=== PATIENT | female | born 1985 | race African-American/Black ===

== ENCOUNTER 2021-12-10 20:23 | Emergency (ER) | payer MEDICAID, SELFPAY ==
[2021-12-10 20:30] VITALS: BP 176/100; PULSE 96; RESP 18; TEMP 36.6; O2SAT 97; BMI 28.8
[2021-12-10 21:00] VITALS: BP 152/99
--- NOTE | 2021-12-10 21:04 | ED_ITS ---
HPI - Extremity Injury (Lower) General Time Seen by Provider: 21:05 Date Seen: 12/10/21 Chief Complaint: Extremity Pain/Injury, Lower Stated Complaint: Fall, right ankle injury Time Seen by Provider: 12/10/21 21:04 Source: patient, RN notes reviewed and old records reviewed Mode of arrival: ambulatory Limitations: no limitations History of Present Illness HPI Narrative: Patient is a very pleasant 36-year-old female previously healthy who fell downstairs early this morning and has been unable to bear weight or walk on her right ankle since that time. Describes pain in the top of her foot and in the ankle. Her significant other has been caring her around when she has needed to use the restroom. She notes no other injury including head or neck. She is otherwise a healthy person. Movement or attempts at bearing weight greatly increases her discomfort. Related Data Home Medications Medication Instructions Recorded Confirmed amlodipine 5 mg tablet mg 12/10/21 bupropion HCl 150 mg 24 hr tablet, mg PO 12/10/21 extended release fluoxetine 40 mg capsule mg 12/10/21 folic acid 1 mg tablet 12/10/21 hydroxyzine HCl 25 mg tablet mg 12/10/21 ibuprofen 12/10/21 nicotine 14 mg/24 hr daily 12/10/21 transdermal patch thiamine mononitrate (vit B1) 100 mg 12/10/21 mg tablet (Vitamin B-1 (mononitrate)) Allergies Allergy/AdvReac Type Severity Reaction Status Date / Time No Known Drug Allergies Allergy Verified 12/10/21 20:34 Review of Systems Narrative: Denies any recent illnesses. Denies hitting head or any other injury. [facility] Social History Do you use any of these nicotine containing products: E-Cigarettes How often do you have a drink containing alcohol: monthly or less AUDIT-C Alcohol total score: 1 Non-prescribed substance use: marijuana (any form) Exam Narrative: Exam Narrative: Bilateral malleolar edema noted on the right lower ankle with discomfort palpated over the 1st metatarsal 5th metatarsal and lateral malleolus. No pain with palpation over the fibular head or tibia. Const: Vital Signs, click to edit/add: Vital Signs - 24 hr 12/10/21 20:30 12/10/21 21:00 Temperature 97.9 F Pulse Rate [Right Pulse Oximeter] 96 Respiratory Rate 18 Blood Pressure [Le ft Upper Arm] 176/100 H 152/99 H Pulse Oximetry 97 Oxygen Delivery Me thod Room Air Course Course Hospital Course: X-rays of the ankle and foot pending Vital Signs Vital signs: Initial Vital Signs Temperature 97.9 F 12/10/21 20:30 Temperature Source Oral 12/10/21 20:30 Pulse Rate 96 12/10/21 20:30 Respiratory Rate 18 12/10/21 20:30 Blood Pressure 176/100 H 12/10/21 20:30 Blood Pressure Mean 125 12/10/21 20:30 Blood Pressure Position Sitting 12/10/21 20:30 Pulse Oximetry 97 12/10/21 20:30 Oxygen Delivery Method 12/10/21 20:30 Vital Signs Temperature 97.9 F 12/10/21 20:30 Pulse Rate 96 12/10/21 20:30 Respiratory Rate 18 12/10/21 20:30 Blood Pressure 176/100 H 12/10/21 20:30 Pulse Oximetry 97 12/10/21 20:30 Oxygen Delivery Method 12/10/21 20:30 Temperature 97.9 F 12/10/21 20:30 Pulse Rate 96 12/10/21 20:30 Respiratory Rate 18 12/10/21 20:30 Blood Pressure 152/99 H 12/10/21 21:00 Pulse Oximetry 97 12/10/21 20:30 Oxygen Delivery Method 12/10/21 20:30 MDM - Extremity Injury (Lower) MDM Narrative Medical decision making narrative: 1. Right ankle fracture-patient has fibular fracture. Orthopedic PA suggests ca m walker and crutches. Light weight-bearing or toe-touch. Recommend follow-up with orthopedics for further examination and possible stress views. For pain recommend ibuprofen 600 mg every 8 hours. May use Vicodin sparingly 1-2 tablets q.4-6 hours p.r.n.. 20. Via Whi. Did inform patient this can be constipating. Try to elevate as much as possible. May remove leg from boot for icing. 2. Hypertension-blood pressure improved. Patient continues to be in significant discomfort which is likely resulting in elevated blood pressure. 2. Disposition- home in care of fiance. Return as needed. Did give number for Orthopedic and fracture Clinic here in [place] even though have any lives in [place]. States that her step children live here in she is frequently in [place]. Medical Records Attestation: I reviewed the patient's medical records. Medical records narrative: Review of patient's medical records note past history of alcohol misuse. Patient did not reveal this to me. Did explain to her that Denver can be addicting and that she should use this medication sparingly. I do not think ibuprofen will be entirely helpful in managing patient's pain. Imaging Data Right ankle x-ray: Attestation: I have reviewed the pertinent imaging results. My impression: No fracture of the foot Radiologist's impression: No acute fracture of the foot Right foot x-ray: Attestation: I have reviewed the pertinent imaging results. My impression: Obvious fracture through the distal aspect of the fibula Radiologist's impression: ones: There is a nondisplaced oblique fracture through the distal diaphysis of the fibula which appears to extend into the proximal lateral malleolus. Joint spaces: Unremarkable.? Soft tissues: Mild lateral soft tissue swelling. Impression: Nondisplaced oblique fracture through the distal diaphysis of the fibula which appears to extend into the proximal lateral malleolus. Discharge Plan Discharge Clinical Impression: Ankle fracture Patient Disposition: Home, Self-Care Condition: Improved Additional Instructions: Ibuprofen 600 mg every 8 hours as needed for pain. You may add Denver also known as hydrocodone or Vicodin sparingly for pain not relieved by ibuprofen. Denver from our [employer] meds machine. Try to elevate leg as much as possible. Ice to area of concern. Follow-up with orthopedics for additional evaluation and x- rays. Cam walker and crutches at this time. [facility] in [facility] can be reached at [phone] Prescriptions: No Action amlodipine 5 mg tablet bupropion HCl 150 mg tablet extended release 24 hr PO Label Comments: TAKE 1 TABLET BY MOUTH DAILY IN THE MORNING fluoxetine 40 mg capsule Label Comments: TAKE 1 CAPSULE BY MOUTH EVERY DAY IN THE MORNING nicotine 14 mg/24 hr patch 24 hour Label Comments: PLACE 1 PATCH ONTO SKIN DAILY. folic acid 1 mg tablet hydroxyzine HCl 25 mg tablet thiamine mononitrate (vit B1) [Vitamin B-1 (mononitrate)] 100 mg tablet Label Comments: TAKE 1 TABLET BY MOUTH DAILY ibuprofen Stand Alone Forms: [facility] Info Instructions
--- NOTE | 2021-12-10 21:12 | CRLHL7_ITS ---
For Patients: As a result of the Century Cures Act, medical imaging exams and procedure reports are released immediately into your electronic medical record. You may view this report before your referring provider. If you have questions, please contact your health care provider. Indication: Twisting injury after a fall Technique: Three views right foot Comparison: None Findings: Bones: Hallux valgus. Nondisplaced fracture of distal fibula seen on the lateral view. No foot bone fracture Joint spaces: Unremarkable. Soft tissues: Unremarkable. Impression: No foot bone fracture. Nondisplaced fracture of the distal fibula. Hallux valgus. Dictated by Arlette Porras MD @ 12/10/2021 9:49:00 PM (Electronically Signed)
--- NOTE | 2021-12-10 21:12 | CRLHL7_ITS ---
For Patients: As a result of the Century Cures Act, medical imaging exams and procedure reports are released immediately into your electronic medical record. You may view this report before your referring provider. If you have questions, please contact your health care provider. Indication: Twisting injury after fall Technique: Three views right ankle Comparison: None Findings: Bones: There is a nondisplaced oblique fracture through the distal diaphysis of the fibula which appears to extend into the proximal lateral malleolus. Joint spaces: Unremarkable. Soft tissues: Mild lateral soft tissue swelling. Impression: Nondisplaced oblique fracture through the distal diaphysis of the fibula which appears to extend into the proximal lateral malleolus. Dictated by Arlette Porras MD @ 12/10/2021 9:46:46 PM (Electronically Signed)
--- OUTSIDE RECORDS SUMMARY | 2021-12-10 21:19 | XMS_ITS | Encounter Summary ---
:1985 Author Organization [facility] Address [address] [place] [id number] Care Team Providers Name Role Phone Michela Ramírez MD Primary Care Provider Eric Rae Unavailable Unavailable Michela Ramírez MD Unavailable Encounter Details Date Type Department Care Team Description 07/24/2021 Travel Social History Tobacco Use Types Packs/Day Years Used Date Smoking Tobacco: Every Day Cigarettes 0.5 6 L ast attempted to quit: 05/12/2011 Smokeless Tobacco: Never Alcohol Use Standard Drinks/Week Comments Not Currently 2 (1 standard drink = 0.6 oz pure alcoho l) Alcohol Habits Answer Date Recorded How often do you have a drink containing Never 05/22/2021 alcohol? How many drinks containing alcohol do you have Patient does not drink 05/22/2021 on a typical day when you are drinking? How often do you have six or more drinks on one Never 05/22/2021 occasion? Social Isolation Answer Date Recorded In a typical week, how many times do you talk on Three times a week 05/22/2021 the phone with family, friends, or neighbors? How often do you get together with friends or Never 05/22/2021 relatives? How often do you attend tenriism or zoroastrian Never 05/22/2021 services? Do you belong to any clubs or organizations such as No 05/22/2021 tenriism groups, unions, fraternal or athletic groups, or school groups? How often do you attend meetings of the clubs or Not asked organizations you belong to? Are you now , , , , Living wi th partner 05/22/2021 never or living with a partner? Physical Activity Answer Date Recorded On average, how many days per week do you engage in moderate to 0 days 05/22/2021 strenuous exercise (like walking fast, running, jogging, dancing, swimming, biking, or other activities that cause a light or heavy sweat)? On average, how many minutes do you engage in exercise at th is 0 min 05/22/2021 level? Stress Answer Date Recorded Do you feel stress - tense, restless, nervous, or anxious, o r Very much 05/22/2021 unable to sleep at night because your mind is troubled all the time - these days? Financial Resource Strain Answer Date Recorded How hard is it for you to pay for the very basics like food, Hard 05/22/2021 housing, medical care, and heating? Food Insecurity Answer Date Recorded Within the past 12 months, you worried that your food Someti mes true 05/22/2021 would run out before you got money to buy more. Within the past 12 months, the food you bought just Patient refused 05/22/2021 didn't last and you didn't have money to get more. Transportation Needs Answer Date Recorded In the past 12 months, has lack of transportation kept you f rom No 05/22/2021 medical appointments or from getting medications? In the past 12 months, has lack of transportation kept you f rom No 05/22/2021 meetings, work, or getting things needed for daily living? Housing Stability Answer Date Recorded In the last 12 months, was there a time when you were not ab le Yes 05/22/2021 to pay the mortgage or rent on time? In the last 12 months, how many places have you lived? 1 05/22/2021 In the last 12 months, was there a time when you did not hav e a No 05/22/[address] or slept in a longterm (including now)? Sex Assigned at Date Recorded Female 12/08/2020 12:18 PM CDT documented as of this encounter Plan of Treatment Not on filedocumented as of this encounter Visit Diagnoses Not on filedocumented in this encounter Additional Health Concerns Assessment Noted Time PHQ-9 Depression Total Score: 18 07/12/2021 7:04 AM CD T documented as of this encounter Care Teams Electrician Substation Relationship Specialty Start Date End Date Michela Ramírez MD PCP - General Family Medicine 05/22/21 [id number] [place], [place] [id number] Eric Rae Personal Advocate & Liaison 05/22/21 (PAL) Michela Ramírez MD Assigned PCP 05/27/21 [address] [place], [place] [id number] documented as of this encounter
--- OUTSIDE RECORDS SUMMARY | 2021-12-10 21:19 | XMS_ITS | Encounter Summary ---
:1985 Author Organization [facility] Address [address] [place] [id number] Care Team Providers Name Role Phone Reggie Sarabia MD Primary Care Provider [phone] Che Chong APRN AFRICAN STUDIES PROFESSOR Unavailable [phone] Michela Ramírez MD Primary Care Provider Eric Rae Unavailable Unavailable Michela Ramírez MD Unavailable Encounter Details Date Type Department Care Team Description 05/10/2021 Telephone [facility] Generic, Behavior[facility] MD Carl [address] [place] [id number] Social History Tobacco Use Types Packs/Day Years [...] 05/22/2021 relatives? How often do you attend confucianism or sikh Never 05/22/2021 services? Do you belong to any clubs or organizations such as No 05/22/2021 confucianism groups, unions, fraternal or athletic groups, or school groups? How often do you attend meetings of the clubs or Not asked organizations you belong to? Are you now , , , , Living wi partner 05/22/2021 never or living with a partner? Physical Activity Answer Date Recorded On average, how many days per week do you engage in moderate to 0 days 05/22/2021 strenuous exercise (like walking fast, running, jogging, dancing, swimming, biking, or other activities that cause a light or heavy sweat)? On average, how many minutes do you engage in exercise at is 0 min 05/22/2021 level? Stress Answer [...] place to sleep or slept in a senior care (including now)? Sex Assigned at Date Recorded Female 12/08/2020 12:18 PM CDT documented as of this encounter Miscellaneous Notes Telephone Encounter - Chaparro Argueta - 06/01/2021 8:02 AM CDT Tried reaching out to patient to check them in for their virtual MH eval today, 06/01/2021 at 0830. Called, but no answer so a voice message was left for patient to return call to check in. Telephone Encounter - Memo Kern - 05/10/2021 9:53 AM CDT Pt scheduled MH DA via [employer]. Referral created and bens requested. documented in this encounter Plan of Treatment Not on filedocumented as of this encounter Visit Diagnoses Not on filedocumented in this encounter Additional Health Concerns Assessment Noted Time PHQ-9 Depression Total Score: 21 01/11/2021 7:03 AM CS T documented as of this encounter Care Teams Insurance Account Representative Relationship Specialty Start Date End Date Reggie Sarabia, PCP - General Family Practice 07/08/19 Michela Ramírez MD PCP - General Family Medicine 05/22/21 [id number] [place] [address] Che Chong, Assigned PCP 01/14/21 BEAN DUMPER AFRICAN STUDIES PROFESSOR [address] [place] [address] Eric Rae Personal Advocate & 05/22/21 Liaison (PAL) Michela Ramírez MD Assigned PCP 05/27/21 [address] [place] [address] documented as of this encounter
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
--- OUTSIDE RECORDS SUMMARY | 2021-12-10 21:19 | XMS_ITS | Encounter Summary ---
:1985 Author Organization [facility] Address [address] [place] [address] Care Team Providers Name Role Phone Michela Ramírez MD Primary Care Provider Eric Rae Unavailable Unavailable Michela Ramírez MD Unavailable Reason for Visit Reason Comments Medication Refill Encounter Details Date Type Department Care Team Description 09/16/[address] [facility], Medication Refill [place] Jaylin Saenz PA-C [id number] [place] [id number] [place] [phone] [place] [address] (Wo rk) Social History Tobacco Use Types Packs/Day Years [...] 05/22/2021 relatives? How often do you attend synagogue or latter-day Never 05/22/2021 services? Do you belong to any clubs or organizations such as No 05/22/2021 synagogue groups, unions, fraternal or athletic groups, or [...] this encounter Miscellaneous Notes Telephone Encounter - Norma Pena RN - 09/18/2021 3:10 PM CDT Routing refill request to provider for review/approval because: Drug interaction warning Norma Pena R.N. documented in this encounter Plan of Treatment Not on filedocumented as of this encounter Visit Diagnoses Diagnosis Anxiety Anxiety state, unspecified documented in this encounter Additional Health Concerns Assessment Noted Time PHQ-9 Depression Total Score: 18 07/12/2021 7:04 AM CD T documented as of this encounter Care Teams Bilingual Secretary Relationship Specialty Start Date End Date Michela Ramírez MD PCP - General Family Medicine 05/22/21 [address] [place] [address] Eric Rae Personal Advocate & Liaison 05/22/21 (PAL) Michela Ramírez MD Assigned PCP 05/27/21 [address] [place] [address] documented as of this encounter
--- OUTSIDE RECORDS SUMMARY | 2021-12-10 21:19 | XMS_ITS | Encounter Summary ---
:1985 Author Organization [facility] Address [address] [place] [address]. [place] [address] Care Team Providers Name Role Phone Reggie Sarabia MD Primary Care Provider [phone] Che Chong SPRAY DRIER OPERATOR HELPER HEARSE DRIVER Unavailable [phone] Encounter Details Date Type Department Care Team Description 02/21/2021 Emergency [facility] Lupe Hsu Acute [facility] Emergency Dep t MD Kaycee intoxication in [address] [facility] EMERGENCY PHYSICIANS alcoholism without [place], [place] complication (H) [id number]AN[address] [place] [id number] (Wo rk) Social History Tobacco Use Types [...] 05/22/2021 relatives? How often do you attend hinduism or latter-day Never 05/22/2021 services? Do you belong to any clubs or organizations such as No 05/22/2021 hinduism groups, unions, fraternal or athletic groups, or [...] to sleep or slept in a senior living (including now)? Sex Assigned at Date Recorded Female 12/08/2020 12:18 PM CDT documented as of this encounter Last Filed Vital Signs Vital Sign Reading Time Taken Comments Blood Pressure 130/85 02/21/2021 4:00 AM MODEL MAKER PLASTER Pulse 82 02/21/2021 4:00 AM MODEL MAKER PLASTER Temperature 37 ??C (98.6 ??F) 02/20/2021 11:23 PM MODEL MAKER PLASTER Respiratory Rate 17 02/21/2021 4:00 AM MODEL MAKER PLASTER Oxygen Saturation 100% 02/21/2021 3:30 AM MODEL MAKER PLASTER Inhaled Oxygen Concentration - - Weight 72.5 kg (159 lb 13.3 oz) 02/20/2021 11:23 PM MODEL MAKER PLASTER Height 165.1 cm (5' 5) 02/20/2021 11:23 PM MODEL MAKER PLASTER Body Mass Index 26.6 02/20/2021 11:23 PM MODEL MAKER PLASTER documented in this encounter Medications at Time of Discharge Medication Sig Dispensed Refills Start Date End Date hydrOXYzine (ATARAX) 25 Take 1 tablet (25 mg) 90 tablet 1 1 02/29/2020 MG tabletIndications: by mouth every 4 Alcohol withdrawal hours as needed for syndrome, with anxiety unspecified complication (H) acamprosate (CAMPRAL) Take 2 tablets (666 30 tablet 0 12/1007/24/2021 333 MG EC mg) by mouth 3 times tabletIndications: daily Alcohol withdrawal syndrome, with unspecified complication (H) amLODIPine (NORVASC) 5 Take 1 tablet (5 mg) 3 tablet 0 01/202205/22/2021 MG tablet by mouth daily for 3 days amLODIPine (NORVASC) 5 Take 1 tablet (5 mg) 90 tablet 1 05/22/2021 MG tabletIndications: by mouth daily Alcohol withdrawal syndrome, with unspecified complication (H) FLUoxetine (PROZAC) 20 Take 1 capsule (20 3 capsule 0 02/2105/22/2021 MG capsule mg) by mouth daily FLUoxetine (PROZAC) 20 Take 1 capsule (20 30 capsule 1 01/1004/26/2021 MG capsuleIndications: mg) by mouth daily Major depressive disorder, single episode, moderate (H) folic acid (FOLVITE) 1 Take 1 tablet (1 mg) 90 tablet 1 05/22/2021 MG tabletIndications: by mouth daily Alcohol withdrawal syndrome, with unspecified complication (H) multivitamin w/minerals Take 1 tablet by 90 tablet 1 202005/22/2021 (THERA-VIT-M) mouth daily tabletIndications: Alcohol withdrawal syndrome, with unspecified complication (H) nicotine (NICODERM CQ) Place 1 patch onto 30 patch 0 12/1107/24/2021 14 MG/24HR 24 hr the skin daily patchIndications: Alcohol withdrawal syndrome, with unspecified complication (H) nicotine (NICORETTE) 2 Place 1 each (2 mg) 30 each 0 11/1207/24/2021 MG gumIndications: inside cheek every Alcohol withdrawal hour as needed for syndrome, with other (nicotine unspecified withdrawal symptoms) complication (H) thiamine (B-1) 100 MG Take 1 tablet (100 90 tablet 1 202005/22/2021 tabletIndications: mg) by mouth daily Alcohol withdrawal syndrome, with unspecified complication (H) documented as of this encounter ED Notes Annie Kimball RN - 02/21/2021 2:57 AM CST [facility] updated with patients alcohol level, they advised that we can transfer the patient when we are ready L MAKER PLASTER Lyn Tejada RN - 02/21/2021 2:19 AM CST [facility] obtained from patient's fiance off of RX bottles at home L MAKER PLASTER Lyn Tejada RN - 02/21/2021 1:42 AM CST I can't control it anymore, patient reports being unable to control her drinking at this time, patient self reports being a binge drinker can be sober for a month and then will drink for days, reports detox has been helpful in the past, requests to be sent there L MAKER PLASTER Emmanuel Jacques - 02/21/2021 1:10 AM CST Bed: ED11 Expected date: Expected time: Means of arrival: Comments: Triage-ready L MAKER PLASTER Laurie Aviles RN - 02/20/2021 11:21 PM CST Pt keturah answering for pt. She's been binge drinking for 4 days. She's been falling a lot. It's hard to get help outside. I've found 4 liter sized vodka bottles consumed in the last 2-3 days. Pt tearful in triage. Per keturah, we brought our nephew in here 2 months ago and were turned away and he 12 hours later and I just want to make sure she gets help. Pt has hx of gastric bypass surgery 5years ago, pt overdosed 2 years ago mixing fentanyl and alcohol. Pt endorses drinking 1L/day of vodka. L MAKER PLASTER Lupe Hsu MD - 02/20/2021 11:17 PM CST History Chief Complaint: Alcohol Intoxication The history is provided by the patient. Tri Hendrickson is a 35 year old female with history of alcohol dependence, alcohol withdrawal, narcotic overdose, and hypertension who presents with alcohol intoxication. The patient states that she is currently going through an episode of binge drinking. This is currently her fourth day of drinking and she states that she consumes approximately 1 liter of vodka per day. Due to her drinking, she notesshe has been having frequent falls but denies any current injury or headache or neck pain. Her last drink was around 1800 today. She has not currently been taking her regular medications. While in the ED, she states that she is hoping this is the end of her binge and she is seeking detox. She has attended treatment in the past and was sober for 37 days following. She denies any recent diarrhea, nausea, or vomiting. She has no history of alcohol withdrawal seizures. Review of Systems Constitutional: Intoxication Gastrointestinal: Negative for abdominal pain, diarrhea, nausea and vomiting. Musculoskeletal: Negative. Neurological: Negative for headaches. Psychiatric/Behavioral: Negative for suicidal ideas. All other systems reviewed and are negative. Allergies: Lisinopril Medications: Patient reports not taking Campral Amlodipine Prozac Atarax Thiamine Hydroxyzine Past Medical History: Cough Depression Hypertension Obesity Iron deficiency anemia Tobacco use disorder Narcotic overdose Alcohol withdrawal syndrome Past Surgical History: Gastric bypass section x2 Family History: Mother: hypertension Social History: The patient presents to the ED alone. Her assigned PCP is Che Chong CNP. Daily alcohol use. Physical Exam Patient Vitals for the past 24 hrs: BP Temp Temp src Pulse Resp SpO2 Height Weight 02/21/21 0230 (!) 134/94 -- -- 92 14 100 % -- -- 02/21/21 0215 -- -- -- 98 10 100 % -- -- 02/21/21 0200 133/89 -- -- 91 17 100 % -- -- 02/21/21 0145 (!) 140/100 -- -- 101 16 -- -- -- 02/21/21 0130 126/76 -- -- -- -- -- -- -- 02/20/21 2323 (!) 175/111 98.6 ??F (37 ??C) Oral 120 18 100 % 1.651 m (5' 5) 72.5 kg (159 lb 13.3 oz) Physical Exam General: Adult female sitting upright Eyes: PERRL, Conjunctive within normal limits. No scleral icterus. ENT: Moist mucous membranes, oropharynx clear. CV: Normal S1S2, no murmur, rub or gallop. Tachycardic, regular. Resp: Clear to auscultation bilaterally, no wheezes, rales or rhonchi. Normal respiratory effort. GI: Abdomen is soft, nontender and nondistended. No palpable masses. No rebound or guarding. MSK: No edema. Nontender. Normal active range of motion. Skin: Warm and dry. No rashes or lesions or ecchymoses on visible skin. Neuro: Alert and oriented. Responds appropriately to all questions and commands. No focal findings appreciated. Normal muscle tone. Speech is normal. No tremors. Psych: Normal mood and affect. Pleasant. Emergency Department Course ECG ECG obtained at 0135, ECG read at 0145 Sinus tachycardia. Otherwise normal ECG. Rate 102 bpm. WA interval 152 ms. QRS duration 84 ms. QT/QTc 354/461 ms. P-R-T axes 44 23 44. Laboratory: CBC: WBC 4.2, HGB 12.2, PLT 198 CMP: sodium 145 (H), chloride 116 (H), calcium 7.8 (L), albumin 3.3 (L), bilirubin total 0.1 (L) o/wWNL (Creatinine 0.80) Alcohol level blood: 0.33 (HH) Magnesium: 1.9 IStat HCG quantitative , POCT: <5.0 Emergency Department Course: Reviewed: I reviewed nursing notes, vitals, past medical history, Care Everywhere and MIIC Assessments: 0135 I obtained history and examined the patient as noted above. 0245 I rechecked the patient and explained findings. No new concerns. Detox bed available, patient agreeable to plan for discharge to detox. Interventions: 0148 NS 1L IV Bolus Thiamine 100 mg PO Folic acid 1 mg PO 0250 Amlodipine 5 mg PO Ativan 1 mg PO Disposition: The patient was transferred to [facility] via ambulance. Impression & Plan Medical Decision Making: Tri Hendrickson is a 35 year old female who presents for evaluation of alcohol abuse, seeking detox. She is intoxicated here in ED by blood work but clinically does not seem intoxicated. . Blood work otherwise looks ok; no signs of alcoholic ketoacidosis, no significant liver impairment or acute alcoholic hepatitis. She does not appear on exam to be going through acute alcohol withdrawal at this time. We discussed this and due to the likelihood of withdrawal as well as her desire, she will be transferred to detox. She denies co-ingestions or other drug abuse. She has no signs of trauma related to alcohol use and no further workup is needed including head CT. Will arrange for inpatient detox. Stable to transfer to [facility]. Diagnosis: ICD-10-CM 1. Acute alcoholic intoxication in alcoholism without complication (H) F10.220 Discharge Medications: New Prescriptions AMLODIPINE (NORVASC) 5 MG TABLET Take 1 tablet (5 mg) by mouth daily for 3 days FLUOXETINE (PROZAC) 20 MG CAPSULE Take 1 capsule (20 mg) by mouth daily Scribe Disclosure: I, Selena La, am serving as a scribe at 1:27 AM on 02/21/2021 to document services personally performed by Lupe Hsu MD based on my observations and the provider's statements to me. Lupe Hsu MD 02/22/21 0050 L MAKER PLASTER documented in this encounter Plan of Treatment Not on filedocumented as of this encounter Procedures Procedure Name Priority Date/Time Associated Comments Diagnosis ISTAT HCG QUANTITATIVE STAT 02/21/2021 1:43 AM Results for this POCT MODEL MAKER PLASTER procedure are in the results section. CBC WITH PLATELETS AND STAT 02/21/2021 1:38 AM Results for this DIFFERENTIAL MODEL MAKER PLASTER procedure are i n the results section. CBC WITH PLATELETS & STAT 02/21/2021 1:38 AM R esults for this DIFFERENTIAL MODEL MAKER PLASTER procedure are i n the results section. MAGNESIUM STAT 02/21/2021 1:38 AM Results f or this MODEL MAKER PLASTER procedure are i n the results section. COMPREHENSIVE STAT 02/21/2021 1:38 AM Results for this METABOLIC PANEL MODEL MAKER PLASTER procedure ar e in the results section. ETHYL ALCOHOL LEVEL STAT 02/21/2021 1:38 AM Re sults for this MODEL MAKER PLASTER procedure are i n the results section. EKG 12-LEAD, TRACING STAT 02/21/2021 1:35 AM R esults for this ONLY MODEL MAKER PLASTER procedure are i n the results section. documented in this encounter Results iStat HCG Quantitative , POCT (02/21/2021 1:43 AM MODEL MAKER PLASTER) Analysis Performed At Patho logist Time Signature HCG QUANTITATIVE <5.0 0.0 - 5.0 02/21/2021 RH LABOR[facility] Y POCT IU/L 1:56 AM MODEL MAKER PLASTER POC Specimen Anatomical Collection Method Collection Time Receive d Time (Source) Location / / Volume Laterality Blood BLOOD SPECIMEN / 02/21/2021 1:43 AM 02/21 1:56 Unknown MODEL MAKER PLASTER AM MODEL MAKER PLASTER Lupe AMIN - [facility] POCT Performing Organization Address City/State/ZIP Code Phon e Number [facility] [place] [address] Care Lab [address] Lab (1st floor, no room number) (ABNORMAL) CBC with platelets and differential (02/21/2021 1:38 AM MODEL MAKER PLASTER) [facility] Method Time Signature WBC Count 4.2 4.0 - 02/21/2021 [facility] 11.0 1:56 AM MODEL MAKER PLASTER 10e3/uL RBC Count 4.79 3.80 - 02/21/2021 [facility] 5.20 1:56 AM MODEL MAKER PLASTER 10e6/uL Hemoglobin 12.2 11.7 - 02/21/2021 [facility] 15.7 g/dL 1:56 AM MODEL MAKER PLASTER Hematocrit 41.6 35.0 - 02/21/2021 [facility] 47.0 % 1:56 AM MODEL MAKER PLASTER MCV 87 78 - 100 02/21/2021 [facility] fL 1:56 AM MODEL MAKER PLASTER MCH 25.5 (L) 26.5 - 02/21/2021 [facility] 33.0 pg 1:56 AM MODEL MAKER PLASTER MCHC 29.3 (L) 31.5 - 02/21/2021 [facility] 36.5 g/dL 1:56 AM MODEL MAKER PLASTER RDW 16.5 (H) 10.0 - 02/21/2021 [facility] 15.0 % 1:56 AM MODEL MAKER PLASTER Platelet Count 198 150 - 450 02/21/2021 [facility] 10e3/uL 1:56 AM MODEL MAKER PLASTER % Neutrophils 45 % 02/21/2021 [facility] 1:56 AM MODEL MAKER PLASTER % Lymphocytes 50 % 02/21/2021 [facility] 1:56 AM MODEL MAKER PLASTER % Monocytes 3 % 02/21/2021 [facility] 1:56 AM MODEL MAKER PLASTER % Eosinophils 1 % 02/21/2021 [facility] 1:56 AM MODEL MAKER PLASTER % Basophils 1 % 02/21/2021 [facility] 1:56 AM MODEL MAKER PLASTER % Immature 0 % 02/21/2021 [facility] Granulocytes 1:56 AM MODEL MAKER PLASTER NRBCs per 100 0 <1 /100 02/21/2021 [facility] WBC 1:56 AM MODEL MAKER PLASTER Absolute 1.9 1.6 - 8.3 02/21/2021 [facility] Neutrophils 10e3/uL 1:56 AM MODEL MAKER PLASTER Absolute 2.1 0.8 - 5.3 02/21/2021 [facility] Lymphocytes 10e3/uL 1:56 AM MODEL MAKER PLASTER Absolute 0.1 0.0 - 1.3 02/21/2021 [facility] Monocytes 10e3/uL 1:56 AM MODEL MAKER PLASTER Absolute 0.0 0.0 - 0.7 02/21/2021 [facility] Eosinophils 10e3/uL 1:56 AM MODEL MAKER PLASTER Absolute 0.1 0.0 - 0.2 02/21/2021 [facility] Basophils 10e3/uL 1:56 AM MODEL MAKER PLASTER Absolute 0.0 <=0.4 02/21/2021 [facility] Immature 10e3/uL 1:56 AM MODEL MAKER PLASTER Granulocytes Absolute NRBCs 0.0 10e3/uL 02/21/2021 [facility] 1:56 AM MODEL MAKER PLASTER Specimen Anatomical Collection Method / Collection Time Recei ariel Time (Source) Location / Volume Laterality Blood VENOUS LINE / Venipuncture / 02/21/2021 1:38 2 1:51 Unknown Unknown AM MODEL MAKER PLASTER AM MODEL MAKER PLASTER Lupe Hsu MD LAB - BLOOD ORDERABLES Performing Organization Address City/State/ZIP Code Phon e Number [place] [phone] Care Lab [address] Lab (1st floor, no room number) (ABNORMAL) Alcohol level blood (02/21/2021 1:38 AM MODEL MAKER PLASTER) Patholo gist Method Time Signature Alcohol ethyl 0.33 (HH) <=0.01 02/21/2021 [facility] g/dL 2:55 AM MODEL MAKER PLASTER Specimen Anatomical Collection Method / Collection Time Recei ariel Time (Source) Location / Volume Laterality Blood VENOUS LINE / Venipuncture / 02/21/2021 1:38 2 1:51 Unknown Unknown AM MODEL MAKER PLASTER AM MODEL MAKER PLASTER Lupe Hsu MD LAB - BLOOD ORDERABLES Performing Organization Address City/State/ZIP Code Phon [place] [address] Care Lab [address] Lab (1st floor, no room number) Magnesium (02/21/2021 1:38 AM MODEL MAKER PLASTER) P athologist Signature Magnesium 1.9 1.6 - 2.3 02/21/2021 [facility] mg/dL 2:13 AM MODEL MAKER PLASTER Specimen Anatomical Collection Method / Collection Time Recei ariel Time (Source) Location / Volume Laterality Blood VENOUS LINE / Venipuncture / 02/21/2021 1:38 1:51 Unknown Unknown AM MODEL MAKER PLASTER AM MODEL MAKER PLASTER Lupe Hsu MD LAB - BLOOD ORDERABLES Performing Organization Address City/State/ZIP Code Phon [place] [address] Care Lab [address] Lab (1st floor, no room number) (ABNORMAL) Comprehensive metabolic panel (02/21/2021 1:38 AM MODEL MAKER PLASTER) [facility] gist Method Time Signature Sodium 145 (H) 133 - 144 02/21/2021 LABORATORY mmol/L 2:13 AM MODEL MAKER PLASTER Potassium 3.8 3.4 - 5.3 02/21/2021 LABORATORY mmol/L 2:13 AM MODEL MAKER PLASTER Chloride 116 (H) 94 - 109 02/21/2021 LABORATORY mmol/L 2:13 AM MODEL MAKER PLASTER Carbon Dioxide 22 20 - 32 02/21/2021 LABORATORY (CO2) mmol/L 2:13 AM MODEL MAKER PLASTER Anion Gap 7 3 - 14 02/21/2021 LABORATORY mmol/L 2:13 AM MODEL MAKER PLASTER Urea Nitrogen 9 7 - 30 02/21/2021 LABORATORY mg/dL 2:13 AM MODEL MAKER PLASTER Creatinine 0.80 0.52 - 02/21/2021 [facility] 1.04 mg/dL 2:13 AM MODEL MAKER PLASTER Calcium 7.8 (L) 8.5 - 10.1 02/21/2021 LABORATORY mg/dL 2:13 AM MODEL MAKER PLASTER Glucose 88 70 - 99 02/21/2021 LABORATORY mg/dL 2:13 AM MODEL MAKER PLASTER Alkaline 79 40 - 150 02/21/2021 LABORATORY Phosphatase U/L 2:13 AM MODEL MAKER PLASTER AST 21 0 - 45 U/L 02/21/2021 [facility] 2:13 AM MODEL MAKER PLASTER ALT 19 0 - 50 U/L 02/21/2021 [facility] 2:13 AM MODEL MAKER PLASTER Protein Total 7.4 6.8 - 8.8 02/21/2021 [facility] g/dL 2:13 AM MODEL MAKER PLASTER Albumin 3.3 (L) 3.4 - 5.0 02/21/2021 [facility] g/dL 2:13 AM MODEL MAKER PLASTER Bilirubin Total 0.1 (L) 0.2 - 1.3 02/21/2021 LABORATORY mg/dL 2:13 AM MODEL MAKER PLASTER GFR Estimate >90 >60 02/21/2021 [facility] mL/min/1.7 2:13 AM MODEL MAKER PLASTER 3m2 Comment: Effective January 30, 2021 eGF Rcr in adults is calculated using the 2020 CKD-EPI creatinine equation which includ es age and gender (Mitch et al., [place], DOI: 10.1056/BBKTmc3338158) Specimen Anatomical Collection Method / Collection Time Recei ariel Time (Source) Location / Volume Laterality Blood VENOUS LINE / Venipuncture / 02/21/2021 1:38 2 1:51 Unknown Unknown AM MODEL MAKER PLASTER AM MODEL MAKER PLASTER Lupe Hsu MD LAB - BLOOD ORDERABLES Performing Organization Address City/State/ZIP Code Phon [place] [phone] Care Lab [address] Lab (1st floor, no room number) EKG 12-lead, tracing only (02/21/2021 1:35 AM MODEL MAKER PLASTER) Component Value Ref Range Test Analysis Performed Pathologis t Method Time At Signature Systolic Blood mmHg RADIOLOGY Pressure RESULTS Diastolic Blood mmHg RADIOLOGY Pressure RESULTS Ventricular Rate 102 BPM RADIOLOGY RESULTS Atrial Rate 102 BPM RADIOLOGY RESULTS WA Interval 152 ms RADIOLOGY RESULTS QRS Duration 84 ms RADIOLOGY RESULTS QT 354 ms RADIOLOGY RESULTS QTc 461 ms RADIOLOGY RESULTS P [place] 44 degrees RADIOLOGY RESULTS R AXIS 23 degrees RADIOLOGY RESULTS T [place] 44 degrees RADIOLOGY RESULTS Interpretation Sinus tachycardia RADIOLO GY ECG Otherwise normal ECG RESULTS When compared with ECG of 25-JUL-2019 04:25, Criteria for Lateral infarct are no longer Present Nonspecific T wave abnormality, improved in Inferior leads Nonspecific T wave abnormality no longer evident in Lateral leads Confirmed by - EMERGENCY CONNIE Jarvis, PHYSICIAN ([id number]), editor farm journal LI SPENCER ([id number]) on 02/21/2021 6:39:48 AM Specimen Anatomical Collection Method Collection Time Receive d Time (Source) Location / / Volume Laterality 02/21/2021 1:35 AM 2 6:39 MODEL MAKER PLASTER AM MODEL MAKER PLASTER Lupe Hsu MD ECG ORDERABLES Performing Organization Address City/State/ZIP Code Phon e Number RADIOLOGY RESULTS documented in this encounter Visit Diagnoses Diagnosis Acute alcoholic intoxication in alcoholi sm without complication (H) documented in this encounter Administered Medications Inactive Administered Medications - up to 3 most recent administrations Medication Order MAR Action Action Date Dose Rate Site 0.9% sodium chloride BOLUS New Bag 02/21/2021 1:48 AM MODEL MAKER PLASTER 1,000 mLs 1000 mL/hr Intravenous, 1,000 mL, ONCE, at 1,000 mL/hr, Administer over 1 Hours, On Fri02/21/21 at 0130, For 1 dose amLODIPine (NORVASC) tablet 5 mg Given 02/21/2021 2:50 AM MODEL MAKER PLASTER 5 mg 5 mg, Oral, ONCE, On Fri02/21/21 at 0245, For 1 dose folic acid (FOLVITE) tablet 1 mg Given 02/21/2021 1:48 AM MODEL MAKER PLASTER 1 mg 1 mg, Oral, ONCE, On Fri02/21/21 at 0130, For 1 dose LORazepam (ATIVAN) tablet 1 mg Given 02/21/2021 2:50 AM MODEL MAKER PLASTER 1 mg 1 mg, Oral, ONCE PRN, agitation, alcohol withdrawal, Starting on Fri02/21/21 at 0242, For 1 dose nicotine (NICODERM CQ) Patch/Med Applied 02/21/2021 4:06 AM 1 patch Right Shoulder 7 MG/24HR 24 hr patch MODEL MAKER PLASTER 1 patch 1 patch, Transdermal, DAILY, Administer over 24 Hours, First dose on Fri02/21/21 at 0345, Reminder: Remove previous patch before applying new patch. nicotine Patch in Place First dose on Fri02/21/21 at 0345, Chart every shift, confirming that patch is still in place on patient (no barcode scan needed). Se e patch order for dose information. sodium chloride 0.9% infusion at 125 mL/hr, Intravenous, CONTINUOUS, A dminister after the bolus., Starting on Fri02/21/21 at 0230, Until Fri02/21/21 at 0744 thiamine (B-1) tablet 100 mg Given 02/21/2021 1:48 AM MODEL MAKER PLASTER 100 mg 100 mg, Oral, ONCE, On Fri02/21/21 at 0130, For 1 dose documented in this encounter Active and Recently Administered Medications Times are shown in MODEL MAKER PLASTER. Scheduled Medication Order 02/19/2021 02/20/2021 02/21/2021 0.9% sodium chloride BOLUS (COMPLETED) 0148 (New Bag - Provider: Lyn Tejada RN)0342 (Stopped - Provider: Lyn Tejada RN) Intravenous, 1,000 mL, ONCE, at 1,000 mL /hr, Administer over 1 Hours, On Fri02/21/21 at 0130, For 1 dose amLODIPine (NORVASC) tablet 5 mg (COMPLETED) 249 (Given - Provider: Annie Kimball, KATERYNA) 5 mg, Oral, ONCE, On Fri02/21/21 at 0245, For 1 dose folic acid (FOLVITE) tablet 1 mg (COMPLETED) 147 (Given - Provider: Lyn Tejada RN) 1 mg, Oral, ONCE, On Fri02/21/21 at 0130, For 1 dose nicotine (NICODERM CQ) 7 MG/24HR 24 hr patch 1 patch 0406 (Patch/Med Applied - Provider: Lyn Tejada RN)0536 (Due: Patch/Med Removed - Provider: Orders Generic Provider - Comment: Time automatically adjusted from order being discontinued) 1 patch, Transdermal, DAILY, Administer over 24 Hours, First dose on Fri02/21/21 at 0345, Reminder: Remove previous patch before applying new patch. nicotine Patch in Place 0412 ([facility] in Place - Provider: Lyn Tejada RN) First dose on Fri02/21/21 at 0345, Chart every shift, confirming that patch is still in place on patient (no barcode scan needed). See patch order for dose information. thiamine (B-1) tablet 100 mg (COMPLETED) 147 (Given - Provider: Lyn Tejada RN) 100 mg, Oral, ONCE, On Fri02/21/21 at 0130, For 1 dose Continuous Medication Order 02/19/2021 02/20/2021 02/21/2021 sodium chloride 0.9% infusion 02 30 (Canceled Entry - Provider: Orders Generic Provider - Comment: Automatically canceled at discontinue of medication order) at 125 mL/hr, Intravenous, CONTINUOUS, A dminister after the bolus., Starting on Fri02/21/21 at 0230, Until Fri02/21/21 at 0744 PRN Medication Order 02/19/2021 02/20/2021 02/21/2021 LORazepam (ATIVAN) tablet 1 mg (COMPLETED) 249 (Given - Provider: Annie Kimball, KATERYNA) 1 mg, Oral, ONCE PRN, agitation, alcohol withdrawal, Starting on Fri02/21/21 at 0242, For 1 dose documented in this encounter Additional Health Concerns Assessment Noted Time PHQ-9 Depression Total Score: 01/11/2021 7:03 AM CS T documented as of this encounter Care Teams Ndt Inspector Relationship Specialty Start Date End Date Reggie Sarabia MD PCP - General Family Practice 07/08/19 05/21/21 Che Chong, ANA HEARSE DRIVER Assigned PCP 01/14/21 05/26/21 [id number] DANIELLA WAHL [id number] documented as of this encounter
--- OUTSIDE RECORDS SUMMARY | 2021-12-10 21:19 | XMS_ITS | Encounter Summary ---
:1985 Author Organization [facility] Address [address] [place] [address] Care Team Providers Name Role Phone Che Chong ANA U.S. SENATOR Unavailable [phone] Michela Ramírez MD Primary Care Provider Eric Rae Unavailable Unavailable Encounter Details Date Type Department Care Team Description 05/22/2021 Travel Social History Tobacco Use Types Packs/Day [...] 05/22/2021 relatives? How often do you attend scientologist or oriental orthodox Never 05/22/2021 services? Do you belong to any clubs or organizations such as No 05/22/2021 scientologist groups, unions, fraternal or athletic groups, or [...] place to sleep or slept in a long term (including now)? Sex Assigned at Date Recorded Female 12/08/2020 12:18 PM CDT COVID-19 Exposure Response Date Recorded In the last 10 days, have you been in contact with No / Unsu re 05/22/2021 1:45 PM CDT someone who was confirmed or suspected to have Coronavirus/COVID-19? documented as of this encounter Plan of Treatment Not on filedocumented as of this encounter Visit Diagnoses Not on filedocumented in this encounter Additional Health Concerns Assessment Noted Time PHQ-9 Depression Total Score: 19 05/23/2021 7:04 AM CD T documented as of this encounter Care Teams Hazmat Tanker Driver Relationship Specialty Start Date End Date Michela Ramírez MD PCP - General Family Medicine 05/22/21 [address] [place] [address] Che Chong, Assigned PCP 01/14/21 TRUST EVALUATION SUPERVISOR U.S. SENATOR [address] [place], [place] [id number] Eric Rae Personal Advocate & 05/22/21 Liaison (PAL) documented as of this encounter
--- OUTSIDE RECORDS SUMMARY | 2021-12-10 21:19 | XMS_ITS | Clinical Summary ---
:1985 Author Organization [facility] Address [address] [place] [address] Care Team Providers Name Role Phone Michela Ramírez MD Primary Care Provider Eric Rae Unavailable Unavailable Michela Ramírez MD Unavailable Allergies Active Allergy Reactions Severity Noted Date Comments Lisinopril Cough 07/21/2014 Medications Medication Sig Dispensed Refills Start Date End Date Status hydrOXYzine (ATARAX) Take 1 tablet (25 90 tablet 1 12/29/2020 Active 25 MG mg) by mouth every tabletIndications: 4 hours as needed Alcohol withdrawal for anxiety syndrome, with unspecified complication (H) folic acid (FOLVITE) Take 1 tablet (1 90 tablet 1 05/22/2021 Active 1 MG mg) by mouth daily tabletIndications: Alcohol use disorder, mild, in early remission, abuse multivitamin Take 1 tablet by 90 tablet 1 05/22/2021 Active w/minerals mouth daily (THERA-VIT-M) tabletIndications: Alcohol use disorder, mild, in early remission, abuse thiamine (B-1) 100 MG Take 1 tablet (100 90 tablet 1 2 Active tabletIndications: mg) by mouth daily Alcohol use disorder, mild, in early remission, abuse FLUoxetine (PROZAC) Take 1 capsule (20 60 capsule 0 05/23/2021 Active 20 MG mg) by mouth daily capsuleIndications: Anxiety nicotine (NICODERM Place 1 patch onto 90 patch 1 07/24/2021 Active CQ) 14 MG/24HR 24 hr the skin daily patch nicotine (NICORETTE) Place 1 each (2 90 each 1 07/24/2021 Active 2 MG gum mg) inside cheek every hour as needed for other (nicotine withdrawal symptoms) amLODIPine (NORVASC) Take 1 tablet (5 90 tablet 1 07/24/2021 Active 5 MG tablet mg) by mouth daily FLUoxetine (PROZAC) Take 1 capsule (20 90 capsule 1 07/24/2021 Active 20 MG mg) by mouth daily capsuleIndications: Major depressive disorder, single episode, moderate (H) traZODone (DESYREL) TAKE 1 TABLET(50 30 tablet 0 09/18/2021 Active 50 MG MG) BY MOUTH AT tabletIndications: BEDTIME Anxiety Active Problems Problem Noted Date Alcohol withdrawal syndrome, with unspecified complica tion 12/07/2020 Narcotic overdose, accidental or unintentional, initia l encounter 2019 Tobacco use disorder 07/08/2019 S/P gastric bypass 01/20/2018 Iron deficiency anemia due to chronic blood loss 07/21 Overview: Problem list name updated by esmer chacon. Provider to review Essential hypertension 07/21/2014 Major depressive disorder, single episode, moderate Former smoker 07/06/2013 Resolved Problems Problem Noted Date Resolved Date Morbid obesity with BMI of 40.0-44.9, adult 02/09/2015 05/11/2018 Morbid obesity 07/21/2014 07/08/2019 Encounters Date Type Specialty Care Team Description 09/16/2021 Refill Family Practice [facility]anne-Jaylin Olson nn, [facility] Medication Refill from Last 3 Months Immunizations Name Administration Dates Next Due FLU 6-35 months 01/30/2017, 11/17/2014 HepB-Adult 01/12/2009, 04/11/2005, 03/06/2005 Influenza (IIV3) PF 04/06/2018, 02/10/2018, 12/21/2013, 11/10/2012, 11/25/2011 Influenza Vaccine IM > 6 months 11/18/2014, 12/25/2013 Valent IIV4 (Alfuria,Fluzone) TDAP Vaccine (Adacel) 03/06/2005 Td (Adult), Adsorbed 03/06/2005 Tdap (Adacel,Boostrix) 12/29/2020 Family History Medical History Relation Comments Hypertension Mother Relation Status Comments Mother Alive Social History Tobacco Use Types Packs/Day Years Used Date Smoking Tobacco: Every Day Cigarettes 0.5 6 L ast attempted to quit: 05/12/2011 Smokeless Tobacco: Never Tobacco Cessation: Ready to Quit: No; Co unseling Given: Yes Alcohol Use Standard Drinks/Week Comments Not Currently [...] 05/22/2021 relatives? How often do you attend religious or voodoo Never 05/22/2021 services? Do you belong to any clubs or organizations such as No 05/22/2021 religious groups, unions, fraternal or athletic groups, or [...] place to sleep or slept in a penitentiary (including now)? Sex Assigned at Date Recorded Female 12/08/2020 12:18 PM CDT Last Filed Vital Signs Vital Sign Reading Time Taken Comments Blood Pressure 132/88 07/24/2021 9:02 AM CDT Pulse 89 05/22/2021 3:58 PM CDT Temperature 36.9 ??C (98.4 ??F) 05/22/2021 3:58 PM CDT Respiratory Rate 18 05/22/2021 3:58 PM CDT Oxygen Saturation 94% 05/22/2021 3:58 PM CDT Inhaled Oxygen Concentration - - Weight 78.5 kg (173 lb 1.6 oz) 05/22/2021 3:58 PM CDT Height 165.1 cm (5' 5) 05/22/2021 3:58 PM CDT Body Mass Index 28.81 05/22/2021 3:58 PM CDT Plan of Treatment Health Maintenance Due Date Last Done Comments COVID-19 Vaccine (#1) 01/24/1985 Pneumococcal Vaccine: 1990 Pediatrics (0 to 5 Years) and At-Risk Patients (6 to 64 Years) (1 - PCV) YEARLY PREVENTIVE VISIT 01/20/2019 01/20/2018 INFLUENZA VACCINE (#1) 2021 12/29/2020 (Declined), 04/06/2018, 02/10/2018, Additional history exists PHQ-9 01/10/2022 07/11/2021, 06/01/2021, 05/29/2021, Additional history exists ANNUAL REVIEW OF HM ORDERS 05/22/2022 05/22/2021 NICOTINE/TOBACCO CESSATION 05/22/2022 05/22/2021 COUNSELING Q 1 YR HPV TEST 01/20/2023 01/20/2018 PAP 01/20/2023 01/20/2018 ADVANCE CARE PLANNING 2024 07/26/2019 DTAP/TDAP/TD IMMUNIZATION 12/29/2030 12/29/2020, 03/06/2005 , (3 - Td or Tdap) 03/06/2005 HEPATITIS B IMMUNIZATION Completed 01/12/2009, 04/11/2005, 03/06/2005 DEPRESSION ACTION PLAN Completed 07/08/2019 HEPATITIS C SCREENING Completed 05/22/2021 HIV SCREENING Completed 05/22/2021, 05/11/2018 (Declined) IPV IMMUNIZATION Aged Out No longer eligi ble based on patient 's age to complete this topic MENINGITIS IMMUNIZATION Aged Out No longe r eligible based on patient 's age to complete this topic Insurance Payer Benefit Plan / Subscriber ID Effective Dates Phone Addre ss Type Group [facility] [id number] 2021-Present [phone] [address] [place] [address] (Home) W [phone] Jarvis TOSCANO (Work) [id number] [facility] 1985 [address] (Home) W [phone] Jarvis TOSCANO (Work) [id number] Advance Directives For more information, please contact: [phone] Latest Code Status on File Code Status Date Activated Date Inactivated Comments Full Code 12/07/2020 10:16 PM 12/10/2020 4:41 PM All basic and advanced life-sustaining interventions are performed as roberto ropriate Question Answer Comments Code status determined by: Discussion with patient/ legal de cision maker Code Status History Code Status Date Activated Date Inactivated Comments Full Code 07/26/2019 7:49 AM 12/07/2020 11:13 AM Question Answer Comments Code status determined by: Discussion with patient/legal dec ision maker Full Code 2019 8:36 AM 07/26/2019 7:49 AM Question Answer Comments Code status determined by: Discussion with patient/legal dec ision maker Full Code 02/09/2015 1:06 PM 02/11/2015 1:14 PM Care Teams Discovery Guide Relationship Specialty Start Date End Date Michela Ramírez MD PCP - General Family Medicine 05/22/21 [address] [place], [place] [id number] Eric Rae Personal Advocate & Liaison 05/22/21 (PAL) Michela Ramírez MD Assigned PCP 05/27/21 [address] [place] [address]
--- OUTSIDE RECORDS SUMMARY | 2021-12-10 21:19 | XMS_ITS | Encounter Summary ---
:1985 Author Organization [facility] Address [address] [place] [address]. [place] [address] Care Team Providers Name Role Phone Michela Ramírez MD Primary Care Provider Eric Rae Unavailable Unavailable Michela Ramírez MD Unavailable Reason for Visit Reason Onset Date Comments Refill Request 07/18/2021 traZODone (DESYREL) 50 MG tablet Encounter Details Date Type Department Care Team Description 07/18/2021 Refill [facility] Shamar Ramírez MD Refill Request [place] [id number] [place] [address] (traZODone (DESYREL) 50 [id number] [place] [address] MG tablet) [place] [address] [phone] Social History Tobacco Use Types Packs/Day Years [...] 05/22/2021 relatives? How often do you attend scientology or orthodox Never 05/22/2021 services? Do you belong to any clubs or organizations such as No 05/22/2021 scientology groups, unions, fraternal or athletic groups, or [...] place to sleep or slept in a residential (including now)? Sex Assigned at Date Recorded Female 12/08/2020 12:18 PM CDT documented as of this encounter Miscellaneous Notes Telephone Encounter - Jennifer Romo RN - 07/18/2021 3:52 PM CDT Routing refill request to provider for review/approval because: Drug interaction warning Jennifer Romo RN documented in this encounter Plan of Treatment Not on filedocumented as of this encounter Visit Diagnoses Diagnosis Anxiety Anxiety state, unspecified documented in this encounter Additional Health Concerns Assessment Noted Time PHQ-9 Depression Total Score: 18 07/12/2021 7:04 AM CD T documented as of this encounter Care Teams Reel Fed Printer Relationship Specialty Start Date End Date Michela Ramírez MD PCP - General Family Medicine 05/22/21 [address] [place] [address] Eric Rae Personal Advocate & Liaison 05/22/21 (PAL) Michela Ramírez MD Assigned PCP 05/27/21 [address] [place] [address] documented as of this encounter
--- OUTSIDE RECORDS SUMMARY | 2021-12-10 21:19 | XMS_ITS | Encounter Summary ---
:1985 Author Organization [facility] Address [address] [place] [address] Care Team Providers Name Role Phone Reggie Sarabia MD Primary Care Provider Reggie Sarabia MD Unavailable Encounter Details Date Type Department Care Team Description 01/10/2021 Travel Social History Tobacco Use Types Packs/Day [...] 05/22/2021 relatives? How often do you attend confucianist or synagogue Never 05/22/2021 services? Do you belong to any clubs or organizations such as No 05/22/2021 confucianist groups, unions, fraternal or athletic groups, or [...] place to sleep or slept in a prison (including now)? Sex Assigned at Date Recorded Female 12/08/2020 12:18 PM CDT COVID-19 Exposure Response Date Recorded In the last month, have you been in contact with No / Unsure 01/10/2021 1:11 PM TRAIN ELECTRONIC TECHNICIAN someone who was confirmed or suspected to have Coronavirus / COVID-19? documented as of this encounter Plan of Treatment Not on filedocumented as of this encounter Visit Diagnoses Not on filedocumented in this encounter Additional Health Concerns Assessment Noted Time PHQ-9 Depression Total Score: 01/11/2021 7:03 AM CS T documented as of this encounter Care Teams Laundry Room Attendant Relationship Specialty Start Date End Date Reggie Sarabia MD PCP - General Family Practice 07/08/19 05/21/21 Reggie Sarabia MD Assigned PCP 07/16/20 01/13/21 [address] [place] [address] documented as of this encounter
--- OUTSIDE RECORDS SUMMARY | 2021-12-10 21:19 | XMS_ITS | Encounter Summary ---
:1985 Author Organization [facility] Address [address] [place] [address] Care Team Providers Name Role Phone Reggie Sarabia MD Primary Care Provider [phone] Che Chong DEPUTY DISTRICT CUSTOMS DIRECTOR FUNERAL LIMOUSINE DRIVER Unavailable [phone] Encounter Details Date Type Department Care Team Description 05/14/2021 Travel Social History Tobacco Use Types Packs/Day [...] 05/22/2021 relatives? How often do you attend jewish or gnosticist Never 05/22/2021 services? Do you belong to any clubs or organizations such as No 05/22/2021 jewish groups, unions, fraternal or athletic groups, or [...] place to sleep or slept in a intermediate (including now)? Sex Assigned at Date Recorded Female 12/08/2020 12:18 PM CDT COVID-19 Exposure Response Date Recorded In the last month, have you been in contact with No / Unsure 05/14/2021 6:15 PM CDT someone who was confirmed or suspected to have Coronavirus / COVID-19? documented as of this encounter Plan of Treatment Not on filedocumented as of this encounter Visit Diagnoses Not on filedocumented in this encounter Additional Health Concerns Assessment Noted Time PHQ-9 Depression Total Score: 01/11/2021 7:03 AM CS T documented as of this encounter Care Teams Coating Technician Relationship Specialty Start Date End Date Reggie Sarabia MD PCP - General Family Practice 07/08/19 05/21/21 Che Chong APRN FUNERAL LIMOUSINE DRIVER Assigned PCP 01/14/21 05/26/21 [address] [place] [address] documented as of this encounter
--- OUTSIDE RECORDS SUMMARY | 2021-12-10 21:19 | XMS_ITS | Encounter Summary ---
:1985 Author Organization [facility] Address [address] [place] [address]. [place] [address] Care Team Providers Name Role Phone Michela Ramírez MD Primary Care Provider Eric Rae Unavailable Unavailable Michela Ramírez MD Unavailable Reason for Visit Reason Onset Date Comments Depression Entered automaticall y based on patient selection in [employer]. Depression 07/11/2021 Encounter Details Date Type Department Care Team Description 07/11/2021 E-Visit [facility] Michela Ramírez MD Depression (Entered [facility] [id number] [place] [address] automatically based on... [id number] [place] [id number] Social History Tobacco Use Types Packs/Day Years [...] 05/22/2021 relatives? How often do you attend samaritan or cheondoism Never 05/22/2021 services? Do you belong to any clubs or organizations such as No 05/22/2021 samaritan groups, unions, fraternal or athletic groups, or [...] place to sleep or slept in a skilled nursing (including now)? Sex Assigned at Date Recorded Female 12/08/2020 12:18 PM CDT documented as of this encounter Patient Instructions Patient InstructionsMichela Ramírez MD - 07/11/2021 10:55 AM CDT Images from the original note were not included. Thank you for choosing us for your care. I think an in-clinic visit would be best next steps based on your symptoms. Please schedule a clinic appointment; you won???t be charged for this eVisit. You can schedule an appointment right here in [employer], or call [phone] Depression: Tips to Help Yourself As your healthcare providers help treat your depression, you can also help yourself. Keep in mind that your illness affects you emotionally, physically, mentally, and socially. So full recovery will take time. Take care of your body and your soul, and be patient with yourself as you get better. Self-care ?? Educate yourself. Read about treatment and medicine options. If you have the energy, attend localconferences or support groups. Keep a list of useful websites and helpful books and use them as needed. This illness is not your fault. Don???t blame yourself for your depression. ?? Manage early symptoms. If you notice symptoms returning, experience triggers, or identify other factors that may lead to a depressive episode, get help as soon as possible. Ask trusted friends and family to monitor your behavior and let you know if they see anything of concern. ?? Work with your provider. Find a provider you can trust. Communicate honestly with that person andshare information on your treatment for depression and your reaction to medicines. ?? Be prepared for a crisis. Know what to do if you experience a crisis. Keep the phone number of a crisis hotline and know the location of your community's urgent care centers and the closest emergency department. ?? Hold off on big decisions. Depression can cloud your judgment. So wait until you feel better before making major life decisions, such as changing jobs, moving, or getting or . ?? Be patient. Recovering from depression is a process. Don???t be discouraged if it takes some timeto feel better. ?? Keep it simple. Depression saps your energy and concentration. So you won???t be able to do all the things you used to do. Set small goals and do what you can. ?? Be with others. Don???t isolate yourself--you???ll only feel worse. Try to be with other people. And take part in fun activities when you can. Go to a movie, ballgame, cheondoism service, or social event. Talk openly with people you can trust. And accept help when it???s offered. Take care of your body People with depression often lose the desire to take care of themselves. That only makes their problems worse. During treatment and afterward, make a point to: ?? Exercise. It???s a great way to take care of your body. And studies have shown that exercise helps fight depression. Aim for 30 minutes of moderate activity a day. Walking in small blocks of time (5-10 minutes) is a good way to start, but anything that gets you moving (gardening, house cleaning) counts. ?? Don't use drugs and alcohol. These may ease the pain in the short term. But they???ll only make your problems worse in the long run. ?? Get relief from stress. Ask your healthcare provider for relaxation exercises and techniques to help relieve stress. Consider activities like meditation, yoga, or Roger Chi. ?? Eat right. A balanced and healthy diet helps keep your body healthy. ?? Get adequate sleep. Aim for 8 hours per night. Too much or too little sleep can cause other physical and emotional problems. [employer] last reviewed this educational content on 01/10/2019 ?? [id number] [employer] All rights reserved. This information is not intended as a substitute for professional medical care. Always follow your healthcare professional's instructions. documented in this encounter Miscellaneous Notes Telephone Encounter - Michela Ramírez MD - 07/11/2021 1:35 PM CDT Provider E-Visit time total (minutes): 5 minutes . I will recommend [id number] or virtual visit to discuss further medication adjustment. Michela Ramírez documented in this encounter Plan of Treatment Not on filedocumented as of this encounter Visit Diagnoses Diagnosis Moderate Depression [296.32] - Primary Major depressive disorder, recurrent epi sode, moderate documented in this encounter Additional Health Concerns Assessment Noted Time PHQ-9 Depression Total Score: 18 07/12/2021 7:04 AM CD T documented as of this encounter Care Teams Utility Manager Relationship Specialty Start Date End Date Michela Ramírez MD PCP - General Family Medicine 05/22/21 [address] [place] [address] Eric Rae Personal Advocate & Liaison 05/22/21 (PAL) Michela Ramírez MD Assigned PCP 05/27/21 [address] [place] [address] documented as of this encounter
--- OUTSIDE RECORDS SUMMARY | 2021-12-10 21:19 | XMS_ITS | Encounter Summary ---
:1985 Author Organization [facility] Address [address] [place] [address]. [place] [address] Care Team Providers Name Role Phone Reggie Sarabia MD Primary Care Provider [phone] Che Chong JEWELRY MOLD MAKER ACID MAKER Unavailable [phone] Reason for Visit Reason Onset Date Comments Refill Request 04/23/2021 FLUoxetine (PROZAC) 20 MG capsule Encounter Details Date Type Department Care Team Description 04/23/2021 Refill [facility] Reggie Sarabia Refill [facility] Everton Hedrick MD (FLUoxetine (PROZAC) [address] MG capsule) [place] [facility] [place] 55 [address]68 [phone] Social History Tobacco Use Types Packs/Day Years [...] 05/22/2021 relatives? How often do you attend sabianism or zoroastrianism Never 05/22/2021 services? Do you belong to any clubs or organizations such as No 05/22/2021 sabianism groups, unions, fraternal or athletic groups, or [...] place to sleep or slept in a snf (including now)? Sex Assigned at Date Recorded Female 12/08/2020 12:18 PM CDT documented as of this encounter Miscellaneous Notes Telephone Encounter - Pradip Tatum - 04/26/2021 1:58 PM CDT Sent neo[employer] message to schedule px. Telephone Encounter - Reggie Sarabia MD - 04/26/2021 1:21 PM CDT One month fill provided, pt will need f/u appt for ongoing refill. Please call to schedule CPE. Reggie Sarabia MD Telephone Encounter - Wily Amaya RN - 04/25/2021 1:01 PM CDT Routing refill request to provider for review/approval because: Labs out of range: PHQ-9 PHQ 12/29/2020 01/10/2021 01/10/2021 PHQ-9 Total Score 15 21 21 Q9: Thoughts of better off /self-harm past 2 weeks Not at all Not at all Not at all Wily Portillo RN documented in this encounter Plan of Treatment Not on filedocumented as of this encounter Visit Diagnoses Diagnosis Major depressive disorder, single episod e, moderate (H) Major depressive disorder, single episod e, moderate documented in this encounter Additional Health Concerns Assessment Noted Time PHQ-9 Depression Total Score: 21 01/11/2021 7:03 AM CS T documented as of this encounter Care Teams Spare Person Relationship Specialty Start Date End Date Reggie Sarabia MD PCP - General Family Practice 07/08/19 05/21/21 Che Chong APRN ACID MAKER Assigned PCP 01/14/21 05/26/21 [address] [address] [place] [address] documented as of this encounter
--- OUTSIDE RECORDS SUMMARY | 2021-12-10 21:20 | XMS_ITS | Encounter Summary ---
:1985 Author Organization [facility] Address [address] [place] [address] Care Team Providers Name Role Phone Reggie Sarabia MD Primary Care Provider [phone] Astrid Colón MD Unavailable Encounter Details Date Type Department Care Team Description 08/13/2019 Travel Social History Tobacco Use Types Packs/Day Years Used Date Smoking Tobacco: Every Day Cigarettes 0.5 6 L ast attempted to quit: 05/12/2011 Smokeless Tobacco: Never Alcohol Use Standard Drinks/Week Comments Yes 2 (1 standard drink = 0.6 oz pure alcoho l) occ Alcohol Habits Answer Date Recorded How often [...] How often do you attend samaritan or catholic Never 05/22/2021 services? Do you belong to [...] place to sleep or slept in a [facility] (including now)? Sex Assigned at Date Recorded Female 12/08/2020 12:18 PM CDT COVID-19 Exposure Response Date Recorded In the last month, have you been in contact with No / Unsure 08/13/2019 10:53 AM CDT someone who was confirmed or suspected to have Coronavirus / COVID-19? documented as of this encounter Plan of Treatment Not on filedocumented as of this encounter Visit Diagnoses Not on filedocumented in this encounter Additional Health Concerns Assessment Noted Time PHQ-9 Depression Total Score: 8 07/08/2019 10:24 AM CD T documented as of this encounter Care Teams Gwot Ia/Ilo Intelligence Support Relationship Specialty Start Date End Date Reggie Sarabia MD PCP - General Family Practice 07/08/19 05/21/21 Astrid Colón MD Assigned PCP 07/18/19 07/15/20 [address] [place] [address] documented as of this encounter
--- OUTSIDE RECORDS SUMMARY | 2021-12-10 21:20 | XMS_ITS | Encounter Summary ---
:1985 Author Organization [facility] Address [address] [place] [id number] Care Team Providers Name Role Phone Reggie Sarabia MD Primary Care Provider [phone] Reggie Sarabia MD Unavailable Che Chong [employer]ENCE [employer] Unavailable [phone] Michela Ramírez MD Primary Care Provider Eric Rae Unavailable Unavailable Michela Ramírez MD Unavailable Encounter Details Date Type Department Care Team Description 12/08/2020 [facility]phone [facility] edgard Henry MD [address] [place] [id number] Social History Tobacco Use Types Packs/Day [...] 05/22/2021 relatives? How often do you attend latter day or bahai Never 05/22/2021 services? Do you belong to any clubs or organizations such as No 05/22/2021 latter day groups, unions, fraternal or athletic groups, or [...] been in contact with No / Unsure 12/07/2020 11:19 AM CDT someone who was confirmed or suspected to have Coronavirus / COVID-19? documented as of this encounter Miscellaneous Notes Telephone Encounter - Massiel Javier - 12/08/2020 12:22 PM CDT ----- Message from Eunice Zafar sent at 12/08/2020 12:04 PM CDT ----- Regarding: NEW FELIBERTO NEEDED This pt is scheduled for a transfer from [facility] to [facility] plus Friday12/11/20. Thanks documented in this encounter Plan of Treatment Not on filedocumented as of this encounter Visit Diagnoses Not on filedocumented in this encounter Additional Health Concerns Assessment Noted Time PHQ-9 Depression Total Score: 8 07/08/2019 10:24 AM CD T documented as of this encounter Care Teams Corsets Salesperson Relationship Specialty Start Date End Date Reggie Sarabia, PCP - General Family Practice 07/08/19 Michela Ramírez MD PCP - General Family Medicine 05/22/21 [id number] [place], [place] [id number] Reggie Sarabia, Assigned PCP 07/16/20 [id number] [phone] Che Chong, Assigned PCP 01/14/21 [employer] [id number] [phone] Eric Rae Personal Advocate & 4/12/22 Liaison (PAL) Michela Ramírez MD Assigned PCP 05/27/21 [id number] [place] [address] documented as of this encounter
--- OUTSIDE RECORDS SUMMARY | 2021-12-10 21:20 | XMS_ITS | Encounter Summary ---
:1985 Author Organization [facility] Address [address] [place] [id number] Care Team Providers Name Role Phone Reggie Sarabia MD Primary Care Provider [phone] Reggie Sarabia MD Unavailable Reason for Visit Reason Comments Alcohol Problem Encounter Details Date Type Department Care Team Description 12/07/2020 Emergency [facility] Ian Aguirre intoxication with complication (H); [facility] Emergency MD Abiel Alcohol abuse Dept [facility] [address] [place], [place] [address] [employer] [id number] [place] [address] [place], [place] [id number] (Wo rk) Social History Tobacco Use Types [...] 05/22/2021 relatives? How often do you attend taoism or roman catholic Never 05/22/2021 services? Do you belong to any clubs or organizations such as No 05/22/2021 taoism groups, unions, fraternal or athletic groups, or [...] / COVID-19? documented as of this encounter Last Filed Vital Signs Vital Sign Reading Time Taken Comments Blood Pressure 132/101 12/07/2020 8:55 PM CDT Pulse 74 12/07/2020 8:55 PM CDT Temperature 36.4 ??C (97.6 ??F) 12/07/2020 11:19 AM CDT Respiratory Rate 16 12/07/2020 8:55 PM CDT Oxygen Saturation 100% 12/07/2020 8:55 PM CDT Inhaled Oxygen Concentration - - Weight 68 kg (150 lb) 12/07/2020 11:19 AM CDT Height 165.1 cm (5' 5) 12/07/2020 11:19 AM CDT Body Mass Index 24.96 12/07/2020 11:19 AM CDT documented in this encounter Medications at Time of Discharge Medication Sig Dispensed Refills Start Date End Date acamprosate (CAMPRAL) 333 Take 2 tablets 30 tablet 0 202007/24/2021 MG EC tabletIndications: (666 mg) by mouth Alcohol withdrawal 3 times daily syndrome, with unspecified complication (H) amLODIPine (NORVASC) 5 MG Take 1 tablet (5 30 tablet 0 02/202012/29/2020 tabletIndications: Alcohol mg) by mouth daily withdrawal syndrome, with unspecified complication (H) folic acid (FOLVITE) 1 MG Take 1 tablet (1 30 tablet 0 02/202012/29/2020 tabletIndications: Alcohol mg) by mouth daily withdrawal syndrome, with unspecified complication (H) hydrochlorothiazide Take 1 tablet (25 3 tablet 0 12/09/2020 (HYDRODIURIL) 25 MG tablet mg) by mouth daily for 3 days hydrOXYzine (ATARAX) 25 MG Take 1 tablet (25 30 tablet 0 12/29/2020 tabletIndications: Alcohol mg) by mouth every withdrawal syndrome, with 4 hours as needed unspecified complication for anxiety (H) lisinopril (ZESTRIL) 10 MG Take 1 tablet (10 3 tablet 0 12/08/2020 tablet mg) by mouth daily for 3 days Multiple Vitamins-Minerals Take 1 tablet by 0 12/09/2020 (MULTIVITAMIN ADULT PO) mouth daily multivitamin w/minerals Take 1 tablet by 30 tablet 0 202012/29/2020 (THERA-VIT-M) mouth daily tabletIndications: Alcohol withdrawal syndrome, with unspecified complication (H) nicotine (NICODERM CQ) 14 Place 1 patch onto 30 patch 0 07/24/2021 MG/24HR 24 hr the skin daily patchIndications: Alcohol withdrawal syndrome, with unspecified complication (H) nicotine (NICORETTE) [address] 1 each (2 30 each 0 12/1007/24/2021 gumIndications: Alcohol mg) inside cheek withdrawal syndrome, with every hour as unspecified complication needed for other (H) (nicotine withdrawal symptoms) sertraline (ZOLOFT) 50 MG Take 1 tablet (50 30 tablet 0 02/202012/29/2020 tabletIndications: Alcohol mg) by mouth daily withdrawal syndrome, with unspecified complication (H) thiamine (B-1) 100 MG Take 1 tablet (100 30 tablet 0 202012/29/2020 tabletIndications: Alcohol mg) by mouth daily withdrawal syndrome, with unspecified complication (H) documented as of this encounter ED Notes Nalini Jiang RN - 12/07/2020 5:39 PM CDT Spoke with patient who states she stopped taking lisinopril due to side effect of cough. Stopped taking hydrochlorothiazide as well after losing weight. Patient stopped all meds by herself. Yuliana Freeman RN - 12/07/2020 2:44 PM CDT [facility] pharmacy was called regarding filling patient's prescriptions. They state that they will fill them and tube them back to ER once they are filled. Lyn Harris RN - 12/07/2020 11:18 AM CDT Pt comes in today due to an alcohol problem. Pt last drank vodka a couple hours ago. Pt does not know how much she drank. Pt has denies seizures from withdrawal before. ABCs intact. Ian Aguirre MD - 12/07/2020 11:13 AM CDT History Chief Complaint: Alcohol Problem The history is provided by the patient. Tri Hendrickson is a 35 year old female with history of hypertension, tobacco use, narcotic overdose who presents with a desire to quit drinking alcohol. She reports that she has been drinking 0.5 litersor more of hard alcohol per day for approximately 3 weeks, and her most recent drink was two hours prior to her arrival here. Before these past three weeks, she was sober for one month. She denies recent drug use but notes that she suffered an overdose 1.5 years ago. Tri has experienced some alcoholwithdrawal symptoms in the past but denies seizures or hallucinations. She has never undergone treatment or detox for alcohol. Tri denies vomiting, diarrhea, cough. She denies chance of . Nofamily history of alcohol misuse. Review of Systems Respiratory: Negative for cough. Gastrointestinal: Negative for diarrhea and vomiting. Psychiatric/Behavioral: Alcohol problem + All other systems reviewed and are negative. Allergies: Lisinopril Medications: Hydrochlorothiazide Lisinopril Past Medical History: Depression Hypertension Iron deficiency anemia Tobacco use disorder Narcotic overdose Past Surgical History: Caesarean section x2 Gastric bypass Family History: Father: heart disease Mother: hypertension, diabetes mellitus Social History: Presents alone. Presents via car. Physical Exam Patient Vitals for the past 24 hrs: BP Temp Temp src Pulse Resp SpO2 Height Weight 12/07/20 1330 117/73 -- -- 101 -- 97 % -- -- 12/07/20 1315 115/72 -- -- 97 -- 98 % -- -- 12/07/20 1300 123/79 -- -- 96 -- 98 % -- -- 12/07/20 1245 130/89 -- -- 115 -- 100 % -- -- 12/07/20 1230 (!) 129/90 -- -- 99 -- 100 % -- -- 12/07/20 1215 116/77 -- -- 94 -- 95 % -- -- 12/07/20 1200 126/86 -- -- 97 -- 95 % -- -- 12/07/20 1145 120/74 -- -- 93 -- 98 % -- -- 12/07/20 1119 -- 97.6 ??F (36.4 ??C) Oral 109 16 100 % 1.651 m (5' 5) 68 kg (150 lb) Physical Exam Gen: Resting comfortably Eyes: Normal conjunctiva, No discharge CV: ppi, regular Resp: speaking in full sentences without any resp distress Skin: warm dry well perfused Neuro: intoxicated but Alert, speech clear, no gross motor or sensory deficits Emergency Department Course Laboratory: Labs Ordered and Resulted from Time of ED Arrival to Time of ED Departure CBC WITH PLATELETS AND DIFFERENTIAL - Abnormal Result Value WBC Count 4.4 RBC Count 4.83 Hemoglobin 13.4 Hematocrit 45.3 MCV 94 MCH 27.7 MCHC 29.6 (*) RDW 15.8 (*) Platelet Count 180 % Neutrophils 62 % Lymphocytes 29 % Monocytes 6 % Eosinophils 1 % Basophils 1 % Immature Granulocytes 1 NRBCs per 100 WBC 0 Absolute Neutrophils 2.8 Absolute Lymphocytes 1.3 Absolute Monocytes 0.3 Absolute Eosinophils 0.0 Absolute Basophils 0.0 Absolute Immature Granulocytes 0.0 Absolute NRBCs 0.0 ALCOHOL BREATH TEST POCT - Abnormal Alcohol Breath Test 0.341 (*) COMPREHENSIVE METABOLIC PANEL COVID-19 VIRUS (CORONAVIRUS) BY PCR Emergency Department Course: Reviewed: I reviewed nursing notes, vitals, past medical history and Care Everywhere Assessments: 1153 I obtained history and examined the patient as noted above. 1337 I rechecked the patient and explained findings. She is open to going to detox. Disposition: Care of the patient was transferred to my colleague Dr. Briggs pending detox bed placement. Impression & Plan Medical Decision Makin-year-old female here with alcohol abuse. Currently intoxicated with no signs of withdrawal deniesany other coingestions. She has insight into a maladaptive behavior related to alcohol and is interested in treatment/detox. [facility] able to help the patient will need a blood and urine test back in addition to COVID-19. It is unlikely there is underlying medical process evident here once labshave returned and are normal my partner will give verbal medical clearance to [facility] and she willbe sent over there. No suicidal homicidal ideation. She is not holdable Diagnosis: ICD-10-CM 1. Alcoholic intoxication with complication (H) F10.929 2. Alcohol abuse F10.10 Scribe Disclosure: I, Meganjian Ford, am serving as a scribe at 11:40 AM on 12/07/2020 to document services personally performed by Ian Aguirre MD based on my observations and the provider's statements to me. Ian Aguirre MD 12/07/20 1502 documented in this encounter Plan of Treatment Not on filedocumented as of this encounter Procedures Procedure Name Priority Date/Time Associated Comments Diagnosis URINE DRUGS OF ABUSE STAT 12/07/2020 5:23 PM R esults for this SCREEN CDT procedure are i n the results section. HCG QUALITATIVE URINE STAT 12/07/2020 5:23 PM Results for this CDT procedure are i n the results section. DRUG ABUSE SCREEN 1 STAT 12/07/2020 5:23 PM Re sults for this URINE (ED) CDT procedure are i n the results section. GLUCOSE BY METER STAT 12/07/2020 3:06 PM Resul ts for this CDT procedure are i n the results section. COVID-19 VIRUS STAT 12/07/2020 2:25 PM Results for this (CORONAVIRUS) BY PCR CDT procedu re are in the results section. ALCOHOL BREATH TEST STAT 12/07/2020 12:09 Resu lts for this POCT PM CDT procedure are i n the results section. EXTRA PURPLE TOP TUBE STAT 12/07/2020 11:42 Re sults for this AM CDT procedure are i n the results section. EXTRA RED TOP TUBE STAT 12/07/2020 11:42 Resul ts for this AM CDT procedure are i n the results section. CBC WITH PLATELETS AND STAT 12/07/2020 11:42 R esults for this DIFFERENTIAL AM CDT procedure are i n the results section. CBC WITH PLATELETS & STAT 12/07/2020 11:42 Res ults for this DIFFERENTIAL AM CDT procedure are i n the results section. EXTRA TUBE STAT 12/07/2020 11:41 Results for this AM CDT procedure are i n the results section. EXTRA GREEN TOP STAT 12/07/2020 11:41 Results for this (LITHIUM HEPARIN) TUBE AM CDT proce dure are in the results section. EXTRA BLUE TOP TUBE STAT 12/07/2020 11:41 Resu lts for this AM CDT procedure are i n the results section. COMPREHENSIVE STAT 12/07/2020 11:41 Results fo r this METABOLIC PANEL AM CDT procedure ar e in the results section. documented in this encounter Results HCG qualitative urine (12/07/2020 5:23 PM CDT) [facility] [employer] Method Time Signature hCG Urine Negative Negative MARKUS 12/07/2020 [facility] Qualitative 8:03 PM CDT Comment: This test is for screening purp oses. Results should be interpreted along with the clinical picture. Confirmation testing is available if warranted by ordering [id number], HCG Quantitative . Specimen Anatomical Collection Method Collection Time Receive d Time (Source) Location / / Volume Laterality Urine URINE SPECIMEN / Non-blood 12/07/2020 5:23 PM 12/07 5:33 Unknown Collection / CDT PM CDT Unknown Ian Aguirre MD LAB - URINE ORDERABLES Performing Organization Address City/State/ZIP Code Phon [place] [id number] [facility] [address] [facility], no room number[facility] (ABNORMAL) Drug abuse screen 1 urine (ED) (12/07/2020 5:23 PM CDT) [facility] [employer] Method Time Signature Amphetamines Screen Screen 12/07/2020 LABORATORY Urine Positive Negative 6:09 PM CDT (A) Comment: Cutoff for a positive amphetamine is gre ater than 500 ng/mL. This is an unconfirmed screening result to be used for medical purposes only. Barbiturates Urine Screen Negative Screen Negative 6:09 [facility] PM CDT Comment: Cutoff for a negative barbitura te is 200 ng/mL or less. Benzodiazepines Urine Screen Negative Screen 12/07/2020 6 :09 [facility] Negative PM CDT Comment: Cutoff for a negative benzodiaz epine is 200 ng/mL or less. Cannabinoids Urine Screen Negative Screen Negative 021 6:09 [facility] PM CDT Comment: Cutoff for a negative cannabino id is 50 ng/mL or less. Cocaine Urine Screen Negative Screen Negative 12/07/2020 6:0 9 PM [facility] CDT Comment: Cutoff for a negative cocaine i s 300 ng/mL or less. Opiates Urine Screen Negative Screen Negative 12/07/2020 6:0 9 PM [facility] CDT Comment: Cutoff for a negative opiate is 300 ng/mL or less. Specimen Anatomical Collection Method Collection Time Receive d Time (Source) Location / / Volume Laterality Urine URINE SPECIMEN / Non-blood 12/07/2020 5:23 PM 12/07 5:33 Unknown Collection / CDT PM CDT Unknown Ian Aguirre MD LAB - URINE ORDERABLES Performing Organization Address City/State/ZIP Code [place] [address] Care Lab [address] Lab (1st floor, no room number) Glucose by meter (12/07/2020 3:06 PM CDT) P athologist Signature GLUCOSE BY 74 70 - 99 12/07/2020 LABORATORY METER POCT mg/dL 3:13 PM CDT POC Specimen Anatomical Collection Method Collection Time Receive d Time (Source) Location / / Volume Laterality Blood BLOOD SPECIMEN / 12/07/2020 3:06 PM 12/07 3:13 Unknown CDT PM CDT Ian Aguirre MD LAB - BEAKER POCT Performing Organization Address City/[facility]/ZIP Code [place] [address] Care Lab [address] Lab (1st floor, no room number) Asymptomatic COVID-19 Virus (Coronavirus) by PCR Nasopharyngeal (12/07/2020 2:25 PM CDT) Analysis Performed At [facility] Time Signature SARS CoV2 PCR Negative Negative 12/07/2020 LABORATORY 3:55 PM CDT Comment: NEGATIVE: SARS-CoV-2 (COVID-19) RNA not detected, presumed negative. Specimen Anatomical Location / Collection Method Collection Pratik e Received Time (Source) Laterality / Volume Swab NASOPHARYNGEAL Non-blood 12/07/2020 2:25 12/07/2020 2:31 STRUCTURE / Unknown Collection / PM CDT PM CDT Unknown Narrative LABORATORY - 12/07/2020 3:55 PM CDT Testing was performed using the wilda?? SARS-CoV-2 & Influenza A/B Assay on the wilda?? Jessica?? System. ??This test shoul d be ordered for the detection of SARS-COV-2 in individuals who meet SARS-CoV-2 clini nimisha and/or epidemiological criteria. Test performance is unknown in asymptomatic p atients. ??This test is for in vitro diagnostic use under the FDA EUA for lab oratories certified under CLIA to perform moderate and/or high complexity testing. This test has not been FDA cleared or approved. ??A negative test does not rul e out the presence of PCR inhibitors in the specimen or target RNA in concentration below the limit of detection for the assay. The possibility of a false negative shou ld be considered if the patient's recent exposure or clinical presentation sugges ts COVID-19. ??[facility] are certified under the Clinical Laborat ory Improvement Amendments of 1988 (CLIA-88) as qualified to perform moderate and/or high complexity laboratory testing. Ian Aguirre MD LAB - MICRO GENERAL ORDERABL ES Performing Organization Address City/State/ZIP Code Ph[place] [address] Care Lab [address] [facility] Lab (1st floor, no room number) (ABNORMAL) Alcohol breath test POCT (12/07/2020 12:09 PM CDT) Analysis Performed At [facility] Time Signature Alcohol Breath 0.341 (A) 0.00 - [facility] Test 0.01 [facility] Specimen (Source) Anatomical Location Collection Method / Collectio n Time Received Time / Laterality Volume Breath Ian Aguirre MD LAB - ENTER/EDIT POCT Performing Organization Address City/State/ZIP Code Phon e Number [facility] [address] [place] [address] HOSPITAL (ABNORMAL) CBC with platelets and differential (12/07/2020 11:42 AM CDT) [facility] Method Time Signature WBC Count 4.4 4.0 - 12/07/2020 [facility] 11.0 1:53 PM CDT 10e3/uL RBC Count 4.83 3.80 - 12/07/2020 [facility] 5.20 1:53 PM CDT 10e6/uL Hemoglobin 13.4 11.7 - 12/07/2020 [facility] 15.7 g/dL 1:53 PM CDT Hematocrit 45.3 35.0 - 12/07/2020 [facility] 47.0 % 1:53 PM CDT MCV 94 78 - 100 12/07/2020 [facility] fL 1:53 PM CDT MCH 27.7 26.5 - 12/07/2020 [facility] 33.0 pg 1:53 PM CDT MCHC 29.6 (L) 31.5 - 12/07/2020 [facility] 36.5 g/dL 1:53 PM CDT RDW 15.8 (H) 10.0 - 12/07/2020 [facility] 15.0 % 1:53 PM CDT Platelet Count 180 150 - 450 12/07/2020 [facility] 10e3/uL 1:53 PM CDT % Neutrophils 62 % 12/07/2020 [facility] 1:53 PM CDT % Lymphocytes 29 % 12/07/2020 [facility] 1:53 PM CDT % Monocytes 6 % 12/07/2020 [facility] 1:53 PM CDT % Eosinophils 1 % 12/07/2020 [facility] 1:53 PM CDT % Basophils 1 % 12/07/2020 [facility] 1:53 PM CDT % Immature 1 % 12/07/2020 [facility] Granulocytes 1:53 PM CDT NRBCs per 100 0 <1 /100 12/07/2020 [facility] WBC 1:53 PM CDT Absolute 2.8 1.6 - 8.3 12/07/2020 [facility] Neutrophils 10e3/uL 1:53 PM CDT Absolute 1.3 0.8 - 5.3 12/07/2020 [facility] Lymphocytes 10e3/uL 1:53 PM CDT Absolute 0.3 0.0 - 1.3 12/07/2020 [facility] Monocytes 10e3/uL 1:53 PM CDT Absolute 0.0 0.0 - 0.7 12/07/2020 [facility] Eosinophils 10e3/uL 1:53 PM CDT Absolute 0.0 0.0 - 0.2 12/07/2020 [facility] Basophils 10e3/uL 1:53 PM CDT Absolute 0.0 <=0.0 12/07/2020 [facility] Immature 10e3/uL 1:53 PM CDT Granulocytes Absolute NRBCs 0.0 10e3/uL 12/07/2020 [facility] 1:53 PM CDT Specimen Anatomical Collection Method / Collection Time Recei ariel Time (Source) Location / Volume Laterality Blood BLOOD SPECIMEN / Venipuncture / 12/07/2020 11:42 12/07 Unknown Unknown AM CDT 11:49 AM CDT Ian Aguirre MD LAB - BLOOD ORDERABLES Performing Organization Address City/State/[place] [address] Care Lab [address] Lab (1st floor, no room number) Extra Purple Top Tube (12/07/2020 11:42 AM CDT) athologist Signature Hold Specimen JI 12/07/2020 [facility] 1:01 PM CDT Specimen Anatomical Collection Method / Collection Time Recei ariel Time (Source) Location / Volume Laterality Blood BLOOD SPECIMEN / Venipuncture / 12/07/2020 11:42 12/07 Unknown Unknown AM CDT 11:49 AM CDT Ian Aguirre MD LAB - BLOOD ORDERABLES Performing Organization Address City/State/ZIP Code Phon [place] [address] Care Lab [address] Lab (1st floor, no room number) Extra Red Top Tube (12/07/2020 11:42 AM CDT) P athologist Signature Hold Specimen JIC 12/07/2020 [facility] 1:01 PM CDT Specimen Anatomical Collection Method / Collection Time Recei ariel Time (Source) Location / Volume Laterality Blood BLOOD SPECIMEN / Venipuncture / 12/07/2020 11:42 12/07 Unknown Unknown AM CDT 11:49 AM CDT Ian Aguirre MD LAB - BLOOD ORDERABLES Performing Organization Address City/State/ZIP Code Phon e Number [place] [address] Care Lab [address] Lab (1st floor, no room number) (ABNORMAL) Comprehensive metabolic panel (12/07/2020 11:41 AM CDT) Patholo gist Method Time Signature Sodium 144 133 - 144 12/07/2020 LABORATORY mmol/L 2:35 PM CDT Potassium 3.6 3.4 - 5.3 12/07/2020 LABORATORY mmol/L 2:35 PM CDT Chloride 107 94 - 109 12/07/2020 LABORATORY mmol/L 2:35 PM CDT Carbon Dioxide 24 20 - 32 12/07/2020 LABORATORY (CO2) mmol/L 2:35 PM CDT Anion Gap 13 3 - 14 12/07/2020 LABORATORY mmol/L 2:35 PM CDT Urea Nitrogen 10 7 - 30 12/07/2020 LABORATORY mg/dL 2:35 PM CDT Creatinine 0.73 0.52 - 12/07/2020 LABORATORY 1.04 mg/dL 2:35 PM CDT Calcium 8.4 (L) 8.5 - 10.1 12/07/2020 LABORATORY mg/dL 2:35 PM CDT Glucose 64 (L) 70 - 99 12/07/2020 LABORATORY mg/dL 2:35 PM CDT Alkaline 91 40 - 150 12/07/2020 [facility] Phosphatase U/L 2:35 PM CDT AST 87 (H) 0 - 45 U/L 12/07/2020 [facility] 2:35 PM CDT ALT 40 0 - 50 U/L 12/07/2020 [facility] 2:35 PM CDT Protein Total 7.6 6.8 - 8.8 12/07/2020 [facility] g/dL 2:35 PM CDT Albumin 3.6 3.4 - 5.0 12/07/2020 [facility] g/dL 2:35 PM CDT Bilirubin Total 0.4 0.2 - 1.3 12/07/2020 [facility] mg/dL 2:35 PM CDT GFR Estimate >90 >60 12/07/2020 [facility] mL/min/1.7 2:35 PM CDT 3m2 Comment: As of August 20, 2020, eGFR is ca lculated by the CKD-EPI creatinine equation, without race adjustment. eGFR can be inf luenced by muscle mass, exercise, and diet. The reported eGFR is an estimation only and is only applicable if the renal function is stable. Specimen Anatomical Collection Method / Collection Time Recei ariel Time (Source) Location / Volume Laterality Blood BLOOD SPECIMEN / Venipuncture / 12/07/2020 11:41 12/07 Unknown Unknown AM CDT 11:49 AM CDT Ian Aguirre MD LAB - BLOOD ORDERABLES Performing Organization Address City/State/[place] [address] Care Lab [address] Lab (1st floor, no room number) Extra Green Top ([place] Heparin) Tube (12/07/2020 11:41 AM CDT) athologist Signature Hold Specimen [facility] 12/07/2020 LABORATORY 1:01 PM CDT Specimen Anatomical Collection Method / Collection Time Recei ariel Time (Source) Location / Volume Laterality Blood BLOOD SPECIMEN / Venipuncture / 12/07/2020 11:41 12/07 Unknown Unknown AM CDT 11:49 AM CDT Ian Aguirre MD LAB - BLOOD ORDERABLES Performing Organization Address City/State/[place] [address] Care Lab [address] Lab (1st floor, no room number) Extra Blue Top Tube (12/07/2020 11:41 AM CDT) athologist Signature Hold Specimen [facility] 12/07/2020 [facility] 1:01 PM CDT Specimen Anatomical Collection Method / Collection Time Recei ariel Time (Source) Location / Volume Laterality Blood BLOOD SPECIMEN / Venipuncture / 12/07/2020 11:41 12/07 Unknown Unknown AM CDT 11:49 AM CDT Ian Aguirre MD LAB - BLOOD ORDERABLES Performing Organization Address City/State/ZIP Code Phon e Number [place] [address] Care Lab [address] Lab (1st floor, no room number) documented in this encounter Visit Diagnoses Diagnosis Alcoholic intoxication with complication (H) Alcohol abuse Alcohol abuse, unspecified documented in this encounter Additional Health Concerns Assessment Noted Time PHQ-9 Depression Total Score: 8 07/08/2019 10:24 AM CD T documented as of this encounter Care Teams Wire Tester Relationship Specialty Start Date End Date Reggie Sarabia MD PCP - General Family Practice 07/08/19 05/21/21 Reggie Sarabia MD Assigned PCP 07/16/20 01/13/21 [id number] [address] [facility] [place] [address] documented as of this encounter
--- OUTSIDE RECORDS SUMMARY | 2021-12-10 21:20 | XMS_ITS | Encounter Summary ---
:1985 Author Organization [place] Address [address] [place] [address]. [place] [address] Care Team Providers Name Role Phone Reggie Sarabia MD Unavailable Reggie Sarabia MD Primary Care Provider [phone] Reason for Visit Reason Onset Date Comments Pain 07/08/2019 Encounter Details Date Type Department Care Team Description 07/08/2019 Virtual Visit [facility] Astrid Colón Perip heral polyneuropathy (Primary Dx); Clinic Blaze Santamaria MD Essential hypertension; [address] [facility] [address] [facility] [place] [address] [phone] Social History Tobacco Use Types Packs/Day Years [...] 05/22/2021 relatives? How often do you attend congregation or cheondoism Never 05/22/2021 services? Do you belong to any clubs or organizations such as No 05/22/2021 congregation groups, unions, fraternal or athletic groups, or [...] place to sleep or slept in a chcf (including now)? Sex Assigned at Date Recorded Female 12/08/2020 12:18 PM CDT COVID-19 Exposure Response Date Recorded In the last month, have you been in contact with No / Unsure 07/08/2019 10:18 AM CDT someone who was confirmed or suspected to have Coronavirus / COVID-19? documented as of this encounter Progress Notes Astrid Colón MD - 07/08/2019 11:20 AM CDT Tri Cerda is a 33 year old female who is being evaluated via a billable video visit. The patient has been notified of following: This video visit will be conducted via a call between you and your physician/provider. We have found that certain health care needs can be provided without the need for an in-person physical exam. This service lets us provide the care you need with a video conversation. If a prescription is necessarywe can send it directly to your pharmacy. If lab work is needed we can place an order for that and you can then stop by our lab to have the test done at a later time. Video visits are billed at different rates depending on your insurance coverage. Please reach out toyour insurance provider with any questions. If during the course of the call the physician/provider feels a video visit is not appropriate, you will not be charged for this service. Patient has given verbal consent for Video visit? Yes How would you like to obtain your AVS? [facility] Patient would like the video invitation sent by: Text to cell phone: [phone] Will anyone else be joining your video visit? No Subjective Tri Cerda is a 33 year old female who presents today via video visit for the following healthissues: HPI Tingling in the feet began in December 2018. No changes to footwear or time spent on feet. No low back pain or trauma. No change in color. No swelling. Tingling extends up to the calf now. No trouble with coordination. No loss of strength in the legs. No loss of urine or stool. Reports her boyfriend says her feet feel warm, but she says they feel cold. Has been without BP medications the past couple months. Numbness and tingling/pain worse at night. Unable to sleep at times due to pain. No uncontrolled feet/leg movements. Benadryl helps to fall asleep. Gastric bypass in 2015. Maintaining stable weight. Taking her supplements most days of the week. No alcohol. Not sexually active. Video Start Time: 11:20 AM Patient Active Problem List Diagnosis ??? Major depressive disorder, single episode, moderate (H) ??? Iron deficiency anemia due to chronic blood loss ??? Essential hypertension ??? S/P gastric bypass ??? Tobacco use disorder Past Surgical History: Procedure Laterality Date ??? 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 LAPAROSCOPIC BYPASS GASTRIC N/A 02/09/2015 Procedure: LAPAROSCOPIC BYPASS GASTRIC; Surgeon: Ammon Randall MD; Location: OR Social History Tobacco Use ??? Smoking status: Current Every Day Smoker Packs/day: 0.50 Years: 6.00 Pack years: 3.00 Types: Cigarettes Last attempt to quit: 05/12/2011 Years since quittin.1 ??? Smokeless tobacco: Never Used Substance Use Topics ??? Alcohol use: Yes Alcohol/week: 2.0 - 3.0 standard drinks Types: 2 - 3 Standard drinks or equivalent per week Comment: occ Family History Problem Relation Age of Onset ??? Hypertension Mother Current Outpatient Medications Medication Sig Dispense Refill ??? hydrochlorothiazide (HYDRODIURIL) 25 MG tablet Take 1 tablet (25 mg) by mouth daily 90 tablet 3 ??? lisinopril (ZESTRIL) 10 MG tablet Take 1 tablet (10 mg) by mouth daily 90 tablet 3 ??? Multiple Vitamins-Minerals (MULTIVITAMIN ADULT PO) Reviewed and updated as needed this visit by Provider Review of Systems Constitutional, HEENT, cardiovascular, pulmonary, gi and gu systems are negative, except as otherwise noted. Objective There were no vitals taken for this visit. Estimated body mass index is 29.57 kg/m?? as calculated from the following: Height as of 05/11/18: 1.638 m (5' 4.5). Weight as of 06/09/18: 79.4 kg (175 lb). Physical Exam GENERAL: Healthy, alert and no distress EYES: Eyes grossly normal to inspection. No discharge or erythema, or obvious scleral/conjunctival abnormalities. RESP: No audible wheeze, cough, or visible cyanosis. No visible retractions or increased work of breathing. SKIN: Visible skin clear. No significant rash, abnormal pigmentation or lesions. NEURO: Cranial nerves grossly intact. Mentation and speech appropriate for age. PSYCH: Mentation appears normal, affect normal/bright, judgement and insight intact, normal speech and appearance well-groomed. Diagnostic Test Results: Labs reviewed in Epic Assessment & Plan 1. Peripheral polyneuropathy - unclear etiology but worsening. Will start with lab work up first. Ifall normal will pursue EMG studies and Neurology consultation. - DEPRESSION ACTION PLAN (DAP) - Ferritin; Future - Iron and iron binding capacity FUTURE anytime; Future - Vitamin B12 FUTURE 2mo; Future - TSH with free T4 reflex FUTURE anytime; Future - Protein electrophoresis; Future - A1C FUTURE anytime; Future - Anti Nuclear Aida IgG by IFA with Reflex; Future - ESR FUTURE anytime; Future 2. Essential hypertension - has been without medications past 2 months - surveillance labs and refills. Suggested BP only visit once she is on meds for at least 2 weeks. - Basic metabolic panel FUTURE anytime; Future - hydrochlorothiazide (HYDRODIURIL) 25 MG tablet; Take 1 tablet (25 mg) by mouth daily Dispense: 90 tablet; Refill: 3 - lisinopril (ZESTRIL) 10 MG tablet; Take 1 tablet (10 mg) by mouth daily Dispense: 90 tablet; Refill: 3 Return in about 1 month (around 08/08/2019) for BP Recheck. Astrid Colón MD [facility] Video-Visit Details Type of service: Video Visit Video End Time: 11:35 AM Originating Location (pt. Location): Home Distant Location (provider location): [facility] Platform used for Video Visit: Doximity Return in about 1 month (around 08/08/2019) for BP Recheck. Astrid Colón MD documented in this encounter Plan of Treatment Not on filedocumented as of this encounter Results (ABNORMAL) Basic metabolic panel FUTURE anytime (07/09/2019 1:34 PM CDT) athologist Signature Sodium 139 133 - 144 07/09/2019 [place] mmol/L 5:46 PM [facility] Potassium 3.3 (L) 3.4 - 5.3 07/09/2019 [place] mmol/L 5:46 PM [facility] Chloride 107 94 - 109 07/09/2019 [place] mmol/L 5:46 PM [facility] Carbon Dioxide 24 20 - 32 07/09/2019 [place] mmol/L 6:[address] [facility] Anion Gap 8 3 - 14 07/09/2019 [place] mmol/L 6:[address] [facility] Glucose 74 70 - 99 07/09/2019 [place] mg/dL 6:[address] [facility] Urea Nitrogen 9 7 - 30 07/09/2019 [place] mg/dL 6:[address] [facility] Creatinine 0.80 0.52 - 07/09/2019 [place] 1.04 mg/dL 6:[address] [facility] GFR Estimate >90 >60 07/09/2019 [place] mL/min/{1. 6:03 PM [facility] 73_m2} HOSPITAL Comment: Non GFR Calc Starting 01/27/2018, serum creatinine ba sed estimated GFR (eGFR) will be calculated using the Chronic Kidney Dise [facility] Epidemiology Collaboration (CKD-EPI) equation. GFR Estimate If >90 >60 mL/min/{1.73_m2} 07/09/2019 6: 03 PM [facility] Comment: GFR Calc Starting 01/27/2018, serum creatinine ba sed estimated GFR (eGFR) will be calculated using the Chronic Kidney Dise [facility] Epidemiology Collaboration (CKD-EPI) equation. Calcium 8.7 8.5 - 10.1 mg/dL 07/09/2019 6:03 PM [facility] Specimen Anatomical Collection Method Collection Time Receive d Time (Source) Location / / Volume Laterality Blood specimen 07/09/2019 1:34 PM 020 1:35 (specimen) CDT PM CDT Astrid Colón MD LAB - BLOOD ORDERABLES Performing Organization Address City/State/ZIP Code Phon e Number M [facility] [address] [address] [facility] [address] [place], [place] [address], [facility] [phone] [facility] [address] [place] [address], [facility] ESR FUTURE anytime (07/09/2019 1:34 PM CDT) athologist Signature Sed Rate 8 0 - 20 mm/h 07/09/2019 [place] 2:01 PM CDT [facility] Specimen Anatomical Collection Method Collection Time Receive d Time (Source) Location / / Volume Laterality Blood specimen 07/09/2019 1:34 PM 020 1:35 (specimen) CDT PM CDT Astrid Colón MD LAB - BLOOD ORDERABLES Performing Organization Address City/[facility]/ZIP Code Phon e Number [facility] [address] [place] [address] Anti Nuclear Aida IgG by IFA with Reflex (07/09/2019 1:34 PM CDT) [facility] gist Method Time Signature LOUISA interpretation Negative NEG^Negat 07/13/2019 [facility] 1:38 PM CDT [facility] Comment: ? Reference range: <1:40 ??NEGATIVE 1:40 - 1:80 ??BORDERLINE POSITIVE >1:80 POSITIVE Specimen Anatomical Collection Method Collection Time Receive d Time (Source) Location / / Volume Laterality Blood specimen 07/09/2019 1:34 PM 020 1:35 (specimen) CDT PM CDT Astrid Colón MD LAB - BLOOD ORDERABLES Performing Organization Address City/State/ZIP Code Phon e Number [facility] [address] [place], [place] [id number] [place] [address] A1C FUTURE anytime (07/09/2019 1:34 PM CDT) athologist Signature Hemoglobin A1C 5.1 0 - 5.6 % 07/09/2019 [place] 2:01 PM CDT [facility] Comment: Normal <5.7% Prediabetes 5.7-6.4% ??Diab etes 6.5% or higher - adopted from ADA consensus guidelines. Specimen Anatomical Collection Method Collection Time Receive d Time (Source) Location / / Volume Laterality Blood specimen 07/09/2019 1:34 PM 020 1:35 (specimen) CDT PM CDT Astrid Colón MD LAB - BLOOD ORDERABLES Performing Organization Address [facility] Phon e Number [facility] [address] [place] [address] Protein electrophoresis (07/09/2019 1:34 PM CDT) Component Value Ref Test Analysis Performed At [facility] gist Range Method Time Signature Albumin 3.9 3.7 - 07/12/2019 [facility] Fraction 5.1 g/dL 2:12 PM CDT [facility] Alpha 1 0.3 0.2 - 07/12/2019 [facility] Fraction 0.4 g/dL 2:12 PM CDT [facility] Alpha 2 0.9 0.5 - 07/12/2019 [facility] Fraction 0.9 g/dL 2:12 PM CDT [facility] Beta Fraction 0.8 0.6 - 07/12/2019 [facility] 1.0 g/dL 2:12 PM CDT [facility] Gamma 1.1 0.7 - 07/12/2019 [facility] Fraction 1.6 g/dL 2:12 PM CDT [facility] Monoclonal 0.0 0.0 g/dL 07/12/2019 [facility] Peak 2:12 PM CDT [facility] [place] Essentially normal electroph oretic pattern. ??No obvious monoclonal proteins seen. ?? 07/12/2019 [facility] Interpretatio Pathologic significance requ ires clinical correlation. ??Veronica Marcus M.D., Ph.D., 2:12 PM CDT [facility] n: Pathologist ([phone]). [facility] Specimen Anatomical Collection Method Collection Time Receive d Time (Source) Location / / Volume Laterality Blood specimen 07/09/2019 1:34 PM 020 1:35 (specimen) CDT PM CDT Astrid Colón MD LAB - BLOOD ORDERABLES Performing Organization Address City/State/ZIP Code Phon e Number [facility] [address] TSH with free T4 reflex FUTURE anytime (07/09/2019 1:34 PM CDT) athologist Signature TSH 0.60 0.40 - 4.00 07/09/2019 [facility] mU/L 6:05 PM CDT HOSPITAL Specimen Anatomical Collection Method Collection Time Receive d Time (Source) Location / / Volume Laterality Blood specimen 07/09/2019 1:34 PM 020 1:35 (specimen) CDT PM CDT Astrid Colón MD LAB - BLOOD ORDERABLES Performing Organization Address City/State/ZIP Code Phon e Number [facility] [address] [place], [place] [address] [facility] [address] [place] [phone] [facility] [phone] (ABNORMAL) Vitamin B12 FUTURE 2mo (07/09/2019 1:34 PM CDT) athologist Signature Vitamin B12 1,160 (H) 193 - 986 07/09/2019 [facility] pg/mL 7:30 PM CDT [facility] Specimen Anatomical Collection Method Collection Time Receive d Time (Source) Location / / Volume Laterality Blood specimen 07/09/2019 1:34 PM 020 1:35 (specimen) CDT PM CDT Astrid Colón MD LAB - BLOOD ORDERABLES Performing Organization Address City/State/ZIP Code Phon e Number [facility] [address] [place], [place] [phone] [place] [address] Iron and iron binding capacity FUTURE anytime (07/09/2019 1:34 PM CDT) athologist Signature Iron 51 35 - 180 07/09/2019 [facility] ug/dL 6:04 PM CDT [facility] Iron Binding 282 240 - 430 07/09/2019 [facility] Cap ug/dL 6:10 PM CDT [facility] Iron Saturation 18 15 - 46 % 07/09/2019 [facility] Index 6:10 PM CDT [facility] Specimen Anatomical Collection Method Collection Time Receive d Time (Source) Location / / Volume Laterality Blood specimen 07/09/2019 1:34 PM 020 1:35 (specimen) CDT PM CDT Astrid Colón MD LAB - BLOOD ORDERABLES Performing Organization Address City/State/ZIP Code Phon e Number M [facility] [address] [place] [address] [facility] [address] [place], [place] [address], [facility] [phone] [facility] [address] [place] [address], [facility] Ferritin (07/09/2019 1:34 PM CDT) athologist Signature Ferritin 100 12 - 150 07/09/2019 [facility] ng/mL 6:08 PM CDT HOSPITAL Specimen Anatomical Collection Method Collection Time Receive d Time (Source) Location / / Volume Laterality Blood specimen 07/09/2019 1:34 PM 020 1:35 (specimen) CDT PM CDT Astrid Colón MD LAB - BLOOD ORDERABLES Performing Organization Address City/State/ZIP Code Phon e Number M [facility] [address] [place], [place] [address] [facility] [address] [place], [place] [address], [facility] [phone] documented in this encounter Visit Diagnoses Diagnosis Peripheral polyneuropathy - Primary Unspecified hereditary and idiopathic pe ripheral neuropathy Essential hypertension Unspecified essential hypertension Tobacco use disorder documented in this encounter Additional Health Concerns Assessment Noted Time PHQ-9 Depression Total Score: 8 07/08/2019 10:24 AM CD T documented as of this encounter Care Teams Liner Man Relationship Specialty Start Date End Date Reggie Sarabia MD PCP - General Family Practice 07/08/19 05/21/21 Reggie Sarabia MD Assigned PCP 05/16/17 07/17/19 [id number] [place] [address] documented as of this encounter
--- OUTSIDE RECORDS SUMMARY | 2021-12-10 21:20 | XMS_ITS | Encounter Summary ---
:1985 Author Organization [place] Address [address] [place] [address] Care Team Providers Name Role Phone Reggie Sarabia MD Unavailable Reggie Sarabia MD Primary Care Provider [phone] Encounter Details Date Type Department Care Team Description 07/08/2019 Travel Social History Tobacco Use Types Packs/Day [...] often do you attend latter day or faith Never 05/22/2021 services? Do you belong to [...] documented as of this encounter Care Teams Health Safety And Environment Manager Relationship Specialty Start Date End Date Reggie Sarabia MD PCP - General Family Practice 07/08/19 05/21/21 Reggie Sarabia MD Assigned PCP 05/16/17 07/17/19 [address] [place] [address] documented as of this encounter
--- OUTSIDE RECORDS SUMMARY | 2021-12-10 21:20 | XMS_ITS | Encounter Summary ---
:1985 Author Organization [place] Address [address] [place] [address] Care Team Providers Name Role Phone Francisco Javier Pascual MD Primary Care Provider Reggie Sarabia MD Unavailable Reason for Visit Reason Comments Allied Health Visit Blood pressure check Encounter Details Date Type Department Care Team Description 12/14/2018 Allied Health/Nurse Health [facility] ied Health Visit Visit Clinic [place] (Blood pressure check) [address] [facility], [address] [place] [address] Social History Tobacco Use Types Packs/Day Years [...] 05/22/2021 relatives? How often do you attend voodoo or mu-ism Never 05/22/2021 services? Do you belong to any clubs or organizations such as No 05/22/2021 voodoo groups, unions, fraternal or athletic groups, or [...] place to sleep or slept in a assisted (including now)? Sex Assigned at Date Recorded Female 12/08/2020 12:18 PM CDT documented as of this encounter Last Filed Vital Signs Vital Sign Reading Time Taken Comments Blood Pressure 148/98 12/14/2018 4:30 PM CHEMICAL PROCESS ANALYST Pulse 77 12/14/2018 4:30 PM CHEMICAL PROCESS ANALYST Temperature - - Respiratory Rate - - Oxygen Saturation 98% 12/14/2018 4:30 PM CHEMICAL PROCESS ANALYST Inhaled Oxygen Concentration - - Weight - - Height - - Body Mass Index - - documented in this encounter Progress Notes Risa Camacho RN - 12/14/2018 4:00 PM CST Tri Cerda is a 33 year old year old patient who comes in today for a Blood Pressure check because of ongoing blood pressure monitoring and because patient states that she has not been feeling well for the last 4 days. Complaining of headache since 12/11/2018 that starts at her temples and comes a cross her eyes. Complains of feeling dizzy, lightheaded and the sense that she is almost going to pass out. Nausea at times. Heart pounding off/on. Off balance, visual issues. Has not been able to go to work for the last 3 days due to symptoms. Has been taking Ibuprofen 600mg with no relief. Patient states that the last time she increased her Lisinopril to 20mg her BP dropped too low really fast. Vital Signs as repeated by RN 148/98 Patient is taking medication as prescribed Lisinopril 10m tablet daily hydrochlorothiazide 25m tablet daily Patient is tolerating medications well. Patient is monitoring Blood Pressure at home. She took her BP earlier today at home (around 1pm) andit was 170/105. Current complaints: headaches, light-headedness, malaise, nausea, weakness and see above. Disposition: huddled with provider, patient instructed to increase hydrochlorothiazide to 50mg dailyand to continue to monitor symptoms. If no improvement or worsening should be seen for a follow up. advised that her symptoms may not all be related to her BP and that she could also have a vi harvey going on as well. Pt requested a note for missing work and to be off tomorrow to rest. Note written. Risa Camacho RN ICAL PROCESS ANALYST documented in this encounter Miscellaneous Notes Addendum Note - Risa Camacho RN - 12/14/2018 4:00 PM CHEMICAL PROCESS ANALYST Addended by: RISA CAMACHO on: 12/14/2018 05:02 PM Modules accepted: Orders ICAL PROCESS ANALYST documented in this encounter Plan of Treatment Not on filedocumented as of this encounter Visit Diagnoses Diagnosis Blood pressure check - Primary Screening for hypertension documented in this encounter Additional Health Concerns Assessment Noted Time PHQ-9 Depression Total Score: 12 05/22/2018 2:42 PM CD T documented as of this encounter Care Teams Industrial Service Technician Relationship Specialty Start Date End Date Francisco Javier Pascual MD PCP - General Family Practice 02/11/14 07/07/19 Reggie Sarabia MD Assigned PCP 05/16/17 07/17/19 [address] [place] [address] documented as of this encounter
--- OUTSIDE RECORDS SUMMARY | 2021-12-10 21:20 | XMS_ITS | Encounter Summary ---
:1985 Author Organization [place] Address [address] [place] [address] Care Team Providers Name Role Phone Francisco Javier Pascual MD Primary Care Provider Reggie Sarabia MD Unavailable Encounter Details Date Type Department Care Team Description 12/14/2018 Travel Social History Tobacco Use Types Packs/Day [...] 05/22/2021 relatives? How often do you attend evangelical or pentecostal Never 05/22/2021 services? Do you belong to any clubs or organizations such as No 05/22/2021 evangelical groups, unions, fraternal or athletic groups, or [...] place to sleep or slept in a retirement (including now)? Sex Assigned at Date Recorded Female 12/08/2020 12:18 PM CDT documented as of this encounter Plan of Treatment Not on filedocumented as of this encounter Visit Diagnoses Not on filedocumented in this encounter Additional Health Concerns Assessment Noted Time PHQ-9 Depression Total Score: 12 05/22/2018 2:42 PM CD T documented as of this encounter Care Teams Paraffiner Relationship Specialty Start Date End Date Francisco Javier Pascual MD PCP - General Family Practice 02/11/14 07/07/19 Reggie Sarabia MD Assigned PCP 05/16/17 07/17/19 [id number] [place] [address] documented as of this encounter
--- OUTSIDE RECORDS SUMMARY | 2021-12-10 21:20 | XMS_ITS | Encounter Summary ---
:1985 Author Organization [place] Address [address] [place] [address] Care Team Providers Name Role Phone Reggie Sarabia MD Primary Care Provider [phone] Reggie Sarabia MD Unavailable Encounter Details Date Type Department Care Team Description 12/29/2020 Travel Social History Tobacco Use Types Packs/Day [...] 05/22/2021 relatives? How often do you attend mandaeism or mormonism Never 05/22/2021 services? Do you belong to any clubs or organizations such as No 05/22/2021 mandaeism groups, unions, fraternal or athletic groups, or [...] been in contact with No / Unsure 12/29/2020 10:25 AM COMPRESSOR TECHNICIAN someone who was confirmed or suspected to have Coronavirus / COVID-19? documented as of this encounter Plan of Treatment Not on filedocumented as of this encounter Visit Diagnoses Not on filedocumented in this encounter Additional Health Concerns Assessment Noted Time PHQ-9 Depression Total Score: 13 12/10/2021 7:04 AM CD T documented as of this encounter Care Teams Bar Back Relationship Specialty Start Date End Date Reggie Sarabia MD PCP - General Family Practice 07/08/19 05/21/21 Reggie Sarabia MD Assigned PCP 07/16/20 01/13/21 [address] [place] [address] documented as of this encounter
--- OUTSIDE RECORDS SUMMARY | 2021-12-10 21:20 | XMS_ITS | Encounter Summary ---
:1985 Author Organization [place] Address [address] [place] [address] Care Team Providers Name Role Phone Reggie Sarabia MD Primary Care Provider [phone] Reggie Sarabia MD Unavailable Reason for Visit Reason Comments Recheck Medication Encounter Details Date Type Department Care Team Description 01/10/2021 Office Visit [facility] Lisandra Ball epressive disorder, single episode, moderate (H) (Primary Dx); Clinic [place] IZABEL Rosas Alcohol abuse, in remission [id number] [place] [id number] [place] [address] [address] [address] [place], [place] [phone] [address] Social History Tobacco Use Types Packs/Day Years [...] 05/22/2021 relatives? How often do you attend denominational or sikhism Never 05/22/2021 services? Do you belong to any clubs or organizations such as No 05/22/2021 denominational groups, unions, fraternal or athletic groups, or [...] place to sleep or slept in a usp (including now)? Sex Assigned at Date Recorded Female 12/08/2020 12:18 PM CDT COVID-19 Exposure Response Date Recorded In the last month, have you been in contact with No / Unsure 01/10/2021 1:11 PM SUPERVISOR HEADING someone who was confirmed or suspected to have Coronavirus / COVID-19? documented as of this encounter Last Filed Vital Signs Vital Sign Reading Time Taken Comments Blood Pressure 137/92 01/10/2021 1:25 PM SUPERVISOR HEADING Pulse 82 01/10/2021 1:25 PM SUPERVISOR HEADING Temperature 36.8 ??C (98.3 ??F) 01/10/2021 1:25 PM SUPERVISOR HEADING Respiratory Rate - - Oxygen Saturation 100% 01/10/2021 1:25 PM SUPERVISOR HEADING Inhaled Oxygen Concentration - - Weight 74.3 kg (163 lb 12.5 oz) 01/10/2021 1:25 PM SUPERVISOR HEADING Height - - Body Mass Index 27.25 12/07/2020 9:37 PM CDT documented in this encounter Patient Instructions Patient InstructionsGiLisandra sykes PA-C - 01/10/2021 1:30 PM CST Referral to Behavioral Health Clinician (BHC) During our visit, I encouraged you talk with our Behavioral Health Clinician (BHC). A BHC would be agreat addition to your care team and will support your whole health! What is a Behavioral Health Clinician (BHC)? A BHC is a licensed mental health therapist. They can help you when behaviors, emotions, stress or worries get in the way of your life or health. Your BHC will work with you and your primary care team.Together, you'll come up with a unique care plan that works for you! BHCs have a zest to help peoplediscover real and lasting change. What will happen when I meet with a BHC? BHCs ask questions to better understand your concerns. They will provide brief, solution-focused therapy. They can also make referrals to a specialty therapist or other services to help you reach your goals. How do I schedule an appointment with the BHC? Call and ask for a BHC appointment. At this time, we are offering virtual visits (video). How much time will I spend with the BHC? First visits are 45-60 minutes. Return visits are 20-30 minutes. How does billing work? Outpatient mental health services are billed to insurance. Most plans don't charge a second co-pay if you see your primary care provider (PCP) the same day. Please verify your coverage and ask about your copay. RVISOR HEADING documented in this encounter Progress Notes Lisandra Ball PA-C - 01/10/2021 1:30 PM CST Assessment & Plan Major depressive disorder, single episode, moderate (H) Paperwork for work filled out for patient. Will try fluoxetine instead of Zoloft as she is having lack of emotion with the Zoloft. - FLUoxetine (PROZAC) 20 MG capsule; Take 1 capsule (20 mg) by mouth daily Alcohol abuse, in remission Doing well with sobriety. Given information regarding mental health referral provided several weeks ago. Review of external notes as documented elsewhere in note Prescription drug management 39 minutes spent on the date of the encounter doing chart review, history and exam, documentation and further activities per the note Return in about 1 month (around 02/10/2021) for Follow up mental health (would like to be seen in ). Lisandra Ball PA-C [facility] Maryjo Bartlett is a 35 year old who presents for the following health issues HPI Medication Followup of sertraline (ZOLOFT) 50 MG tablet ?? Taking Medication as prescribed: yes ?? Side Effects: Abnormal lack of emotion to everyday life. Others are also noticing she is lacking emotion. Nephew recently passed and she has not been very tearful though she is sad. ?? Medication Helping Symptoms: Yes She notes she is sleeping much of the day. Of note patient has been on Wellbutrin and Fluoxetine in the past, currently on Zoloft. Still using acamprosate, taking once daily. Sobriety going well. She has remained 34 days sober. She has been doing Zoom AA meetings, no structured out patient therapy yet. Patient denies any suicidal thoughts. PHQ-9 shows significant depression. Review of Systems GENERAL: No fevers Objective BP (!) 137/92 (BP Location: Right arm, Patient Position: Chair, Cuff Size: Adult Regular) Pulse 82 Temp 98.3 ??F (36.8 ??C) (Oral) Wt 74.3 kg (163 lb 12.5 oz) LMP 12/22/2020 SpO2 100% BMI 27.25 kg/m?? Body mass index is 27.25 kg/m??. Physical Exam GENERAL: No acute distress HEENT: Normocephalic NEURO: Alert and non-focal PSYCH: Flat affect Answers for HPI/ROS submitted by the patient on 01/10/2021 If you checked off any problems, how difficult have these problems made it for you to do your work, take care of things at home, or get along with other people?: Very difficult PHQ9 TOTAL SCORE: 21 RVISOR HEADING documented in this encounter Plan of Treatment Not on filedocumented as of this encounter Visit Diagnoses Diagnosis Major depressive disorder, single episod e, moderate (H) - Primary Major depressive disorder, single episod e, moderate Alcohol abuse, in remission Nondependent alcohol abuse, in remission documented in this encounter Additional Health Concerns Assessment Noted Time PHQ-9 Depression Total Score: 21 01/11/2021 7:03 AM CS T documented as of this encounter Care Teams Boat Garnisher Relationship Specialty Start Date End Date Reggie Sarabia MD PCP - General Family Practice 07/08/19 05/21/21 Reggie Sarabia MD Assigned PCP 07/16/20 01/13/21 [id number] [address] [id number] documented as of this encounter
--- OUTSIDE RECORDS SUMMARY | 2021-12-10 21:20 | XMS_ITS | Encounter Summary ---
:1985 Author Organization [place] Address [address] [place] [address]. [place] [address] Care Team Providers Name Role Phone Reggie Sarabia MD Primary Care Provider [phone] Astrid Colón MD Unavailable Reason for Visit Reason Onset Date Comments Appointment 08/18/2019 Moved Time/ Provider Encounter Details Date Type Department Care Team Description 08/18/2019 [facility] Reggie Sarabiaca nt (Moved Clinic Danny Hedrick MD Time/ Provider ) [facility], [address] [place] [address] [address] [place] [address] [place], [place] [phone] (Wo rk) [address] [phone] Social History Tobacco Use Types Packs/Day Years [...] 05/22/2021 relatives? How often do you attend oriental orthodox or latter day Never 05/22/2021 services? Do you belong to any clubs or organizations such as No 05/22/2021 oriental orthodox groups, unions, fraternal or athletic groups, or [...] place to sleep or slept in a alf (including now)? Sex Assigned at Date Recorded Female 12/08/2020 12:18 PM CDT COVID-19 Exposure Response Date Recorded In the last month, have you been in contact with No / Unsure 08/13/2019 10:53 AM CDT someone who was confirmed or suspected to have Coronavirus / COVID-19? documented as of this encounter Miscellaneous Notes Telephone Encounter - Josefa Hassan - 08/18/2019 9:13 AM CDT Name: Tri Cerda Date: 08/18/2019 Status: Scheduled Time: 11:20 AM Length: 40 Visit Type: VIDEO VISIT SHORT [8886] Copay: $0.00 Provider: Quinn Bates PA-C Department: FAMILY PRACTICE Patient was scheduled to come in to see Dr Sarabia today, unfortunately that didn't leave enough timefor a 15 minute appointment, I was asked to switch to Quinn Bates for longer appointment and a video / phone appointment instead. Please let patient know of the change if she calls back Josefa Hassan/ [place] documented in this encounter Plan of Treatment Not on filedocumented as of this encounter Visit Diagnoses Not on filedocumented in this encounter Additional Health Concerns Assessment Noted Time PHQ-9 Depression Total Score: 8 07/08/2019 10:24 AM CD T documented as of this encounter Care Teams Marine Engine Machinist Relationship Specialty Start Date End Date Reggie Sarabia MD PCP - General Family Practice 07/08/19 05/21/21 Astrid Colón MD Assigned PCP 07/18/19 07/15/20 [address] [place] [address] documented as of this encounter
--- OUTSIDE RECORDS SUMMARY | 2021-12-10 21:20 | XMS_ITS | Encounter Summary ---
:1985 Author Organization [facility] Address [address] [place] [address] Care Team Providers Name Role Phone Reggie Sarabia MD Unavailable Reggie Sarabia MD Primary Care Provider [phone] Encounter Details Date Type Department Care Team Description 07/09/2019 Orders Only [facility] Ess ential hypertension; [facility] Peripheral polyneuropathy [address] [place] [address] Social History Tobacco Use Types Packs/Day Years [...] 05/22/2021 relatives? How often do you attend spiritism or caodaism Never 05/22/2021 services? Do you belong to any clubs or organizations such as No 05/22/2021 spiritism groups, unions, fraternal or athletic groups, or [...] place to sleep or slept in a halfway (including now)? Sex Assigned at Date Recorded Female 12/08/2020 12:18 PM CDT COVID-19 Exposure Response Date Recorded In the last month, have you been in contact with No / Unsure 07/09/2019 1:31 PM CDT someone who was confirmed or suspected to have Coronavirus / COVID-19? documented as of this encounter Plan of Treatment Not on filedocumented as of this encounter Procedures Procedure Name Priority Date/Time Associated Diagnosis Comme nts ANTI NUCLEAR KEVIN IGG BY Routine 07/09/2019 1:34 Peripheral R esults for this IFA WITH REFLEX PM CDT polyneuropathy procedure are in the results section. TSH WITH FREE T4 REFLEX Routine 07/09/2019 1:34 Peripheral R esults for this PM CDT polyneuropathy procedure are in the results section. IRON AND IRON BINDING Routine 07/09/2019 1:34 Peripheral Res ults for this CAPACITY PM CDT polyneuropathy procedure are in the results section. HEMOGLOBIN A1C Routine 07/09/2019 1:34 Peripheral Results fo r this PM CDT polyneuropathy procedure are in the results section. FERRITIN Routine 07/09/2019 1:34 Peripheral Results for this PM CDT polyneuropathy procedure are in the results section. ERYTHROCYTE Routine 07/09/2019 1:34 Peripheral Results for this SEDIMENTATION RATE AUTO PM CDT polyneuropathy pr ocedure are in the results section. PROTEIN ELECTROPHORESIS Routine 07/09/2019 1:34 Peripheral R esults for this PM CDT polyneuropathy procedure are in the results section. VITAMIN B12 Routine 07/09/2019 1:34 Peripheral Results for this PM CDT polyneuropathy procedure are in the results section. BASIC METABOLIC PANEL Routine 07/09/2019 1:34 Essential Res ults for this PM CDT hypertension procedure are i n the results section. documented in this encounter Results Ferritin (07/09/2019 1:34 PM CDT) P athologist Signature Ferritin 100 12 - 150 07/09/2019 [facility] ng/mL 6:08 PM CDT HOSPITAL Specimen Anatomical Collection Method Collection Time Receive d Time (Source) Location / / Volume Laterality Blood specimen 07/09/2019 1:34 PM 020 1:35 (specimen) CDT PM CDT Astrid Colón MD LAB - BLOOD ORDERABLES Performing Organization Address City/State/ZIP Code Phon e Number M [facility] [address] [address] [facility] [address] [address] 7, [facility] [phone] Iron and iron binding capacity FUTURE anytime (07/09/2019 1:34 PM CDT) athologist Signature Iron 51 35 - 180 07/09/2019 [place] ug/dL 6:04 PM CDT [facility] Iron Binding 282 240 - 430 07/09/2019 [place] Cap ug/dL 6:10 PM CDT [facility] Iron Saturation 18 15 - 46 % 07/09/2019 [place] Index 6:10 PM CDT [facility] Specimen Anatomical Collection Method Collection Time Receive d Time (Source) Location / / Volume Laterality Blood specimen 07/09/2019 1:34 PM 020 1:35 (specimen) CDT PM CDT Astrid Colón MD LAB - BLOOD ORDERABLES Performing Organization Address City/[facility]/ZIP Code Phon e Number [facility] [address] [place] [address] [facility] [address] [place], [place] [address], [facility] [phone] [facility] [address] [place] [address], [facility] (ABNORMAL) Vitamin B12 FUTURE 2mo (07/09/2019 1:34 PM CDT) athologist Signature Vitamin B12 1,160 (H) 193 - 986 07/09/2019 [facility] pg/mL 7:30 PM CDT [facility] Specimen Anatomical Collection Method Collection Time Receive d Time (Source) Location / / Volume Laterality Blood specimen 07/09/2019 1:34 PM 020 1:35 (specimen) CDT PM CDT Astrid Colón MD LAB - BLOOD ORDERABLES Performing Organization Address City/[facility]/ZIP Code Phon e Number [phone] [place] [address] TSH with free T4 reflex FUTURE anytime (07/09/2019 1:34 PM CDT) athologist Signature TSH 0.60 0.40 - 4.00 07/09/2019 [facility] mU/L 6:05 PM CDT HOSPITAL Specimen Anatomical Collection Method Collection Time Receive d Time (Source) Location / / Volume Laterality Blood specimen 07/09/2019 1:34 PM 020 1:35 (specimen) CDT PM CDT Astrid Colón MD LAB - BLOOD ORDERABLES Performing Organization Address City/State/ZIP Code Phon e Number [facility] [address] [place], [place] [address] [facility] [address] [place], [place] [address] 7[facility] [phone] Protein electrophoresis (07/09/2019 1:34 PM CDT) Component Value Ref Test Analysis Performed At [facility] Range Method Time Signature Albumin 3.9 3.7 - 07/12/2019 [facility] Fraction 5.1 g/dL 2:12 PM CDT [facility] Alpha 1 0.3 0.2 - 07/12/2019 [facility] Fraction 0.4 g/dL 2:12 PM CDT [facility] Alpha 2 0.9 0.5 - 07/12/2019 [facility] Fraction 0.9 g/dL 2:12 PM CDT [facility] Beta Fraction 0.8 0.6 - 07/12/2019 [facility] 1.0 g/dL 2:12 PM CDT [facility] Gamma 1.1 0.7 - 07/12/2019 [facility] Fraction 1.6 g/dL 2:12 PM CDT [facility] Monoclonal 0.0 0.0 g/dL 07/12/2019 [facility] Peak 2:12 PM CDT [facility] ELP Essentially normal electroph oretic pattern. ??No obvious monoclonal proteins seen. ?? 07/12/2019 [facility] Interpretati Pathologic significance requ ires clinical correlation. ??Veronica Marcus M.D., Ph.D., 2:12 PM CDT [facility] n: Pathologist ([phone]). [facility] Specimen Anatomical Collection Method Collection Time Receive d Time (Source) Location / / Volume Laterality Blood specimen 07/09/2019 1:34 PM 020 1:35 (specimen) CDT PM CDT Astrid Colón MD LAB - BLOOD ORDERABLES Performing Organization Address City/[facility]/ZIP Code Phon e Number [facility] [address] A1C FUTURE anytime (07/09/2019 1:34 PM CDT) P athologist Signature Hemoglobin A1C 5.1 0 - 5.6 % 07/09/2019 [place] 2:01 PM CDT [facility] Comment: Normal <5.7% Prediabetes 5.7-6.4% ??Diab etes 6.5% or higher - adopted from ADA consensus guidelines. Specimen Anatomical Collection Method Collection Time Receive d Time (Source) Location / / Volume Laterality Blood specimen 07/09/2019 1:34 PM 020 1:35 (specimen) CDT PM CDT Astrid Colón MD LAB - BLOOD ORDERABLES Performing Organization Address [facility]/ZIP Code Phon e Number [facility] [phone] [place] [address] Anti Nuclear Kevin IgG by IFA with Reflex (07/09/2019 1:34 PM CDT) [facility] gist Method Time Signature LOUISA interpretation Negative NEG^Negat 07/13/2019 [facility] 1:38 PM CDT [facility] Comment: ? Reference range: <1:40 ??NEGATIVE 1:40 - 1:80 ??BORDERLINE POSITIVE >1:80 POSITIVE Specimen Anatomical Collection Method Collection Time Receive d Time (Source) Location / / Volume Laterality Blood specimen 07/09/2019 1:34 PM 020 1:35 (specimen) CDT PM CDT Astrid Colón MD LAB - BLOOD ORDERABLES Performing Organization Address City/[facility]/ZIP Code Phon e Number [facility] [address] ESR FUTURE anytime (07/09/2019 1:34 PM CDT) athologist Signature Sed Rate 8 0 - 20 mm/h 07/09/2019 [place] 2:01 PM T [facility] Specimen Anatomical Collection Method Collection Time Receive d Time (Source) Location / / Volume Laterality Blood specimen 07/09/2019 1:34 PM 020 1:35 (specimen) CDT PM CDT Astrid Colón MD LAB - BLOOD ORDERABLES Performing Organization Address City/State/ZIP Code Phon e Number [facility] [address] [place] [address] (ABNORMAL) Basic metabolic panel FUTURE anytime (07/09/2019 1:34 PM CDT) athologist Signature Sodium 139 133 - 144 07/09/2019 [place] mmol/L 5:46 PM [facility] Potassium 3.3 (L) 3.4 - 5.3 07/09/2019 [place] mmol/L 5:46 PM [facility] Chloride 107 94 - 109 07/09/2019 [place] mmol/L 5:46 PM [facility] Carbon Dioxide 24 20 - 32 07/09/2019 [place] mmol/L 6:03 PM [facility] Anion Gap 8 3 - 14 07/09/2019 [place] mmol/L 6:03 PM [facility] Glucose 74 70 - 99 07/09/2019 [place] mg/dL 6:03 PM [facility] Urea Nitrogen 9 7 - 30 07/09/2019 [place] mg/dL 6:03 PM [facility] Creatinine 0.80 0.52 - 07/09/2019 [place] 1.04 mg/dL 6:03 PM [facility] GFR Estimate >90 >60 07/09/2019 [place] mL/min/{1. 6:03 PM [facility] 73_m2} [facility] Comment: Non GFR Calc Starting 01/27/2018, serum creatinine ba sed estimated GFR (eGFR) will be calculated using the Chronic Kidney Dise ase Epidemiology Collaboration (CKD-EPI) equation. GFR Estimate If >90 >60 mL/min/{1.73_m2} 07/09/2019 6: 03 PM [facility] Comment: GFR Calc Starting 01/27/2018, serum creatinine ba sed estimated GFR (eGFR) will be calculated using the Chronic Kidney Dise ase Epidemiology Collaboration (CKD-EPI) equation. Calcium 8.7 8.5 - 10.1 mg/dL 07/09/2019 6:03 PM CDT [facility] Specimen Anatomical Collection Method Collection Time Receive d Time (Source) Location / / Volume Laterality Blood specimen 07/09/2019 1:34 PM 020 1:35 (specimen) CDT PM CDT Astrid Colón MD LAB - BLOOD ORDERABLES Performing Organization Address City/State/ZIP Code Phon e Number M [facility] [address] [place] [address] [facility] [address] [place] [address], [facility] [phone] [facility] [address] [place] [address], [facility] documented in this encounter Visit Diagnoses Diagnosis Essential hypertension Unspecified essential hypertension Peripheral polyneuropathy Unspecified hereditary and idiopathic pe ripheral neuropathy documented in this encounter Additional Health Concerns Assessment Noted Time PHQ-9 Depression Total Score: 8 07/08/2019 10:24 AM CD T documented as of this encounter Care Teams Sap Architect Relationship Specialty Start Date End Date Reggie Sarabia MD PCP - General Family Practice 07/08/19 05/21/21 Reggie Sarabia MD Assigned PCP 05/16/17 07/17/19 [id number] [address] [id number] documented as of this encounter
--- OUTSIDE RECORDS SUMMARY | 2021-12-10 21:20 | XMS_ITS | Encounter Summary ---
:1985 Author Organization [facility] Address [address] [place] [address]. [place] [address] Care Team Providers Name Role Phone Francisco Javier Pascual MD Primary Care Provider Reggie Sarabia MD Unavailable Reason for Visit Reason Onset Date Comments Panel Management 03/18/2019 Encounter Details Date Type Department Care Team Description 03/18/[address] [facility] Reggie Sarabia, Panel Management Danny DIAZ [address] [place] [address] [address] [place] [address] [place] [address] [phone] Social History Tobacco Use Types Packs/Day Years [...] 05/22/2021 relatives? How often do you attend lutheran or mormonism Never 05/22/2021 services? Do you belong to any clubs or organizations such as No 05/22/2021 lutheran groups, unions, fraternal or athletic groups, or [...] this encounter Miscellaneous Notes Telephone Encounter - Arlette Villatoro CMA - 04/01/2019 12:43 PM CST 3rd attempt. Panel management letter mailed to the patient's home address. Arlette Villatoro CMA OPSYCHOLOGY DIVISION CHIEF Telephone Encounter - Arlette Villatoro CMA - 03/25/2019 3:50 PM CST 2nd attempt. LMOM for the patient to call the clinic back. Arlette Villatoro CMA OPSYCHOLOGY DIVISION CHIEF Telephone Encounter - Arlette Villatoro CMA - 03/18/2019 10:34 AM CST Panel Management Review Patient has the following on her problem list: Depression / Dysthymia review Measure: Needs PHQ-9 score of 4 or less during index window. Administer PHQ-9 and if score is 5 or more, send encounter to provider for next steps. 5 - 7 month window range: PHQ-9 due NOW PHQ-9 SCORE 06/13/2017 01/20/2018 05/22/2018 PHQ-9 Total Score MyChart - 21 (Severe depression) 12 (Moderate depression) PHQ-9 Total Score 18 21 12 If PHQ-9 recheck is 5 or more, route to provider for next steps. Patient is due for: PHQ9 and DAP Hypertension Last three blood pressure readings: BP Readings from Last 3 Encounters: 12/14/18 (!) 148/98 06/09/18 130/88 05/22/18 116/80 Blood pressure: FAILED HTN Guidelines: Less than 140/90 Composite cancer screening Chart review shows that this patient is due/due soon for the following None Summary: Patient is due/failing the following: DAP, FOLLOW UP and PHQ9 Action needed: Patient needs office visit for depression/anxiety and hypertension. Also needs to do PHQ9. Type of outreach: Sent [employer] message. Questions for provider review: None Arlette Villatoro CMA Chart routed to Care Team . OPSYCHOLOGY DIVISION CHIEF documented in this encounter Plan of Treatment Not on filedocumented as of this encounter Visit Diagnoses Not on filedocumented in this encounter Additional Health Concerns Assessment Noted Time PHQ-9 Depression Total Score: 12 05/22/2018 2:42 PM CD T documented as of this encounter Care Teams Telephone Plant Power Operator Relationship Specialty Start Date End Date Francisco Javier Pascual MD PCP - General Family Practice 02/11/14 07/07/19 Reggie Sarabia MD Assigned PCP 05/16/17 07/17/19 [address] [address] [place] [address] documented as of this encounter
--- OUTSIDE RECORDS SUMMARY | 2021-12-10 21:20 | XMS_ITS | Encounter Summary ---
:1985 Author Organization [facility] Address [address] [place] [address] Care Team Providers Name Role Phone Reggie Sarabia MD Primary Care Provider [phone] Reggie Sarabia MD Unavailable Reason for Visit Reason Onset Date Comments MH/CD Inpatient 12/07/2020 Encounter Details Date Type Department Care Team Description 12/07/[address] [facility] Generic, Behavioral MH/ CD Inpatient Behavioral Health In edgard Henry MD [address] [place] [id number] Social History Tobacco Use Types Packs/Day [...] 05/22/2021 relatives? How often do you attend shinto or taoism Never 05/22/2021 services? Do you belong to any clubs or organizations such as No 05/22/2021 shinto groups, unions, fraternal or athletic groups, or [...] this encounter Miscellaneous Notes Telephone Encounter - Estelle Squires - 12/07/2020 6:25 PM CDT [facility], 35/F, ETOH detox B: Pt drinking 0.5 liters of hard alcohol daily for the past 3 weeks. Pt denies hx of withdrawal seizures or DT. Pt denies MH concerns, denies SI, HI. Pt denies acute medical concerns. Pt is ambulatory. Pt MARICRUZ 0.341. A: vol, medically cleared, COVID negative. Utox pos for amphetamines, denies all drug use. R: Patient cleared and ready for behavioral bed placement: Yes Pt accepted for 3A[facility] and ED informed of disposition. documented in this encounter Plan of Treatment Not on filedocumented as of this encounter Visit Diagnoses Not on filedocumented in this encounter Additional Health Concerns Assessment Noted Time PHQ-9 Depression Total Score: 8 07/08/2019 10:24 AM CD T documented as of this encounter Care Teams Supervisor Gas Meter Repair Relationship Specialty Start Date End Date Reggie Sarabia MD PCP - General Family Practice 07/08/19 05/21/21 Reggie Sarabia MD Assigned PCP 07/16/20 01/13/21 [id number] [address] [id number] documented as of this encounter
--- OUTSIDE RECORDS SUMMARY | 2021-12-10 21:20 | XMS_ITS | Encounter Summary ---
:1985 Author Organization [facility] Address [address] [place] [address]. [place] [address] Care Team Providers Name Role Phone Reggie Sarabia MD Primary Care Provider [phone] Reggie Sarabia MD Unavailable Reason for Referral Mental Health Outpatient (Routine) - Pending Review Specialty Diagnoses / Procedures Referred By Contact Refer red To Contact Diagnoses Major depressive disorder, single episode, moderate (H) Grief Che Chong APRN TUBE BUFFER [address] [place] [address] Referral ID Status Reason Start Date Expiration Date Visits V isits Requested Authorized [id number] Pending 12/29/2020 12/29/2021 1 1 Review SKILLS TRAINER Reason for Visit Reason Comments Hypertension Depression Headache Encounter Details Date Type Department Care Team Description [facility] Clinic Everton Millan APRN CNP Need for vaccination; [address] Daily headache; DANIELLA [place] Alcohol withd sarah syndrome, with unspecified complication (H); [id number] Major depressive disorder, single episod e, moderate (H); [phone] Grief; (Work) Essential hypertension Social History Tobacco Use Types Packs/Day Years [...] 05/22/2021 relatives? How often do you attend mandaen or restorationist Never 05/22/2021 services? Do you belong to any clubs or organizations such as No 05/22/2021 mandaen groups, unions, fraternal or athletic groups, or [...] with No / Unsure 12/29/2020 10:25 AM LIFE SKILLS TRAINER someone who was confirmed or suspected to have Coronavirus / COVID-19? documented as of this encounter Last Filed Vital Signs Vital Sign Reading Time Taken Comments Blood Pressure 110/84 12/29/2020 10:37 AM LIFE SKILLS TRAINER Pulse 84 12/29/2020 10:37 AM LIFE SKILLS TRAINER Temperature 36.9 ??C (98.5 ??F) 12/29/2020 10:37 AM LIFE SKILLS TRAINER Respiratory Rate 16 12/29/2020 10:37 AM LIFE SKILLS TRAINER Oxygen Saturation 100% 12/29/2020 10:37 AM LIFE SKILLS TRAINER Inhaled Oxygen Concentration - - Weight 74.9 kg (165 lb 1.6 oz) 12/29/2020 10:37 AM LIFE SKILLS TRAINER Height - - Body Mass Index 27.47 12/07/2020 9:37 PM CDT documented in this encounter Patient Instructions Patient InstructionsStChe garcia APRN CNP - 12/29/2020 10:20 AM LIFE SKILLS TRAINER Connect with treatment program to get started. Someone will be calling you to help schedule therapy. SKILLS TRAINER documented in this encounter Progress Notes Che Chonggh, ANA TUBE BUFFER - 12/29/2020 10:20 AM CST Assessment & Plan Tingling of both feet Will start with labs today. Hx of gastric bypass and not taking supplements until seen in the hospital. - TSH with free T4 reflex; Future - Basic metabolic panel (Ca, Cl, CO2, Creat, Gluc, K, Na, BUN); Future - Vitamin B12; Future - Folate; Future - TSH with free T4 reflex - Basic metabolic panel (Ca, Cl, CO2, Creat, Gluc, K, Na, BUN) - Vitamin B12 - Folate Need for vaccination Administered today. - TDAP VACCINE (Adacel, Boostrix) [[id number]] Daily headache Stop daily OTC pain relievers. Brief course of prednisone to break headache cycle. If MALDONADO's return may be related to zoloft as that was started while in the hospital. Follow-up if recurring. - predniSONE (DELTASONE) 20 MG tablet; Take 1 tablet (20 mg) by mouth daily Alcohol withdrawal syndrome, with unspecified complication (H) Congratulated her on her sobriety. Encouraged her to contact treatment center. - amLODIPine (NORVASC) 5 MG tablet; Take 1 tablet (5 mg) by mouth daily - folic acid (FOLVITE) 1 MG tablet; Take 1 tablet (1 mg) by mouth daily - multivitamin w/minerals (THERA-VIT-M) tablet; Take 1 tablet by mouth daily - sertraline (ZOLOFT) 50 MG tablet; Take 1 tablet (50 mg) by mouth daily - hydrOXYzine (ATARAX) 25 MG tablet; Take 1 tablet (25 mg) by mouth every 4 hours as needed for anxiety - thiamine (B-1) 100 MG tablet; Take 1 tablet (100 mg) by mouth daily Major depressive disorder, single episode, moderate (H) Continue zoloft. Referral for therapy. - MENTAL HEALTH REFERRAL - Adult; Outpatient Treatment; Individual/Couples/Family/Group Therapy/Health Psychology; Other[facility] ; We will contact you to schedule the appointment or please call with any questions; Future Grief Referral for therapy. - MENTAL HEALTH REFERRAL - Adult; Outpatient Treatment; Individual/Couples/Family/Group Therapy/Health Psychology; Other: [facility] ; We will contact you to schedule the appointment or please call with any questions; Future Essential Hypertension Controlled today. Continue norvasc. Return in about 2 months (around 02/28/2021) for mood/anxiety, Video Visit. Che Chong APRN CNP [facility] Bartlett is a 35 year old who presents for the following health issues History of Present Illness Mental Health Follow-up: Patient presents to follow-up on Depression & Anxiety.Patient's depression since last visit has been: Medium The patient is not having other symptoms associated with depression. Patient's anxiety since last visit has been: Better The patient is not having other symptoms associated with anxiety. Any significant life events: grief or loss and health concerns Patient is not feeling anxious or having panic attacks. Patient has concerns about alcohol or drug use. Social History Tobacco Use Smoking status: Current Every Day Smoker Packs/day: 0.50 Years: 6.00 Packyears: 3 Types: Cigarettes Quit date: 05/12/2011 Years since quittin.6 Smokeless tobacco: Never Used Alcohol use: Yes Alcohol/week: 2.0 - 3.0 standard drinks Types: 2 - 3 Standard drinks or equivalent per week Comment: occ Drug use: No Today's PHQ-9 PHQ-9 Total Score: (P) 13 PHQ-9 Q9 Thoughts of better off /self-harm past 2 weeks : (P) Not at all Thoughts of suicide or self harm: Self-harm Plan: Self-harm Action: Safety concerns for self or others: Hypertension: She presents for follow up of hypertension. She does not check blood pressure regularly outside of the clinic. Outside blood pressures have been over 140/90. She does not follow a low salt diet. Migraines: Since the patient's last clinic visit, headaches are: worsened The patient is getting headaches: 3-4 days a week She is not able to do normal daily activities when she has a migraine. The patient is taking the following rescue/relief medications: Ibuprofen (Advil, Motrin) and Tylenol Patient states I get only a small amount of relief from the rescue/relief medications. The patient is taking the following medications to prevent migraines: No medications to prevent migraines In the past 4 weeks, the patient has gone to an Urgent Care or Emergency Room 0 times times due to headaches. She eats 0-1 servings of fruits and vegetables daily.She consumes 1 sweetened beverage(s) daily.She exercises with enough effort to increase her heart rate 9 or less minutes per day. She exercises withenough effort to increase her heart rate 3 or less days per week. She is missing 1 dose(s) of medications per week. In the hospital at the end of Nov for alcohol withdrawl and started on zoloft. She has seen an improvement with her feelings, but did have a loss in her family this week. Her nephew who she was close with from a drug overdose. 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 Has not been to work since she was in the hospital. Planning to return on 01/10. Was given information for a treatment centerin [place], but hast not started yet. Does plan to go. She has been sober from alcohol for 21 days. HTN: had been off medication for awhile and was started on norvasc in the hospital. In the past had a cough with lisinopril. She has been having a lot of headaches/migraines lately. Pain is behind the eyes. +photophobia. Has been taking OTC pain relievers for the past few weeks, but started taking it every 4 hours the last few days. Has been having numbness and tingling in her toes for over a year. Can be in 1-2 toes or all 10. Moderate alcohol use the last 3 years with heavy use the last 1 year. Hx of gastric bypass. She has not been doing B12 injections, but was given one while she was in detox and started on vitamins. Review of Systems Constitutional, HEENT, cardiovascular, pulmonary, gi and gu systems are negative, except as otherwise noted. Objective BP 110/84 (BP Location: Right arm, Patient Position: Sitting, Cuff Size: Adult Regular) Pulse 84 Temp 98.5 ??F (36.9 ??C) (Oral) Resp 16 Wt 74.9 kg (165 lb 1.6 oz) LMP 12/22/2020 SpO2 100% BMI 27.47 kg/m?? Body mass index is 27.47 kg/m??. Physical Exam GENERAL: healthy, alert and no distress EYES: Eyes grossly normal to inspection, PERRL and conjunctivae and sclerae normal NECK: no adenopathy, no asymmetry, masses, or scars and thyroid normal to palpation RESP: lungs clear to auscultation - no rales, rhonchi or wheezes CV: regular rate and rhythm, normal S1 S2, no S3 or S4, no murmur, click or rub, no peripheral edemaand peripheral pulses strong MS: no gross musculoskeletal defects noted, no edema NEURO: Normal strength and tone, mentation intact and speech normal PSYCH: mentation appears normal, affect normal/bright No results found for this or any previous visit (from the past 24 hour(s)). SKILLS TRAINER Arlette Villatoro CMA - 12/29/2020 10:20 AM CST Prior to immunization administration, verified patients identity using patient???s name and date of . Please see Immunization Activity for additional information. Screening Questionnaire for Adult Immunization Are you sick today? No Do you have allergies to medications, food, a vaccine component or latex? No Have you ever had a serious reaction after receiving a vaccination? No Do you have a long-term health problem with heart, lung, kidney, or metabolic disease (e.g., diabetes), asthma, a blood disorder, no spleen, complement component deficiency, a cochlear implant, or a spinal fluid leak? Are you on long-term aspirin therapy? No Do you have cancer, leukemia, HIV/AIDS, or any other immune system problem? No Do you have a parent, brother, or sister with an immune system problem? No In the past 3 months, have you taken medications that affect your immune system, such as prednisone,other steroids, or anticancer drugs; drugs for the treatment of rheumatoid arthritis, Crohn???s disease, or psoriasis; or have you had radiation treatments? No Have you had a seizure, or a brain or other nervous system problem? No During the past year, have you received a transfusion of blood or blood products, or been given immune (gamma) globulin or antiviral drug? No For women: Are you or is there a chance you could become during the next month? No Have you received any vaccinations in the past 4 weeks? No Immunization questionnaire answers were all negative. Per orders of Che Chong APRN, CNP, injection of Tdap given by Arlette Villatoro CMA. Patient instructed to remain in clinic for 15 minutes afterwards, and to report any adverse reaction to me immediately. Screening performed by Arlette Villatoro CMA on 12/29/2020 at 11:45 AM. SKILLS TRAINER documented in this encounter Nursing Notes Arlette Villatoro CMA - 12/29/2020 10:20 AM CST Chief Complaint Patient presents with ??? Hypertension ??? Depression ??? Headache Initial BP 110/84 (BP Location: Right arm, Patient Position: Sitting, Cuff Size: Adult Regular) Pulse 84 Temp 98.5 ??F (36.9 ??C) (Oral) Resp 16 Wt 74.9 kg (165 lb 1.6 oz) LMP 12/22/2020 SpO2 100% BMI 27.47 kg/m?? Estimated body mass index is 27.47 kg/m?? as calculated from the following: Height as of 12/07/20: 1.651 m (5' 5). Weight as of this encounter: 74.9 kg (165 lb 1.6 oz). BP completed using cuff size regular right arm Arlette Villatoro CMA SKILLS TRAINER documented in this encounter Plan of Treatment Scheduled Referrals Name Type Priority Associated Order Schedule Diagnoses MENTAL HEALTH Referral Routine: Next Major depressive Expected: REFERRAL - Adult; available opening disorder, single 1 02/29/2020 Outpatient Treatment; episode, moderate ( Approximate), Individual/Couples/Fa (H) Expires: oh/Group Grief 12/29/2021 Therapy/Health Psychology; Other: [facility] ; We will contact you to schedule the appointment or please call with any questions documented as of this encounter Procedures Procedure Name Priority Date/Time Associated Diagnosis Comme nts TSH WITH FREE T4 Routine 12/29/2020 11:32 AM Tingling of both Results for this REFLEX LIFE SKILLS TRAINER feet procedure are i n the results section. FOLATE Routine 12/29/2020 11:32 AM Tingling of both Resu lts for this LIFE SKILLS TRAINER feet procedure are i n the results section. VITAMIN B12 Routine 12/29/2020 11:32 AM Tingling of both Resu lts for this LIFE SKILLS TRAINER feet procedure are i n the results section. BASIC METABOLIC Routine 12/29/2020 11:32 AM Tingling of both R esults for this PANEL LIFE SKILLS TRAINER feet procedure are i n the results section. documented in this encounter Results Folate (12/29/2020 11:32 AM LIFE SKILLS TRAINER) P athologist Signature Folic Acid 16.6 >=5.4 ng/mL 12/29/2020 [facility] 8:36 PM LIFE SKILLS TRAINER Comment: Deficient: <3.4 ng/mL Indeterminate: 3.4-5.4 ng/mL Normal: > 5.4 ng/mL Specimen Anatomical Collection Method / Collection Time Recei ariel Time (Source) Location / Volume Laterality Blood STRUCTURE OF RIGHT Venipuncture / 12/29/2020 11:32 UPPER LIMB / Unknown AM LIFE SKILLS TRAINER 11:32 AM LIFE SKILLS TRAINER Unknown Che Chong APRN TUBE BUFFER LAB - BLOOD ORDERABLES Performing Organization Address City/State/ZIP Code Phon [place] [address] Lab [address] [facility] [address], Room [address] [place] [address], Lab [place] [address] [facility] [address], Room 3580 Vitamin B12 (12/29/2020 11:32 AM LIFE SKILLS TRAINER) athologist Signature Vitamin B12 728 193 - 986 12/29/2020 [facility] pg/mL 8:09 PM LIFE SKILLS TRAINER Specimen Anatomical Collection Method / Collection Time Recei ariel Time (Source) Location / Volume Laterality Blood STRUCTURE OF RIGHT Venipuncture / 12/29/2020 11:32 UPPER LIMB / Unknown AM LIFE SKILLS TRAINER 11:32 AM LIFE SKILLS TRAINER Unknown Che Chong APRN TUBE BUFFER LAB - BLOOD ORDERABLES Performing Organization Address City/State/ZIP Code Phon [place] [address] Lab [address] [facility] [address], Room 3[address]580 [facility] [place] [address], Lab [facility] [address] [facility], Room [address]80 Basic metabolic panel (Ca, Cl, CO2, Creat, Gluc, K, Na, BUN) (12/29/2020 11:32 AM LIFE SKILLS TRAINER) P athologist Signature Sodium 139 133 - 144 12/30/2020 [facility] mmol/L 2:07 PM LIFE SKILLS TRAINER Potassium 3.8 3.4 - 5.3 12/30/2020 [facility] mmol/L 2:07 PM LIFE SKILLS TRAINER Chloride 108 94 - 109 12/30/2020 [facility] mmol/L 2:07 PM LIFE SKILLS TRAINER Carbon Dioxide 26 20 - 32 12/30/2020 [facility] (CO2) mmol/L 2:07 PM LIFE SKILLS TRAINER Anion Gap 5 3 - 14 12/30/2020 [facility] mmol/L 2:07 PM LIFE SKILLS TRAINER Urea Nitrogen 11 7 - 30 12/30/2020 [facility] mg/dL 2:07 PM LIFE SKILLS TRAINER Creatinine 0.66 0.52 - 12/30/2020 [facility] 1.04 mg/dL 2:07 PM LIFE SKILLS TRAINER Calcium 8.5 8.5 - 10.1 12/30/2020 [facility] mg/dL 2:07 PM LIFE SKILLS TRAINER Glucose 76 70 - 99 12/30/2020 [facility] mg/dL 2:07 PM LIFE SKILLS TRAINER GFR Estimate >90 >60 12/30/2020 [facility] mL/min/1.7 2:07 PM LIFE SKILLS TRAINER 3m2 Comment: As of August 20, 2020, eGFR is ca lculated by the CKD-EPI creatinine equation, without race adjustment. eGFR can be inf luenced by muscle mass, exercise, and diet. The reported eGFR is an estimation only and is only applicable if the renal function is stable. Specimen Anatomical Collection Method / Collection Time Recei ariel Time (Source) Location / Volume Laterality Blood STRUCTURE OF RIGHT Venipuncture / 12/29/2020 11:32 UPPER LIMB / Unknown AM LIFE SKILLS TRAINER 11:32 AM LIFE SKILLS TRAINER Unknown Che Chong APRN TUBE BUFFER LAB - BLOOD ORDERABLES Performing Organization Address City/State/ZIP Code Phon e Number [facility] [place], [place] [phone] [facility] [address] Lab (no room number, 1st floor of clinic) [facility] [place], [place] [phone] [place] [facility] [address] Lab (no room number, 1st floor of clinic) TSH with free T4 reflex (12/29/2020 11:32 AM LIFE SKILLS TRAINER) P athologist Signature TSH 0.58 0.40 - 4.00 12/30/2020 [facility] mU/L 2:17 PM LIFE SKILLS TRAINER Specimen Anatomical Collection Method / Collection Time Recei ariel Time (Source) Location / Volume Laterality Blood STRUCTURE OF RIGHT Venipuncture / 12/29/2020 11:32 UPPER LIMB / Unknown AM LIFE SKILLS TRAINER 11:32 AM LIFE SKILLS TRAINER Unknown Che Chong APRN TUBE BUFFER LAB - BLOOD ORDERABLES Performing Organization Address City/State/ZIP Code Phon e Number [facility] [place], [place] [phone] [place] [facility] [phone] [place] [address] Lab (no room number, 1st floor of clinic) [facility] [place], [place] [phone] [place] [facility] [address] Lab (no room number, 1st floor of clinic) documented in this encounter Visit Diagnoses Diagnosis Tingling of both feet - Primary Need for vaccination Need for prophylactic vaccination and in oculation against unspecified single disease Daily headache Headache Alcohol withdrawal syndrome, with unspec ified complication (H) Major depressive disorder, single episod e, moderate (H) Major depressive disorder, single episod e, moderate Grief Adjustment disorder with depressed mood Essential hypertension Unspecified essential hypertension documented in this encounter Additional Health Concerns Assessment Noted Time PHQ-9 Depression Total Score: 13 12/10/2021 7:04 AM CD T documented as of this encounter Care Teams Knocker Off Relationship Specialty Start Date End Date Reggie Sarabia MD PCP - General Family Practice 07/08/19 05/21/21 Reggie Sarabia MD Assigned PCP 07/16/20 01/13/21 [id number] [address] [place] [id number] documented as of this encounter
--- OUTSIDE RECORDS SUMMARY | 2021-12-10 21:20 | XMS_ITS | Encounter Summary ---
:1985 Author Organization [facility] Address [address] [place] [address]. [place] [address] Care Team Providers Name Role Phone Reggie Sarabia MD Primary Care Provider [phone] Astrid Colón MD Unavailable Encounter Details Date Type Department Care Team Description 08/18/2019 Telephone [facility] Reggie Sarabia MD [place] [address] [address] [address] [place] [address] [phone] Social History Tobacco Use Types Packs/Day Years [...] 05/22/2021 relatives? How often do you attend gnosticism or mosque Never 05/22/2021 services? Do you belong to any clubs or organizations such as No 05/22/2021 gnosticism groups, unions, fraternal or athletic groups, or [...] this encounter Miscellaneous Notes Telephone Encounter - Daniela Us - 08/18/2019 11:59 AM CDT Pt called regarding appointment mix up and to follow up on f/u reasoning. Message left with clinic number asking Pt to call back and ask for myself so we could get something scheduled. documented in this encounter Plan of Treatment Not on filedocumented as of this encounter Visit Diagnoses Not on filedocumented in this encounter Additional Health Concerns Assessment Noted Time PHQ-9 Depression Total Score: 8 07/08/2019 10:24 AM CD T documented as of this encounter Care Teams Potato Inspector Relationship Specialty Start Date End Date Reggie Sarabia MD PCP - General Family Practice 07/08/19 05/21/21 Astrid Colón MD Assigned PCP 07/18/19 07/15/20 [id number] [place] [address] documented as of this encounter
--- OUTSIDE RECORDS SUMMARY | 2021-12-10 21:20 | XMS_ITS | Encounter Summary ---
:1985 Author Organization [facility] Address [address] [place] [address]. [place] [address] Care Team Providers Name Role Phone Reggie Sarabia MD Primary Care Provider [phone] Astrid Colón MD Unavailable Reason for Visit Reason Onset Date Comments Appointment 08/18/2019 ER follow up - Encounter Details Date Type Department Care Team Description 08/18/2019 Telephone [facility] Reggie Sarabia nt (ER follow Clinic Danny Hedrick MD up -) [facility], [address] [place] [address] [address] [place] [address] [place], [place] [phone] (Wo rk) [id number] [phone] Social History Tobacco Use Types Packs/Day Years [...] 05/22/2021 relatives? How often do you attend hoahaoism or restorationist Never 05/22/2021 services? Do you belong to any clubs or organizations such as No 05/22/2021 hoahaoism groups, unions, fraternal or athletic groups, or [...] this encounter Miscellaneous Notes Telephone Encounter - Reggie Sarabia MD - 08/18/2019 3:44 PM CDT She was scheduled wrong before, central scheduling tried to squeeze her into one of those odd [id number] minute blocks. Unforunately I don't have any options for her if there are no F2F slots available. I have a 20 slotthe 17th she could use if you can gt to it before it's taken. Otherwise video/phone is her best bet. Reggie Sarabia MD Telephone Encounter - Risa Camacho RN - 08/18/2019 2:14 PM CDT Any suggestions for this patient on where to place this patient for an appointment? Risa Camacho RN Telephone Encounter - Lisa Mcdaniel - 08/18/2019 11:14 AM CDT Patient was seen in ER for Recreational Overdose. She wants to be seen this week for face to face. No openings. Patient was scheduled today for video visit. Did not want it. She was not given an option or explained why. documented in this encounter Plan of Treatment Not on filedocumented as of this encounter Visit Diagnoses Not on filedocumented in this encounter Additional Health Concerns Assessment Noted Time PHQ-9 Depression Total Score: 8 07/08/2019 10:24 AM CD T documented as of this encounter Care Teams Field Cane Scaler Helper Relationship Specialty Start Date End Date Reggie Sarabia MD PCP - General Family Practice 07/08/19 05/21/21 Astrid Colón MD Assigned PCP 07/18/19 07/15/20 [id number] [place] [address] documented as of this encounter
--- OUTSIDE RECORDS SUMMARY | 2021-12-10 21:20 | XMS_ITS | Encounter Summary ---
:1985 Author Organization [facility] Address [address] [place] [address] Care Team Providers Name Role Phone Reggie Sarabia MD Unavailable Reggie Sarabia MD Primary Care Provider [phone] Encounter Details Date Type Department Care Team Description 07/09/2019 Travel Social History Tobacco Use Types Packs/Day [...] 05/22/2021 relatives? How often do you attend roman catholic or yazidi Never 05/22/2021 services? Do you belong to any clubs or organizations such as No 05/22/2021 roman catholic groups, unions, fraternal or athletic groups, or [...] documented as of this encounter Care Teams Computer Forensics Technician Relationship Specialty Start Date End Date Reggie Sarabia MD PCP - General Family Practice 07/08/19 05/21/21 Reggie Sarabia MD Assigned PCP 05/16/17 07/17/19 [id number] [place] [address] documented as of this encounter
--- OUTSIDE RECORDS SUMMARY | 2021-12-10 21:20 | XMS_ITS | Encounter Summary ---
:1985 Author Organization [facility] Address [address] [place] [address] Care Team Providers Name Role Phone Reggie Sarabia MD Primary Care Provider [phone] Astrid Colón MD Unavailable Encounter Details Date Type Department Care Team Description 2019 Travel Social History Tobacco Use Types Packs/Day [...] 05/22/2021 relatives? How often do you attend pentecostal or tenriism Never 05/22/2021 services? Do you belong to any clubs or organizations such as No 05/22/2021 pentecostal groups, unions, fraternal or athletic groups, or [...] been in contact with No / Unsure 2019 4:17 AM CDT someone who was confirmed or suspected to have Coronavirus / COVID-19? documented as of this encounter Plan of Treatment Not on filedocumented as of this encounter Visit Diagnoses Not on filedocumented in this encounter Additional Health Concerns Infection Onset Date Last Indicated Resolved Time Rule Out COVID-19 2019 2019 2019 3:0 9 PM CDT Assessment Noted Time PHQ-9 Depression Total Score: 8 07/08/2019 10:24 AM CD T documented as of this encounter Care Teams Pediatric Licensed Practical Nurse Relationship Specialty Start Date End Date Reggie Sarabia MD PCP - General Family Practice 07/08/19 05/21/21 Astrid Colón MD Assigned PCP 07/18/19 07/15/20 [address] [place] [address] documented as of this encounter
--- OUTSIDE RECORDS SUMMARY | 2021-12-10 21:20 | XMS_ITS | Encounter Summary ---
:1985 Author Organization [facility] Address [address] [place] [address] Care Team Providers Name Role Phone Reggie Sarabia MD Primary Care Provider [phone] Astrid Colón MD Unavailable Reason for Visit Reason Onset Date Comments Hospital F/U 07/27/2019 inpatient discharge Encounter Details Date Type Department Care Team Description 07/27/2019 Telephone [facility] None Hos pital F/U (inpatient [place] discharge) [facility], [address] [place] [address] Social History Tobacco Use Types Packs/Day Years [...] 05/22/2021 relatives? How often do you attend adventist or yazidi Never 05/22/2021 services? Do you belong to any clubs or organizations such as No 05/22/2021 adventist groups, unions, fraternal or athletic groups, or [...] Telephone Encounter - Jennifer Romo RN - 07/27/2019 8:57 AM CDT Hospital/TCU/ED for chronic condition Discharge Protocol Hi, my name is Jennifer Romo RN, a registered nurse, and I am calling from [facility]. I amcalling to follow up and see how things are going for you after your recent emergency visit/hospital/TCU stay. Tell me how you are doing now that you are home? I am doing well Pt reports she is in a safe placeand no coercers for self harm. Discharge Instructions Let's review your discharge instructions. What is/are the follow-up recommendations? Pt. Response: f/u with PCP needs mental health referral Has an appointment with your primary care provider been scheduled? No (schedule appointment)- pt needs to check schedule and will call back to schedule video IP follow up When you see the provider, I would recommend that you bring your medications with you. Medications Tell me what changed about your medicines when you discharged? Changes to chronic meds? 0-1 What questions do you have about your medications? None New diagnoses of heart failure, COPD, diabetes, or MA? No Post Discharge Medication Reconciliation Status: discharge medications reconciled and changed, per note/orders (see AVS). Was MTM referral placed (*Make sure to put transitions as reason for referral)? No Call Summary What questions or concerns do you have about your recent visit and your follow- up care? With any concerns or thoughts of self harm call to clinic or return to ER Pt expressed understanding and acceptance of the plan. had no further questions at this time. Advised can call back to clinic at any time with concerns. If you have questions or things don't continue to improve, we encourage you contact us through the main clinic number (give number). Even if the clinic is not open, triage nurses are available 24/7 tohelp you. We would like you to know that our clinic has extended hours (provide information). We also have urgent care (provide details on closest location and hours/contact info) Thank you for your time and take care! Jennifer Romo, RN Telephone Encounter - Christie Ford - 07/27/2019 7:39 AM CDT 07/26/19 Opioid Overdose, Undetermined Intent, Initial Encounter (H) No future appt Christie Ford Supervisor Dry Cleaning documented in this encounter Plan of Treatment Not on filedocumented as of this encounter Visit Diagnoses Not on filedocumented in this encounter Additional Health Concerns Assessment Noted Time PHQ-9 Depression Total Score: 8 07/08/2019 10:24 AM CD T documented as of this encounter Care Teams Master Machinist Relationship Specialty Start Date End Date Reggie Sarabia MD PCP - General Family Practice 07/08/19 05/21/21 Astrid Colón MD Assigned PCP 07/18/19 07/15/20 [address] [place] [address] documented as of this encounter
--- OUTSIDE RECORDS SUMMARY | 2021-12-10 21:20 | XMS_ITS | Encounter Summary ---
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 breathing and was foaming at the mouth. Patient was given 0.4 mg intranasal Narcan at 0345 andEMS began to bag her. Patient received another dose of 0.4 mg IV Narcan at 0400 and patient began toarouse prior to needing intubation. En route, blood sugar was 233. Here, patient is alert and does report drinking 1 L of vodka today and using street drugs. She denies taking these as an attempt to harm herself and also denies any chance of , fever, cough, shortness of breath or appetite change. She denies illness preceding this event. Allergies: Lisinopril Medications: Hydrochlorothiazide Lisinopril Past Medical History: Cough Depression Hypertension Obesity Tobacco use disorder Past Surgical History: x2 Laparoscopic bypass gastric Family History: Mother - hypertension Social History: The patient was accompanied to the ED by EMS. Smoking Status: Yes - current every day smoker Smokeless Tobacco: Never Alcohol Use: Yes Drug Use: Yes Marital Status: Single [1] Review of Systems Constitutional: Negative for appetite change and fever. Found barely breathing Respiratory: Negative for cough and shortness of breath. Psychiatric/Behavioral: Negative for suicidal ideas. All other systems reviewed and are negative. Physical Exam Patient Vitals for the past 24 hrs: BP Temp Temp src Pulse Heart Rate Resp SpO2 07/25/19 0421 (!) 159/107 97.5 ??F (36.4 ??C) Oral 105 105 13 (!) 87 % Physical Exam Gen: sleepy but rouses to voice HEENT: PERRL, oropharynx clear Neck: normal ROM CV: RRR, no murmurs Pulm: Coarse breath sounds bilaterally. No respiratory distress. O2 Sats at room air 87% on arrival. Abd: Soft, nontender Back: no evidence of injury, no cva tenderness MSK: no deformity, moves all extremities Skin: no rash Neuro: alert, appropriate conversation and interaction Psych: Denies suicidal ideation Emergency Department Course ECG: Indication: Respiratory Arrest ECG taken at 0425, ECG read at [address] Adair MD Sinus tachycardia Lateral infarct, age undetermined Abnormal ECG Rate 101 bpm. IN interval 170. QRS duration 98. QT/QTc 366/474. P-R-T axes * -14 146. Imaging: Radiology findings were communicated with the patient who voiced understanding of the findings. XR Chest Port: IMPRESSION: Cardiomediastinal silhouette is within normal limits. Prominent central vasculature. No pleural effusion or focal consolidation. Reading per radiology. Laboratory: Laboratory findings were communicated with the patient who voiced understanding of the findings. CBC: AWNL (WBC 9.7, HGB 13.2, PLT 221) CMP: Potassium 3.0 (L), Anion Gap 15 (H), Glucose 234 (H), Calcium 8.4 (L), Albumin 3.2 (L), Alt 108(H), Ast 202 (H) o/w WNL (Creatinine 0.88) Alcohol level blood: 0.30 (H) Acetaminophen level: <2 Salicylate level: 3 HCG Qualitative : Negative Drug abuse screen 77 urine: pending Symptomatic COVID-19 (Coronavirus) PCR by Nasopharyngeal Swab: Pending Interventions: 0449 Narcan 0.4 mg IV 0518 Narcan 0.4 mg IV 05 Unasyn 3 g IV 0531 Narcan 0.5 mg/hr Emergency Department Course: Past medical records, nursing notes, and vitals reviewed. (0416) EMS arrival. History obtained from EMS. (0419) Patient found to have O2 sats at 87% on room air. (0420) I performed an exam of the patient as documented above. Additional history obtained from patient. Discussed that admission is indicated. EKG obtained in the ED, see results above. The patient was sent for a XR Chest Port while in the emergency department, results above. IV was inserted and blood was drawn for laboratory testing, results above. The patient provided a urine sample here in the emergency department. This was sent for laboratory testing, findings above. (0510) I spoke with Dr. Patricio of the Hospitalist service regarding patient's presentation, findings, and plan of care, who agrees to accept patient for further care, evaluation and monitoring. A nasal swab was obtained for laboratory testing, findings above. Findings and plan explained to the Patient who consents to admission. Discussed the patient with , who will admit the patient to an ICU bed for further monitoring, evaluation, and treatment. I personally reviewed the laboratory and imaging results with the Patient and answered all related questions prior to admission. Impression & Plan Medical Decision Making: Patient presents for altered mental status. Patient with near respiratory arrest pre-hospital. Patient responded to narcan. She required additional bolus doses of narcan in the ED and was start on narcan infusion. Lab studies did not show signs of tylenol or salicylate coingestion. Urine toxicology pending. Patient denies chest pain. Patient with hypoxia requiring supplemental O2 and witnessed aspiration by EMS therefore started unasyn. DIscussed with Dr. Patricio and admitted to ICU. Covid-19 Domingo Cerda was evaluated during a global COVID-19 pandemic, which necessitated consideration that the patient might be at risk for infection with the SARS-CoV-2 virus that causes COVID-19. Applicable protocols for evaluation were followed during the patient's care. COVID-19 was considered as part of the patient's evaluation. The plan for testing is: a test was obtained during this visit. Critical Care Time: was 30 minutes for this patient excluding procedures Diagnosis: ICD-10-CM 1. Opioid overdose, undetermined intent, initial encounter (H) T40.2X4A CBC + differential HCG QUALitative (blood) Alcohol level blood Salicylate level 2. Acute respiratory failure with hypoxia (H) J96.01 Disposition: Admitted to ICU. Scribe Disclosure: Haylee Reyespal, am serving as a scribe at 4:22 AM on 2019 to document services personally performed by Camille Borrero MD based on my observations and the provider's statements to me. 2019 [facility] EMERGENCY DEPARTMENT Camille Borrero MD 07/25/19 0550 documented in this encounter Miscellaneous Notes Plan of Care - Abena Cardoza RN - 07/26/2019 5:52 AM CDT ICU End of Shift Summary. For vital signs and complete assessments, please see documentation flowsheets. Pertinent assessments: VSS. Neuro: Alert and oriented. CIWA 0; no ativan Pain: denies Cardiac: Tele: SR Respiratory: Room air; lung sounds diminished : pt up to bathroom SBA GI: BS+; no BM; regular diet Skin: CDI Positions self independently Major Shift Events: pt resting comfortably Plan (Upcoming Events): discharge? Discharge/Transfer Needs: Bedside Shift Report Completed Bedside Safety Check Completed Plan of Care - Sally Choudhary RN - 2019 1:51 PM CDT ICU End of Shift Summary. For vital signs and complete assessments, please see documentation flowsheets. Pertinent assessments: Alert x 4. Calm and cooperative. VSS. Maintaining appropriate alertness with Narcan drip off. LS clear. Maintaining oxygen sats on room air. Skin intact. GI/ - WDL. Ambulating with SBA. CIWA 0/0/0. Pt reports hx of alcohol withdrawal in the past denies any symptoms at this time. Major Shift Events: ??? Narcan drip stopped. ??? Pt weaned off supplemental oxygen. Now maintaining saturations on room air. ??? Psych saw pt and cleared pt to return home with alcohol and drug cessation after medically stable. ??? Pt tolerating regular diet. ??? Potassium replaced oral. Recheck 4.2. Recheck in am. ??? Covid PCR negative. Plan (Upcoming Events): Continue to monitor for increased sedation. Recheck potassium. Discharge/Transfer Needs: TBD. Bedside Shift Report Completed : Yes Bedside Safety Check Completed: Yes Pharmacy-Admission Medication History - Dez Sherman RPH - 2019 9:39 AM CDT Admission medication history interview status for this patient is complete. See [facility] admission navigator for allergy information, prior to admission medications and immunization status. Medication history interview done via telephone during Covid-19 pandemic, indicate source(s): Patient Medication history resources (including written lists, pill bottles, clinic record):None [facility] Changes made to CRYSTAL LAPPER medication list: Added: None Deleted: None Changed: Added directions to multivitamin Actions taken by pharmacist (provider contacted, etc):None Additional medication history information:None Medication reconciliation/reorder completed by provider prior to medication history? Yes (Y/N) For patients on insulin therapy: No (Y/N) Prior to Admission medications Medication Sig Last Dose Taking? Auth Provider hydrochlorothiazide (HYDRODIURIL) 25 MG tablet Take 1 tablet (25 mg) by mouth daily 07/24/2019 at Unknown time Yes Astrid Colón MD lisinopril (ZESTRIL) 10 MG tablet Take 1 tablet (10 mg) by mouth daily 07/24/2019 at Unknown time YesAstrid Colón MD Multiple Vitamins-Minerals (MULTIVITAMIN ADULT PO) Take 1 tablet by mouth daily 07/24/2019 at Unknowntime Yes Reported, Patient documented in this encounter Plan of Treatment Scheduled Orders Name Type Priority Associated Diagnoses Order S chedule EKG 12 lead EKG Routine Enter condition for order release in comments for 1 Occurrences starting 2019 documented as of this encounter Procedures Procedure Name Priority Date/Time Associated Diagnosis Comme nts GLUCOSE BY METER Routine 07/26/2019 8:19 Opioid overdose, Resu lts for this AM CDT undetermined intent, procedu re are in initial encounter the result s (H) section. BASIC METABOLIC PANEL Routine 07/26/2019 5:37 Opioid overdose, Results for this AM CDT undetermined intent, procedu re are in initial encounter the result s (H) section. GLUCOSE BY METER Routine 2019 7:58 Opioid overdose, Resu lts for this PM CDT undetermined intent, procedu re are in initial encounter the result s (H) section. POTASSIUM Timed 2019 4:59 Opioid overdose, Results for this PM CDT undetermined intent, procedu re are in initial encounter the result s (H) section. GLUCOSE BY METER Routine 2019 4:07 Opioid overdose, Resu lts for this PM CDT undetermined intent, procedu re are in initial encounter the result s (H) section. GLUCOSE BY METER Routine 2019 12:30 Opioid overdose, Res ults for this PM CDT undetermined intent, procedu re are in initial encounter the result s (H) section. GLUCOSE BY METER Routine 2019 8:35 Opioid overdose, Resu lts for this AM CDT undetermined intent, procedu re are in initial encounter the result s (H) section. SARS-COV-2 (COVID-19) Routine 2019 5:41 Opioid overdose, Results for this VIRUS RT-PCR AM CDT undetermined intent, procedu re are in initial encounter the result s (H) section. COVID-19 VIRUS STAT 2019 5:41 Opioid overdose, Result s for this (CORONAVIRUS) BY PCR AM CDT undetermined intent, procedure are in initial encounter the result s (H) section. XR CHEST PORT 1 VIEW STAT 2019 5:14 Resu lts for this AM CDT procedure are i n the results section. DRUG ABUSE SCREEN 77 STAT 2019 4:42 Opioid overdose, Results for this URINE (FL, RH, SH) AM CDT undetermined intent, p rocedure are in initial encounter the result s (H) section. CBC WITH PLATELETS & STAT 2019 4:27 Opioid overdose, Results for this DIFFERENTIAL AM CDT undetermined intent, procedu re are in initial encounter the result s (H) section. SALICYLATE LEVEL STAT 2019 4:27 Opioid overdose, Resu lts for this AM CDT undetermined intent, procedu re are in initial encounter the result s (H) section. PHOSPHORUS Routine 2019 4:27 Opioid overdose, Results for this AM CDT undetermined intent, procedu re are in initial encounter the result s (H) section. MAGNESIUM Routine 2019 4:27 Opioid overdose, Results for this AM CDT undetermined intent, procedu re are in initial encounter the result s (H) section. HCG QUALITATIVE STAT 2019 4:27 Opioid overdose, Resul ts for this AM CDT undetermined intent, procedu re are in initial encounter the result s (H) section. COMPREHENSIVE STAT 2019 4:27 Results for this METABOLIC PANEL AM CDT procedure ar e in the results section. ETHYL ALCOHOL LEVEL STAT 2019 4:27 Opioid overdose, R esults for this AM CDT undetermined intent, procedu re are in initial encounter the result s (H) section. ACETAMINOPHEN LEVEL STAT 2019 4:27 Opioid overdose, R esults for this AM CDT undetermined intent, procedu re are in initial encounter the result s (H) section. EKG 12-LEAD, TRACING STAT 2019 4:25 Resu lts for this ONLY AM CDT procedure are i n the results section. documented in this encounter Results (ABNORMAL) Glucose by meter (07/26/2019 8:19 AM CDT) P athologist Signature Glucose 148 (H) 70 - 99 07/26/2019 POINT OF CARE mg/dL 8:26 AM CDT TEST, GLUCOSE Specimen Anatomical Collection Method Collection Time Receive d Time (Source) Location / / Volume Laterality 07/26/2019 8:19 AM 0 8:26 CDT AM CDT Fredo Patricio MD [facility] POCT Performing Organization Address City/State/ZIP Code Phon e Number FV POINT OF CARE TEST, GLUCOSE POINT OF CARE TEST, GLUCOSE Basic metabolic panel (07/26/2019 5:37 AM CDT) P athologist Signature Sodium 135 133 - 144 07/26/2019 [facility] mmol/L 6:37 AM [facility] Potassium 5.1 3.4 - 5.3 07/26/2019 [facility] mmol/L 6:37 AM [facility] Comment: Specimen slightly hemolyzed, po tassium may be falsely elevated Chloride 101 94 - 109 mmol/L 07/26/2019 6:37 AM CDT F [facility] Carbon Dioxide 30 20 - 32 mmol/L 07/26/2019 6:37 AM C DT [facility] Anion Gap 4 3 - 14 mmol/L 07/26/2019 6:37 AM CDT [facility] Glucose 80 70 - 99 mg/dL 07/26/2019 6:37 AM CDT [facility] Urea Nitrogen 9 7 - 30 mg/dL 07/26/2019 6:37 AM T [facility] Creatinine 0.65 0.52 - 1.04 mg/dL 07/26/2019 6:37 AM CD T [facility] GFR Estimate >90 >60 07/26/2019 6:[address] [facility] mL/min/{1.73_m2} [facility] Comment: Non GFR Calc Starting 01/27/2018, serum creatinine ba sed estimated GFR (eGFR) will be calculated using the Chronic Kidney Dise [facility] Epidemiology Collaboration (CKD-EPI) equation. GFR Estimate If >90 >60 mL/min/{1.73_m2} 07/26/2019 6: 37 AM [facility] Comment: GFR Calc Starting 01/27/2018, serum creatinine ba sed estimated GFR (eGFR) will be calculated using the Chronic Kidney Dise [facility] Epidemiology Collaboration (CKD-EPI) equation. Calcium 8.8 8.5 - 10.1 mg/dL 07/26/2019 6:37 AM T [facility] Specimen Anatomical Collection Method Collection Time Receive d Time (Source) Location / / Volume Laterality Blood specimen 07/26/2019 5:37 AM 020 5:38 (specimen) CDT AM CDT Shree Harry MD LAB - BLOOD ORDERABLES Performing Organization Address City/State/ZIP Code Phon e Number M [facility] [address], [place] [address] [facility] [address], [place] [address], [facility] [phone] (ABNORMAL) Glucose by meter (2019 7:58 PM CDT) P athologist Signature Glucose 124 (H) 70 - 99 2019 POINT OF CARE mg/dL 8:05 PM CDT TEST, GLUCOSE Specimen Anatomical Collection Method Collection Time Receive d Time (Source) Location / / Volume Laterality 2019 7:58 PM 0 8:05 CDT PM CDT Fredo [facility] [place] POCT Performing Organization Address City/State/ZIP Code Phon e Number FV POINT OF CARE TEST, GLUCOSE POINT OF CARE TEST, GLUCOSE Potassium (2019 4:59 PM CDT) athologist Signature Potassium 4.2 3.4 - 5.3 2019 [facility] mmol/L 5:26 PM CDT HOSPITAL Specimen Anatomical Collection Method Collection Time Receive d Time (Source) Location / / Volume Laterality Blood specimen 2019 4:59 PM 020 5:00 (specimen) CDT PM CDT Shree Harry MD LAB - BLOOD ORDERABLES Performing Organization Address City/[facility]/ZIP [facility] Phon e Number M [facility] [address], [place] [address] [facility] [address], [place] [address], [facility] [phone] Glucose by meter (2019 4:07 PM CDT) athologist Signature Glucose 85 70 - 99 07/26/2019 POINT OF CARE mg/dL 4:32 AM CDT TEST, GLUCOSE Specimen Anatomical Collection Method Collection Time Receive d Time (Source) Location / / Volume Laterality 2019 4:07 PM 0 4:32 CDT AM CDT [facility] [place] POCT Performing Organization Address City/State/ZIP Code Phon e Number FV POINT OF CARE TEST, GLUCOSE POINT OF CARE TEST, GLUCOSE Glucose by meter (2019 12:30 PM CDT) athologist Signature Glucose 74 70 - 99 2019 POINT OF CARE mg/dL 12:46 PM CDT TEST, GLUCOSE Specimen Anatomical Collection Method Collection Time Receive d Time (Source) Location / / Volume Laterality 2019 12:30 2019 PM CDT 12:46 PM CDT Fredo Patricio MD LAB - [place] POCT Performing Organization Address City/State/ZIP Code Phon e Number F[facility] POINT OF CARE TEST, GLUCOSE POINT OF CARE TEST, GLUCOSE Glucose by meter (2019 8:35 AM CDT) athologist Signature Glucose 89 70 - 99 2019 POINT OF CARE mg/dL 8:42 AM CDT TEST, GLUCOSE Specimen Anatomical Collection Method Collection Time Receive d Time (Source) Location / / Volume Laterality 2019 8:35 AM 0 8:42 CDT AM CDT Fredo Patricio MD LAB - [place] POCT Performing Organization Address City/State/ZIP Code Phon e Number F[facility] POINT OF CARE TEST, GLUCOSE POINT OF CARE TEST, GLUCOSE SARS-CoV-2 COVID-19 Virus (Coronavirus) RT-PCR Nasopharyngeal (2019 5:41 AM CDT) [facility] Method Time Signature SARS-CoV-2 Nasopharyngeal 2019 INFECTIOUS Virus 3:09 PM CDT DISEASES Specimen DIAGNOSTIC Source LABORATORY SARS-CoV-2 NEGATIVE 2019 INFECTIOUS PCR Result 3:09 PM CDT [facility] DIAGNOSTIC LABORATORY Comment: SARS-CoV2 (COVID-19) RNA not de tected, presumed negative. SARS-CoV-2 PCR The Simplexa COVID-19 direct PCR assay by [employer] on the [employer] instrument has been 2019 3:09 PM INFECTIOUS Comment given Emergency Use Authoriz ation (EUA) for the in vitro qualitative detection of RNA from CDT DISEASES the SARS-CoV2 virus in naso pharyngeal swabs in viral transport medium from patients with DIAGNOSTIC signs and symptoms of infect ion who are suspected of COVID-19. Performance is unknown in LABORATORY asymptomatic patients. Comment: Nasopharyngeal specimen is the preferred choice for swab-based SARS-CoV2 testing. Sample types other than nasopha ryngeal swabs were not included in the EUA. The test result from other sample types must be integrated into clinical context for interpretation. A negative result does not rule out the presence of real-time PCR inhibitors in the specimen or COVID-19 RNA in acosta ntration below the limit of detection of the assay. The possibility of a false negative should be considered if the patients recent exposure or clinical pre sentation suggests COVID-19. Additional testing or repeat testing req uires consultation with the laboratory. Positive results should also be reported in accordance with local, state, and federal regulations. This test was valid ated by [facility] Infectious Diseases Diagnostic [facility]. This lab oratory is certified under the Clinical Laboratory Improvement Amendmen ts of 1988 (CLIA-88) as qualified to perform high complexity clinical laborat ory testing. Specimen (Source) Anatomical Collection Method Collection Time Re ceived Time Location / / Volume Laterality Specimen from 2019 5:41 2019 nasopharyngeal AM CDT 6:12 AM CDT structure (specimen) Camille Borrero MD LAB - MICRO GENERAL OR DERABLES Performing Organization Address City/State/ZIP Code Phon e Number INFECTIOUS DISEASES [address] [place] [address] DIAGNOSTIC LABORATORY, [facility] INFECTIOUS DISEASES [address] [place] [address], A DIAGNOSTIC LABORATORY Symptomatic COVID-19 Virus (Coronavirus) by PCR (2019 5:41 AM CDT) Component Value Ref Test Analysis Performed At [facility] Range Method Time Signature COVID-19 Nasopharyngeal 2019 [place] Virus PCR to 6:12 AM CDT [facility] Source COVID-19 Test received-See 2019 INFECTIOUS Virus PCR to reflex to IDDL 10:53 AM [facility] - test SARS CoV2 CDT DIAGNOSTIC Result (COVID-19) Virus LABORATORY RT-PCR Specimen (Source) Anatomical Collection Method Collection Time Re ceived Time Location / / Volume Laterality Specimen from 2019 5:41 2019 nasopharyngeal AM CDT 6:12 AM CDT structure (specimen) Camille Borrero MD LAB - MICRO GENERAL OR DERABLES Performing Organization Address City/State/ZIP Code Phon e Number INFECTIOUS DISEASES [address] [place] [address] DIAGNOSTIC LABORATORY, [facility] [address] [place], [place] [address], [facility] [phone] INFECTIOUS DISEASES [address] [place] [address], [place] DIAGNOSTIC LABORATORY XR Chest Port 1 View (2019 5:14 AM CDT) Anatomical Region Laterality Modality Chest Digital Radiography Specimen (Source) Anatomical Collection Method Collection Time Re ceived Time Location / / Volume Laterality 2019 5:11 AM CDT Impressions 2019 5:21 AM CDT IMPRESSION: Cardiomediastinal silhouette is within normal limits. Prominent central vasculature. No pleural effusion or foca l consolidation. Narrative 2019 5:21 AM CDT EXAM: XR CHEST PORT 1 VW LOCATION: [facility] DATE/TIME: 2019 5:11 AM INDICATION: Hypoxia. Aspiration. COMPARISON: 07/07/2014 Procedure Note Ruthann Echols MD, MD - EXAM: XR CHEST PORT 1 VW LOCATION: [facility] DATE/TIME: 2019 5:11 AM INDICATION: Hypoxia. Aspiration. COMPARISON: 07/07/2014 IMPRESSION: Cardiomediastinal silhouette is within normal limits. Prominent central vasculature. No pleural effusion or focal consolidation. Camille Borrero MD IMG DIAGNOSTIC IMAGING ORDERABLES Drug abuse screen 77 urine (FL, RH, SH) (2019 4:42 AM CDT) [facility] Method Time Signature Amphetamine Qual Negative NEG^Negati 2019 [place] Urine ve 9:09 AM CDT [facility] Comment: Cutoff for a negative amphetami ne is 500 ng/mL or less. Barbiturates Qual Negative NEG^Negative 2019 9:09 AM [facility] Urine CDT [facility] Comment: Cutoff for a negative barbitura te is 200 ng/mL or less. Benzodiazepine Qual Negative NEG^Negative 2019 9:09 A [facility] [place] Urine [facility] Comment: Cutoff for a negative benzodiaz epine is 200 ng/mL or less. Cannabinoids Qual Negative NEG^Negative 2019 9:09 AM [facility] Comment: Cutoff for a negative cannabino id is 50 ng/mL or less. Cocaine Qual Urine Negative NEG^Negative 2019 9:10 AM [facility] Comment: Cutoff for a negative cocaine i s 300 ng/mL or less. Opiates Qualitative Negative NEG^Negative 2019 9:0 9 AM [facility] Comment: Cutoff for a negative opiate is 300 ng/mL or less. PCP Qual Urine Negative NEG^Negative 2019 9:09 AM [facility] Comment: Cutoff for a negative PCP is 25 ng/mL or less. Specimen Anatomical Collection Method Collection Time Receive d Time (Source) Location / / Volume Laterality Urine specimen URINE SPECIMEN 2019 4:42 AM 07/24 4:52 (specimen) OBTAINED BY CLEAN CDT AM CDT CATCH PROCEDURE / Unknown Camille Borrero MD LAB - URINE ORDERABLES Performing Organization Address City/State/ZIP Code Phon e Number M [facility] [address] [address] [facility] [address] [place] [address], [place] [phone] (ABNORMAL) Phosphorus (2019 4:27 AM CDT) P athologist Signature Phosphorus 4.9 (H) 2.5 - 4.5 2019 [place] mg/dL 11:34 AM [facility] Specimen Anatomical Collection Method Collection Time Receive d Time (Source) Location / / Volume Laterality 2019 4:27 AM 0 4:43 CDT AM CDT Camille Borrero MD LAB - BLOOD ORDERABLES Performing Organization Address City/State/ZIP Code Phon e Number M [facility] [address] [place], [place] [address] [facility] [address], [place] [address], [facility] [facility] [phone] Magnesium (2019 4:27 AM CDT) P athologist Signature Magnesium 1.9 1.6 - 2.3 2019 [facility] mg/dL 11:34 AM CDT HOSPITAL Specimen Anatomical Collection Method Collection Time Receive d Time (Source) Location / / Volume Laterality 2019 4:27 AM 0 4:43 CDT AM CDT Camille Borrero MD LAB - BLOOD ORDERABLES Performing Organization Address City/[facility]/ZIP [facility] Phon e Number M [facility] [address], [place] [address] [facility] [address], [place] [address] 7, [facility] [phone] Salicylate level (2019 4:27 AM CDT) athologist Signature Salicylate 3 mg/dL 2019 [facility] 5:35 AM [facility] Comment: Therapeutic: ?<20 Anti inflammatory: ??15-30 Specimen Anatomical Collection Method Collection Time Receive d Time (Source) Location / / Volume Laterality Blood specimen 2019 4:27 AM 020 4:43 (specimen) CDT AM CDT Camille Borrero MD LAB - BLOOD ORDERABLES Performing Organization Address City/State/ZIP Code Phon e Number M [facility] [address], [place] [address] [facility] [address], [place] [address], [facility] [phone] Acetaminophen level (2019 4:27 AM CDT) Analysis Performed At Patho logist Time Signature Acetaminophen <2 mg/L 2019 [facility] Level 5:37 AM [facility] Comment: Therapeutic range: 10-20 mg/L Specimen Anatomical Collection Method Collection Time Receive d Time (Source) Location / / Volume Laterality Blood specimen 2019 4:27 AM 020 4:43 (specimen) CDT AM CDT Camille Borrero MD LAB - BLOOD ORDERABLES Performing Organization Address [facility] Phon e Number M [facility] [address], [place] [address] [place] [address] [address] [place] [address], [facility] [phone] (ABNORMAL) Alcohol level blood (2019 4:27 AM CDT) P athologist Signature Ethanol g/dL 0.30 (H) <0.01 g/dL 2019 [facility] 5:23 AM CDT [facility] Comment: Critical Value called to and read back Jessica Multani (ERA) on 07.25.19 at 052 0 by [place] Specimen Anatomical Collection Method Collection Time Receive d Time (Source) Location / / Volume Laterality Blood specimen 2019 4:27 AM 020 4:43 (specimen) CDT AM CDT Camille Borrero MD LAB - BLOOD ORDERABLES Performing Organization Address [facility] Phon e Number M [facility] [address], [place] [address] [place] [address] [address], [place] [address], [facility] [phone] HCG QUALitative (blood) (2019 4:27 AM CDT) Patholo gist Method Time Signature HCG Qualitative Negative NEG^Negati 2019 [facility] Serum ve 5:31 AM [facility] Comment: This test is for screening purposes. ??R esults should be interpreted along with the clinical picture. ??Confirmation te sting is available if warranted by ordering [id number], HCG Quantitative Pregna ncy. Specimen Anatomical Collection Method Collection Time Receive d Time (Source) Location / / Volume Laterality Blood specimen 2019 4:27 AM 020 4:43 (specimen) CDT AM CDT Camille Borrero MD LAB - BLOOD ORDERABLES Performing Organization Address City/State/ZIP Code Phon e Number M [facility] [address], [place] [address] [facility] [address], [place] [address], [facility] [phone] (ABNORMAL) Comprehensive metabolic panel (2019 4:27 AM CDT) athologist Signature Sodium 139 133 - 144 2019 [facility] mmol/L 5:00 AM [facility] Potassium 3.0 (L) 3.4 - 5.3 2019 [facility] mmol/L 5:00 AM [facility] Chloride 101 94 - 109 2019 [facility] mmol/L 5:00 AM [facility] Carbon Dioxide 23 20 - 32 2019 [facility] mmol/L 5:06 AM [facility] Anion Gap 15 (H) 3 - 14 2019 [facility] mmol/L 5:06 AM [facility] Glucose 234 (H) 70 - 99 2019 [facility] mg/dL 5:06 AM [facility] Urea Nitrogen 10 7 - 30 2019 [facility] mg/dL 5:06 AM [facility] Creatinine 0.88 0.52 - 2019 [facility] 1.04 mg/dL 5:06 AM [facility] GFR Estimate 85 >60 2019 [facility] mL/min/{1. 5:06 AM [facility] 73_m2} HOSPITAL Comment: Non GFR Calc Starting 01/27/2018, serum creatinine ba sed estimated GFR (eGFR) will be calculated using the Chronic Kidney Dise [facility] Epidemiology Collaboration (CKD-EPI) equation. GFR Estimate If >90 >60 mL/min/{1.73_m2} 2019 5: 06 AM [facility] Comment: GFR Calc Starting 01/27/2018, serum creatinine ba sed estimated GFR (eGFR) will be calculated using the Chronic Kidney Dise [facility] Epidemiology Collaboration (CKD-EPI) equation. Calcium 8.4 (L) 8.5 - 10.1 2019 5:06 AM [facility] Bilirubin Total 0.3 0.2 - 1.3 mg/dL 2019 5:08 AM [facility] Albumin 3.2 (L) 3.4 - 5.0 g/dL 2019 5:08 AM [facility] Protein Total 7.0 6.8 - 8.8 g/dL 2019 5:08 AM [facility] Alkaline Phosphatase 93 40 - 150 U/L 2019 5:08 AM [facility] ALT 108 (H) 0 - 50 U/L 2019 5:08 AM [facility] AST 202 (H) 0 - 45 U/L 2019 5:08 AM [facility] Specimen Anatomical Collection Method Collection Time Receive d Time (Source) Location / / Volume Laterality Blood specimen 2019 4:27 AM 020 4:43 (specimen) CDT CDT Camille Borrero MD LAB - BLOOD ORDERABLES Performing Organization Address City/State/ZIP Code Phon e Number [place] [address] [place] [address] [facility] [address] [phone] (ABNORMAL) CBC + differential (2019 4:27 AM CDT) Component Value Ref Test Analysis Performed At [facility] gist Range Method Time Signature WBC 9.7 4.0 - 2019 [facility] 11.0 4:51 AM [facility] 10e9/L [facility] RBC Count 4.26 3.8 - 2019 [facility] 5.2 4:51 AM [facility] 10e12/L [facility] Hemoglobin 13.2 11.7 - 2019 [facility] 15.7 4:51 AM [facility] g/dL [facility] Hematocrit 42.9 35.0 - 2019 [facility] 47.0 % 4:51 AM [facility] MCV 101 (H) 78 - 100 2019 [facility] fl 4:51 AM [facility] MCH 31.0 26.5 - 2019 [facility] 33.0 pg 4:51 AM [facility] MCHC 30.8 (L) 31.5 - 2019 [facility] 36.5 4:51 AM [facility] g/dL [facility] RDW 14.6 10.0 - 2019 [facility] 15.0 % 4:51 AM [facility] Platelet Count 221 150 - 2019 [facility] 450 4:51 AM [facility] 10e9/L [facility] Diff Method Manual 2019 [facility] Differential 5:36 AM [facility] % Neutrophils 31.0 % 2019 [facility] 5:36 AM [facility] % Lymphocytes 65.0 % 2019 [facility] 5:36 AM [facility] % Monocytes 4.0 % 2019 [facility] 5:36 AM [facility] % Eosinophils 0.0 % 2019 [facility] 5:36 AM [facility] % Basophils 0.0 % 2019 [facility] 5:36 AM [facility] Absolute 3.0 1.6 - 2019 [facility] Neutrophil 8.3 5:36 AM [facility] 10e9/[facility] Absolute 6.3 (H) 0.8 - 2019 [facility] Lymphocytes 5.3 5:36 AM [facility] 10e9/[facility] Absolute 0.4 0.0 - 2019 [facility] Monocytes 1.3 5:36 AM [facility] 10e9/L [facility] Absolute 0.0 0.0 - 2019 [facility] Eosinophils 0.7 5:36 AM [facility] 10e9/L [facility] Absolute 0.0 0.0 - 2019 [facility] Basophils 0.2 5:36 AM [facility] 10e9/L [facility] Reactive Lymphs Present 2019 [facility] 5:36 AM [facility] RBC Morphology Consistent with 2019 [facility] reported results 5:36 AM [facility] Platelet Automated count 2019 [facility] Estimate confirmed. 5:36 AM [facility] morphology is normal. Specimen Anatomical Collection Method Collection Time Receive d Time (Source) Location / / Volume Laterality Blood specimen 2019 4:27 AM 020 4:43 (specimen) CDT AM CDT Camille Borrero MD LAB - BLOOD ORDERABLES Performing Organization Address City/State/ZIP Code Phon e Number [facility] [address], [place] [address] [facility] [address], [place] [address] [facility] [phone] EKG 12 lead (2019 4:25 AM CDT) [facility] gist Method Time Signature Interpretation ECG Click View RADIOLOGY Image link RESULTS to view waveform and result Specimen (Source) Anatomical Collection Method Collection Time Re ceived Time Location / / Volume Laterality 2019 4:25 AM CDT Camille Borrero MD ECG ORDERABLES Performing Organization Address City/State/ZIP Code Phon e Number RADIOLOGY RESULTS documented in this encounter Visit Diagnoses Diagnosis Opioid overdose, undetermined intent, in itial encounter (H) Acute respiratory failure with hypoxia ( H) Acute respiratory failure Alcoholic intoxication with complication (H) Aspiration into airway, initial encounte r Narcotic overdose, accidental or uninten tional, initial encounter (H) documented in this encounter Administered Medications Inactive Administered Medications - up to 3 most recent administrations Medication Order MAR Action Action Date Dose Rate Site ampicillin-sulbactam (UNASYN) 3 g New Bag 2019 5:25 AM CDT 3 g vial to attach to NS 100 mL bag STAT, 3 g, Intravenous, ONCE, On 07/25/19 at 0514, For 1 dose, Indications: aspiration folic acid (FOLVITE) tablet 1 mg Given 07/26/2019 8:01 AM CDT 1 mg 1 mg, Oral, DAILY, First dose on 07/25/19 at 0930, If patient is unable to tolerate oral folic acid, an intravenous dose of folic acid should be considered. Contact provider to change to IV if patient unable to take PO. Given 2019 10:42 AM CDT 1 mg hydrochlorothiazide (HYDRODIURIL) tablet 25 mg Given 07/26/2019 8:01 AM CDT 25 mg 25 mg, Oral, DAILY, First dose on 07/25/19 at 0900, Hold for SBP < 130 Given 2019 10:42 AM CDT 25 mg lisinopril (ZESTRIL) tablet 10 mg Given 07/26/2019 8:01 AM CDT 10 mg 10 mg, Oral, DAILY, First dose on 07/25/19 at 0900, Hold for SBP < 120 Given 2019 10:42 AM CDT 10 mg LORazepam (ATIVAN) injection 1-2 mg 1-2 mg, Intravenous, EVERY 30 MIN PRN, o ther, per CIWA-Ar score, Starting on 07/25/19 at 0922, Oral dosing is the preferred route of administration. Dose according to CIWA-Ar Score: For CIWA-Ar Score LESS GWENDOLYN N OR EQUAL TO 7: ~ NO LORazepam (ATIVAN) is to be administered and ~ repeat CIWA-Ar scale in 4 hours and PRN For CIWA-Ar Score 8-12: ~ give LORaz epam (ATIVAN) 1 mg PO or IV and ~ repeat CIWA-AR scale in 1 hour For CIWA-Ar Scor e 13-15: ~ give LORazepam (ATIVAN) 2 mg PO or IV and ~ repeat CIWA-Ar scale in 1 ho ur For CIWA-Ar Score GREATER THAN OR EQUAL TO 16: ~ give LORazepam (ATIVAN) 2 mg PO or IV and ~ r epeat CIWA-Ar scale in 30 minutes Doses should be withheld for nystagmus, sedati on, ataxia, dysarthria or respiratory rate less than 12. If dose i s being held more than once, provider must be notified. This drug may cause significant respirato ry depression. Monitor respiratory status and vital signs carefully for 1 marcel r after each dose. LORazepam (ATIVAN) tablet 1-2 mg 1-2 mg, Oral, EVERY 30 MIN PRN, other, p er CIWA-Ar score, Starting on 07/25/19 at 0922, Oral dosing is the preferred ro angelo of administration. Dose according to CIWA-Ar score: For CIWA-Ar Score LESS TH AN OR EQUAL TO 7: ~ NO LORazepam (ATIVAN) is to be administered and ~ repeat CIWA-Ar scale in 4 hours and PRN For CIWA-Ar Score 8-12: ~ give LORazepam (ATIVAN) 1 mg PO or IV and ~ repeat CIWA-Ar scale in 1 hour For CIWA-Ar Score 13-15: ~ give JORDAN azepam (ATIVAN) 2 mg PO or IV ~ and repeat CIWA-Ar scale in 1 hour For CIWA-Ar Score GREATER THAN OR EQUAL TO 16: ~ give LORazepam (ATIVAN) 2 mg PO or IV and ~ repeat CIWA-Ar scale in 30 minutes Doses should be withheld for nystagmus, sedati on, ataxia, dysarthria or respiratory rate less than 12. If dose is being held more than once, pr ovider must be notified. magnesium sulfate 4 g in 100 mL sterile water (premade) 4 g, Intravenous, Administer over 120 Minutes, EVERY 4 HOURS PRN, magnesium supplementation, Starting on 07/25/19 at 0836, For serum Mg++ less than 1.6 mg/dL Give 4 g and recheck magnesium level 2 hours aft er dose, and next AM. multivitamin w/minerals (THERA-VIT-M) Given 07/26/2019 8:00 AM C DT 1 tablet tablet 1 tablet 1 tablet, Oral, DAILY, First dose on 07/25/19 at 0930, If patient is unable to tolerate oral multivitamins an intravenous dose of multivitamins should be considered. Contact provider to change to IV if patient unable to take PO. Given 2019 10:42 AM CDT 1 tablet naloxone (NARCAN) 0.4 MG/ML injection Starting on 07/25/19 at 0447, For 1 d Herzog spencer Mitchell : cabinet override For ordered IV doses 0.1-2mg give IVP. G nelson each 0.4mg over 15 seconds in emergency situations. For non-emergent situations further dilute in 9mL of NS to facilitate titration of response. naloxone (NARCAN) 2.5 mg Rate/Dose Change 2019 8:30 AM CDT 0. 4 mg/hr 40 mL/hr in sodium chloride 0.9 % 250 mL infusion 0.5 mg/hr (50 mL/hr), Intravenous, CONTINUOUS, Starting on 07/25/19 at 0459 Rate/Dose Verify 2019 8:20 AM CDT 0.5 mg/hr 50 mL/hr New Bag 2019 5:31 AM CDT 0.5 mg/hr 50 mL/hr naloxone (NARCAN) injection 0.4 mg Given 2019 4:49 AM CDT 0.4 mg 0.4 mg, Intravenous, ONCE, On 07/25/19 at 0447, For 1 dose, For respiratory rate LESS than or EQUAL to 8. Partial reversal dose: 0.1 mg titrated q 2 minutes for Analgesia Side Effects Monitoring Sedation Level of 3 (frequently drowsy, arousable, drifts to sleep during conversation).Full reversal dose: 0.4 mg bolus for Analgesia Side Effects Monitoring Sedation Level of 4 (somnolent, minimal or no response to stimulation). For ordered IV doses 0.1-2mg give IVP. Give each 0.4mg over 15 seconds in emergency situations. For non-emergent situations further dilute in 9mL of NS to facilitate titration of response. naloxone (NARCAN) injection 0.4 mg Given 2019 5:18 AM CDT 0.4 mg 0.4 mg, Intravenous, ONCE, On 07/25/19 at 0515, For 1 dose, For respiratory rate LESS than or EQUAL to 8. Partial reversal dose: 0.1 mg titrated q 2 minutes for Analgesia Side Effects Monitoring Sedation Level of 3 (frequently drowsy, arousable, drifts to sleep during conversation).Full reversal dose: 0.4 mg bolus for Analgesia Side Effects Monitoring Sedation Level of 4 (somnolent, minimal or no response to stimulation). For ordered IV doses 0.1-2mg give IVP. Give each 0.4mg over 15 seconds in emergency situations. For non-emergent situations further dilute in 9mL of NS to facilitate titration of response. ondansetron (ZOFRAN) injection 4 mg 4 mg, Intravenous, EVERY 6 HOURS PRN, nausea, vomiting , Administer over 2-5 Minutes, Starting on 07/25/19 at 0836, This is Step 1 of nausea and vomiting management. If nausea not resolved in 15 minutes, go t o Step 2 prochlorperazine (COMPAZINE). Irritant. For ordered IV do ses 0.1-4 mg, give IV Push undiluted over 2-5 minutes. ondansetron (ZOFRAN-ODT) ODT tab 4 mg 4 mg, Oral, EVERY 6 HOURS PRN, nausea, v omiting, Starting on 07/25/19 at 0836, This is Step 1 of nausea and vomiting management. If n ausea not resolved in 15 minutes, go to Step 2 prochlorperazine (COMPAZINE). Do not push through foil backing. Peel back foil and gently remove. Place on to ngue immediately. Administration with liquid unnecessary W ith dry hands, peel back foil backing and gently remove tablet. Do not push oral d isintegrating tablet through foil backing. Administer immediately on tongue and oral disintegrati ng tablet dissolves in seconds, then swallow with saliva. Liquid not required . potassium chloride (KLOR-CON) Packet 20- 40 mEq 20-40 mEq, Oral or Feeding Tube, EVERY 2 HOURS PRN, po tassium supplementation, Starting on 07/25/19 at 0836, Use if unable to tole rate tablets. If Serum K+ 3.0-3.3, dose = 60 mEq po total dose (40 mEq x1 followed in 2 hours by 20 mEq x1). Recheck K+ level 4 hours after dose and the next AM. If Serum K+ 2.5-2.9, dose = 80 mEq po total dose (40 mEq Q2H x2). Reche ck K+ level 4 hours after dose and the next AM. If Serum K+ less than 2.5, See IV or alyson. Dissolve packet contents in 4-8 ounces of cold water or juice. potassium chloride 10 mEq in 100 mL inte rmittent infusion with 10 mg lidocaine 10 mEq, Intravenous, Administer over 1 Hours, EVERY 1 HOUR PRN, potassium supplementation, Starting on 07/25/19 at 0836, Infuse via PERIPHERAL LINE. Use potassium with lidocaine for pain with peripheral admi nistration. If Serum K+ 3.0-3.3, dose = 10 mEq/hr x4 doses (40 m Eq IV total dose). Recheck K+ level 2 hours after dose and the next AM. If Serum K+ less than 3.0, dose = 10 mEq/hr x6 doses (60 mEq IV total dose). Recheck K+ level 2 hours after dose and the next AM. potassium chloride 10 mEq in 100 mL ster ile water intermittent infusion (premix) 10 mEq, Intravenous, Administer over 60 Minutes, at 100 mL/hr, EVERY 1 HOUR PRN, potassium supplementation, Starting on un 07/25/19 at 0836, Infuse via PERIPHERAL LINE or CENTRAL LINE. Use for central li ne replacement if patient weight less than 65 kg, if patient is on TPN with high po tassium content or if unit does not stock 20 mEq bags. If Serum K+ 3.0-3.3, dose = 10 mEq/hr x4 doses (40 mEq IV total dose). Recheck K+ level 2 hours after dose and the next AM. I f Serum K+ less than 3.0, dose = 10 mEq/hr x6 doses (60 mEq IV tot al dose). Recheck K+ level 2 hours after dose and the next AM. potassium chloride 20 mEq in 50 mL inter mittent infusion 20 mEq, Intravenous, EVERY 1 HOUR PRN, p otassium supplementation, Starting on 07/25/19 at 0836, Infuse via CENTRAL LINE Only. May need EKG if less than 65 kg or on TPN - Max rate is 0.3 mEq/kg/hr for p atients not on EKG monitoring. If Serum K+ 3.0-3.3, dose = 20 mEq/hr x2 doses (40 m Eq IV total dose). Recheck K+ level 2 hours after dose and the next AM. If Serum K+ less than 3.0, dose = 20 mEq/hr x3 doses (60 mEq IV total dose). Recheck K+ level 2 hours after dose and the next AM. potassium chloride ER (KLOR-CON M) CR tablet Given 12:47 PM CDT 20 mEq 20-40 mEq 20-40 mEq, Oral, EVERY 2 HOURS PRN, potassium supplementation, Starting on 07/25/19 at 0836, Use if able to take PO. If Serum K+ 3.0-3.3, dose = 60 mEq po total dose (40 mEq x1 followed in 2 hours by 20 mEq x1). Recheck K+ level 4 hours after dose and the next AM. If Serum K+ 2.5-2.9, dose = 80 mEq po total dose (40 mEq Q2H x2). Recheck K+ level 4 hours after dose and the next AM. If Serum K+ less than 2.5, See IV order. DO NOT CRUSH Given 2019 10:42 AM CDT 40 mEq potassium phosphate 15 mmol in D5W 250 m L intermittent infusion 15 mmol, Intravenous, Administer over 4 Hours, DAILY P RN, phosphorous supplementation, Starting on 07/25/19 at 0836, For serum phosphorus level 2-2.4 Do not infuse Phosphorus in the same line as TPN. Give 15 mmol and recheck phosphorus level next AM. Each mmol of p hosphate provides 1.47 mEq of Potassium. Multiply the patient's phosphate dose by 1.47 to determine the amount of potassium in this dose. potassium phosphate 20 mmol in D5W 250 m L intermittent infusion 20 mmol, Intravenous, Administer over 4 Hours, EVERY 6 HOURS PRN, phosphorous supplementation, Starting on 07/25/19 at 0836, For serum phosphorus level 1.1-1.9 For CENTRAL Line ONLY Do not infuse Phosphorus in the same line as TPN. Give 20 mmol and recheck phosphorus leve l 2 hours after last dose and next AM. Each mmol of phosphate provides 1.47 mEq of P otassium. Multiply the patient's phosphate dose by 1.47 to determine the amount of potassium in t his dose. potassium phosphate 20 mmol in D5W 500 m L intermittent infusion 20 mmol, Intravenous, Administer over 4 Hours, EVERY 6 HOURS PRN, phosphorous supplementation, Starting on 07/25/19 at 0836, For serum phosphorus level 1.1-1.9 For Peripheral Line Do not infus e Phosphorus in the same line as TPN. Give 20 mmol and recheck phosphorus level 2 h ours after last dose and next AM. Each mmol of phosphate provides 1.47 mEq of Potass ium. Multiply the patient's phosphate dose by 1.47 to determine the amount of potassium in this d ose. potassium phosphate 25 mmol in D5W 500 m L intermittent infusion 25 mmol, Intravenous, Administer over 6 Hours, EVERY 8 HOURS PRN, phosphorous supplementation, Starting on 07/25/19 at 0836, For serum phosphorus level less than 1.1 Do not infuse Phosphorus in the same line as TPN. Give 25 mmol and recheck phosphorus level 2 hours after last dose and next AM. Each mmol of phosphate provides 1.47 mEq of Potassium. Multiply the patient's phosphate dose by 1.47 to determine the amount of potassium in this dose. vitamin B1 (THIAMINE) tablet 100 mg Given 07/26/2019 8:01 AM CDT 100 mg 100 mg, Oral, DAILY, First dose on 07/25/19 at 0930, For 5 days, Administer first dose as soon as order set is initiated unless given in ED. If patient is unable to tolerate oral thiamine, an intravenous dose of thiamine should be considered. Contact provider to change to IV if patient unable to take PO. Given 2019 10:42 AM CDT 100 mg documented in this encounter Active and Recently Administered Medications Times are shown in CDT. Scheduled Medication Order 07/24/2019 2019 07/26/2019 ampicillin-sulbactam (UNASYN) 3 g vial to attach to NS 100 m L bag (COMPLETED) 05 (New Bag - Provider: Dana Garcia, RN)06 (Stopped - Provider: Dana Garcia, RN) STAT, 3 g, Intravenous, ONCE, Sun 0 at 0514, For 1 dose, Indications: aspiration folic acid (FOLVITE) tablet 1 mg 1042 (Given - P rovider: Akash Bustamante RN) 0801 (Given - Provider: Sugar Dey, RN) 1 mg, Oral, DAILY, First dose on Sun 07/11 05/30 at 0930, If patient is unable to tolerate oral folic acid, an intravenous dose of folic acid should be considered. Contact provider to change to IV if patient unable to take PO. hydrochlorothiazide (HYDRODIURIL) tablet 25 mg 1042 (Given - Provider: Akash Bustamante RN) 0801 (Given - Provider: Sugar Dey, RN ) 25 mg, Oral, DAILY, First dose on 07/25/19 at 0900, Hold for SBP < 130 lisinopril (ZESTRIL) tablet 10 mg 1042 (Given - Provider: Akash Bustamante RN) 0801 (Given - Provider: Sugar Dey, RN) 10 mg, Oral, DAILY, First dose on 07/25/19 at 0900, Hold for SBP < 120 multivitamin w/minerals (THERA-VIT-M) tablet 1 tablet 1042 (Given - Provider: Akash Bustamante RN) 0800 (Given - Provider: Sugar Dey, RN ) 1 tablet, Oral, DAILY, First dose on 07/25/19 at 0930, If patient is unable to tolerate oral multivitamins an intravenous dose of multivitamins should be considered. Contact provider to change to IV if patient unable to take PO. naloxone (NARCAN) injection 0.4 mg (COMPLETED) 0449 (Given - Provider: Hao Solis, KATERYNA) 0.4 mg, Intravenous, ONCE, 07/25/19 a t 0447, For 1 dose, For respiratory rate LESS than or EQUAL to 8. Partial reversal dose: 0.1 mg titrated q 2 minutes for Analgesia Side Effects Monitoring Sedatio n Level of 3 (frequently drowsy, arousab le, drifts to sleep during conversation).Full reversal dose: 0.4 mg bolus for Analgesia Side Effects Monitoring Sedation Level of 4 (somnolent, minimal or no resp onse to stimulation). For ordered IV dos es 0.1-2mg give IVP. Give each 0.4mg over 15 seconds in emergency situations. For non-emergent situations further dilute in 9mL of NS to facilitate titration of response. naloxone (NARCAN) injection 0.4 mg (COMPLETED) 05 (Given - Provider: Dana Garcia RN) 0.4 mg, Intravenous, ONCE, 07/25/19 a t 0515, For 1 dose, For respiratory rate LESS than or EQUAL to 8. Partial reversal dose: 0.1 mg titrated q 2 minutes for Analgesia Side Effects Monitoring Sedatio n Level of 3 (frequently drowsy, arousab le, drifts to sleep during conversation).Full reversal dose: 0.4 mg bolus for Analgesia Side Effects Monitoring Sedation Level of 4 (somnolent, minimal or no resp onse to stimulation). For ordered IV dos es 0.1-2mg give IVP. Give each 0.4mg over 15 seconds in emergency situations. For non-emergent situations further dilute in 9mL of NS to facilitate titration of response. vitamin B1 (THIAMINE) tablet 100 mg 1042 (Given - Provider: Akash Bustamante, KATERYNA) 0801 (Given - Provider: Sugar Dey, KATERYNA) 100 mg, Oral, DAILY, First dose on Sun at 0930, For 5 days, Administer first dose as soon as order set is initiated unless given in ED. If patient is unable to tolerate oral thiamine, an intrave nous dose of thiamine should be consider ed. Contact provider to change to IV if patient unable to take PO. Continuous Medication Order 07/24/2019 2019 07/26/2019 naloxone (NARCAN) 2.5 mg in sodium chloride 0.9 % 250 mL inf usion 0531 (New Bag - Provider: Dana Garcia RN)0820 (Rate/Dose Verify - Provider: Akash Bustamante RN)0830 (Rate/Dose Change - Provider: Akash Bustamante RN)1016 (Hold - Provider: Akash Bustamante RN - Reason: Other - Comment: pt is awake , alert) 0.5 mg/hr (50 mL/hr), at 50 mL/hr, Intra venous, CONTINUOUS, Starting 07/25/19 at 0459 PRN Medication Order 07/24/2019 2019 07/26/2019 LORazepam (ATIVAN) injection 1-2 mg(Linked Group 1) 1-2 mg, Intravenous, EVERY 30 MIN PRN, o ther, per CIWA-Ar score, Starting Cyrus 07/25/19 at 0922, Oral dosing is the preferred route of administration. Dose according to CIWA-Ar Score: For CIWA-Ar Score LE SS THAN OR EQUAL TO 7: ~ NO LORazepam (A TIVAN) is to be administered and ~ repeat CIWA-Ar scale in 4 hours and PRN For CIWA-Ar Score 8-12: ~ give LORazepam (ATIVAN) 1 mg PO or IV and ~ repeat CIWA-AR sc claudia in 1 hour For CIWA-Ar Score 13-15: ~ give LORazepam (ATIVAN) 2 mg PO or IV and ~ repeat CIWA-Ar scale in 1 hour For CIWA-Ar Score GREATER THAN OR EQUAL TO 16: ~ give LORazepam (ATIVAN) 2 mg PO or IV and ~ repeat CIWA-Ar scale in 30 minute s Doses should be withheld for nystagmus, sedation, ataxia, dysarthria or respiratory rate less than 12. If dose is being held more than once, provider must be no tified. This drug may cause significant respiratory depression. Monitor respiratory status and vital signs carefully for 1 hour after each dose. LORazepam (ATIVAN) tablet 1-2 mg(Linked Group 1) 1-2 mg, Oral, EVERY 30 MIN PRN, other, p er CIWA-Ar score, Starting 07/25/19 at 0922, Oral dosing is the preferred route of administration. Dose according to CIWA-Ar score: For CIWA-Ar Score LESS THAN OR EQUAL TO 7: ~ NO LORazepam (ATIVAN) is to be administered and ~ repeat CIWA- Ar scale in 4 hours and PRN For CIWA-Ar Score 8-12: ~ give LORazepam (ATIVAN) 1 mg PO or IV and ~ repeat CIWA-Ar scale in 1 hour For CIWA-Ar Score 13-15: ~ give L ORazepam (ATIVAN) 2 mg PO or IV ~ and repeat CIWA-Ar scale in 1 hour For CIWA-Ar Score GREATER THAN OR EQUAL TO 16: ~ give LORazepam (ATIVAN) 2 mg PO or IV and ~ repeat CIWA-Ar scale in 30 minutes Doses should be withheld for nystagmus, sedation, ataxia, dysarthria or respiratory rate less than 12. If dose is being held more than once, provider must be notified. magnesium sulfate 4 g in 100 mL sterile water (premade) 4 g, Intravenous, Administer over 120 Mi nutes, EVERY 4 HOURS PRN, magnesium supplementation, Starting 07/25/19 at 0836, For serum Mg++ less than 1.6 mg/dL Give 4 g and recheck magnesium level 2 hours after dose, and next AM. naloxone (NARCAN) injection 0.1-0.4 mg 0.1-0.4 mg, Intravenous, EVERY 2 MIN PRN , opioid reversal, Starting 07/25/19 at 0836, For respiratory rate LESS than or EQUAL to 8. Partial reversal dose: 0.1 mg titrated q 2 minutes for Analgesia Si de Effects Monitoring Sedation Level of 3 (frequently drowsy, arousable, drifts to sleep during conversation).Full reversal dose: 0.4 mg bolus for Analgesia Side Effects Monitoring Sedation Level of 4 ( somnolent, minimal or no response to sti mulation). For ordered IV doses 0.1-2mg give IVP. Give each 0.4mg over 15 seconds in emergency situations. For non- emergent situations further dilute in 9mL of NS to facilitate titration of response. ondansetron (ZOFRAN) injection 4 mg(Linked Group 2) 4 mg, Intravenous, EVERY 6 HOURS PRN, na usea, vomiting, Administer over 2-5 Minutes, Starting 07/25/19 at 0836, This is Step 1 of nausea and vomiting management. If nausea not resolved in 15 minutes, go to Step 2 prochlorperazine (COMPAZIN E). Irritant. For ordered IV doses 0.1-4 mg, give IV Push undiluted over 2-5 minutes. ondansetron (ZOFRAN-ODT) ODT tab 4 mg(Linked Group 2) 4 mg, Oral, EVERY 6 HOURS PRN, nausea, v omiting, Starting 07/25/19 at 0836, This is Step 1 of nausea and vomiting management. If nausea not resolved in 15 minutes, go to Step 2 prochlorperazine (COMP AZINE). Do not push through foil backing . Peel back foil and gently remove. Place on tongue immediately. Administration with liquid unnecessary With dry hands, peel back foil backing and gently remove t ablet. Do not push oral disintegrating t ablet through foil backing. Administer immediately on tongue and oral disintegrating tablet dissolves in seconds, then swallow with saliva. Liquid not required. potassium chloride (KLOR-CON) Packet 20-40 mEq 20-40 mEq, Oral or Feeding Tube, EVERY 2 HOURS PRN, potassium supplementation, Starting 07/25/19 at 0836, Use if unable to tolerate tablets. If Serum K+ 3.0-3.3, dose = 60 mEq po total dose (40 mEq x 1 followed in 2 hours by 20 mEq x1). Rec heck K+ level 4 hours after dose and the next AM. If Serum K+ 2.5-2.9, dose = 80 mEq po total dose (40 mEq Q2H x2). Recheck K+ level 4 hours after dose and the ne xt AM. If Serum K+ less than 2.5, See IV order. Dissolve packet contents in 4-8 ounces of cold water or juice. potassium chloride 10 mEq in 100 mL intermittent infusion wi th 10 mg lidocaine 10 mEq, Intravenous, Administer over 1 H ours, EVERY 1 HOUR PRN, potassium supplementation, Starting 07/25/19 at 0836, Infuse via PERIPHERAL LINE. Use potassium with lidocaine for pain with peripheral administration. If Serum K+ 3.0-3.3, do se = 10 mEq/hr x4 doses (40 mEq IV total dose). Recheck K+ level 2 hours after dose and the next AM. If Serum K+ less than 3.0, dose = 10 mEq/hr x6 doses (60 mEq IV total dose). Recheck K+ level 2 hours after dose and the next AM. potassium chloride 10 mEq in 100 mL ster ile water intermittent infusion (premix) 10 mEq, Intravenous, Administer over 60 Minutes, at 100 mL/hr, EVERY 1 HOUR PRN, potassium supplementation, Starting 07/25/19 at 0836, Infuse via PERIPHERAL LINE or CENTRAL LINE. Use for central line replacement if patient weight less than 65 kg, if patient is on TPN with high potassium content or if unit does not stock 20 mEq bags. If Serum K+ 3.0-3.3, dose = 10 mEq/hr x4 doses (40 mEq IV total do se). Recheck K+ level 2 hours after dose and the next AM. If Serum K+ less than 3.0, dose = 10 mEq/hr x6 doses (60 mEq IV total dose). Recheck K+ level 2 hours after dose and the next AM. potassium chloride 20 mEq in 50 mL intermittent infusion 20 mEq, Intravenous, EVERY 1 HOUR PRN, p otassium supplementation, Starting 07/25/19 at 0836, Infuse via CENTRAL LINE Only. May need EKG if less than 65 kg or on TPN - Max rate is 0.3 mEq/kg/hr for pa tients not on EKG monitoring. If Serum K + 3.0-3.3, dose = 20 mEq/hr x2 doses (40 mEq IV total dose). Recheck K+ level 2 hours after dose and the next AM. If Serum K+ less than 3.0, dose = 20 mEq/hr x3 d oses (60 mEq IV total dose). Recheck K+ level 2 hours after dose and the next AM. potassium chloride ER (KLOR-CON M) CR tablet 20-40 mEq 1042 (Given - Provider: Akash Bustamante RN)1247 (Given - Provider: Sally Choudhary RN) 20-40 mEq, Oral, EVERY 2 HOURS PRN, pota ssium supplementation, Starting 07/25/19 at 0836, Use if able to take PO. If Serum K+ 3.0-3.3, dose = 60 mEq po total dose (40 mEq x1 followed in 2 hours by 20 mEq x1). Recheck K+ level 4 hours after dose and the next AM. If Serum K+ 2.5- 2.9, dose = 80 mEq po total dose (40 mEq Q2H x2). Recheck K+ level 4 hours after dose and the next AM. If Serum K+ less than 2.5, See IV order. DO NOT CRUSH potassium phosphate 15 mmol in D5W 250 mL intermittent infusion 15 mmol, Intravenous, Administer over 4 Hours, DAILY PRN, phosphorous supplementation, Starting 07/25/19 at 0836, For serum phosphorus level 2-2.4 Do not infuse Phosphorus in the same line as TPN. Gi ve 15 mmol and recheck phosphorus level next AM. Each mmol of phosphate provides 1.47 mEq of Potassium. Multiply the patient's phosphate dose by 1.47 to determine the amount of potassium in this dose. potassium phosphate 20 mmol in D5W 250 mL intermittent infusion 20 mmol, Intravenous, Administer over 4 Hours, EVERY 6 HOURS PRN, phosphorous supplementation, Starting 07/25/19 at 0836, For serum phosphorus level 1.1- 1.9 For CENTRAL Line ONLY Do not infuse Phosph orus in the same line as TPN. Give 20 mm ol and recheck phosphorus level 2 hours after last dose and next AM. Each mmol of phosphate provides 1.47 mEq of Potassium. Multiply the patient's phosphate dose by 1.47 to determine the amount of potassium in this dose. potassium phosphate 20 mmol in D5W 500 mL intermittent infusion 20 mmol, Intravenous, Administer over 4 Hours, EVERY 6 HOURS PRN, phosphorous supplementation, Starting 07/25/19 at 0836, For serum phosphorus level 1.1- 1.9 For Peripheral Line Do not infuse Phosphor us in the same line as TPN. Give 20 mmol and recheck phosphorus level 2 hours after last dose and next AM. Each mmol of phosphate provides 1.47 mEq of Potassium. Multiply the patient's phosphate dose by 1.47 to determine the amount of potassium in this dose. potassium phosphate 25 mmol in D5W 500 mL intermittent infusion 25 mmol, Intravenous, Administer over 6 Hours, EVERY 8 HOURS PRN, phosphorous supplementation, Starting 07/25/19 at 0836, For serum phosphorus level less than 1.1 Do not infuse Phosphorus in the same line as TPN. Give 25 mmol and recheck p hosphorus level 2 hours after last dose and next AM. Each mmol of phosphate provides 1.47 mEq of Potassium. Multiply the patient's phosphate dose by 1.47 to determine the amount of potassium in this dose. Linked Groups Order Group 1: LORazepam (ATIVAN) tablet 1-2 mgJump to med 1-2 mg, Oral, EVERY 30 MIN PRN, other, p er CIWA-Ar score, Starting 07/25/19 at 0922
Oral dosing is the preferred route of administration. Dose according to CIWA-Ar score: & amp;nbsp;For CIWA-Ar Score LESS THAN OR EQUAL TO 7: ~ NO LORazepam (ATIVAN) is to be administered and ~ repeat CIWA-Ar scale in 4 hours and PRN For CIWA-Ar Score 8-1 2: ~ give LORazepam (ATIVAN) 1 mg PO or IV and ~ repeat CIWA-Ar scale in 1 hour For CIWA-Ar Score 13-15: ~ give LORazepam (ATIVAN) 2 mg PO or IV &nbsp ;~ and repeat CIWA-Ar scale in 1 hour&nb sp; For CIWA-Ar Score GREATER THAN OR EQUAL TO 16: ~ give LORazepam (ATIVAN) 2 mg PO or IV and ~ repeat CIWA-Ar scale in 30 minut es Doses should be withheld f or nystagmus, sedation, ataxia, dysarthria or respiratory rate less than 12. If dose is being held more than once, provider must be notified.
Or LORazepam (ATIVAN) injection 1-2 mgJump to med 1-2 mg, Intravenous, EVERY 30 MIN PRN, o ther, per CIWA-Ar score, Starting 07/25/19 at 0922
Oral dosing is the preferred route of administration. Dose according to CIWA-Ar Score: For CIWA-Ar Score LESS THAN OR EQUAL TO 7: ~ NO LORazepam (ATIVAN) is to be administered and ~ repeat CIWA-Ar scale in 4 hours and PRN &amp ;nbsp;For CIWA-Ar Score 8-12: ~ giv e LORazepam (ATIVAN) 1 mg PO or IV and ~ repeat CIWA-AR scale in 1 hour For CIWA-Ar Score 13- 15: ~ give LORazepam (ATIVA N) 2 mg PO or IV and ~ repeat CIWA -Ar scale in 1 hour For CIWA- Ar Score GREATER THAN OR EQUAL TO 16: ~ give LORazepam (ATIVAN) 2 mg PO or IV and ~ repeat C IWA-Ar scale in 30 minutes Do ses should be withheld for nystagmus, sedation, ataxia, dysarthria or respiratory rate less than 12. If dose is being held more than once, provider must b e notified. This drug may cause sig nificant respiratory depression. Monitor respiratory status and vital signs carefully for 1 hour after each dose.
Group 2: ondansetron (ZOFRAN-ODT) ODT tab 4 mgJump to med 4 mg, Oral, EVERY 6 HOURS PRN, nausea, v omiting, Starting 07/25/19 at 0836
This is Step 1 of nausea and vomiting management. If nausea not resolved in 15 minutes, go to St ep 2 prochlorperazine (COMPAZINE). Do no t push through foil backing. Peel back foil and gently remove. Place on tongue immediately. Administration with liquid unnecessary With dry hands, peel b ack foil backing and gently remove table t. Do not push oral disintegrating tablet through foil backing. Administer immediately on tongue and oral disintegrating tablet dissolves in seconds, then swallow with saliva. Liquid not required.
Or ondansetron (ZOFRAN) injection 4 mgJump to med 4 mg, Intravenous, EVERY 6 HOURS PRN, na usea, vomiting, Administer over 2-5 Minutes, Starting 07/25/19 at 0836
This is Step 1 of nausea and vomiting management. If nausea not resolved in 15 minutes, go to Step 2 prochlorperazine (COMPAZINE). Irritant. For ordered IV doses 0.1-4 mg, give IV Push undiluted over 2-5 minutes.
documented in this encounter Additional Health Concerns Infection Onset Date Last Indicated Resolved Time Rule Out COVID-19 2019 2019 2019 3:0 9 PM CDT Assessment Noted Time PHQ-9 Depression Total Score: 8 07/08/2019 10:24 AM CD T documented as of this encounter Care Teams Senior Front End Developer Relationship Specialty Start Date End Date Reggie Sarabia MD PCP - General Family Practice 07/08/19 05/21/21 Astrid Colón MD Assigned PCP 07/18/19 07/15/20 [id number] [place] [address] documented as of this encounter
--- OUTSIDE RECORDS SUMMARY | 2021-12-10 21:20 | XMS_ITS | Encounter Summary ---
:1985 Author Organization [facility] Address [address] [place] [id number] Care Team Providers Name Role Phone Reggie Sarabia MD Primary Care Provider [phone] Reggie Sarabia MD Unavailable Encounter Details Date Type Department Care Team Description 12/07/2020 Travel Social History Tobacco Use Types Packs/Day [...] 05/22/2021 relatives? How often do you attend baptism or latter-day Never 05/22/2021 services? Do you belong to any clubs or organizations such as No 05/22/2021 baptism groups, unions, fraternal or athletic groups, or [...] place to sleep or slept in a custodial (including now)? Sex Assigned at Date Recorded [...] documented as of this encounter Care Teams Force Adjustment Supervisor Relationship Specialty Start Date End Date Reggie Sarabia MD PCP - General Family Practice 07/08/19 05/21/21 Reggie Sarabia MD Assigned PCP 07/16/20 01/13/21 [id number] [place] [id number] documented as of this encounter
--- OUTSIDE RECORDS SUMMARY | 2021-12-10 21:21 | XMS_ITS | Encounter Summary ---
:1985 Author Organization [facility] Address [address] [place] [address] Care Team Providers Name Role Phone Francisco Javier Pascual MD Primary Care Provider Reggie Sarabia MD Unavailable Reggie Sarabia MD Unavailable Encounter Details Date Type Department Care Team Description 01/19/2018 Travel Social History Tobacco Use Types Packs/Day [...] 05/22/2021 relatives? How often do you attend holiness or methodist Never 05/22/2021 services? Do you belong to any clubs or organizations such as No 05/22/2021 holiness groups, unions, fraternal or athletic groups, or [...] place to sleep or slept in a [facility] (including now)? Sex Assigned at Date Recorded Female 12/08/2020 12:18 PM CDT documented as of this encounter Plan of Treatment Not on filedocumented as of this encounter Visit Diagnoses Not on filedocumented in this encounter Additional Health Concerns Assessment Noted Time PHQ-9 Depression Total Score: 18 06/14/2017 7:31 AM CD T documented as of this encounter Care Teams Farmer [employer] Relationship Specialty Start Date End Date Francisco Javier Pascual MD PCP - General Family Practice 02/11/14 07/07/19 Reggie Sarabia MD PCP - Assigned PCP 05/16/17 04/14/18 [id number] [id number] Reggie Sarabia MD Assigned PCP 05/16/17 07/17/19 [id number] [place] [id number] documented as of this encounter
--- OUTSIDE RECORDS SUMMARY | 2021-12-10 21:21 | XMS_ITS | Encounter Summary ---
:1985 Author Organization [facility] Address [address] [place] [address]. [place] [address] Care Team Providers Name Role Phone Francisco Javier Pascual MD Primary Care Provider Reason for Visit Reason Onset Date Comments Surgical Followup 02/14/2015 Encounter Details Date Type Department Care Team Description 02/14/[address] [facility] Ashwin Neal Morbid ob esity with BMI of 40.0-44.9, adult (H) (Primary Dx); Surgical Weight Loss [facility] Bariatric surgery status; Clinic [address] Postsurgical nonabsorption [address] [phone] [address] (Work) [place] [address] Social History Tobacco Use Types Packs/Day Years Used Date Smoking Tobacco: Former Cigarettes 0.5 6 Quit : 05/12/2011 Alcohol Use Standard Drinks/Week Comments Yes 0.8 (1 standard drink = 0.6 oz pure alco hol) 1 or less a week socially Alcohol Habits Answer Date Recorded How often [...] How often do you attend restorationism or anglican Never 05/22/2021 services? Do you belong to [...] PM CDT documented as of this encounter Progress Notes Ashwin Neal PA-C - 02/14/2015 2:26 PM CST Expand All Collapse All 1 wk follow up appointment Date: 02/14/2015 Name: DOMINGO FRIEDMAN : 1985 AGE: 29 Surgery Date: 02/09/2015 Surgeon:Dr. Ammon Randall HISTORY OF PRESENT ILLNESS: DOMINGO FRIEDMAN returns today for 1week follow-up appointment status postLaparoscopic Farhat-en-Y Gastric Bypass. She is drinking 48 oz of fluid daily. She is currently using lortab for pain medication. Taking about 30 mls at 7 am, noon and 7pm. She experiences the most pain first thing in the AM. Rates pain at 6/10 at its worst. Averages 2-3/10. Worse with switiching positions. Better with reclining in a chair. Denies any chest pain, calf pain, nausea, vomiting, or SOB. Passes gas but has not had a BM yet. PE: Vitals: Weight: 263 ; BMI: 45.1; BP: 114/72 ; Pulse: 67; Resp: 14; Temp: 97.4 GENERAL: Alert and oriented x3. NAD HEART: No JVD LUNGS: Breathing unlabored ABDOMEN: Incision/incisions clean/dry/intact, No hernias noted. Patient mildly tender on left side. Stitch removed from left sided incision EXTREMITIES: no deformities. No calf swelling or tenderness. No ankle edema SKIN: warm and dry to touch. Incisions appear to be healing well. PSYCHOLOGICAL: Alert and oriented. Pleasant Assessment: 1. 1 week status post Laparoscopic Farhat-en-Y Gastric Bypass. 2. 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 Rx provided for 300 mls lortab. Primarily for bedtime. Follow up with your (pre-op) Psychologist within 1 month post operatively. Follow up with your primary care provider within 1 month to discuss hypertension. Advised patient tostop hydrochlorathiazide today. Continue with lisinopril. Advance diet per Dietitian at your 2 week appointment. Until then, continue full liquid diet. Start recommended postoperative vitamins within in the first 6 weeks per Dietitian Strive to drink 64 oz of fluid daily Wear binder to support abdominal muscles and gradually wean off over the next week or so. (You may wash binder; hang dry or low heat.) Continue to do deep breathing exercises twice daily and/or use your spirometer Return to clinic in 1 week for your 2nd wk post op appointment. Call with questions or concerns at any time. Ashwin Neal PA-C, M.S. LE DOUBLER documented in this encounter Plan of Treatment Not on filedocumented as of this encounter Visit Diagnoses Diagnosis Morbid obesity with BMI of 40.0-44.9, ad ult (H) - Primary Bariatric surgery status Postsurgical nonabsorption Other and unspecified postsurgical nonab sorption documented in this encounter Care Teams Inbound Call Center Representative Relationship Specialty Start Date End Date Francisco Javier Pascual MD PCP - General Family Practice 02/11/14 07/07/19 documented as of this encounter
--- OUTSIDE RECORDS SUMMARY | 2021-12-10 21:21 | XMS_ITS | Encounter Summary ---
:1985 Author Organization [facility] Address [address] [place] [address] Care Team Providers Name Role Phone Francisco Javier Pascual MD Primary Care Provider Reggie Sarabia MD Unavailable Reason for Visit Reason Comments Head Injury Encounter Details Date Type Department Care Team Description 06/09/2018 [facility] Post con cussive syndrome; [facility] MD Trae Acute nonintractable headache, unspecifi ed headache type Dept [facility] [address] [place], [place] [address] [employer] [address] [place], [place] [phone] (Wo rk) Social History Tobacco Use Types [...] How often do you attend denominational or sabianist Never 05/22/2021 services? Do you belong to [...] Sign Reading Time Taken Comments Blood Pressure 130/88 06/09/2018 6:36 PM CDT Pulse 87 06/09/2018 6:36 PM CDT Temperature 36.6 ??C (97.8 ??F) 06/09/2018 6:36 PM CDT Respiratory Rate 16 06/09/2018 6:36 PM CDT Oxygen Saturation 100% 06/09/2018 6:36 PM CDT Inhaled Oxygen Concentration - - Weight 79.4 kg (175 lb) 06/09/2018 6:36 PM CDT Height - - Body Mass Index 29.57 05/11/2018 1:52 PM CDT documented in this encounter Discharge Instructions Discharge InstructionsFelix Norwood MD - 06/09/2018 8:21 PM CDT Discharge Instructions Concussion You were seen today for signs of a concussion. The symptoms will vary, depending on the nature of your injury and your health. You may have: headache, confusion, nausea (feel sick to your stomach), vomiting (throwing up) and problems with memory, concentrating, or sleep. You may feel dizzy, irritable,and tired. Children and teens may need help from their parents, teachers, and coaches to watch for symptoms as they recover. Generally, every Emergency Department visit should have a follow-up clinic visit with either a primary or a specialty clinic/provider. Please follow-up as instructed by your emergency provider today. Return to the Emergency Department if: Your headache gets worse or you start to have a really bad headache even with the recommended treatment plan. You feel drowsier, have growing confusion, or slurred speech. You keep repeating yourself. You have strange behavior or are feeling more irritable. You have a seizure. You vomit (throw up) more than once. You have trouble walking. You have weakness or numbness. Your neck pain gets worse. You have a loss of consciousness. You have blood for fluid coming from your ears or nose. You have new symptoms or anything that worries you. Home Care: Get lots of rest and get enough sleep at night. Take daytime naps or rest if you feel tired. Limit physical activity and ?thinking? activities. These can make symptoms worse. Physical activities include gym, sports, weight training, running, exercise, and heavy lifting. Thinking activities include homework, class work, job-related work, and screen time (phone, computer, tablet, TV, and video games). Stick to a healthy diet and drink lots of fluids. Avoid alcohol. As symptoms improve, you may slowly return to your daily activities. If symptoms get worse or return, reduce your activity. Know that it is normal to feel sad or frustrated when you do not feel right and are less active. Going Back to Work: Your care team will tell you when you are ready to return to work. Limit the amount of work you do soon after your injury. This may speed healing. Take breaks if your symptoms get worse. You should also reduce your physical activity as well as activities that require a lot of thinking until you see your doctor. You may need shorter work days and a lemon picker workload. Avoid heavy lifting, working with machinery, driving and working at heights until your symptoms are gone or you are cleared by a provider. Going Back to School: If you are still having symptoms, you may need extra help at school. Tell your teachers and school nurse about your injury and symptoms. Ask them to watch for problems with learning, memory, and concentrating. Symptoms may get worse when you do schoolwork, and you may become more irritable. You may need shorter school days, a reduced workload, and to postpone testing. Do not drive or take gym class (physical activity) until cleared by a provider. Returning to Sports: Never return to play if you have any symptoms. A full recovery will reduce the chances of getting hurt again. Remember, it is better to miss one or two games than a whole season. You should rest from all physical activity until you see your provider. Generally, if all symptoms have completely cleared, your provider can help guide you to slowly return to sports. If symptoms return or worsen, stop the activity and see your provider. Important: If you are in an organized sport and under age 18, you will need written consent from a healthcare provider before you return to sports. Typically, this will be your primary care or sports medicine provider. Please make an appointment. If you were given a prescription for medicine here today, be sure to read all of the information (including the package insert) that comes with your prescription. This will include important information about the medicine, its side effects, and any warnings that you need to know about. The pharmacist who fills the prescription can provide more information and answer questions you may have about the medicine. If you have questions or concerns that the pharmacist cannot address, please call or return to the Emergency Department. Remember that you can always come back to the Emergency Department if you are not able to see your regular provider in the amount of time listed above, if you get any new symptoms, or if there is anything that worries you. AttachmentsThe following attachments cannot be sent through Care Everywhere. Headaches, Self-Care for (Serbian)documented in this encounter Medications at Time of Discharge Medication Sig Dispensed Refills Start Date End Date escitalopram (LEXAPRO) 10 MG Take 1 tablet 45 tablet 1 05/1112/14/2018 tabletIndications: Major (10 mg) by depressive disorder, single mouth daily episode, moderate (H) hydrochlorothiazide Take 1 tablet 180 tablet 1 05/22/2018 (HYDRODIURIL) 25 MG (25 mg) by tabletIndications: Essential mouth daily hypertension lisinopril (PRINIVIL/ZESTRIL) Take 1 tablet 90 tablet 1 01/201907/08/2019 10 MG tabletIndications: (10 mg) by Essential hypertension mouth daily Multiple Vitamins-Minerals Take 1 tablet 0 12/09/2020 (MULTIVITAMIN ADULT PO) by mouth daily documented as of this encounter ED Notes Franny Stephens RN - 06/09/2018 6:35 PM CDT Fell and hit head on Friday with LOC. Was checked out by EMS and decided against transfer to hospital. Pt has been resting since and was at work today and developed dizziness and nausea, sleepy. Felix Norwood MD - 06/09/2018 6:25 PM CDT History Chief Complaint: Head injury HPI Tri Cerda is a 32 year old female with a history of hypertension who presents to the ED for evaluation of a head injury. The patient reports that 2 days ago while outside having a cigarette, shetripped over her shoe and hit her face on a metal railing outside her apartment. She was wearing glasses at the time of the fall and states these broke when hitting her forehead on the railing. Per patient's boyfriend, she had 3-4 different episodes of blacking out, each lasting a couple seconds. EMT evaluated her on scene and suggested she come into the ED, however patient did not want to at that time. Patient took yesterday off work, noting to have slept more than usual throughout the day. Today while at work, she began experiencing lightheadedness, dizziness, and nausea. The patient is also experiencing intermittent blurred vision, photophobia, and headache. She denies any difficulty with speech, concentration, or balance. She denies any episodes of vomiting, neck pain, or any numbness, tingling, or weakness of extremities. No history of migraines. Patient's LMP is current. She has been taking ibuprofen and Tylenol for her headache with no relief. Patient is not anticoagulated. Allergies: Lisinopril Medications: Lexapro Hydrodiuril Lisinopril Multivitamin adult Past Medical History: Cough Depression Hypertension Obesity Iron deficiency anemia due to chronic blood loss Past Surgical History: x2 Laparoscopic bypass gastric Family History: Hypertension Social History: Smoking status: Current every day smoker Alcohol use: Yes Marital Status: Single Review of Systems Eyes: Positive for photophobia and visual disturbance (blurred). Gastrointestinal: Positive for nausea. Negative for abdominal pain, diarrhea and vomiting. Musculoskeletal: Negative for neck pain. Neurological: Positive for dizziness, syncope, light-headedness and headaches. Negative for speech difficulty, weakness and numbness. Psychiatric/Behavioral: Negative for confusion. All other systems reviewed and are negative. Physical Exam Patient Vitals for the past 24 hrs: BP Temp Temp src Pulse Resp SpO2 Weight 06/09/18 1836 130/88 97.8 ??F (36.6 ??C) Temporal 87 16 100 % 79.4 kg (175 lb) Physical Exam General: Alert, no acute distress nontoxic appearing Neuro: PERRL. EOMI. No focal deficits; GCS 15 HEENT: Moist mucous membranes. Posterior oropharynx clear, no exudates. Conjunctiva normal. TMs clear bilaterally CV: RRR, no m/r/g, skin warm and well perfused Pulm: CTAB, no wheezes/ronchi/rales. No acute distress, breathing comfortably MSK: Moving all extremities. No focal areas of edema, erythema, or tenderness; no cervical midline tenderness Skin: WWP, no rashes, no lower extremity edema, skin color normal, no diaphoresis Psych: Well-appearing, normal affect, regular speech Emergency Department Course Imaging: Radiographic findings were communicated with the patient who voiced understanding of the findings. CT-scan Head w/o contrast: IMPRESSION: Left frontal scalp soft tissue swelling. No fracture and no evidence of intracranial trauma. Result per radiology. Interventions: 2035: Toradol 30mg IM injection 2036: Benadryl 25mg IV injection 2037: Compazine 10mg IV injection Emergency Department Course: Past medical records, nursing notes, and vitals reviewed. 1854: I performed an exam of the patient and obtained history, as documented above. GCS 15. The patient was sent for a CT while in the emergency department, findings above. 2017: I rechecked the patient. Explained findings to patient. 2138: I rechecked the patient. Findings and plan explained to the Patient. Patient discharged home with instructions regarding supportive care, medications, and reasons to return. The importance of close follow-up was reviewed. Impression & Plan Medical Decision Making: Tri Cerda is a 32 year old female who presents for evaluation after trauma to the head as detailed above. This patient has a history and clinical exam consistent with concussion, which is a clinical diagnosis. The differential diagnosis includes skull fracture, epidural hematoma, subdural hematoma, intracerebral hemorrhage, and traumatic subarachnoid hemorrhage; these diagnoses were not detected during this visit on CT imaging. Despite the normal neuroimaging, the patient understands that they must return if any red flags appear/develop in the coming hours/days, as this may represent an indication to perform another CT scan. I have noted that red flags include: headaches that get worse,increased drowsiness, strange behavior, repetitive speech, seizures, repeated vomiting, growing confusion, increased irritability, slurred speech, weakness or numbness, and loss of responsiveness. I have discussed the second impact syndrome, and the importance of not sustaining repeated concussions inthe next 1-2 weeks. Post concussive syndrome is also discussed. Concussion information will also be provided in writing at discharge detailing this. The patients head to toe trauma exam is otherwise negative for serious underlying disease of the head, neck, chest, abdomen, extremities, pelvis. Headache improved with the above interventions. Diagnosis: ICD-10-CM 1. Post concussive syndrome F07.81 2. Acute nonintractable headache, unspecified headache type R51 Disposition: discharged to home Selena Falcon 06/09/2018 [facility] EM[facility] I, Selena Falcon, am serving as a scribe at 6:55 PM on 06/09/2018 to document services personally performed by Felix Norwood MD based on my observations and the provider's statements to me. Felix Norwood MD 06/10/18 0113 documented in this encounter Plan of Treatment Not on filedocumented as of this encounter Procedures Procedure Name Priority Date/Time Associated Diagnosis Comme nts CT HEAD W/O STAT 06/09/2018 8:01 PM Results f or this CONTRAST CDT procedure are i n the results section. documented in this encounter Results Head CT w/o contrast (06/09/2018 8:01 PM CDT) Anatomical Region Laterality Modality Head, SUBRAD CT NEURO, SUBRAD CT NEURO, UMP CT NEURO, Computed Tomography RAD CT Specimen (Source) Anatomical Location Collection Method / Collectio n Time Received Time / Laterality Volume Impressions 06/09/2018 8:09 PM CDT IMPRESSION: Left frontal scalp soft tissue swelling. No fracture and no evidence of intracranial trauma. LATA FELIPE MD Narrative 06/09/2018 8:[address] SCAN OF THE HEAD WITHOUT CONTRAST ?? 06/09/2018 8:01 PM HISTORY: Head trauma, minor, GCS>=13, lo w clinical risk, initial exam. TECHNIQUE: Axial images of the head and coronal reformations without IV contrast material. Radiation dose for this scan was reduced using automated exposure control, adjustment o f the mA and/or kV according to patient size, or iterative reconstruc tion technique. COMPARISON: 02/24/2014 FINDINGS: The ventricles are normal in s ize, shape and configuration. The brain parenchyma and subarachnoid sp aces are normal. There is no evidence of intracranial hemorrhage, mas s, acute infarct or anomaly. The visualized portions of the sinuses a nd mastoids appear normal. There is left frontal scalp soft tissue swelling with no underlying fracture. Procedure Note Lata Felipe MD - 06/09/2018Formatt ing of this note might be different from the original. CT SCAN OF THE HEAD WITHOUT CONTRAST 05/13 8:01 PM HISTORY: Head trauma, minor, GCS>=13, lo w clinical risk, initial exam. TECHNIQUE: Axial images of the head and coronal reformations without IV contrast material. Radiation dose for this scan was reduced using automated exposure control, adjustment o f the mA and/or kV according to patient size, or iterative reconstruc tion technique. COMPARISON: 02/24/2014 FINDINGS: The ventricles are normal in s ize, shape and configuration. The brain parenchyma and subarachnoid sp aces are normal. There is no evidence of intracranial hemorrhage, mas s, acute infarct or anomaly. The visualized portions of the sinuses a nd mastoids appear normal. There is left frontal scalp soft tissue swelling with no underlying fracture. IMPRESSION: Left frontal scalp soft tiss ue swelling. No fracture and no evidence of intracranial trauma. LATA FELIPE MD Felix Norwood MD IMG CT ORDERABLES documented in this encounter Visit Diagnoses Diagnosis Post concussive syndrome Postconcussion syndrome Acute nonintractable headache, unspecifi ed headache type documented in this encounter Administered Medications Inactive Administered Medications - up to 3 most recent administrations Medication Order MAR Action Action Date Dose Rate Site diphenhydrAMINE (BENADRYL) Given 06/09/2018 8:37 PM CDT 25 mg injection 25 mg 25 mg, Intravenous, ONCE, On Fri06/09/18 at 2016, For 1 dose, For ordered IV doses 1-50 mg, give IV Push undiluted. Give each 25mg over a minimum of 1 minute. Extend in non-emergency ketorolac (TORADOL) injection 30 mg Given 06/09/2018 8:36 PM CDT 30 mg 30 mg, Intravenous, ONCE, On Fri06/09/18 at 2016, For 1 dose, Can cause pain on injection. If ordered intravenously (IV) : administer through a running maintenance fluid over 1 minute followed by a flush. If patient complains of pain on injection, may dilute 15-30 mg in 5 mL and push over 1 to 2 minutes. prochlorperazine (COMPAZINE) injection 1 0 mg Given 06/09/2018 8:38 PM CDT 10 mg 10 mg, Intravenous, ONCE, Administer over 1-2 Minutes, On Fri06/09/18 at 2016, For 1 dose, For ordered IV doses 0.1-10 mg, give IV Push undiluted. Each 5mg over 1 minute. documented in this encounter Active and Recently Administered Medications Times are shown in CDT. Scheduled Medication Order 06/07/2018 06/08/2018 06/09/2018 diphenhydrAMINE (BENADRYL) injection 25 mg (COMPLETED) 2036 (Given - Provider: Jennifer Soler, KATERYNA) 25 mg, Intravenous, ONCE, Fri06/09/18 at 2016, For 1 dose, For ordered IV doses 1-50 mg, give IV Push undiluted. Give each 25mg over a minimum of 1 minute. Extend in non-emergency ketorolac (TORADOL) injection 30 mg (COMPLETED) 2035 (Given - Provider: Jennifer Soler, KATERYNA) 30 mg, Intravenous, ONCE, e 06/09/18 at 2016, For 1 dose, Can cause pain on injection. If ordered intravenously (IV) : administer through a running maintenance fluid over 1 minute followed by a flush. If patient complains of pain on injectio n, may dilute 15-30 mg in 5 mL and push over 1 to 2 minutes. prochlorperazine (COMPAZINE) injection 10 mg (COMPLETED) 2037 (Given - Provider: Jennifer Soler, KATERYNA) 10 mg, Intravenous, ONCE, Administer ove r 1-2 Minutes, Fri06/09/18 at 2016, For 1 dose, For ordered IV doses 0.1-10 mg, give IV Push undiluted. Each 5mg over 1 minute. documented in this encounter Additional Health Concerns Assessment Noted Time PHQ-9 Depression Total Score: 12 05/22/2018 2:42 PM CD T documented as of this encounter Care Teams Bale Coverer Relationship Specialty Start Date End Date Francisco Javier Pascual MD PCP - General Family Practice 02/11/14 07/07/19 Reggie Sarabia MD Assigned PCP 05/16/17 07/17/19 [id number] [address] [place] [id number] documented as of this encounter
--- OUTSIDE RECORDS SUMMARY | 2021-12-10 21:21 | XMS_ITS | Encounter Summary ---
:1985 Author Organization [facility] Address [address] [place] [id number] Care Team Providers Name Role Phone Francisco Javier Pascual MD Primary Care Provider Reggie Sarabia MD Unavailable Encounter Details Date Type Department Care Team Description 05/04/2018 Travel Social History Tobacco Use Types Packs/Day [...] How often do you attend tenriism or latter-day Never 05/22/2021 services? Do you [...] Noted Time PHQ-9 Depression Total Score: 21 01/21/2018 7:15 AM CS T documented as of this encounter Care Teams Sofa Back Upholsterer Relationship Specialty Start Date End Date Francisco Javier Pascual MD PCP - General Family Practice 02/11/14 07/07/19 Reggie Sarabia MD Assigned PCP 05/16/17 07/17/19 [id number] [address] [place] [id number] documented as of this encounter
--- OUTSIDE RECORDS SUMMARY | 2021-12-10 21:21 | XMS_ITS | Encounter Summary ---
:1985 Author Organization [facility] Address [address] [place] [address] Care Team Providers Name Role Phone Francisco Javier King MD Primary Care Provider Reason for Visit Reason Comments Surgical Followup Encounter Details Date Type Department Care Team Description 02/23/[address] [facility] Duc Rn, Sh Wl, RN Morbid ob esity with BMI of 40.0-44.9, adult (H) (Primary Dx); Surgical Weight Loss [facility] surgery status Clinic [address] [place] [address] Social History Tobacco Use Types [...] 05/22/2021 relatives? How often do you attend rastafarian or sabianism Never 05/22/2021 services? Do you belong to any clubs or organizations such as No 05/22/2021 rastafarian groups, unions, fraternal or athletic groups, or [...] place to sleep or slept in a long-term (including now)? Sex Assigned at Date Recorded Female 12/08/2020 12:18 PM CDT documented as of this encounter Last Filed Vital Signs Vital Sign Reading Time Taken Comments Blood Pressure 104/63 02/23/2015 1:39 PM [employer] Pulse 79 02/23/2015 1:39 PM [employer] Temperature 36.6 ??C (97.8 ??F) 02/23/2015 1:39 PM [employer] Respiratory Rate 14 02/23/2015 1:39 PM [employer] Oxygen Saturation 100% 02/23/2015 1:39 PM [employer] Inhaled Oxygen Concentration - - Weight 114.5 kg (252 lb 8 oz) 02/23/2015 1:39 PM [employer] Height - - Body Mass Index 42.02 02/09/2015 6:27 AM [employer] documented in this encounter Progress Notes Nila Aceves RN - 02/23/2015 4:09 PM CST 2 wk follow up appointment Date: 02/23/2015 Name: DOMINGO?ROSETTA : 1985 AGE: 29 Surgery Date: 02/09/2015 Surgeon:Dr. Ammon Randall Current PCP:FRANCISCO JAVIER KING , HISTORY OF PRESENT ILLNESS: DOMINGO??IDALIA??returns today for 2nd week PO??follow-up appointment status post Laparoscopic Farhat-en-Y Gastric Bypass. She??is drinking??60??oz of water daily and another 8-11 ounces of protein drink or [employer] Life Milk. She??is currently using 1 extra strength Tylenol 2-3 times daily for pain medication. She stopped her narcotic last . She??rates her pain at a 0- 6/10??on the pain scale. The pain is located left side incision and a bit on the right and is intermittent. Activity: Patient is at risk for falling? No What are you doing for activity? Patient isn't doing any planned activity; however she is going to the malls and stores to get out and walk. She plans to return to the gym this week and start on the treadmill. Review of systems: GI: Nausea- never Vomiting- never Diarrhea- never Diarrhea_or constipation - never with??last BM being yesterday - it was mushy and light brown. Shortness of breath-??never Chest pain_??never Light headed or dizzy - has occurred 2-3 times in the past week with getting out of bed. Suspect lowBP. GERD - only 1 time since surgery. PE: Vitals: Weight: 252 ; BMI: 43.2; BP: 104 / 63 ; R Cuff Size: large Pulse: 79; Resp: 14; Temp: 97.8 ; oral O2 Sat: 100 LUNGS: Breathing unlabored and lungs CTA bilaterally ABDOMEN: Incision/incisions clean/dry/intact, No hernias noted + bowel sounds X 4 Any Incision Issues: C/D/I Incision Issues Description: none EXTREMITIES: no edema and Rosangela's negative control - tubal Medications Reviewed: Yes Assessment: 2??weeks status post Laparoscopic Farhat-en-Y Gastric Bypass. ?? Interventions at appointment: Symptoms given re: signs and symptoms of low blood pressure and when to contact PCP. Patient verbalized understanding. ?? Follow up: Continue to monitor pt closely regarding wt loss and diet, Follow up with PCP today re: BP/meds, Follow-up with psychologist within 3 months post-op, Continue to push fluids, Guidelines provided re: how to increase activity/exercise. Return to clinic in 2 weeks and at??3 months post-op, Patient to call with questions/concerns. ? [employer] documented in this encounter Plan of Treatment Not on filedocumented as of this encounter Visit Diagnoses Diagnosis Morbid obesity with BMI of 40.0-44.9, ad ult (H) - Primary Bariatric surgery status documented in this encounter Care Teams Psychology Department Chair Relationship Specialty Start Date End Date Francisco Javier King MD PCP - General Family Practice 02/11/14 07/07/19 documented as of this encounter
--- OUTSIDE RECORDS SUMMARY | 2021-12-10 21:21 | XMS_ITS | Encounter Summary ---
:1985 Author Organization [facility] Address [address] [place] [id number] Care Team Providers Name Role Phone Francisco Javier Pascual MD Primary Care Provider Reggie Sarabia MD Unavailable Reggie Sarabia MD Unavailable Reason for Visit Reason Comments Hypertension increased BP levels over the past 2 years Encounter Details Date Type Department Care Team Description 06/13/2017 Office Visit [facility] Reggie Sarabia [facility] Danny Hedrick MD (Primary Dx) [address] [address] [facility], [address] [place] [id number] Social History Tobacco Use Types Packs/Day Years Used Date Smoking Tobacco: Every Day Cigarettes 0.5 6 L ast attempted to quit: 05/12/2011 Smokeless Tobacco: Never Tobacco Cessation: Ready to Quit: No; Co unseling Given: Yes Alcohol Use Standard Drinks/Week Comments Yes 2 [...] Sign Reading Time Taken Comments Blood Pressure 220/118 06/13/2017 2:05 PM CDT Pulse 78 06/13/2017 2:05 PM CDT Temperature 37.2 ??C (98.9 ??F) 06/13/2017 2:05 PM CDT Respiratory Rate - - Oxygen Saturation 96% 06/13/2017 2:05 PM CDT Inhaled Oxygen Concentration - - Weight 101.2 kg (223 lb) 06/13/2017 2:05 PM CDT Height 165.1 cm (5' 5) 06/13/2017 2:05 PM CDT Body Mass Index 37.11 06/13/2017 2:05 PM CDT documented in this encounter Patient Instructions Patient InstructionsBendReggie otero MD - 06/13/2017 2:00 PM CDT Start HCTZ today. Add 20mg (1/2 tab) lisinopril in 1 week documented in this encounter Progress Notes Reggie Sarabia MD - 06/13/2017 2:00 PM CDT HPI SUBJECTIVE: Tri Cerda is a 31 year old female who presents to clinic today for the following health issues: Concern - Blood pressure Onset: x2 years ?? Description: Was on hypertension medication previously and stopped all medications when her blood pressure leveled out. Noticed that her BP has been increasing over the past month. ?? Intensity: severe ?? Progression of Symptoms: worsening ?? Accompanying Signs & Symptoms: Lightheadedness, headaches ?? Previous history of similar problem: Yes, as documented ?? Precipitating factors: Worsened by: Unknown ?? Alleviating factors: Improved by: previous hypertension medication Therapies Tried and outcome: lisinopril, worked well S/p gastric sleeve, current net weight loss is 70#. Didn't need meds after initial weight loss from surgery and was stopped from meds. Previous high readings were in the 160s, rare 180s. Nothing as high as it is currently. 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 Has constant MALDONADO. Feeling quique anxious, no palpitations, shortness. Some ankle edema. Last regular eye exam was about 2 years. Review of Systems Constitutional: Negative. Eyes: Negative for blurred vision and double vision. Respiratory: Negative. Cardiovascular: Negative for chest pain and palpitations. Neurological: Positive for headaches. Negative for dizziness. Physical Exam Constitutional: She is oriented to person, place, and time and well-developed, well-nourished, and in no distress. Eyes: Conjunctivae and EOM are normal. Cardiovascular: Normal rate, regular rhythm and normal heart sounds. Pulmonary/Chest: Effort normal and breath sounds normal. Musculoskeletal: She exhibits no edema. Neurological: She is alert and oriented to person, place, and time. Skin: Skin is warm and dry. Vitals reviewed. (I10) Essential hypertension (primary encounter diagnosis) Comment: will start HCTZ now, add 20mg lisinopril in 1 week. 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
--- OUTSIDE RECORDS SUMMARY | 2021-12-10 21:21 | XMS_ITS | Encounter Summary ---
:1985 Author Organization [facility] Address [address] [place] [address]. [place] [address] Care Team Providers Name Role Phone Francisco Javier Pascual MD Primary Care Provider Reggie Sarabia MD Unavailable Reggie Sarabia MD Unavailable Reason for Visit Reason Onset Date Comments Nurse Advice Line 01/29/2018 BP Encounter Details Date Type Department Care Team Description [facility] [place] [address] [place] [address] [place], [place] [phone] (Wo rk) [phone] Social History Tobacco Use Types Packs/Day Years [...] 05/22/2021 relatives? How often do you attend jew or restorationism Never 05/22/2021 services? Do you belong to any clubs or organizations such as No 05/22/2021 jew groups, unions, fraternal or athletic groups, or [...] place to sleep or slept in a nursing home (including now)? Sex Assigned at Date Recorded Female 12/08/2020 12:18 PM CDT documented as of this encounter Miscellaneous Notes Telephone Encounter - Risa Camacho RN - 02/04/2018 2:56 PM CST Left a detailed message on patients voice mail to call the clinic back if she was having any furthersymptoms or had other questions or concerns. Patient has a follow up appointment with Dr. Sarabia on 02/06/2018. Risa Camacho RN R AUTOMATIC Telephone Encounter - Che Chong APRN CNP - 01/29/2018 10:12 AM EDGER AUTOMATIC Hard to say why she felt faint. Vagal response would cause BP to be low. Keep an eye on BP. If happens again needs to be seen. Che Chong CNP R AUTOMATIC Telephone Encounter - Carlie Collado RN - 01/29/2018 8:42 AM CST Pt calling stating yesterday at work she was standing and having a conversation with someone and shefelt faint. She had to have someone catch her. She had her BP checked and it was 111/82 which she states is low since she was high before. She has been taking her new BP medications and has appt 02/06/18. 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
--- OUTSIDE RECORDS SUMMARY | 2021-12-10 21:21 | XMS_ITS | Encounter Summary ---
:1985 Author Organization [facility] Address [facility] [place] [address] Care Team Providers Name Role Phone Francisco Javier Pascual MD Primary Care Provider Reason for Visit Auth/Cert - Closed Specialty Diagnoses / Procedures Referred By Contact Refer red To Contact Surgery Diagnoses MORBID OBESITY Sh Periop Services Procedures COMBINED LAPAROSCOPIC BYPASS GASTRIC, CHOLECYSTECTOMY [address], [address] [place] [phone] Phone: Referral ID Status Reason Start Date Expiration Date Visits Requ ested Visits Authorized [id number] Closed 1 1 Encounter Details Date Type Department Care Team Description 02/09/2015 - Hospital Encounter [facility] Tonia, Ammon Morb id obesity with BMI of 40.0-44.9, adult (H) (Primary Dx); 02/11/2015 Nataile Rosas MD Bariatric surgery status Intermediate Care [id number] [place] [address] [place] [phone] [id number] Social History Tobacco Use Types Packs/Day Years [...] 05/22/2021 relatives? How often do you attend pentecostalism or pentecostal Never 05/22/2021 services? Do you belong to any clubs or organizations such as No 05/22/2021 pentecostalism groups, unions, fraternal or athletic groups, or [...] Sign Reading Time Taken Comments Blood Pressure 139/89 02/11/2015 7:17 AM FIBER LOCKING SUPERVISOR Pulse 72 02/09/2015 6:27 AM FIBER LOCKING SUPERVISOR Temperature 37.3 ??C (99.2 ??F) 02/11/2015 7:17 AM FIBER LOCKING SUPERVISOR Respiratory Rate 16 02/11/2015 10:49 AM FIBER LOCKING SUPERVISOR Oxygen Saturation 95% 02/11/2015 7:17 AM FIBER LOCKING SUPERVISOR Inhaled Oxygen Concentration - - Weight 119.3 kg (263 lb) 02/09/2015 6:27 AM FIBER LOCKING SUPERVISOR Height 165.1 cm (5' 5) 02/09/2015 6:27 AM FIBER LOCKING SUPERVISOR Body Mass Index 43.77 02/09/2015 6:27 AM FIBER LOCKING SUPERVISOR documented in this encounter Discharge Summaries Jacinto Galindo PA-C - 02/12/2015 9:09 AM CST [facility] Discharge Summary Tri Cerda Age: [age] year old Date of : 1985 Date of Admission: 02/09/2015 Date of Discharge: 02/11/2015 11:14 AM Admitting Provider: Ammon Randall MD Discharge Provider: Jacinto Galindo PA-C with Dr. Randall Discharging Service: Bariatric Surgery Primary Provider: Francisco Javier Pascual Primary Care Physician Admission Diagnoses: Principle Diagnosis: Morbid obesity with BMI of 40.0-44.9, adult (HCC) [E66.01, Z68.41] Secondary Diagnoses: Iron deficiency anemia, HTN, Depression Discharge Diagnosis: MORBID OBESITY Procedures: Procedure(s): Laparoscopic Gastric Bypass with Hesham-en-Y Gastrojejunostomy ( 100 cm hesham limb) Discharge Medications: Discharge Medication List as of 02/11/2015 10:55 AM START taking these medications Details HYDROcodone-acetaminophen (LORTAB) 7.5-325 MG/15ML solution Take 15-30 mLs by mouth every 4 hours asneeded for moderate to severe pain, Disp-473 mL, R-0, Local Print ursodiol (ACTIGALL) 300 MG capsule Take 1 capsule (300 mg) by mouth 2 times daily, Disp-60 capsule, R-2, E-Prescribe ranitidine (ZANTAC) 75 MG tablet Take 1 tablet (75 mg) by mouth 2 times daily, Disp-60 tablet, R-2, E-Prescribe CONTINUE these medications which have NOT CHANGED Details CALCIUM PO Take 1 tablet by mouth daily OTC: unknown strength, Historical VITAMIN D, CHOLECALCIFEROL, PO Take 1 tablet by mouth 3 times daily OTC: unknown strength, Historical multivitamin peds with iron (FLINTSTONES COMPLETE) 60 MG chewable tablet Take 2 chew tab by mouth daily, Historical lisinopril (PRINIVIL,ZESTRIL) 40 MG tablet Take 40 mg by mouth daily , Historical hydrochlorothiazide (HYDRODIURIL) 25 MG tablet Take 25 mg by mouth daily , Historical Allergies: Allergies Allergen Reactions ??? Lisinopril cough Brief History of Illness: Tri Cerda is a 29 year oldqgj-oafw-ehk female who underwent preoperative screening in anticipation for potential bariatric surgery. She was deemed an appropriate candidate for bariatric surgery by the consensus of our [facility] team. In the office, surgical options were thoroughly discussed. She was furnished with a copy of our specialized consent form for bariatric surgery. The potential risks as outlined in that document were all thoroughly reviewed. All questions were answered and she wished to proceed. On the day of surgery, after reviewing the risks, benefits, and possible complications, informed consent was obtained and the patient underwent the above procedure. There were no complications. Please see the Operative Report for full details. Hospital Course: Tri Cerda's hospital course was unremarkable. She recovered as anticipated and experienced nopost-operative complications. Pain was well controlled with Dilaudid VISITING PROFESSOR transitioned to Lortab. Never had N/V. Hgb drifted some post op, but asymptomatic and pt would refuse transfusion due to congregation, so was not rechecked POD2. On the date of discharge, the patient was discharged to home in stable condition and afebrile. She verbalized understanding of all discharge instructions and felt comfortable with the discharge plan. She was asked to call with any further questions or concerns. Image Results From This Hospital Stay: Results for orders placed or performed during the hospital encounter of 02/09/15 XR Upper GI Water Soluble: Hesham-en-Y Narrative WATER-SOLUBLE UPPER GASTROINTESTINAL 02/10/2015 9:01 AM HISTORY: Evaluate for leak following gastric bypass surgery. COMPARISON: None. FINDINGS: 0.5 minutes of fluoroscopy was utilized while the patient swallowed a small amount of water-soluble contrast. Contrast readily enters the residual gastric lumen. It passes through the surgical sites into the small bowel. No extravasation of contrast is demonstrated. No abnormal contrast accumulation is identified. Impression IMPRESSION: Unremarkable postoperative appearance following gastric bypass surgery. There is no evidence of a leak. MINERVA DE LA ROSA MD Condition on Discharge: Discharge condition: Stable Discharge vitals: Blood pressure 139/89, pulse 72, temperature 99.2 ??F (37.3 ??C), temperature source Oral, resp. rate 16, height 1.651 m (5' 5), weight 119.296 kg (263 lb), last menstrual period 02/09/2015, SpO2 95 %. Discharge Disposition: Discharged to home Discharge Instructions and Follow-Up: Tri Cerda was asked to follow up with the bariatric surgical team within 1 week. She will seemyself at that visit, with plans to reconvene with a Community Services Manager at the 2nd week office visit. Jacinto Galindo PA-C dictating on behalf of Dr. Randall [phone] R LOCKING SUPERVISOR Associated attestation - Ammon Randall MD - 02/12/2015 4:53 PM FIBER LOCKING SUPERVISOR Physician Attestation I, Ammon Randall, have reviewed and discussed with the advanced practice provider their discharge plan for Tri Cerda. I did not participate in a shared visit by interviewing or examining the patient and this should be billed as an advanced practice provider only discharge. Ammon Randall documented in this encounter Discharge Instructions Discharge InstructionsAlthea Sotomayor RN - 02/11/2015 9:36 AM CST For informational purposes only. Not to replace the advice of your health care provider. Copyright ?? 2006 [facility]. All rights reserved. Dallin [id number] - REV 10/24 After Bariatric Surgery [facility] Weight Loss Note: Before you go home, ask your nurse to order your pain medicine from the pharmacy. Be sure you have your medicine with you when you leave. How much fluid should I drink? Drink at least 1 ounce of fluid every 15 minutes (1/2 cup per hour) during the day. ??? Carry a water bottle with you. Drink from it often. ??? Keep track of how much fluid you drink in a day. ??? Remember: - Do not use straws, chew gum or suck on hard candies. They may cause painful gas. - No cold drinks. - No coffee, soda pop or drinks with caffeine. These may cause stomach pain. - No alcohol. It is bad for your liver and will cause stomach pain. It also adds a lot of calories. What can I do for pain control? ? Take the prescribed liquid pain medicine for up to [address] you are taking thismedicine. This is dangerous. ? You may also take liquid Tylenol (acetaminophen) for pain in place of the prescribed pain medicine. Do not take Advil (ibuprofen). It will increase your risk for bleeding. ? If your doctor prescribes Zantac, take it as ordered. Take it for 3 months to prevent ulcers. ? If you took an antacid before you had surgery, keep taking it for 3 months after surgery. This will help prevent ulcers. ? Take any other medicines that your doctor tells you to take. ? Wear your binder to support your belly muscles. How much rest do I need? Get plenty of rest the first few days after surgery. Balance rest and activity. Do not nap more than one hour during the day. Set a timer to wake yourself up, if needed. Too much sleep will keep you from drinking enough fluid during the day. What should I know about my incisions (cuts)? Change your bandages as needed or if they get wet. ??? Call your doctor if you have any of these signs of infection: - Redness around the site. - Drainage that smells bad. - Fever of 101?? F (38.3?? C) or higher when taken under the tongue.- Chills.??? If you have a drain: - Do not pull on the drain. Do not pull the drain out. We will take out your drain at your first clinic visit. - The color and amount of fluid varies. Right after surgery the fluid is bright red. Over time, it changes to light pink and may become clear or the color of straw. Will my urine or bowel movements change? You might not have a bowel movement for several days after surgery. Your first bowel movements will likely be liquid. Gastric bypass or sleeve gastrectomy: You may also notice old blood or a darker color in your stools(bowel movements). Your urine should be clear to light yellow. This shows that you are drinking enough fluid. You should urinate (pass water) at least 2 to 3 times during the day. If not, call us. What kind of activity is safe? For 4 weeks after surgery: ??? Walk for a short time every day. ??? Do not jog or run. ??? No weight lifting or belly exercises. No swimming, baths or hot tubs until your cuts are healed (scabs are gone). You may shower. No outside activity in hot, humid weather until you can drink 48 to 64 ounces of fluid in 24 hours. If you sweat a lot, your body may lose too much water. The first month after surgery, do not take any trips where you must sit for a long time. You could get a blood clot in your legs. When should I go back to the clinic? Time Gastric bypass or sleeve gastrectomy Week 1 See the physician or physician mailing machine assistant (PA). Week 2 See the nurse and dietitian. Week 4 Have a nutrition consult with the dietitian. Week 6 . For the first year (or until your BMI is less than 30) R LOCKING SUPERVISOR documented in this encounter Medications at Time of Discharge Medication Sig Dispensed Refills Start Date End Date CALCIUM PO Take 2 tablets 0 06/13/2017 by mouth 3 times daily Gummiew - needs to take 2 TID - afternoon, mid day, and dinner hydrochlorothiazide Take 25 mg by 0 06/02/2014 (HYDRODIURIL) 25 MG tablet mouth daily HYDROcodone-acetaminophen Take 15-30 mLs 473 mL 0 201502/14/2015 (LORTAB) 7.5-325 MG/15ML by mouth every 4 solutionIndications: Morbid hours as needed obesity with BMI of for moderate to 40.0-44.9, adult (H) severe pain lisinopril Take 40 mg by 0 04/25/2014 06/13/2017 (PRINIVIL,ZESTRIL) 40 MG mouth daily tablet multivitamin peds with iron Take 2 chew tab 0 06/13/2017 (FLINTSTONES COMPLETE) 60 MG by mouth every chewable tablet morning ranitidine (ZANTAC) 75 MG Take 1 tablet 60 tablet 2 016 06/13/2017 tabletIndications: Morbid (75 mg) by mouth obesity with BMI of 2 times daily 40.0-44.9, adult (H), Bariatric surgery status ursodiol (ACTIGALL) 300 MG Take 1 capsule 60 capsule 2 02/1606/13/2017 capsuleIndications: Morbid (300 mg) by obesity with BMI of mouth 2 times 40.0-44.9, adult (H) daily VITAMIN D, CHOLECALCIFEROL, Take 2,000 Units 0 06/13/2017 PO by mouth daily 1000 int'l units each. documented as of this encounter Progress Notes Jacinto Galindo PA-C - 02/11/2015 8:47 AM CST Doing really well. Minimal pain and only with activity. Denies N/V. Feels ready to go home. No full liquid tray yet. No flatus but bowel sounds present. NAD, pleasant, A&O BP 139/89 mmHg Pulse 72 Temp(Src) 99.2 ??F (37.3 ??C) (Oral) Resp 16 Ht 1.651 m (5' 5) Wt119.296 kg (263 lb) BMI 43.77 kg/m2 SpO2 95% LMP 02/09/2015 Intake/Output Summary (Last 24 hours) at 02/11/15 0848 Last data filed at 02/11/15 0600 Gross per 24 hour Intake 4336 ml Output 1650 ml Net 2686 ml Abd: soft, binder open while in bed. Inc: no concerns Stable S/P LRYGB -D/C to home -F/U in [facility] next week. R LOCKING SUPERVISOR Jacinto Galindo PA-C - 02/10/2015 7:42 AM CST Bariatric Surgery Progress Note Assessment: Tri Cerda is a 29 year old female S/P LRYGB, POD #1 Morbid Obesity, BMI >40 Plan: UGI this am. If WNL, start protocol: D/C freeman this am. Start water now. Clears at lunch. Fulls tomorrow am. D/C VISITING PROFESSOR when tolerating PO and start liquid pain medication. Antiemetics PRN N/V. Lovenox and PCDs. Ambulate at least QID Discussed OR findings (gallbladder ok, no adhesions, liver mass that Dr. Randall suggested CT scan for monitoring growth but likely benign) Dispo:Likely home tomorrow. Interval History: Doing well. Pain at 4/10. Feels around lateral incisions. Denies N/V. Likes binder. Small amount of bloody drainage around the liver retractor site. Physical Exam: BP 126/70 mmHg Pulse 72 Temp(Src) 99.3 ??F (37.4 ??C) (Oral) Resp 16 Ht 1.651 m (5' 5) Wt119.296 kg (263 lb) BMI 43.77 kg/m2 SpO2 95% LMP 02/09/2015 I/O last 3 completed shifts: In: 5310 [P.O.:300; I.V.:5010] Out: 1905 [Urine:1900; Blood:5] General: NAD, pleasant, alert and oriented x3 Abdomen: soft, with binder on Incision: now clean, dry and intact UGI: pending Labs (most recent at bottom): Results for orders placed or performed during the hospital encounter of 02/09/15 (from the past 24 hour(s)) Platelet count Result Value Ref Range Platelet Count 267 150 - 450 10e9/L Creatinine Result Value Ref Range Creatinine 0.76 0.52 - 1.04 mg/dL GFR Estimate 89 >60 mL/min/1.7m2 GFR Estimate If Black >90 GFR Calc >60 mL/min/1.7m2 Hemoglobin Result Value Ref Range Hemoglobin 10.7 (L) 11.7 - 15.7 g/dL Electrolyte panel Result Value Ref Range Sodium 139 133 - 144 mmol/L Potassium 4.2 3.4 - 5.3 mmol/L Chloride 103 94 - 109 mmol/L Carbon Dioxide 28 20 - 32 mmol/L Anion Gap 8 3 - 14 mmol/L Glucose Result Value Ref Range Glucose 90 70 - 99 mg/dL Jacinto Galindo Pager: [phone] [facility]: [phone] R LOCKING SUPERVISOR documented in this encounter Consult Notes Rox Rocha RD, LD - 02/10/2015 1:02 PM CSTAssociated Order(s): NUTRITION SERVICES ADULT IP CONSULT NUTRITION EDUCATION REASON FOR ASSESSMENT: Bariatric Surgery Consult CURRENT DIET: Bariatric Clear Liquids NUTRITION HISTORY: Patient worked with clinical dietitian in Weight Loss Clinic prior to surgery to assist with lifestyle modification. ANTHROPOMETRICS: Ht: 5 ft 5 in Wt: 119.2 kg BMI: 43.8 IBW: 56.8 kg %IBW: 210% ASSESSED NUTRITION NEEDS: Energy Needs: 2155-5622 (11 - 14 kcal/kg ABW) Protein Needs: 57-85 (1 - 1.5 gm/kg IBW) Fluid Needs: 7341-8760 (1mL/kcal/ABW) Know patient will not meet assessed needs due to the restrictive nature of surgery. NUTRITION DIAGNOSIS: Food- and nutrition related knowledge deficit related to bariatric surgery as evidence by gastric bypass surgery on 02/09. INTERVENTIONS: Nutrition Prescription: ??? Recommended patient follow bariatric diet advancement for gastric bypass. Implementation: ??? Nutrition Education (Content): a) Reviewed gastric bypass diet guidelines b) Provided handouts: Nutrition After Gastric Bypass and Vitamin and Mineral Supplements After Weight Loss Surgery ??? Nutrition Education (Application): c) Discussed current eating habits and recommended alternative food choices d) Patient verbalizes understanding of diet by listing appropriate foods for home ??? Anticipate good compliance ??? Diet Education - refer to Education Flowsheet Goals: ??? Patient will follow bariatric diet advancement schedule ??? Patient will follow post-operative vitamin mineral schedule Follow Up: ??? Patient to follow up in [address] in Weight Loss Clinic ??? Provided RD contact information for future questions Rox Rocha RD, [facility] R LOCKING SUPERVISOR documented in this encounter Miscellaneous Notes Plan of Care - Althea Sotomayor, KATERYNA - 02/11/2015 11:25 AM CST Problem: Goal Outcome Summary Goal: Goal Outcome Summary Outcome: Improving Discharge instructions and RX'S for home given to pt without questions. Althea Sotomayor RN R LOCKING SUPERVISOR Plan of Care - Huong Greene RN - 02/11/2015 5:26 AM CST Problem: Goal Outcome Summary Goal: Goal Outcome Summary Outcome: No Change VSS, afebrile. Pain controlled with Lortab. LS clear, BS hypo no flatus or BM yet. Lap sites CDI. Voiding adequately. Ambulating in halls. Tolerating clears, diet increases to [place] this morning. Resting well overnight. R LOCKING SUPERVISOR Plan of Care - Mariaelena Ugarte RN - 02/10/2015 2:28 PM CST Problem: Goal Outcome Summary Goal: Goal Outcome Summary Outcome: Improving VSS. Pain minimal. Alexy PO well. Up in gonzales x2. R LOCKING SUPERVISOR Plan of Care - Sebastian Hyatt, KATERYNA - 02/10/2015 4:37 AM CST Problem: Goal Outcome Summary Goal: Goal Outcome Summary Outcome: Improving AVSS. Tolerating ice chips. Pain controlled with VISITING PROFESSOR. BS hypo/faint/no flatus. UOP adequate to freeman. 6 lap sites CDI, 2 w/ dried blood. Progressing per POC. R LOCKING SUPERVISOR Plan of Care - Mariaelena Ugarte RN - 02/09/2015 6:39 PM CST Problem: Goal Outcome Summary Goal: Goal Outcome Summary Outcome: Improving VSS. Minimal pain. Up to BR x1 with SBA. Sleepy most of shift. R LOCKING SUPERVISOR Pharmacy-Consult Note - Tiffanie Son (Kelly) [facility] - 02/09/2015 1:14 PM CST Bariatric Consult Medications evaluated as requested per Bariatric Consult. Medications available as liquid formulations have been dispensed when possible. No medication changes were needed based on the Bariatric Medication Management Policy. The pharmacist will continue to follow as new medications are ordered. Electronically signed by Tiffanie Son (Kelly) [facility] at 02/09/2015 1:14 PM FIBER LOCKING SUPERVISOR Op Note - Ammon Randall MD - 02/09/2015 11:27 AM CST Surgeon: Ammon Randall MD 1 st Aircraft Navigator: Favio Galindo PA-C PREOPERATIVE DIAGNOSIS: Morbid Obesity POSTOPERATIVE DIAGNOSIS: Same PROCEDURE: Laparoscopic Gastric Bypass with Hesham-en-Y Gastrojejunostomy ( 100 cm hesham limb) ANESTHESIA: General Endotracheal Anesthesia COMPLICATIONS: none EBL: 5 ml CONSENT: Tri Cerda was seen and evaluated in the office setting where the procedure was explained to the patient and all questions were answered. An informed consent discussion was held with the patient.Viable alternatives to the proposed procedure, including but not limited to, medical observation under the care of a physician, exercise programs and other weight reductive operative procedures were explained to the patient. Risks to the proposed procedure, including but not limited to bleeding, infection, conversion to open, anastomotic disruption, bile leak, injury to bile ducts, pneumonia, pulmonary embolus, airway complications and were explained to the patient. The patient understands theabove alternatives and risks and has chosen laparoscopic gastric bypass with Hesham-en-Y reconstruction and wishes to proceed. Events: The patient was taken to the operating room and placed in the supine position. After successful induction of general endotracheal anesthesia, a freeman catheter and orogastric tube was placed to decompress the bladder and the stomach, respectively. The patient was placed in the Lithotomy position, supine with legs abducted to 30 degrees. Care was taken to pad the exposed extremities. The patient's abdomen was prepped and draped in the normal sterile fashion. A direct visualization trocar was placed inthe left subcostal position in the midclavicular line and access to abdominal cavity was obtained under visualization. Pneumoperitoneum was then established without complications. After evaluation of the abdominal contents from this trocar position, four other 12-mm ports were placed under direct visualization. A solution of local anesthetic was used to infiltrate the subcutaneous tissues prior to trocar placement. We turned our attention to dividing the greater omentum. This was accomplished with the harmonic scalpel. After this, we identified the ligament of Treitz and went 45 to 50-cm distal to that. A 3-[address] to chad the proximal bowel and then we divided the bowel using a 45-mm ZI stapler. We then measured 100-cm distal on the bowel and oriented our bowel to create the jejunojejunostomy.An enterotomy was created in each limb with the harmonic scalpel and using the triple-staple technique created a dvvi-zy-oeeh jejunojejunostomy. The opening was evaluated for hemostasis and care was taken to make sure that the posterior wall of the anastomosis was free. The remaining defect was closedwith one more firing of the ZI stapler. Mesenteric defect closed with silk suture. Left lobe of the liver was retracted with a Emigdio device on the sub-xyphoid location. After decompression of the stomach with the orogastric tube, the orogastric tube and any esophageal probes wereremoved from the patient. The stomach was grasped using forceps and retracted caudally to expose the phrenoesophageal ligament. This was taken down with the hook electrocautery. A blunt palpation probewas used to expose the esophagus and the left bundle of the esophageal kalani. At this point we released our retraction on the stomach and measured seven centimeters from the Angle of His along the lesser curvature. The Nerve of Latarjet was identified and preserved. We made a window along the lesser curvature with the Harmonic Scalpel and entered the lesser sac. Once the lesser sac was entered, a ZI staple loads were used to progress cephalad toward the Angle of His. A small gastric pouch was created, approximately 25-30 ml in size. After this was done, the anvil for the 25 mm EEA stapler was placed transorally. The orogastric tube with the anvil was seen in the gastric pouch. The harmonic scalpelwas used to make a gastrotomy on the pouch thru the staple line, and the orogastric tube was pulled out of the gastric pouch. The orogastric tube was detached from the anvil and removed leaving the anvil in the gastric pouch. After this was done we brought the efferent limb all the way up to the gastric pouch, in between ourpreviously created defect in the greater omentum. The staple line on the jejunum was opened using the harmonic scalpel and after enlarging the lateral trocar site, the 25-mm EEA stapler was introduced into the abdomen and into the open jejunum. Using the EEA stapler, we performed our end to side gastrojejunostomy. The stapler was removed and two healthy donuts of tissue were identified. The open-ended jejunum was closed using a ZI stapler. This amputated piece of jejunum was placed into an endopouch and removed from the abdomen. The gallbladder was inspected and found to be normal. Having completed our gastrojejunostomy, an orogastric tube was placed by anesthesia and the integrity of the anastomosis was checked. Saline was used to irrigate the pouch to evaluate for hemostasis, and after that, the pouch was insufflated with air and methylene blue. There was no evidence of bleeding, air leak nor liquid leak. The abdomen was then copiously irrigated and checked for hemostasis. The effluent was evacuated fromthe abdomen and then we turned our attention to closure of the trocar sites. At this point, prior to evacuation of the pneumoperitoneum, we closed all our ports with the laparoscopic suture fascial closure device using 0-Vicryl. The pneumoperitoneum was then evacuated. The wounds were irrigated and found to be hemostatic. The skin was closed using 4-0 Monocryl. Steri strips were applied. Counts reported as correct. No immediate complications. R LOCKING SUPERVISOR Brief Op Note - Jacinto Galindo PA-C - 02/09/2015 11:12 AM CST [facility] Brief Operative Note Pre-operative diagnosis: MORBID OBESITY Post-operative diagnosis Morbid Obesity Procedure: Procedure(s): LAPAROSCOPIC BYPASS GASTRIC Surgeon(s): Surgeon(s) and Role: * Ammon Randall MD - Primary * Jacinto Galindo PA-C - Assisting Estimated blood loss: 5 mL Specimens: * No specimens in log * Findings: See Operative Report for full details R LOCKING SUPERVISOR documented in this encounter Plan of Treatment Not on filedocumented as of this encounter Procedures Procedure Name Priority Date/Time Associated Comments Diagnosis GLUCOSE BY METER Routine 02/11/2015 6:13 AM Resul ts for this FIBER LOCKING SUPERVISOR procedure are i n the results section. XR UPPER GI WATER Routine 02/10/2015 9:01 AM Resu lts for this SOLUBLE FIBER LOCKING SUPERVISOR procedure are i n the results section. ELECTROLYTE PANEL Routine 02/10/2015 7:00 AM Resu lts for this FIBER LOCKING SUPERVISOR procedure are i n the results section. HEMOGLOBIN Routine 02/10/2015 7:00 AM Results f or this FIBER LOCKING SUPERVISOR procedure are i n the results section. GLUCOSE Routine 02/10/2015 7:00 AM Results f or this FIBER LOCKING SUPERVISOR procedure are i n the results section. PLATELET COUNT Routine 02/09/2015 3:10 PM Results for this FIBER LOCKING SUPERVISOR procedure are i n the results section. CREATININE Routine 02/09/2015 3:10 PM Results f or this FIBER LOCKING SUPERVISOR procedure are i n the results section. CREATION, GASTRIC 02/09/2015 7:43 AM Morbid Obesity BYPASS, LAPAROSCOPIC FIBER LOCKING SUPERVISOR POTASSIUM STAT 02/09/2015 6:15 AM Results f or this FIBER LOCKING SUPERVISOR procedure are i n the results section. HCG QUALITATIVE URINE STAT 02/09/2015 6:00 AM Results for this FIBER LOCKING SUPERVISOR procedure are i n the results section. LAB RESULT - HIM SCAN 02/06/2015 12:00 AM FIBER LOCKING SUPERVISOR documented in this encounter Results Glucose by meter (02/11/2015 6:13 AM FIBER LOCKING SUPERVISOR) P athologist Signature Glucose 93 70 - 99 POINT OF CARE mg/dL TEST, GLUCOSE Specimen Anatomical Collection Method Collection Time Receive d Time (Source) Location / / Volume Laterality 02/11/2015 6:13 AM 6 6:15 FIBER LOCKING SUPERVISOR AM FIBER LOCKING SUPERVISOR Ammon Randall MD [facility] POCT Performing Organization Address City/State/ZIP Code Phon e Number FV POINT OF CARE TEST, GLUCOSE POINT OF CARE TEST, GLUCOSE XR Upper GI Water Soluble: [id number] (02/10/2015 9:01 AM FIBER LOCKING SUPERVISOR) Anatomical Region Laterality Modality Abdomen/Pelvis Computed Radiography Specimen (Source) Anatomical Location Collection Method / Collectio n Time Received Time / Laterality Volume Impressions 02/10/2015 9:37 AM FIBER LOCKING SUPERVISOR IMPRESSION: Unremarkable postoperative appearance following gastric bypass surgery. There is no evidence of a leak. MINERVA DE LA ROSA MD Narrative 02/10/2015 9:37 AM FIBER LOCKING SUPERVISOR WATER-SOLUBLE UPPER GASTROINTESTINAL ?? 02/10/2015 9:01 AM HISTORY: Evaluate for leak following gas tric bypass surgery. COMPARISON: None. FINDINGS: 0.5 minutes of fluoroscopy was utilized while the patient swallowed a small amount of water-solubl e contrast. Contrast readily enters the residual gastric lumen. It pa sses through the surgical sites into the small bowel. No extravasa tion of contrast is demonstrated. No abnormal contrast accum ulation is identified. Procedure Note Minerva De La Rosa MD - 02/10/2015Fo rmatting of this note might be different from the original. WATER-SOLUBLE UPPER GASTROINTESTINAL 02/10 9:01 AM HISTORY: Evaluate for leak following gas tric bypass surgery. COMPARISON: None. FINDINGS: 0.5 minutes of fluoroscopy was utilized while the patient swallowed a small amount of water-solubl e contrast. Contrast readily enters the residual gastric lumen. It pa sses through the surgical sites into the small bowel. No extravasa tion of contrast is demonstrated. No abnormal contrast accum ulation is identified. IMPRESSION IMPRESSION: Unremarkable postoperative a ppearance following gastric bypass surgery. There is no evidence of a leak. MINERVA DE LA ROSA MD Jacinto Galindo PA-C IMG DIAGNOSTIC IMAGING ORDER RAYNE Glucose (02/10/2015 7:00 AM FIBER LOCKING SUPERVISOR) P athologist Signature Glucose 90 70 - 99 [place] mg/dL [facility] Specimen Anatomical Collection Method Collection Time Receive d Time (Source) Location / / Volume Laterality 02/10/2015 7:00 AM 01/01/201 6 7:09 FIBER LOCKING SUPERVISOR AM FIBER LOCKING SUPERVISOR Jacinto Galindo PA-C LAB - BLOOD ORDERABLES Performing Organization Address City/State/ZIP Code Phon e Number [facility] [address] [place] [address] [facility] [address] [place] [address], [place] [phone] Electrolyte panel (02/10/2015 7:00 AM FIBER LOCKING SUPERVISOR) athologist Signature Sodium 139 133 - 144 [place] mmol/L [facility] Potassium 4.2 3.4 - 5.3 [place] mmol/L [facility] Chloride 103 94 - 109 [place] mmol/L [facility] Carbon Dioxide 28 20 - 32 [place] mmol/L [facility] Anion Gap 8 3 - 14 [place] mmol/L [facility] Specimen Anatomical Collection Method Collection Time Receive d Time (Source) Location / / Volume Laterality Blood specimen 02/10/2015 7:00 AM 016 7:09 (specimen) FIBER LOCKING SUPERVISOR AM FIBER LOCKING SUPERVISOR Jacinto Galindo PA-C LAB - BLOOD ORDERABLES Performing Organization Address City/State/ZIP Code Phon e Number [facility] [address] [place] [address] [phone] [facility] [address] [place] [address], [place] [phone] (ABNORMAL) Hemoglobin (02/10/2015 7:00 AM FIBER LOCKING SUPERVISOR) athologist Signature Hemoglobin 10.7 (L) 11.7 - 15.7 [place] g/dL [facility] Specimen Anatomical Collection Method Collection Time Receive d Time (Source) Location / / Volume Laterality Blood specimen 02/10/2015 7:00 AM 016 7:09 (specimen) FIBER LOCKING SUPERVISOR AM FIBER LOCKING SUPERVISOR Jacinto Galindo PA-C LAB - BLOOD ORDERABLES Performing Organization Address City/State/ZIP Code Phon e Number [facility] [address] [place] [address] [facility] [address] [place] [address], [place] [phone] Creatinine (02/09/2015 3:10 PM FIBER LOCKING SUPERVISOR) athologist Signature Creatinine 0.76 0.52 - 1.04 [place] mg/dL [facility] GFR Estimate 89 >60 [place] mL/min/1.7m [address] Comment: Non GFR Calc GFR Estimate If Black >90 >60 mL/min/1.7m2 F [facility] GFR Calc HOSP ITAL Specimen Anatomical Collection Method Collection Time Receive d Time (Source) Location / / Volume Laterality Blood specimen 02/09/2015 3:10 PM 015 3:22 (specimen) FIBER LOCKING SUPERVISOR PM FIBER LOCKING SUPERVISOR Jacinto Galindo PA-C LAB - BLOOD ORDERABLES Performing Organization Address City/State/ZIP Code Phon e Number [facility] [address] [place] [address] [phone] [facility] [address] [place] [address], [place] [phone] Platelet count (02/09/2015 3:10 PM FIBER LOCKING SUPERVISOR) athologist Signature Platelet Count 267 150 - 450 [place] 10e9/L [facility] Specimen Anatomical Collection Method Collection Time Receive d Time (Source) Location / / Volume Laterality Blood specimen 02/09/2015 3:10 PM 015 3:22 (specimen) FIBER LOCKING SUPERVISOR PM FIBER LOCKING SUPERVISOR Jacinto Galindo PA-C LAB - BLOOD ORDERABLES Performing Organization Address City/State/ZIP Code Phon e Number [facility] [address] [place] [address] [phone] [facility] [address] [place] [address], [place] [phone] Potassium (02/09/2015 6:15 AM FIBER LOCKING SUPERVISOR) athologist Signature Potassium 3.6 3.4 - 5.3 [place] mmol/L [facility] Specimen Anatomical Collection Method Collection Time Receive d Time (Source) Location / / Volume Laterality Blood specimen 02/09/2015 6:15 AM 015 6:30 (specimen) FIBER LOCKING SUPERVISOR AM FIBER LOCKING SUPERVISOR Mario Levy MD LAB - BLOOD ORDERABLES Performing Organization Address City/State/ZIP Code Phon e Number [facility] [address] [place] [address] [facility] [address] [place] [address], [place] [phone] HCG qualitative urine (02/09/2015 6:00 AM FIBER LOCKING SUPERVISOR) athologist Signature HCG Qual Urine Negative [facility]G [facility] Specimen Anatomical Collection Method Collection Time Receive d Time (Source) Location / / Volume Laterality Urine specimen URINE SPECIMEN / 02/09/2015 6:00 AM 6:11 (specimen) Unknown FIBER LOCKING SUPERVISOR AM FIBER LOCKING SUPERVISOR Mario Levy MD LAB - URINE ORDERABLES Performing Organization Address City/State/ZIP Code Phon e Number [facility] [address] [place] [address] [facility] [address] [place] [address], [place] [phone] LAB RESULT - HIM SCAN (02/06/2015 12:00 AM FIBER LOCKING SUPERVISOR) Specimen (Source) Anatomical Location Collection Method / Collectio n Time Received Time / Laterality Volume 02/06/2015 Narrative This result has an attachment that is no t available. Provider Outside NON-BEAKER LAB TESTING documented in this encounter Visit Diagnoses Diagnosis Morbid obesity with BMI of 40.0-44.9, ad ult (H) - Primary Morbid obesity with BMI of 40.0-44.9, ad ult (H) Bariatric surgery status documented in this encounter Admitting Diagnoses Diagnosis Morbid obesity with BMI of 40.0-44.9, ad ult (H) documented in this encounter Administered Medications Inactive Administered Medications - up to 3 most recent administrations Medication Order MAR Action Action Date Dose Rate Site acetaminophen (OFIRMEV) 10 Given 02/09/2015 11:47 AM 1,000 mg 400 mL/hr mg/mL infusion 1,000 mg FIBER LOCKING SUPERVISOR 1,000 mg, Intravenous, at 400 mL/hr, ONCE, Administer over 15 Minutes, On Viviana 02/09/15 at 1200, For 1 dose, Maximum acetaminophen dose from all sources= 75 mg/kg/day not to exceed 4 grams/day., PACU CeFAZolin (ANCEF) intermittent infusion 2 g Given 02/09/2015 11:40 PM FIBER LOCKING SUPERVISOR 2 g Routine, 2 g, Intravenous, EVERY 8 HOURS, First dose on Vivaina 02/09/15 at 1600, For 2 doses, First dose 6 hours after last dose (pre-op/intra-op). Must be completed within 24 hours after surgery., Indications: Perioperative Pharmacoprophylaxis Given 02/09/2015 4:45 PM FIBER LOCKING SUPERVISOR 2 g diatrizoate meglumine-sodium (GASTROGRAFIN; Given 02/10/2015 9:01 AM FIBER LOCKING SUPERVISOR 30 mLs GASTROVIEW) 66-10 % solution 30 mL 30 mL, Oral, ONCE, On Fri02/10/15 at 0915, For 1 dose enoxaparin (LOVENOX) injection 40 mg Given 02/11/2015 12:13 AM FIBER LOCKING SUPERVISOR 40 mg 40 mg, Subcutaneous, EVERY 12 HOURS, First dose on Fri02/10/15 at 0900, Check to make sure start date/time is prior to 24 hours post op unless documented complication AND no sooner than 22 hours post op if spinal anesthesia used. HOLD if platelet count falls below 50% of baseline or less [id number]/??L and notify provider., Post-procedure Given 02/10/2015 12:31 PM FIBER LOCKING SUPERVISOR 40 mg fentaNYL (SUBLIMAZE) injection 25-50 mcg Given 02/09/2015 11:23 AM FIBER LOCKING SUPERVISOR 50 mcg 25-50 mcg, Intravenous, EVERY 2 MIN PRN, other, acute pain, Starting on Viviana 02/09/15 at 1117, MAX cumulative dose = 250 mcg. Use Fentanyl initially, as a short acting agent for acute pain control. If insufficient, or a longer acting agent is needed, begin Morphine or Hydromorphone if ordered., PACU Given 02/09/2015 11:19 AM FIBER LOCKING SUPERVISOR 50 mcg HYDROcodone-acetaminophen (LORTAB) 7.5-325 Given 02/11/2015 10:49 AM FIBER LOCKING SUPERVISOR 30 mLs MG/15ML solution 15-30 mL 15-30 mL, Oral, EVERY 4 HOURS PRN, moderate to severe pain, Starting on Fri02/10/15 at 0000, IF CrCl is UNKNOWN start at lowest end of dosing range. Hold while on VISITING PROFESSOR or with regular IV opioid dosing. Max dose of 90 mL/24 hours Maximum acetaminophen dose from all sources= 75 mg/kg/day not to exceed 4 grams., Post-procedure Given 02/11/2015 6:50 AM FIBER LOCKING SUPERVISOR 30 mLs Given 02/11/2015 2:30 AM FIBER LOCKING SUPERVISOR 30 mLs HYDROmorphone (DILAUDID) VISITING PROFESSOR 1 mg/mL Shift Total 02/10/2015 5:06 AM FIBER LOCKING SUPERVISOR 2.2 mg VISITING PROFESSOR dose (mg): 0.2, Max VISITING PROFESSOR dose (mg): 0.3, Lockout Interval (min): 10 minutes, VISITING PROFESSOR Continuous Rate (mg/hr): CONTINUOUS RATE IS NOT RECOMMENDED FOR OPIOID NAIVE PATIENTS, Hour Limit (mg): 1.8, Initial Set-up verified by: Anastasia Chin RN, First dose on Viviana 02/09/15 at 1130, Do NOT give additional opioids orders unless requested by provider., Intravenous, Post-procedure Shift Total 02/09/2015 9:55 PM FIBER LOCKING SUPERVISOR 2.8 mg Shift Total 02/09/2015 4:46 PM FIBER LOCKING SUPERVISOR HYDROmorphone (PF) (DILAUDID) injection Given 02/09/2015 11:43 A M FIBER LOCKING SUPERVISOR 0.5 mg 0.3-0.5 mg 0.3-0.5 mg, Intravenous, EVERY 5 MIN PRN, other, acute pain.?May administer if Respiratory Rate is greater than 10, Starting on Viviana 02/09/15 at 1117, If fentanyl is also ordered, use HYDROmorphone if pain control insufficient with fentanyl or a longer acting agent is needed. Max cumulative dose = 2 mg, PACU Given 02/09/2015 11:30 AM FIBER LOCKING SUPERVISOR 0.5 mg Given 02/09/2015 11:19 AM FIBER LOCKING SUPERVISOR 0.5 mg lactated ringers infusion New Bag 02/09/2015 9:45 AM FIBER LOCKING SUPERVISOR at 25 mL/hr, Intravenous, CONTINUOUS, IF patient NOT on dialysis., Pre-procedure, Starting on Viviana 02/09/15 at 0615, Until Viviana 02/09/15 at 1111 New Bag 02/09/2015 8:59 AM FIBER LOCKING SUPERVISOR New Bag 02/09/2015 6:33 AM FIBER LOCKING SUPERVISOR 25 mL/hr lactated ringers infusion Rate/Dose Verify 02/11/2015 8:00 AM FIBER LOCKING SUPERVISOR 150 mL/hr at 150 mL/hr, Intravenous, CONTINUOUS, Discontinue and saline lock on POD #2., Post-procedure, Starting on Viviana 02/09/15 at 1315, Until 02/11/15 at 1314 New Bag 02/11/2015 6:05 AM FIBER LOCKING SUPERVISOR 150 mL/hr New Bag 02/11/2015 12:12 AM FIBER LOCKING SUPERVISOR 150 mL/hr lisinopril (PRINIVIL,ZESTRIL) tablet 40 mg Given 02/11/2015 8:54 AM FIBER LOCKING SUPERVISOR 40 mg 40 mg, Oral, DAILY, First dose on Viviana 02/09/15 at 1315 Given 02/10/2015 12:31 PM FIBER LOCKING SUPERVISOR 40 mg ondansetron (ZOFRAN) injection 4 mg Given 02/09/2015 11:44 AM FIBER LOCKING SUPERVISOR 4 mg 4 mg, Intravenous, EVERY 30 MIN PRN, nausea, Administer over 2-5 Minutes, Starting on Viviana 02/09/15 at 1117, For 2 doses, MAX total dose = 8 mg, including OR dosing. If not resolved in 15 minutes, then go to step 2 (Prochlorperazine if ordered)., PACU ranitidine (ZANTAC) tablet 75 mg Given 02/11/2015 8:54 AM FIBER LOCKING SUPERVISOR 75 mg 75 mg, Oral, 2 TIMES DAILY, First dose on 02/11/15 at 0900, Start POD 2., Post-procedure scopolamine (TRANSDERM) 1 Given 02/09/2015 11:41 AM FIBER LOCKING SUPERVISOR 1 patch Behind Right Ear MG/3DAYS patch 1 patch 1 patch, Transdermal, EVERY 72 HOURS, First dose on Viviana 02/09/15 at 1130, Apply patch to skin, behind ear. Remove every 72 hours. Each 1.5 mg patch delivers 1 mg of scopolamine., Post-procedure scopolamine (TRANSDERM-SCOP) Patch Given 02/10/2015 12:32 PM FIBER LOCKING SUPERVISOR Behind Right Ear in Place First dose on Viviana 02/09/15 at 1130, Chart every shift, confirming that patch is still in place on patient (no barcode scan needed). See patch order for dose information., Post-procedure documented in this encounter Active and Recently Administered Medications Times are shown in FIBER LOCKING SUPERVISOR. Scheduled Medication Order 02/09/2015 02/10/2015 02/11/2015 acetaminophen (OFIRMEV) 10 mg/mL infusion 1,000 mg (CO MPLETED) 1147 (Given - Provider: Rox Deleon, RN) 1,000 mg, Intravenous, at 400 mL/hr, ONC E, 1 dose, Viviana 02/09/15 at 1200, PACU, Maximum acetaminophen dose from all sources= 75 mg/kg/day not to exceed 4 grams/day. CeFAZolin (ANCEF) intermittent infusion 2 g (COMPLETED ) 1645 (Given - Provider: Mariaelena Ugarte, KATERYNA)2340 (Given - Provider: Sebastian Hyatt, KATERYNA) 2 g, Intravenous, EVERY 8 HOURS, First d ose on Viviana 02/09/15 at 1600, For 2 doses, First dose 6 hours after last dose (pre-op/intra-op). Must be completed within 24 hours after surgery., Indications: Surgical Prophylaxis ceFAZolin (ANCEF) intermittent infusion 3 g (pre-mix) (COMPLETED) 0632 (Handoff - Provider: Germaine Sotomayor RN)0805 (Given - Provider: Isaias Torres APRN MANUFACTURING ASSISTANT)1005 (Given - Provider: Isaias Torres APRN MANUFACTURING ASSISTANT) 3 g, Intravenous, PRE-OP/PRE-PROCEDURE, Starting Viviana 02/09/15 at 0601, For 1 dose, Give first dose within 1 hour PRIOR to incision., Indications: Surgical Prophylaxis, Pre-procedure diatrizoate meglumine-sodium (GASTROGRAF IN; GASTROVIEW) 66-10 % solution 30 mL (COMPLETED) 0901 (Given - Provider: Sabrina Banks - Comm ent: usman butler) 30 mL, Oral, ONCE, Fri02/10/15 at 0915, For 1 dose enoxaparin (LOVENOX) injection 40 mg (CANCELED) 1231 (Given - Provider: Mariaelena Ugarte, KATERYNA) 0013 (Given - Provider: Huong boo RN) 40 mg, Subcutaneous, EVERY 12 HOURS, Fir st dose on Fri02/10/15 at 0900, Check to make sure start date/time is prior to 24 hours post op unless documented complication AND no sooner than 22 hours post op if spinal anesthesia used. HOLD if plate let count falls below 50% of baseline or less [id number]/??L and notify provider., Post-procedure heparin sodium PF injection 5,000 Units (COMPLETED) 06 32 (Handoff - Provider: Germaine Sotomayor RN)0746 (Given - Provider: Isaias Torres APRN MANUFACTURING ASSISTANT - Comment: sq lt. lower abd.) 5,000 Units, Subcutaneous, PRE-OP/PRE-HI OCEDURE, Starting Viviana 02/09/15 at 0601, For 1 dose, Administer 30 minutes prior to incision. Verify order with Salicylic Acid Blender MD prior to administering., Pre-procedure HYDROmorphone (DILAUDID) VISITING PROFESSOR 1 mg/mL (CANCELED) 1134 ( Shift Total - Provider: Rox Deleon RN)1230 (Rate/Dose Verify - Provider: Mariaelena Ugarte RN)1305 (Shift Total - Provider: Mariaelena Ugarte RN)1646 (Shift Total - Provider: Mariaelena Ugarte RN) 0506 (Shift Total - Provider: Sebastian Hyatt RN) VISITING PROFESSOR dose (mg): 0.2, Max VISITING PROFESSOR dose (mg): 0 .3, Lockout Interval (min): 10 minutes, VISITING PROFESSOR Continuous Rate (mg/hr): CONTINUOUS RATE IS NOT RECOMMENDED FOR OPIOID NAIVE PATIENTS, Hour Limit (mg): 1.8, Initial S 2155 (Shift Total - Provider: Sebastian Hyatt RN) et-up verified by: Anastasia Chin RN, Starting Viviana 02/09/15 at 1130, Do NOT give additional opioids orders unless requested by provider., Intravenous, Post-procedure lisinopril (PRINIVIL,ZESTRIL) tablet 40 mg (CANCELED) 1450 (Not Given - Provider: Mariaelena Ugarte RN - Reason: NPO) 1231 (Given - Provider: Mariaelena Ugarte, KATERYNA) 0854 (Given - Provider: Althea Sotomayor, KATERYNA) 40 mg, Oral, DAILY, First dose on Viviana 02/09/15 at 1315 ranitidine (ZANTAC) tablet 75 mg 0854 (Given - Provider: Althea Sotomayor, RN) 75 mg, Oral, 2 TIMES DAILY, First dose o n 02/11/15 at 0900, Start POD 2., Post-procedure scopolamine (TRANSDERM) 1 MG/3DAYS patch 1 patch ([facility]) 1141 (Given - Provider: Rox Deleon, KATERYNA) 1 patch, Transdermal, EVERY 72 HOURS, Fi rst dose on Viviana 02/09/15 at 1130, Apply patch to skin, behind ear. Remove every 72 hours. Each 1.5 mg patch delivers 1 mg of scopolamine., Post-procedure scopolamine (TRANSDERM-SCOP) Patch in Place (CANCELED) 1230 (Patch in Place - Provider: Mariaelena Ugarte RN)2058 (Patch in Place - Provider: Sebastian Hyatt RN) 032 (Patch in Place - Provider: Sebastian hurtado RN)123 (Given - Provider: Mariaelena Ugarte RN)1999 (Patch in Place - Provider: Huong Greene, KATERYNA) 023 (Patch in Place - Provider: Betsy Greene RN) Starting Viviana 02/09/15 at 1120, Chart artemio ry shift, confirming that patch is still in place on patient (no barcode scan needed). See patch order for dose information., Post-procedure ursodiol (ACTIGALL) capsule 300 mg 300 mg, Oral, 2 TIMES DAILY, First dose on Viviana 02/16/15 at 0900, Start on POD 7., Post-procedure Continuous Medication Order 02/09/2015 02/10/2015 02/11/2015 lactated ringers infusion (CANCELED) 0633 (New Bag - P rovider: Germaine Sotomayor RN)0859 (New Bag - Provider: Sharon Jarvis APRN MANUFACTURING ASSISTANT)0945 (New Bag - Provider: Isaias Torres APRN MANUFACTURING ASSISTANT)1115 (Anesthesia Volume Adjustment - Provider: Isaias Torres APRN MANUFACTURING ASSISTANT) at 25 mL/hr, Intravenous, CONTINUOUS, IF patient NOT on dialysis., Pre- procedure, Starting Viviana 02/09/15 at 0615, Until Viviana 02/09/15 at 1111 lactated ringers infusion (CANCELED) 1645 (New Bag - P rovider: Mariaelena Ugarte RN)2154 (New Bag - Provider: Sebastian Hyatt RN) 0509 (New Bag - Provider: Sebastian Hyatt, RN) 0012 (New Bag - Provider: Huong shi, RN)0605 (New Bag - Provider: Huong Greene, KATERYNA)0800 (Rate/Dose Verify - Provider: Althea Sotomayor, RN) at 150 mL/hr, Intravenous, CONTINUOUS, D iscontinue and saline lock on POD #2., Post-procedure, Starting Viviana 02/09/15 at 1315, Until 02/11/15 at 1314 PRN Medication Order 02/09/2015 02/10/2015 02/11/2015 bupivacaine 0.25 /EPI 1:200,000 30 mL + lidocaine 1% 2 0 mL (CANCELED) 1041 (Given - Provider: Ammon Randall MD) PRN, Starting Viviana 02/09/15 at 1041, Intra-procedure fentaNYL (SUBLIMAZE) injection 25-50 mcg (CANCELED) 11 19 (Given - Provider: Rox Deleon, KATERYNA)1123 (Given - Provider: Rox Deleon RN) 25-50 mcg, Intravenous, EVERY 2 MIN PRN, Starting Viviana 02/09/15 at 1117, other, acute pain, MAX cumulative dose = 250 mcg. Use Fentanyl initially, as a short acting agent for acute pain control. If insuf ficient, or a longer acting agent is nee ded, begin Morphine or Hydromorphone if ordered., PACU HYDROcodone-acetaminophen (LORTAB) 7.5-325 MG/15ML solution 15-30 mL 1236 (Given - Provider: Mariaelena Ugarte RN)1733 (Given - Provider: Mariaelena Ugarte RN)2119 (Given - Provider: Huong Greene, KATERYNA)2232 (Given - Provider: Huong Greene, RN) 0230 (Given - Provider: Huong boo, RN)0650 (Given - Provider: Huong Greene, KATERYNA)1049 (Given - Provider: Althea Sotomayor, RN) 15-30 mL, Oral, EVERY 4 HOURS PRN, moder ate to severe pain, Starting Fri02/10/15 at 0000, IF CrCl is UNKNOWN start at lowest end of dosing range. Hold while on VISITING PROFESSOR or with regular IV opioid dosing. Max d ose of 90 mL/24 hours Maximum acetaminop hen dose from all sources= 75 mg/kg/day not to exceed 4 grams., Post-procedure HYDROmorphone (PF) (DILAUDID) injection 0.3-0.5 mg (CA NCELED) 1119 (Given - Provider: Rox Deleon, RN)1130 (Given - Provider: Rox Deleon, KATERYNA)1143 (Given - Provider: Rox Deleon, KATERYNA) 0.3-0.5 mg, Intravenous, EVERY 5 MIN PRN , Starting Viviana 12 at 1117, Until Viviana 12 at 1218, other, acute pain.?May administer if Respiratory Rate is greater than 10, PACU, If fentanyl is als o ordered, use HYDROmorphone if pain con trol insufficient with fentanyl or a longer acting agent is needed. Max cumulative dose = 2 mg methylene blue 1% 1 mL + NaCl 0.9% 100 mL (CANCELED) 1 000 (Given - Provider: Ammon Randall MD) PRN, Starting Viviana 02/09/15 at 1000, Intra-procedure ondansetron (ZOFRAN) injection 4 mg (CANCELED) 1144 (G iven - Provider: Rox Deleon, KATERYNA) 4 mg, Intravenous, EVERY 30 MIN PRN, yee sea, for 2 Minutes, Starting Viviana 02/09/15 at 1117, For 2 doses, MAX total dose = 8 mg, including OR dosing. If not resolved in 15 minutes, then go to step 2 (Prochlorperazine if ordered)., PACU sodium chloride 0.9% (bag) irrigation (CANCELED) 0827 (Given - Provider: Ammon Randall MD - Comment: prn use) PRN, Starting Viviana 02/09/15 at 0827, Intra-procedure sodium chloride 0.9% (bottle) irrigation (CANCELED) 08 27 (Given - Provider: Ammon Randall MD) PRN, Starting Viviana 02/09/15 at 0827, Intra-procedure documented in this encounter Care Teams Steam Conditioning Operator Relationship Specialty Start Date End Date Francisco Javier Pascual MD PCP - General Family Practice 02/11/14 07/07/19 documented as of this encounter
--- OUTSIDE RECORDS SUMMARY | 2021-12-10 21:21 | XMS_ITS | Encounter Summary ---
:1985 Author Organization [facility] Address [address] [place] [id number] Care Team Providers Name Role Phone Francisco Javier Pascual MD Primary Care Provider Reggie Sarabia MD Unavailable Encounter Details Date Type Department Care Team Description 05/11/2018 Travel Social History Tobacco Use Types Packs/Day [...] 05/22/2021 relatives? How often do you attend yarsanism or yazidi Never 05/22/2021 services? Do you belong to any clubs or organizations such as No 05/22/2021 yarsanism groups, unions, fraternal or athletic groups, or [...] documented as of this encounter Care Teams Washery Engineer Relationship Specialty Start Date End Date Francisco Javier Pascual MD PCP - General Family Practice 02/11/14 07/07/19 Reggie Sarabia MD Assigned PCP 05/16/17 07/17/19 [id number] [place] [id number] documented as of this encounter
--- OUTSIDE RECORDS SUMMARY | 2021-12-10 21:21 | XMS_ITS | Encounter Summary ---
:1985 Author Organization [facility] Address [address] [place] [address]. [place] [address] Care Team Providers Name Role Phone Francisco Javier Pascual MD Primary Care Provider Reason for Visit Reason Onset Date Comments Surgical Followup 02/13/2015 Encounter Details Date Type Department Care Team Description 02/13/2015 Telephone [facility] RafaelPrema Followup Surgical Weight Loss Harley Foster-Jorge [facility] [address] [facility] [address] [facility] [address] [place] [address] [place] [phone] Social History Tobacco Use Types Packs/Day Years [...] How often do you attend lutheran or hoahaoism Never 05/22/2021 services? Do you belong to [...] this encounter Miscellaneous Notes Telephone Encounter - Prema Hall PA-C - 02/13/2015 3:54 PM ROOFER Called pt to check in since she 1 wk s/p bariatric surgery. Pt is doing well. Will be coming to appttomorrow in clinic. ER documented in this encounter Plan of Treatment Not on filedocumented as of this encounter Visit Diagnoses Not on filedocumented in this encounter Care Teams Grommet Worker Relationship Specialty Start Date End Date Francisco Javier Pascual MD PCP - General Family Practice 02/11/14 07/07/19 documented as of this encounter
--- OUTSIDE RECORDS SUMMARY | 2021-12-10 21:21 | XMS_ITS | Encounter Summary ---
:1985 Author Organization [facility] Address [address] [place] [address] Care Team Providers Name Role Phone Francisco Javier Pascual MD Primary Care Provider Reggie Sarabia MD Unavailable Reggie Sarabia MD Unavailable Encounter Details Date Type Department Care Team Description 01/20/2018 Travel Social History Tobacco Use Types Packs/Day [...] 05/22/2021 relatives? How often do you attend hindu or confucianism Never 05/22/2021 services? Do you belong to any clubs or organizations such as No 05/22/2021 hindu groups, unions, fraternal or athletic groups, or [...] documented as of this encounter Care Teams Machine Ii Engraver Relationship Specialty Start Date End Date Francisco Javier Pascual MD PCP - General Family Practice 02/11/14 07/07/19 Reggie Sarabia MD PCP - Assigned PCP 05/16/17 04/14/18 [id number] [address] [id number] Reggie Sarabia MD Assigned PCP 05/16/17 07/17/19 [id number] [address] [id number] documented as of this encounter
--- OUTSIDE RECORDS SUMMARY | 2021-12-10 21:21 | XMS_ITS | Encounter Summary ---
:1985 Author Organization [facility] Address [address] [place] [address] Care Team Providers Name Role Phone Francisco Javier Pascual MD Primary Care Provider Reason for Visit Reason Comments Surgical Followup Encounter Details Date Type Department Care Team Description 02/14/2015 Office Visit [facility] Rn, Sh W[place], RN Morbid ob esity, unspecified obesity type (H) (Primary Dx); Surgical Weight Loss [facility] surgery status Clinic [address] [place] [phone] Social History Tobacco Use Types Packs/Day [...] 05/22/2021 relatives? How often do you attend rastafari or catholic Never 05/22/2021 services? Do you belong to any clubs or organizations such as No 05/22/2021 rastafari groups, unions, fraternal or athletic groups, or [...] Sign Reading Time Taken Comments Blood Pressure 114/72 02/14/2015 1:06 PM COMPONENT ENGINEER Pulse 67 02/14/2015 1:06 PM COMPONENT ENGINEER Temperature 36.3 ??C (97.4 ??F) 02/14/2015 1:06 PM COMPONENT ENGINEER Respiratory Rate 14 02/14/2015 1:06 PM COMPONENT ENGINEER Oxygen Saturation 99% 02/14/2015 1:06 PM COMPONENT ENGINEER Inhaled Oxygen Concentration - - Weight 119.3 kg (263 lb) 02/14/2015 1:06 PM COMPONENT ENGINEER Height - - Body Mass Index 43.77 02/09/2015 6:27 AM COMPONENT ENGINEER documented in this encounter Progress Notes Ashwin Neal PA-C - 02/14/2015 2:02 PM CST 1 wk follow up appointment Date:??02/14/2015 Name:??DOMINGO??IDALIA :??1985 AGE: 29 ?? Surgery Date: 02/09/2015 Surgeon:Dr. Ammon Randall HISTORY OF PRESENT ILLNESS: DOMINGO??IDALIA??returns today for 1week follow-up appointment status post Laparoscopic Farhat-en-Y Gastric Bypass.??She??is drinking 48??oz of fluid daily. She??is currently using lortab??for pain medication. Taking about 30 mls at 7 am, noon and 7pm. ??She experiences the most pain first thing in the AM. ??Rates pain at 6/10 at its worst. ??Averages 2-3/10. ??Worse with switiching positions. Better with reclining in a chair. ??Denies any chest pain, calf pain, nausea, vomiting, or SOB. ?? Passes gas but has not had a BM yet. PE: Vitals: Weight: 263 ; BMI: 45.1; BP: 114/72 ; Pulse: 67; Resp: 14; Temp: 97.4 GENERAL: Alert and oriented x3. NAD HEART: No JVD LUNGS: Breathing unlabored ABDOMEN: Incision/incisions clean/dry/intact, No hernias noted. ??Patient mildly tender on left side. Stitch removed from left sided incision EXTREMITIES: no deformities. ??No calf swelling or tenderness. ??No ankle edema SKIN: warm and dry to touch.??Incisions appear to be healing well. PSYCHOLOGICAL: Alert and oriented. ??Pleasant Assessment: 1. 1??week status post Laparoscopic Farhat-en-Y Gastric Bypass. 2. 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 Rx provided for 300 mls lortab. ??Primarily for bedtime.?? Follow up with your (pre-op) Psychologist within 1 month post operatively. Follow up with your primary care provider within 1 month to discuss hypertension. ??Advised patient to stop hydrochlorathiazide today. ??Continue with lisinopril. Advance diet per Dietitian at [...] with questions or concerns at any time. ?? Ashwin Neal PA-C, M.S. ? ONENT ENGINEER Nila Aceves, KATERYNA - 02/14/2015 1:58 PM CST Patient seen by IZABEL in clinic who completed assessment. Nila Carter MS, RD, RN ONENT ENGINEER documented in this encounter Plan of Treatment Not on filedocumented as of this encounter Visit Diagnoses Diagnosis Morbid obesity, unspecified obesity type (H) - Primary Bariatric surgery status documented in this encounter Care Teams Supervisor Instrument Maintenance Relationship Specialty Start Date End Date Francisco Javier Pascual MD PCP - General Family Practice 02/11/14 07/07/19 documented as of this encounter
--- OUTSIDE RECORDS SUMMARY | 2021-12-10 21:21 | XMS_ITS | Encounter Summary ---
:1985 Author Organization [facility] Address [address] [place] [address]. [place] [address] Care Team Providers Name Role Phone Francisco Javier Pascual MD Primary Care Provider Reggie Sarabia MD Unavailable Reason for Visit Reason Comments Hypertension Recheck Medication Encounter Details Date Type Department Care Team Description 05/22/2018 Office Visit [facility] Reggie Sarabia [facility] dep ressive disorder, single episode, moderate (H) (Primary Dx); Clinic Danny Hedrick MD Essential hypertension [place] [address] [facility], [address] [place] [phone] Social History Tobacco Use [...] 05/22/2021 relatives? How often do you attend zoroastrian or restorationist Never 05/22/2021 services? Do you belong to any clubs or organizations such as No 05/22/2021 zoroastrian groups, unions, fraternal or athletic groups, or [...] Sign Reading Time Taken Comments Blood Pressure 116/80 05/22/2018 1:24 PM CDT Pulse 88 05/22/2018 1:24 PM CDT Temperature 36.8 ??C (98.3 ??F) 05/22/2018 1:24 PM CDT Respiratory Rate 16 05/22/2018 1:24 PM CDT Oxygen Saturation - - Inhaled Oxygen Concentration - - Weight 81.5 kg (179 lb 9.6 oz) 05/22/2018 1:24 PM CDT Height - - Body Mass Index 30.35 05/11/2018 1:52 PM CDT documented in this encounter Patient Instructions Patient InstructionsReggie Sarabia MD - 05/22/2018 1:20 PM CDT Your new medication is escitalopram 10 mg. Take this dose daily for two weeks. If after two weeks you are not noticing much improvement you should double your dose. Please be seen for follow-up in one month. documented in this encounter Progress Notes Reggie Sarabia MD - 05/22/2018 1:20 PM CDT HPI SUBJECTIVE: Tri Cerda is a 32 year old female who presents to clinic today for the following health issues: Medication Followup of hydrochlorothiazide and lisinopril ?? Taking Medication as prescribed: yes ?? Side Effects: Possibly cough from the lisinopril ?? Medication Helping Symptoms: NO, having low B/P readings. For the last 4 days only taking 1/2 of the lisinopril. Friday night readin/66. Notes that she wasn't using meds prior to last visit. Did not increasedose as discussed, but did start actually taking previous dose. Shortly developed dizziness and checked BP at work and was 112/66. Reduced lisinopril to 10 mg, still taking 25 mg hydrochlorothiazide. Is still using this dose currently, Mood is kind of all over the place, thought it might be due to HTN, but now that BP is good finds she is still worrying a lot, difficulty falling asleep, difficult waking up in am. Several years ago was being treated for mood, but didn't continue once she lost insurance. But made her feel too blah. Checking chart this appears to be fluoxetine. Has never done counseling for mood. Review of Systems Constitutional: Negative. Eyes: Negative for blurred vision and double vision. Respiratory: Negative for shortness of breath. Cardiovascular: Negative for chest pain and palpitations. Neurological: Negative for headaches. Psychiatric/Behavioral: Negative for depression, substance abuse and suicidal ideas. The patient is nervous/anxious and has insomnia. Physical Exam Constitutional: She is oriented to person, place, and time. Neck: No thyromegaly present. Cardiovascular: Normal rate, regular rhythm and normal heart sounds. Pulmonary/Chest: Effort normal and breath sounds normal. Neurological: She is alert and oriented to person, place, and time. Skin: Skin is warm and dry. Psychiatric: She has a normal mood and affect. Her behavior is normal. Vitals reviewed. (F32.1) Major depressive disorder, single episode, moderate (H) (primary encounter diagnosis) Comment: also referred to CBT, starting meds Plan: escitalopram (LEXAPRO) 10 MG tablet (I10) Essential hypertension Comment: sticking with 25 & 10 Plan: hydrochlorothiazide (HYDRODIURIL) 25 MG tablet, lisinopril (PRINIVIL/ZESTRIL) 20 MG tablet RTC in 1m Reggie Sarabia MD Answers for HPI/ROS submitted by the patient on 05/22/2018 Chronic problems general questions HPI Form If you checked off any problems, how difficult have these problems made it for you to do your work, take care of things at home, or get along with other people?: Very difficult PHQ9 TOTAL SCORE: 12 documented in this encounter Nursing Notes Arlette Villatoro CMA - 05/22/2018 1:20 PM CDT Chief Complaint Patient presents with ??? Hypertension ??? Recheck Medication Initial BP 116/80 (BP Location: Right arm, Patient Position: Sitting, Cuff Size: Adult Regular) Pulse 88 Temp 98.3 ??F (36.8 ??C) (Oral) Resp 16 Wt 81.5 kg (179 lb 9.6 oz) BMI 30.35 kg/m?? Estimated body mass index is 30.35 kg/m?? as calculated from the following: Height as of 05/11/18: 1.638 m (5' 4.5). Weight as of this encounter: 81.5 kg (179 lb 9.6 oz). BP completed using cuff size regular right arm Arlette Villatoro CMA documented in this encounter Plan of Treatment Not on filedocumented as of this encounter Visit Diagnoses Diagnosis Major depressive disorder, single episod e, moderate (H) - Primary Major depressive disorder, single episod e, moderate Essential hypertension Unspecified essential hypertension documented in this encounter Additional Health Concerns Assessment Noted Time PHQ-9 Depression Total Score: 12 05/22/2018 2:42 PM CD T documented as of this encounter Care Teams Hogshead Stock Clerk Relationship Specialty Start Date End Date Francisco Javier Pascual MD PCP - General Family Practice 02/11/14 07/07/19 Reggie Sarabia MD Assigned PCP 05/16/17 07/17/19 [id number] [address] [id number] documented as of this encounter
--- OUTSIDE RECORDS SUMMARY | 2021-12-10 21:21 | XMS_ITS | Encounter Summary ---
:1985 Author Organization [facility] Address [address] [place] [address] Care Team Providers Name Role Phone Francisco Javier Pascual MD Primary Care Provider Reggie Sarabia MD Unavailable Encounter Details Date Type Department Care Team Description 05/22/2018 Travel Social History Tobacco Use Types Packs/Day [...] How often do you attend scientology or religion Never 05/22/2021 services? Do you belong to [...] place to sleep or slept in a care home (including now)? Sex Assigned at Date Recorded Female 12/08/2020 12:18 PM CDT documented as of this encounter Plan of Treatment Not on filedocumented as of this encounter Visit Diagnoses Not on filedocumented in this encounter Additional Health Concerns Assessment Noted Time PHQ-9 Depression Total Score: 12 05/22/2018 2:42 PM CD T documented as of this encounter Care Teams Power Brake Rebuilder Relationship Specialty Start Date End Date Francisco Javier Pascual MD PCP - General Family Practice 02/11/14 07/07/19 Reggie Sarabia MD Assigned PCP 05/16/17 07/17/19 [id number] [address] [place] [id number] documented as of this encounter
--- OUTSIDE RECORDS SUMMARY | 2021-12-10 21:21 | XMS_ITS | Encounter Summary ---
:1985 Author Organization [place] Address [facility] [place] [address] Care Team Providers Name Role Phone Francisco Javier Pascual MD Primary Care Provider Reason for Visit Auth/Cert - Closed Specialty Diagnoses / Procedures Referred By Contact Refer red To Contact Surgery Diagnoses MORBID OBESITY Sh Periop Services Procedures COMBINED LAPAROSCOPIC BYPASS GASTRIC, CHOLECYSTECTOMY [address], [address] [place] [address] Phone: Referral ID Status Reason Start Date Expiration Date Visits Requ ested Visits Authorized [id number] Closed 1 1 Encounter Details Date Type Department Care Team Description 02/09/2015 Anesthesia Event [facility] John Suarez MD [facility] [address] [address] [facility] Isaias Santos, BOOM BOSS AIR LAUNCH WEAPONS TECHNICIAN [address] [address] [address], [address] [place] [address] Anesthesia Record Procedure Summary Procedure Name Responsible Anesthesia Start Anesthesia Stop Anesthesiologist Time Time LAPAROSCOPIC BYPASS Ryan Suarez MD 02/09/15 0743 1117 GASTRIC (Abdomen) Events Date Time Event Comment 02/09/2015 0651 0743 An Start 0743 An Start Data 0743 Present 0749 An Induction 0752 An Intubation 0800 AN START SEVO 0819 Present 0827 AN INCISION 0944 MD Present 1050 AN END SEVO 1100 AN Extubation 1100 MD Present 1108 an stop data 1117 An Stop Electronically s igned by Isaias Torres on February 09, 2015 11:17 AM Name Total dexamethasone 4mg/mL 4 mg ePHEDrine 5 mg/mL 5 mg fentanyl 50mcg/mL 500 mcg glycopyrrolate 0.2mg/mL 0.4 mg lidocaine 2% 100 mg midazolam 1mg/mL 2 mg neostigmine 1mg/mL 3 mg phenylephrine 0.1mg/mL 100 mcg ondansetron 2mg/mL 4 mg propofol 10mg/mL 400 mg propofol infusion (mcg/kg/min) 360 mg rocuronium 10mg/mL 50 mg vecuronium 1mg/mL 4.5 mg ceFAZolin (ANCEF) intermittent infusion 3 g (pre-mix) 5 g heparin sodium PF injection 5,000 Units 5,000 Units albuterol (PROVENTIL HFA;VENTOLIN HFA) inhaler 6 puff lactated ringers infusion 2,300 mL Agents Name O2 Air Exp Sevoflurane Exp Desflurane Ins Sevoflurane Ins Desflurane Blood No blood administrations on file. Lines, Drains, and Airways Type Details Placement Removal Peripheral IV 02/09/15; 0625; 18 G; 02/09/15 0625 by 02/11/15 1043 by Left; Tolerated well Germaine Sotomayor RN [facility] on, Althea Kiran RN Urethral Catheter 02/09/15; 0805; No; 02/09/15 0805 by 02/10/15 1100 by Anesthesia; 16 fr Phyllis Mills Elisabeth A RN M, RN Incision/Surgical Site 02/09/15; 0832; 02/09/15 0832 by 06/15/15 1517 by Abdomen; trocar sites Phyllis Mills, Peggy Rosas RN x 5; 06/15/15; 1517 A, RN RETIRED ETT Mask Ventilation: 02/09/15 0853 by 02/09/15 1100 by Easy; Ease of Isaias Torres APRN Intubation: Easy; AIR LAUNCH WEAPONS TECHNICIAN Airway Size: 7; Cuffed; Oral; Blade Type: Glidescope; Blade Size: 3; Place by: dr. Prieto; Insertion Attempts: 1; Secured at (cm)to lip: 22 cm; Breath Sounds: Equal, clear and bilateral; End Tidal CO2: Present; Dentition: Intact; Grade View of Cords: 1; Airway Adjuncts: [place] scope documented in this encounter Social History Tobacco Use Types Packs/Day Years [...] 05/22/2021 relatives? How often do you attend sikh or muslim Never 05/22/2021 services? Do you belong to any clubs or organizations such as No 05/22/2021 sikh groups, unions, fraternal or athletic groups, or [...] 12 months, you worried that your food Kaycee mes true 05/22/2021 would run out before [...] PM CDT documented as of this encounter OR Notes Anesthesia Postprocedure Evaluation - Pranav Arriaga MD - 02/09/2015 2:43 PM CST Patient: Tri Cerda LAPAROSCOPIC BYPASS GASTRIC (N/A Abdomen) Additional InformationProcedure(s): LAPAROSCOPIC BYPASS GASTRIC Diagnosis:MORBID OBESITY Diagnosis Additional Information: No value filed. Anesthesia Type: General, ETT Note: Anesthesia Post Evaluation Patient location during evaluation: PACU Patient participation: Able to fully participate in evaluation Level of consciousness: awake and alert Pain management: adequate Airway patency: patent Anesthetic complications: no Cardiovascular status: acceptable Respiratory status: acceptable Hydration status: acceptable PONV: none Last vitals: Filed Vitals: 02/09/15 1200 02/09/15 1212 02/09/15 1230 BP: 135/83 135/85 139/84 Pulse: Temp: 36.7 ??C (98 ??F) 36.1 ??C (97 ??F) 36.6 ??C (97.9 ??F) Resp: 13 16 16 SpO2: 100% 100% 91% Electronically Signed By: Pranav Arriaga MD February 09, 2015 2:43 PM ING FLOORWORKER Anesthesia Postprocedure Evaluation - Ryan Suarez MD - 02/09/2015 11:21 AM CST Patient: Tri Cerda LAPAROSCOPIC BYPASS GASTRIC (N/A Abdomen) Additional InformationProcedure(s): LAPAROSCOPIC BYPASS GASTRIC Diagnosis:MORBID OBESITY Diagnosis Additional Information: No value filed. Anesthesia Type: General, ETT Note: Anesthesia Post Evaluation Patient location during evaluation: PACU Patient participation: Able to fully participate in evaluation Level of consciousness: sleepy but conscious and responsive to verbal stimuli Pain management: adequate Airway patency: patent Anesthetic complications: no Cardiovascular status: acceptable and hemodynamically stable Respiratory status: acceptable and unassisted Hydration status: acceptable PONV: none Last vitals: Filed Vitals: 02/09/15 0627 BP: 121/86 Pulse: 72 Temp: 36.2 ??C (97.2 ??F) SpO2: 100% Electronically Signed By: Ryan Suarez MD February 09, 2015 11:21 AM ING FLOORWORKER Anesthesia Preprocedure Evaluation - Ryan Suarez MD - 02/09/2015 6:47 AM CST Procedure: Procedure(s): COMBINED LAPAROSCOPIC BYPASS GASTRIC, CHOLECYSTECTOMY Preop diagnosis: MORBID OBESITY Allergies Allergen Reactions ??? Lisinopril cough Past Medical History Diagnosis Date ??? Hypertension ??? Depression ??? Obesity ??? Cough from Lisinopril Past Surgical History Procedure Laterality Date ??? 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 Authorizing Provider CALCIUM PO Take 1 tablet by mouth daily OTC: unknown strength Yes Reported, Patient VITAMIN D, CHOLECALCIFEROL, PO Take 1 tablet by mouth 3 times daily OTC: unknown strength Yes Reported, Patient multivitamin peds with iron (FLINTSTONES COMPLETE) 60 MG chewable tablet Take 2 chew tab by mouth daily Yes Reported, Patient lisinopril (PRINIVIL,ZESTRIL) 40 MG tablet Take 40 mg by mouth daily 04/25/14 Yes Reported, Patient hydrochlorothiazide (HYDRODIURIL) 25 MG tablet Take 25 mg by mouth daily 06/02/14 Yes Reported, Patient Current Facility-Administered Medications Ordered in [facility] Medication Dose Route Frequency Last Rate Last Dose ??? heparin sodium PF injection 5,000 Units 5,000 Units Subcutaneous Pre-Op/Pre-procedure x 1 dose 5,000 Units at 02/09/15 0632 ??? ceFAZolin (ANCEF) intermittent infusion 3 g (pre-mix) 3 g Intravenous Pre-Op/Pre-procedure x 1 dose 3 g at 02/09/15 0632 ??? lidocaine BUFFERED 1 % solution 0.1-1 mL 0.1-1 mL Intradermal Once PRN ??? lactated ringers infusion Intravenous Continuous 25 mL/hr at 02/09/15 0633 No current [facility]-ordered outpatient prescriptions on file. Wt Readings from Last 1 Encounters: 02/09/15 119.296 kg (263 lb) Temp Readings from Last 1 Encounters: 02/09/15 36.2 ??C (97.2 ??F) BP Readings from Last 6 Encounters: 02/09/15 121/86 12/20/14 130/80 07/21/14 118/88 07/07/14 141/84 02/24/14 131/78 02/11/14 180/88 Pulse Readings from Last 4 Encounters: 02/09/15 72 12/20/14 83 07/21/14 79 07/07/14 78 Resp Readings from Last 1 Encounters: 12/20/14 16 SpO2 Readings from Last 1 Encounters: 02/09/15 100% Recent Labs Lab Test 02/09/15 0615 07/07/14 1829 02/24/14 1554 NA -- 136 136 POTASSIUM 3.6 3.7 3.8 CHLORIDE -- 101 102 CO2 -- 28 30 ANIONGAP -- 7 4 GLC -- 80 77 BUN -- 8 22 CR -- 0.81 0.82 FARHAN -- 8.5 9.0 Recent Labs Lab Test 07/21/14 1515 07/07/14 1829 WBC 8.1 7.3 HGB 12.1 12.2 PLT 294 331 Recent Labs Lab Test 07/21/14 1515 02/24/14 1554 INR 0.97 0.92 RECENT LABS: ECG: ECHO: CXR: Anesthesia Evaluation . ROS/MED HX ENT/Pulmonary: (+)KRISTY risk factors snores loudly, hypertension, obese, , . . (-) tobacco use, asthma, COPD and sleep apnea Neurologic: - neg neurologic ROS Cardiovascular: (+) hypertension . : . . . :. . (-) CAD, ENGLISH, arrhythmias and dyslipidemia METS/Exercise Tolerance: >4 METS Hematologic: - neg hematologic ROS Musculoskeletal: - neg musculoskeletal ROS GI/Hepatic: (+) GERD Renal/Genitourinary: - ROS Renal section negative Endo: (+) Obesity, . (-) Type I DM and Type II DM Psychiatric: (+) psychiatric history depression Infectious Disease: Malignancy: - no malignancy Other: (+) no H/O Chronic Pain, - neg other ROS Physical Exam Normal systems: pulmonary and dental Airway Mallampati: I TM distance: >3 FB Neck ROM: full Dental Cardiovascular Rhythm and rate: regular and normal Pulmonary breath sounds clear to auscultation Anesthesia Plan ASA Score: 2 . Plan for General and ETT - with Intravenous and Propofol induction. Maintenance will be Balanced. Anesthetic plan, risks, benefits and alternatives discussed with: patient or bilingual call center representative. Routine analgesia and antiemetics . Equipment:Videolaryngoscope Midazolam Propofol background gtt Patient is a Restoration and has endorsed her desire NOT to be transfused with any blood products including albumin, the risks and alternatives of this decision has been d/w the patient and she has displayed understanding. History & Physical Review History and physical reviewed and following examination; no interval change. . ING FLOORWORKER documented in this encounter Miscellaneous Notes Anesthesia Care Transfer Note - Isaias Torres APRN CRNA - 02/09/2015 11:17 AM CST Patient: Tri Cerda LAPAROSCOPIC BYPASS GASTRIC (N/A Abdomen) Additional [email or web address] Diagnosis: MORBID OBESITY Diagnosis Additional Information: No value filed. Anesthesia Type: General, ETT Note: Airway :Face Mask Patient transferred to:PACU Electronically Signed By: Isaias Torres APRN CRNA February 09, 2015 11:17 AM ING FLOORWORKER documented in this encounter Plan of Treatment Not on filedocumented as of this encounter Visit Diagnoses Not on filedocumented in this encounter Administered Medications Inactive Administered Medications - up to 3 most recent administrations Medication Order MAR Action Action Date Dose Rate Site albuterol (PROAIR HFA, PROVENTIL Given 02/09/2015 11:00 AM LASTING FLOORWORKER 6 puffs HFA, VENTOLIN HFA) inhaler PRN, wheezing, Starting on Viviana 02/09/15 at 1100, Anesthesia Intra-op ceFAZolin (ANCEF) intermittent infusion 3 g Given 02/09/2015 10: 05 AM LASTING FLOORWORKER 2 g (pre-mix) Routine, 3 g, Intravenous, PRE-OP/PRE-PROCEDURE, Starting on Viviana 02/09/15 at 0601, For 1 dose, Give first dose within 1 hour PRIOR to incision., Indications: Perioperative Pharmacoprophylaxis, Pre-procedure Given 02/09/2015 8:05 AM LASTING FLOORWORKER 3 g dexamethasone (DECADRON) injection Given 02/09/2015 9:15 AM LASTING FLOORWORKER 4 mg PRN, Administer over 1-4 Minutes, Starting on Viviana 02/09/15 at 0915, Anesthesia Intra-op ePHEDrine in 0.9% NaCl injection (dilute d) Given 02/09/2015 9:15 AM LASTING FLOORWORKER 5 mg PRN, Starting on Viviana 02/09/15 at 0915, Anesthesia Intra-op fentaNYL (SUBLIMAZE) injection Given 02/09/2015 11:00 AM LASTING FLOORWORKER 25 mcg PRN, moderate to severe pain, Starting on Viviana 02/09/15 at 0829, Anesthesia Intra-op Given 02/09/2015 10:45 AM LASTING FLOORWORKER 25 mcg Given 02/09/2015 10:10 AM LASTING FLOORWORKER 50 mcg glycopyrrolate (ROBINUL) injection Given 02/09/2015 10:45 AM LASTING FLOORWORKER 0.4 mg PRN, Starting on Viviana 02/09/15 at 1045, Anesthesia Intra-op heparin sodium PF injection 5,000 Units Given 02/09/2015 7:46 AM LASTING FLOORWORKER 5,000 Units 5,000 Units, Subcutaneous, PRE-OP/PRE-PROCEDURE, Starting on Viviana 02/09/15 at 0601, For 1 dose, Administer 30 minutes prior to incision. Verify order with Pasteurizing Supervisor MD prior to administering., Pre-procedure lactated ringers infusion New Bag 02/09/2015 9:45 AM LASTING FLOORWORKER at 25 mL/hr, Intravenous, CONTINUOUS, IF patient NOT on dialysis., Pre-procedure, Starting on Viviana 02/09/15 at 0615, Until Viviana 02/09/15 at 1111 New Bag 02/09/2015 8:59 AM LASTING FLOORWORKER New Bag 02/09/2015 6:33 AM LASTING FLOORWORKER 25 mL/hr lidocaine injection 2% (MDV) Given 02/09/2015 7:49 AM LASTING FLOORWORKER 100 mg PRN, Starting on Viviana 02/09/15 at 0749, Anesthesia Intra-op midazolam (VERSED) injection Given 02/09/2015 7:49 AM LASTING FLOORWORKER 2 mg PRN, anxiety, Starting on Viviana 02/09/15 at 0749, Anesthesia Intra-op neostigmine (PROSTIGMINE) injection Given 02/09/2015 10:46 AM LASTING FLOORWORKER 3 mg Intravenous, PRN, Starting on Viviana 02/09/15 at 1046, Anesthesia Intra-op ondansetron (ZOFRAN) injection Given 02/09/2015 10:20 AM LASTING FLOORWORKER 4 mg PRN, nausea, vomiting, Administer over 2-5 Minutes, Starting on Viviana 02/09/15 at 1020, Anesthesia Intra-op phenylephrine injection Given 02/09/2015 9:15 AM LASTING FLOORWORKER 100 mcg PRN, Starting on Viviana 02/09/15 at 0915, Anesthesia Intra-op propofol (DIPRIVAN) infusion New Bag 02/09/2015 8:15 AM 25 mcg/kg/min 18 mL/hr Intravenous, CONTINUOUS PRN, LASTING FLOORWORKER Starting on Viviana 02/09/15 at 0815, Anesthesia Intra-op propofol (DIPRIVAN) injection 10 mg/mL v ial Given 02/09/2015 7:55 AM LASTING FLOORWORKER 100 mg PRN, Starting on Viviana 02/09/15 at 0749, Anesthesia Intra-op Given 02/09/2015 7:49 AM LASTING FLOORWORKER 300 mg rocuronium (ZEMURON) injection Given 02/09/2015 7:49 AM LASTING FLOORWORKER 50 mg PRN, Starting on Viviana 02/09/15 at 0749, Anesthesia Intra-op vecuronium (NORCURON) injection Given 02/09/2015 10:10 AM LASTING FLOORWORKER 0.5 mg PRN, Starting on Viviana 02/09/15 at 0749, Anesthesia Intra-op Given 02/09/2015 9:11 AM LASTING FLOORWORKER 2 mg Given 02/09/2015 7:49 AM LASTING FLOORWORKER 2 mg documented in this encounter Care Teams Take Off Worker Relationship Specialty Start Date End Date Francisco Javier Pascual MD PCP - General Family Practice 02/11/14 07/07/19 documented as of this encounter
--- OUTSIDE RECORDS SUMMARY | 2021-12-10 21:21 | XMS_ITS | Encounter Summary ---
:1985 Author Organization [place] Address [address] [place] [address] Care Team Providers Name Role Phone Francisco Javier Pascual MD Primary Care Provider Reggie Sarabia MD Unavailable Encounter Details Date Type Department Care Team Description 06/09/2018 Travel Social History Tobacco Use Types Packs/Day [...] 05/22/2021 relatives? How often do you attend sikhism or zoroastrian Never 05/22/2021 services? Do you belong to any clubs or organizations such as No 05/22/2021 sikhism groups, unions, fraternal or athletic groups, or [...] place to sleep or slept in a detention (including now)? Sex Assigned at Date Recorded Female 12/08/2020 12:18 PM CDT documented as of this encounter Plan of Treatment Not on filedocumented as of this encounter Visit Diagnoses Not on filedocumented in this encounter Additional Health Concerns Assessment Noted Time PHQ-9 Depression Total Score: 12 05/22/2018 2:42 PM CD T documented as of this encounter Care Teams Rivet Flunky Relationship Specialty Start Date End Date Francisco Javier Pascual MD PCP - General Family Practice 02/11/14 07/07/19 Reggie Sarabia MD Assigned PCP 05/16/17 07/17/19 [id number] [place] [id number] documented as of this encounter
--- OUTSIDE RECORDS SUMMARY | 2021-12-10 21:21 | XMS_ITS | Encounter Summary ---
:1985 Author Organization [place] Address [address] [place] [address] Care Team Providers Name Role Phone Francisco Javier Pascual MD Primary Care Provider Reggie Sarabia MD Unavailable Reason for Referral PULPIT OPERATOR - Closed Specialty Diagnoses / Procedures Referred By Contact Refer red To Contact Diagnoses Encounter for post Essure sterilization check Reg[facility]ab[facility] [id number] [place] [phone] Phone: Fax: Referral ID Status Reason Start Date Expiration Date Visits Requ ested Visits Authorized [id number] Closed 05/11/2018 05/11/2019 1 1 Reason for Visit Reason Comments Fertility discuss options around essur e, done in 2013 Encounter Details Date Type Department Care Team Description 05/11[facility]2018 [facility] for post Essure sterilization check (Primary Dx); Clinic Danny Hedrick MD Essential hypertension [place] [address] [facility], [address] [place] [phone] Social History Tobacco Use [...] 05/22/2021 relatives? How often do you attend methodist or zoroastrian Never 05/22/2021 services? Do you belong to any clubs or organizations such as No 05/22/2021 methodist groups, unions, fraternal or athletic groups, or [...] Sign Reading Time Taken Comments Blood Pressure 134/96 05/11/2018 1:52 PM CDT Pulse 76 05/11/2018 1:52 PM CDT Temperature 36.9 ??C (98.4 ??F) 05/11/2018 1:52 PM CDT Respiratory Rate 16 05/11/2018 1:52 PM CDT Oxygen Saturation - - Inhaled Oxygen Concentration - - Weight 85.7 kg (188 lb 14.4 oz) 05/11/2018 1:52 PM CDT Height 163.8 cm (5' 4.5) 05/11/2018 1:52 PM CDT Body Mass Index 31.92 05/11/2018 1:52 PM CDT documented in this encounter Progress Notes Reggie Sarabia MD - 05/11/2018 1:40 PM CDT HPI SUBJECTIVE: Tri Cerad is a 32 year old female who presents to clinic today for the following health issues: Consult: discuss options around essure which was done in 2012. Would like to , Essure 5-6 years. New partner, they'd like to have a child together. Of note, partner is FTM transgender, so would need sperm donor in any event. Notes did have an extra [employer] this am. Does check BP periodically and is typically OK. Denies CP,palpitations, edema, dyspnea, MALDONADO, vision changes. Review of Systems Constitutional: Negative. Eyes: Negative for blurred vision and double vision. Respiratory: Negative for shortness of breath. Cardiovascular: Negative for chest pain and palpitations. Neurological: Negative for headaches. Physical Exam Constitutional: She is oriented to person, place, and time. Eyes: Conjunctivae and EOM are normal. Cardiovascular: Normal rate, regular rhythm and normal heart sounds. Pulmonary/Chest: Effort normal and breath sounds normal. Musculoskeletal: She exhibits no edema. Neurological: She is alert and oriented to person, place, and time. Skin: Skin is warm and dry. Vitals reviewed. (Z30.8) Encounter for post Essure sterilization check (primary encounter diagnosis) Comment: unsure of this is reversible, may need to consider IVF Plan: PULPIT OPERATOR REFERRAL (I10) Essential hypertension Comment: increasing hydrochlorothiazide to 50mg daily. Advised that lisinopril is not safe in and in the event of regimen will need to be modified. Plan: hydrochlorothiazide (HYDRODIURIL) 25 MG tablet, lisinopril (PRINIVIL/ZESTRIL) 20 MG tablet RTC in 2w for BP recehck Reggie Sarabia MD documented in this encounter Plan of Treatment Scheduled Referrals Name Type Priority Associated Diagnoses Order S chedule PULPIT OPERATOR REFERRAL Referral Routine Encounter for post Essure Ordered: 05/11/2018 sterilization check documented as of this encounter Visit Diagnoses Diagnosis Encounter for post Essure sterilization check - Primary Essential hypertension Unspecified essential hypertension documented in this encounter Additional Health Concerns Assessment Noted Time PHQ-9 Depression Total Score: 21 01/21/2018 7:15 AM CS T documented as of this encounter Care Teams Molecular Biology Director Relationship Specialty Start Date End Date Francisco Javier Pascual MD PCP - General Family Practice 02/11/14 07/07/19 Reggie Sarabia MD Assigned PCP 05/16/17 07/17/19 [address] [place] [address] documented as of this encounter
--- OUTSIDE RECORDS SUMMARY | 2021-12-10 21:21 | XMS_ITS | Encounter Summary ---
:1985 Author Organization [place] Address [address] [place] [address]. [place] [address] Care Team Providers Name Role Phone Francisco Javier Pascual MD Primary Care Provider Reggie Sarabia MD Unavailable Reggie Sarabia MD Unavailable Reason for Visit Reason Onset Date Comments Hypertension Erroneous encounter-disregard 06/30/2017 Encounter Details Date Type Department Care Team Description 06/27/[address] [facility] Reggie Sarabia Need for prophylactic vaccination with tetanus-diphtheria (TD) (Primary Dx); Clinic Danny Hedrick MD ERRONEOUS ENCOUNTER--DISREGARD [place] [address] [facility], [address] [place] [phone] Social History Tobacco Use Types Packs/Day [...] 05/22/2021 relatives? How often do you attend moravian or buddhist Never 05/22/2021 services? Do you belong to any clubs or organizations such as No 05/22/2021 moravian groups, unions, fraternal or athletic groups, or [...] documented as of this encounter Progress Notes Reggie Sarabia MD - 06/30/2017 6:56 AM CDT This encounter was opened in error. Please disregard. documented in this encounter Plan of Treatment Not on filedocumented as of this encounter Visit Diagnoses Diagnosis Need for prophylactic vaccination with t etanus-diphtheria (Td) - Primary ERRONEOUS ENCOUNTER--DISREGARD documented in this encounter Additional Health Concerns Assessment Noted Time PHQ-9 Depression Total Score: 18 06/14/2017 7:31 AM CD T documented as of this encounter Care Teams Machine Operator Transplanter Relationship Specialty Start Date End Date Francisco Javier Pascual MD PCP - General Family Practice 02/11/14 07/07/19 Reggie Sarabia MD PCP - Assigned PCP 05/16/17 04/14/18 [address] [address] [id number] Reggie Sarabia MD Assigned PCP 05/16/17 07/17/19 [address] [address] [id number] documented as of this encounter
--- OUTSIDE RECORDS SUMMARY | 2021-12-10 21:21 | XMS_ITS | Encounter Summary ---
:1985 Author Organization [place] Address [address] [place] [address]. [place] [address] Care Team Providers Name Role Phone Francisco Javier Pascual MD Primary Care Provider Reggie Sarabia MD Unavailable Reggie Sarabia MD Unavailable Encounter Details Date Type Department Care Team Description 07/08/2017 Telephone [facility] Reggie Sarabia MD [place] [address] [address] [address] [place] [address] [phone] Social History Tobacco Use Types Packs/Day Years [...] How often do you attend sabianism or pentecostal Never 05/22/2021 services? Do you [...] Telephone Encounter - Reggie Sarabia MD - 07/08/2017 7:08 AM CDT Please call to schedule a f/u BP appt. Reggie Sarabia MD documented in this encounter Plan of Treatment Not on filedocumented as of this encounter Visit Diagnoses Not on filedocumented in this encounter Additional Health Concerns Assessment Noted Time PHQ-9 Depression Total Score: 18 06/14/2017 7:31 AM CD T documented as of this encounter Care Teams Laundrette Owner Relationship Specialty Start Date End Date Francisco Javier Pascual MD PCP - General Family Practice 02/11/14 07/07/19 Reggie Sarabia MD PCP - Assigned PCP 05/16/17 04/14/18 [address] [address] [place] [address] Reggie Sarabia MD Assigned PCP 05/16/17 07/17/19 [address] [address] [place] [address] documented as of this encounter
--- OUTSIDE RECORDS SUMMARY | 2021-12-10 21:21 | XMS_ITS | Encounter Summary ---
:1985 Author Organization [facility] Address [address] [place] [id number] Care Team Providers Name Role Phone Francisco Javier Pascual MD Primary Care Provider Reggie Sarabia MD Unavailable Reggie Sarabia MD Unavailable Reason for Visit Reason Onset Date Comments No Show No Show 07/11/2017 Encounter Details Date Type Department Care Team Description 07/11/2017 Office Visit [facility] Reggie Sarabia NO SHOW ( Primary Dx) [place] [address] [address] [address] [facility], [address] [place] [address] [place], [place] [phone] (Wo rk) [id number] [phone] Social History Tobacco Use Types Packs/Day Years [...] 05/22/2021 relatives? How often do you attend religion or episcopal Never 05/22/2021 services? Do you belong to any clubs or organizations such as No 05/22/2021 religion groups, unions, fraternal or athletic groups, or [...] documented as of this encounter Progress Notes [address]ian Street CMA - 07/11/2017 11:36 AM CDT This patient was a no show for this scheduled appointment. 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
--- OUTSIDE RECORDS SUMMARY | 2021-12-10 21:21 | XMS_ITS | Encounter Summary ---
:1985 Author Organization [facility] Address [address] [place] [address] Care Team Providers Name Role Phone Francisco Javier Pascual MD Primary Care Provider Reason for Visit Reason Comments Chest Pain Encounter Details Date Type Department Care Team Description 06/15/2015 Emergency [facility] JunBenjie canales, A typical chest pain; [facility] Emergency Dep t Solitary pulmonary nodule [address] [facility] [id number] 5433 [facility] [phone] [place], [place] [address] (Wo rk) Social History Tobacco Use Types [...] 05/22/2021 relatives? How often do you attend quaker or taoist Never 05/22/2021 services? Do you belong to any clubs or organizations such as No 05/22/2021 quaker groups, unions, fraternal or athletic groups, or [...] Sign Reading Time Taken Comments Blood Pressure 145/95 06/15/2015 3:20 PM CDT Pulse 86 06/15/2015 3:20 PM CDT Temperature 36.8 ??C (98.2 ??F) 06/15/2015 12:50 PM CDT Respiratory Rate - - Oxygen Saturation 98% 06/15/2015 2:12 PM CDT Inhaled Oxygen Concentration - - Weight 99.8 kg (220 lb) 06/15/2015 12:50 PM CDT Height 165.1 cm (5' 5) 06/15/2015 12:50 PM CDT Body Mass Index 36.61 06/15/2015 12:50 PM CDT documented in this encounter Discharge Instructions Discharge InstructionsBenjie Simon MD - 06/15/2015 3:03 PM CDT Images from the original note were not included. *CHEST PAIN, UNCERTAIN CAUSE Based on your exam today, the exact cause of your chest pain is not certain. Your condition does notseem serious at this time, and your pain does not appear to be coming from your heart. However, sometimes the signs of a serious problem take more time to appear. Therefore, watch for the warning signslisted below. HOME CARE: 1. Rest today and avoid strenuous activity. 2. Take any prescribed medicine as directed. FOLLOW UP with your doctor in 1-3 days. GET PROMPT MEDICAL ATTENTION if any of the following occur: ?? A change in the type of pain: if it feels different, becomes more severe, lasts longer, or beginsto spread into your shoulder, arm, neck, jaw or back ?? Shortness of breath or increased pain with breathing ?? Weakness, dizziness, or fainting ?? Cough with blood or dark colored sputum (phlegm) ?? Fever over 101?? F (38.3?? C) ?? Swelling, pain or redness in one leg ?? [id number] [facility], [address] [place] [address], [place] [address]. All rights reserved. This information is not intended as a substitute for professional medical care. Always follow your healthcare professional's instructions. documented in this encounter Medications at Time of Discharge Medication Sig Dispensed Refills Start Date End Date ondansetron (ZOFRAN ODT) 4 Take 1 tablet (4 20 tablet 0 06/201506/18/2015 MG disintegrating tablet mg) by mouth every 6 hours as needed Acetaminophen (TYLENOL EXTRA Take 1 tablet by 0 06/13/2017 STRENGTH PO) mouth Taking 2-3 times daily acetaminophen (TYLENOL) 325 Take 2 tablets 40 tablet 0 05/06/201506/13/2017 MG tablet (650 mg) by mouth every 4 hours as needed Ascorbic Acid (VITAMIN C PO) Take by mouth 0 06/13/2017 every morning CALCIUM PO Take 2 tablets 0 06/13/2017 by mouth 3 times daily Gummiew - needs to take 2 TID - afternoon, mid day, and dinner Cyanocobalamin (B-12) 1000 Place 1 tablet 0 06/13/2017 MCG SUBL under the tongue every morning Ferrous Sulfate (IRON Take 1 tablet by 0 06/13/2017 SUPPLEMENT PO) mouth every morning hydrochlorothiazide Take 25 mg by 0 06/02/2014 (HYDRODIURIL) 25 MG tablet mouth daily ibuprofen (ADVIL,MOTRIN) 200 Take 3 tablets 40 tablet 0 06/201506/13/2017 MG tablet (600 mg) by mouth every 6 hours as needed lisinopril Take 40 mg by 0 04/25/2014 [...] units each. documented as of this encounter ED Notes Benjie Simon MD - 06/15/2015 1:04 PM CDT History Chief Complaint: Chest Pain HPI Tri Cerda is a 29 year old female, with a history of HTN who presents to the ED for evaluation of chest pain. The patient had a sudden onset of sharp 10/10 left-sided chest pain approximately 45 minutes ago while walking at work. Her pain sits just below her left-breast and is non-radiating and not pleuritic. No known aggravating or alleviating factors. She has had chest pain before, but never to this severity or duration. She denies any recent stressors, including today while at work. She denies shortness of breath, nausea or LE edema. LMP two weeks ago. Cardiac/PE/DVT Risk Factors: History of hypertension - Yes History of hyperlipidemia - No History of diabetes - No History of smoking - Yes, former Personal history of PE/DVT - No Family history of PE/DVT - No Family history of heart complications - No Recent travel - No Recent surgery - No Other immobilizations - No Cancer - No Allergies: No known drug allergies Medications: Tylenol Iron Ranitidine Lisinopril Hydrochlorothiazide Ursodiol Past Medical History: HTN Depression Iron deficiency anemia Past Surgical History: section x2 Laparoscopic gastric bypass Family History: History reviewed. No pertinent family history. Social History: The patient was accompanied to the ED by her mother. 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 Cardiovascular: Positive for chest pain. Negative for leg swelling. Gastrointestinal: Negative for nausea. All other systems reviewed and are negative. Physical Exam First Vitals: Patient Vitals for the past 24 hrs: BP Temp Temp src Pulse Heart Rate SpO2 Height Weight 06/15/15 1520 (!) 145/95 mmHg - - 86 - - - - 06/15/15 1412 - - - - - 98 % - - 06/15/15 1410 (!) 142/95 mmHg - - - 78 - - - 06/15/15 1328 (!) 139/103 mmHg - - - 66 99 % - - 06/15/15 1306 (!) 143/100 mmHg - - - 68 100 % - - 06/15/15 1250 (!) 198/119 mmHg 98.2 ??F (36.8 ??C) Oral 79 79 98 % 1.651 m (5' 5) 99.791 kg (220 lb) 06/15/15 1245 (!) 198/119 mmHg - - - - - - - Physical Exam Constitutional: Alert and oriented to person, place and time. In no acute distress HENT: Nose: No nasal congestion, No rhinorrhea Mouth: Moist mucous membranes No intraoral lesions. Throat: Tracheal midline No jugular venous distention No cervical lymphadenopathy Thyroid exam normal Eyes: Pupils equal, round and reactive to light. Extraocular movements are intact. Conjunctiva pink. Sclera anicteric. CV: Regular rate. Regular rhythm. Normal S1, S2. No murmurs, No rubs, No gallops Radial pulses 2+ bilaterally Dorsalis pedis pulses 2+ bilaterally Chest: Good air movement bilaterally Clear to ascultation bilaterally. No wheezing, No rhonchi, No rales. No accessory muscle use. GI: Soft Non-tender MSK: Normal range of motion. Strength is 5/5 in all 4 extremities Neurological: Alert, attentive Skin: Warm, Dry, Normal color Emergency Department Course ECG done at 1247. ECG read at 1258. Indication - Chest pain: Rate 71 bpm. IN interval 144. QRS duration 84. QT/QTc 396/430. P-R-T axes 22 12 27. Normal sinus rhythm. Normal ECG. Imaging: Radiographic findings were communicated with the patient and family who voiced understanding of the findings. CT Chest, IV contrast - PE protocol: IMPRESSION: 1. No cause for acute chest pain identified. No acute pulmonary disease or pulmonary embolus. 2. Very tiny left upper lobe pulmonary nodule. Suspected to be calcified. 12-month followup CT is recommended if the patient has known risk factors for malignancy such as smoking or history of malignancy. In the absence of risk factors, no followup for this tiny nodule is routinely recommended. Preliminary report per radiology. Laboratory: 1210 CBC: WNL (WBC 6.3, HGB 12.6, PLT 277) BMP: Glucose 69 (L), o/w WNL (Creatinine 0.85) Troponin I: <0.015 1448 Trop 0.01 1449 Glucose 77 Interventions: 1302 NS 1,000 mL IV 1303 Dilaudid 1 mg IV 1303 Zofran 4 mg IV 1335 Dilaudid 1 mg IV Emergency Department Course: Nursing notes and vitals reviewed. 1250: I performed an exam of the patient as documented above. 1425: I reassessed the patient. Pt was given juice and soda and a sandwich. I personally reviewed the laboratory results with the Patient and answered all related questions prior to discharge. Findings and plan explained to the Patient. Patient discharged home with instructions regarding supportive care, medications, and reasons to return. The importance of close follow-up was reviewed. Impression & Plan Medical Decision Makin29 year old female presents for evaluation of acute onset chest pain located in thecenter of her chest, non-radiating, described as a stabbing type pain. 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 The patient has no chronic medical conditions, takes no medications regularly. She does have a history of hypertension, but states she was taken off this medication by her primary care physician. On exam, the patient appears anxious. She is tachypenic with shallow lung volumes. Lungs are clear, heart rate is regular. There is a thick split S2. Abdomen is benign. 2+ radial pulses throughout. Differential diagnosis includes pulmonary embolism and I did obtain a CT chest PE protocol which showed no evidence of pulmonary embolism. Incidental note was made of left upper lobe nodule and recommendation for 12 month follow up was made. . 12-lead ECG was negative for acute ischemia. Basic labs, BMP, CBC are all normal. Troponin normal. The patient is treated supportively with opiate analgesic pain medication. Her pain resolved. At this point, I feel she is stable for discharge. Diagnosis: ICD-10-CM 1. Atypical chest pain R07.89 2. Solitary pulmonary nodule R91.1 Disposition: Discharged to home. Follow-up with PMD as indicated. Return for worsening symptoms. Follow up CT-chest in 12 months to evaluated left upper lung nodule. Condition at discharge is stable. Discharge Medications: Discharge Medication List as of 06/15/2015 3:13 PM START taking these medications Details acetaminophen (TYLENOL) 325 MG tablet Take 2 tablets (650 mg) by mouth every 4 hours as needed, Disp-40 tablet, R-0, Local Print ibuprofen (ADVIL,MOTRIN) 200 MG tablet Take 3 tablets (600 mg) by mouth every 6 hours as needed, Disp-40 tablet, R-0, Local Print ondansetron (ZOFRAN ODT) 4 MG disintegrating tablet Take 1 tablet (4 mg) by mouth every 6 hours as needed, Disp-20 tablet, R-0, Local Print 06/15/2015 [facility] I, Herminia Bird, am serving as a scribe at 1250 on June 15, 2015 to document services personally performed by Dr. Benjie Simon, based on my observations and the provider's statements to me. Benjie Simon MD 06/15/15 1600 Peggy Vaughan RN - 06/15/2015 12:46 PM CDT Pt presents to ED with c/o left sided chest pain. Pain came on suddenly approx 45 mins ago and sits below her left breast. Pain does not radiate, but has associated SOB. Pt reports she was just walkingwhen the pain came on. Nothing she does makes the pain go away.Pt reports she has had this pain in the past and was worked up, but work up was negative at that point. documented in this encounter Plan of Treatment Not on filedocumented as of this encounter Procedures Procedure Name Priority Date/Time Associated Comments Diagnosis GLUCOSE BY METER Routine 06/15/2015 2:49 PM Resul ts for this CDT procedure are i n the results section. TROPONIN POCT Routine 06/15/2015 2:48 PM Results for this CDT procedure are i n the results section. CT CHEST PULMONARY STAT 06/15/2015 2:05 PM Res ults for this EMBOLISM W CONTRAST CDT procedur e are in the results section. EKG 12-LEAD, TRACING STAT 06/15/2015 12:47 Res ults for this ONLY PM CDT procedure are i n the results section. CBC WITH PLATELETS & STAT 06/15/2015 12:10 Res ults for this DIFFERENTIAL PM CDT procedure are i n the results section. TROPONIN I STAT 06/15/2015 12:10 Results for this PM CDT procedure are i n the results section. BASIC METABOLIC PANEL STAT 06/15/2015 12:10 Re sults for this PM CDT procedure are i n the results section. documented in this encounter Results Glucose by meter (06/15/2015 2:49 PM CDT) P athologist Signature Glucose 77 70 - 99 POINT OF CARE mg/dL TEST, GLUCOSE Specimen Anatomical Collection Method Collection Time Receive d Time (Source) Location / / Volume Laterality 06/15/2015 2:49 PM 6 2:50 CDT PM CDT Benjie Simon MD LAB - BEAKER POCT Performing Organization Address City/State/ZIP Code Phon e Number FV POINT OF CARE TEST, GLUCOSE POINT OF CARE TEST, GLUCOSE Troponin POCT (06/15/2015 2:48 PM CDT) P athologist Signature Troponin I 0.01 0.00 - 0.10 POINT OF CARE ug/L TEST, HANDHELD METER Specimen Anatomical Collection Method Collection Time Receive d Time (Source) Location / / Volume Laterality 06/15/2015 2:48 PM 6 3:00 CDT PM CDT Benjie Simon MD LAB - ENTER/EDIT POCT Performing Organization Address City/State/ZIP Code Phon e Number FV POINT OF CARE TEST, HANDHELD METER POINT OF CARE TEST, HANDHELD METER Chest CT, IV contrast only - PE protocol (06/15/2015 2:05 PM CDT) Anatomical Region Laterality Modality Chest, SUBRAD CT BODY, UMP CT CHEST Comp uted Tomography Specimen (Source) Anatomical Location Collection Method / Collectio n Time Received Time / Laterality Volume Impressions 06/15/2015 4:19 PM CDT IMPRESSION: 1. No cause for acute chest pain identif ied. No acute pulmonary disease or pulmonary embolus. 2. Very tiny left upper lobe pulmonary n odule. Suspected to be calcified. 12-month followup CT is recom mended if the patient has known risk factors for malignancy such a s smoking or history of malignancy. In the absence of risk facto rs, no followup for this tiny nodule is routinely recommended. [ ] 3. Question of mild right paratracheal a denopathy, difficult to visualize because of streak artifact. YULIYA MORENO MD Narrative 06/15/2015 4:[address] CHEST PULMONARY EMBOLISM WITH CONTRAST 06/15/2015 2:05 PM HISTORY: Acute onset chest pain. TECHNIQUE: Axial images from thoracic in let to diaphragm. 83 mL Isovue-370 IV contrast. Radiation dose f or this scan was reduced using automated exposure control, adjustment o f the mA and/or kV according to patient size, or iterative reconstruc tion technique. COMPARISON: None. FINDINGS: CHEST: No CT evidence for acute pulmonar y embolus or thoracic aortic dissection. Question of mild right parat jp adenopathy which is in an area obscured by streak artifact from contrast in the SVC. No other evidence for adenopathy. Postoperative c hanges at the stomach compatible with gastric bypass. Tiny lef t upper lobe nodule, series 5 image 28, appears dense for its small si ze suggesting it may be calcified. The lungs are otherwise clear . No aggressive bone lesions, pleural effu jory or pneumothorax. Procedure Note Yuliya Moreno MD - 06/15/2015For matting of this note might be different from the original. CT CHEST PULMONARY EMBOLISM WITH CONTRAS T 06/15/2015 2:05 PM HISTORY: Acute onset chest pain. TECHNIQUE: Axial images from thoracic in let to diaphragm. 83 mL Isovue-370 IV contrast. Radiation dose f or this scan was reduced using automated exposure control, adjustment o f the mA and/or kV according to patient size, or iterative reconstruc tion technique. COMPARISON: None. FINDINGS: CHEST: No CT evidence for acute pulmonar y embolus or thoracic aortic dissection. Question of mild right parat jp adenopathy which is in an area obscured by streak artifact from contrast in the SVC. No other evidence for adenopathy. Postoperative c hanges at the stomach compatible with gastric bypass. Tiny lef t upper lobe nodule, series 5 image 28, appears dense for its small si ze suggesting it may be calcified. The lungs are otherwise clear . No aggressive bone lesions, pleural effu jory or pneumothorax. IMPRESSION: 1. No cause for acute chest pain identif ied. No acute pulmonary disease or pulmonary embolus. 2. Very tiny left upper lobe pulmonary n odule. Suspected to be calcified. 12-month followup CT is recom mended if the patient has known risk factors for malignancy such a s smoking or history of malignancy. In the absence of risk facto rs, no followup for this tiny nodule is routinely recommended. [ ] 3. Question of mild right paratracheal a denopathy, difficult to visualize because of streak artifact. YULIYA MORENO MD Benjie Simon MD IMG CT ORDERABLES EKG 12 lead (06/15/2015 12:47 PM CDT) [facility] gist Method Time Signature Interpretation ECG Click View RADIOLOGY Image link RESULTS to view waveform and result Specimen (Source) Anatomical Collection Method Collection Time Re ceived Time Location / / Volume Laterality 06/15/2015 12:47 PM CDT Mario Bates MD ECG ORDERABLES Performing Organization Address City/State/ZIP Code Phon e Number RADIOLOGY RESULTS (ABNORMAL) Basic metabolic panel (BMP) (06/15/2015 12:10 PM CDT) athologist Signature Sodium 141 133 - 144 [place] mmol/L [facility] Potassium 3.5 3.4 - 5.3 [place] mmol/L [facility] Chloride 105 94 - 109 [place] mmol/L [facility] Carbon Dioxide 26 20 - 32 [place] mmol/L [facility] Anion Gap 10 3 - 14 [place] mmol/L [facility] Glucose 69 (L) 70 - 99 [place] mg/dL [facility] Urea Nitrogen 10 7 - 30 [place] mg/dL [facility] Creatinine 0.85 0.52 - [place] 1.04 mg/dL [facility] GFR Estimate 78 >60 [place] mL/min/1.7 [facility] m2 [facility] Comment: Non GFR Calc GFR Estimate If Black >90 >60 mL/min/1.7m2 F [facility] GFR Calc HOSP ITAL Calcium 9.0 8.5 - 10.1 mg/dL [facility] Specimen Anatomical Collection Method Collection Time Receive d Time (Source) Location / / Volume Laterality Blood specimen 06/15/2015 12:10 6 1:15 (specimen) PM CDT PM CDT Benjie Simon MD LAB - BLOOD ORDERABLES Performing Organization Address City/State/ZIP Code Phon e Number [facility] [address] [place], [place] [address] [facility] [address] [phone] (ABNORMAL) CBC + differential (06/15/2015 12:10 PM CDT) [facility] Method Time Signature WBC 6.3 4.0 - [place] 11.[address] RBC Count 5.24 (H) 3.8 - 5.2 [place] 10e12L [facility] Hemoglobin 12.6 11.7 - [place] 15.7 g/dL [facility] Hematocrit 42.1 35.0 - [place] 47.0 % [facility] MCV 80 78 - 100 [place] fl [facility] MCH 24.0 (L) 26.5 - [place] 33.0 pg [facility] MCHC 29.9 (L) 31.5 - [place] 36.5 g/dL [facility] RDW 15.2 (H) 10.0 - [place] 15.0 % [facility] Platelet Count 277 150 - [address] Diff Method Automated [place] Method [facility] % Neutrophils 50.4 % [facility] % Lymphocytes 43.5 % [facility] % Monocytes 3.8 % [facility] % Eosinophils 1.3 % [facility] % Basophils 0.5 % [facility] % Immature 0.5 % [place] Granulocytes [facility] Nucleated RBCs 0 0 /100 [facility] Absolute 3.2 1.6 - 8.3 [place] Neutrophil [id number] Absolute 2.8 0.8 - 5.3 [place] Lymphocytes [address] [place] [address] Absolute 0.2 0.0 - 1.3 [place] Monocytes e9[facility] Absolute 0.1 0.0 - 0.7 [place] Eosinophils [address] [place] [address] Absolute 0.0 0.0 - 0.2 [place] Basophils [address] [place] [address] Abs Immature 0.0 0 - 0.4 [place] Granulocytes [address] [place] [address] Absolute 0.0 [place] Nucleated RBC [facility] Specimen Anatomical Collection Method Collection Time Receive d Time (Source) Location / / Volume Laterality Blood specimen 06/15/2015 12:10 6 1:15 (specimen) PM CDT PM CDT Benjie Simon MD LAB - BLOOD ORDERABLES Performing Organization Address City/[facility]/ZIP [facility] Phon e Number M [facility] [address] [place], [place] [address] [place] [address] [address] [place], [place] [address], [facility] [phone] Troponin I (now) (06/15/2015 12:10 PM CDT) [facility] Method Time Signature Troponin I ES <0.[address] [place] [address] The 99th percentile for uppe r reference range is 0.045 ug/L. ??Troponin values in 0.045 RIDGES the range of 0.045 - 0.120 ug/L may be associated wit h risks of adverse ug/L HOSPITAL clinical events. Specimen Anatomical Collection Method Collection Time Receive d Time (Source) Location / / Volume Laterality Blood specimen 06/15/2015 12:10 6 1:15 (specimen) PM CDT PM CDT Benjie Simon MD LAB - BLOOD ORDERABLES Performing Organization Address City/[facility]/ZIP [facility] Phon e Number M [place] [address] [address] [place], [place] [address] [place] [address] [address] [place], [place] [address], [facility] [phone] documented in this encounter Visit Diagnoses Diagnosis Atypical chest pain Other chest pain Solitary pulmonary nodule documented in this encounter Administered Medications Inactive Administered Medications - up to 3 most recent administrations Medication Order MAR Action Action Date Dose Rate Site 0.9% sodium chloride BOLUS New Bag 06/15/2015 1:02 PM CDT 1,000 mLs 1000 mL/hr Intravenous, 1,000 mL, ONCE, at 1,000 mL/hr, Administer over 1 Hours, On Viviana 06/15/15 at 1301, For 1 dose 0.9% sodium chloride BOLUS New Bag 06/15/2015 1:59 PM CDT 100 mLs Intravenous, 1,000 mL, ONCE, On Viviana 06/15/15 at 1357, For 1 dose acetaminophen (TYLENOL) tablet 1,000 mg Given 06/15/2015 3:10 PM CDT 1,000 mg 1,000 mg, Oral, ONCE, On Viviana 06/15/15 at 1503, For 1 dose, Maximum acetaminophen dose from all sources = 75 mg/kg/day not to exceed 4 gram HYDROmorphone (DILAUDID) injection 1 mg Given 06/15/2015 1:03 PM CDT 1 mg 1 mg, Intravenous, ONCE, On Viviana 06/15/15 at 1258, For 1 dose HYDROmorphone (DILAUDID) injection 1 mg Given 06/15/2015 1:35 PM CDT 1 mg 1 mg, Intravenous, ONCE, On Viviana 16 at 1333, For 1 dose ibuprofen (ADVIL,MOTRIN) tablet 600 mg Given 06/15/2015 3:10 PM CDT 600 mg 600 mg, Oral, ONCE, On Viviana 06/15/15 at 1503, For 1 dose iopamidol (ISOVUE-370) 76% solution 500 mL Given 06/15/2015 1:56 PM CDT 83 mLs 500 mL, Intravenous, ONCE, On Viviana 16 at 1357, For 1 dose ondansetron (ZOFRAN) 2 MG/ML injection Given 06/15/2015 1:03 PM CDT 4 mg Starting on Viviana 06/15/15 at 1302, For 1 dose, PEGGY ALVAREZ: lizbetht override documented in this encounter Active and Recently Administered Medications Times are shown in CDT. Scheduled Medication Order 06/13/2015 06/14/2015 06/15/2015 0.9% sodium chloride BOLUS (COMPLETED) 1302 (New Bag - Provider: Peggy Vaughan, RN)1513 (Stopped - Provider: Peggy Vaughan, KATERYNA) Intravenous, 1,000 mL, ONCE, at 1,000 mL /hr, Administer over 1 Hours, On Viviana 06/15/15 at 1301, For 1 dose 0.9% sodium chloride BOLUS (COMPLETED) 1359 (New Bag - Provider: Karen Boswell - Comment: bulk)1400 (Stopped - Provider: Karen Boswell) Intravenous, 1,000 mL, ONCE, Viviana 06/15/15 at 1357, For 1 dose acetaminophen (TYLENOL) tablet 1,000 mg (COMPLETED) 1510 (Given - Provider: Peggy Vaughan RN) 1,000 mg, Oral, ONCE, Viviana 06/15/15 at 1503 , For 1 dose, Maximum acetaminophen dose from all sources = 75 mg/kg/day not to exceed 4 gram HYDROmorphone (DILAUDID) injection 1 mg (COMPLETED) 1303 (Given - Provider: Peggy Vaughan, KATERYNA) 1 mg, Intravenous, ONCE, 1 dose, Viviana 06/15/15 at 1258 HYDROmorphone (DILAUDID) injection 1 mg (COMPLETED) 1335 (Given - Provider: Peggy Vaughan, KATERYNA) 1 mg, Intravenous, ONCE, 1 dose, Viviana 06/15/15 at 1333 ibuprofen (ADVIL,MOTRIN) tablet 600 mg (COMPLETED) 1510 (Given - Provider: Peggy Vaughan, KATERYNA) 600 mg, Oral, ONCE, Viviana 16 at 1503, For 1 dose iopamidol (ISOVUE-370) 76% solution 500 mL (COMPLETED) 1356 (Given - Provider: Karen Boswell) 500 mL, Intravenous, ONCE, Viviana 06/15/15 at 1357, For 1 dose No Frequency Medication Order 06/13/2015 06/14/2015 06/15/2015 ondansetron (ZOFRAN) 2 MG/ML injection (COMPLETED) 1303 (Given - Provider: Peggy Vaughan RN) Starting Viviana 06/15/15 at 1302, For 1 dose, PEGGY ALVAREZ: cabinet override documented in this encounter Care Teams Voice Data Communications Engineer Relationship Specialty Start Date End Date Francisco Javier Pascual MD PCP - General Family Practice 02/11/14 07/07/19 documented as of this encounter
--- OUTSIDE RECORDS SUMMARY | 2021-12-10 21:21 | XMS_ITS | Encounter Summary ---
:1985 Author Organization [facility] Address [address] [place] [address]. [place] [address] Care Team Providers Name Role Phone Francisco Javier Pascual MD Primary Care Provider Albert Samayoa MD Unavailable Albert Samayoa MD Unavailable Reason for Visit Reason Comments Physical Encounter Details Date Type Department Care Team Description 01/20/2018 Office Visit [facility] Albert Samayoa eneral medical examination at a health care facility (Primary Dx); Clinic Danny Hedrick MD Screening for malignant neoplasm of cerv ix; [place] [address] Need for prophylactic vaccination and in oculation against influenza; Road, [address] [place], [place] Essential [place]; [place] [address] S/P gastric bypass [id number] Social History Tobacco Use Types Packs/Day [...] How often do you attend rastafarian or anglican Never 05/22/2021 services? Do you [...] Sign Reading Time Taken Comments Blood Pressure 190/108 01/20/2018 10:48 AM ABRASIVES SALES REPRESENTATIVE Pulse 76 01/20/2018 10:48 AM ABRASIVES SALES REPRESENTATIVE Temperature 36.8 ??C (98.3 ??F) 01/20/2018 10:48 AM ABRASIVES SALES REPRESENTATIVE Respiratory Rate 12 01/20/2018 10:48 AM ABRASIVES SALES REPRESENTATIVE Oxygen Saturation - - Inhaled Oxygen Concentration - - Weight 89.9 kg (198 lb 3.2 oz) 01/20/2018 10:48 AM ABRASIVES SALES REPRESENTATIVE Height - - Body Mass Index 32.98 06/13/2017 2:05 PM CDT documented in this encounter Patient Instructions Patient InstructionsVivian Street, SAM - 01/20/2018 10:20 AM ABRASIVES SALES REPRESENTATIVE Preventive Health Recommendations Female Ages 26 - [...] six months for an exam and cleaning. SIVES SALES REPRESENTATIVE documented in this encounter Progress Notes Albert Samayoa MD - 01/20/2018 10:20 AM CST SUBJECTIVE: CC: Domingo Cerda is an 32 year old woman who presents for preventive health visit. Healthy Habits: Answers for HPI/ROS submitted by the patient on 01/20/2018 Annual Exam: Frequency of exercise:: None Getting at least 3 servings of Calcium per day:: Yes Diet:: Other Taking medications regularly:: Yes Medication side effects:: Not applicable, None Bi-annual eye exam:: NO Dental care twice a year:: NO Sleep apnea or symptoms of sleep apnea:: None Positive for the following: nervous/anxious, frequency, headaches, weakness Negative for the following: abdominal pain, Blood in stool, Blood in urine, chest pain, chills, congestion, constipation, cough, diarrhea, dizziness, ear pain, eye pain, fever, genital sores, hearing loss, heartburn, arthralgias, joint swelling, peripheral edema, mood changes, myalgias, nausea, dysuria, palpitations, Skin sensation changes, sore throat, urgency, rash, shortness of breath, visual disturbance pelvic pain: No vaginal bleeding: No vaginal discharge: No tenderness: No breast mass: No breast discharge: No If you checked off any problems, how difficult have these problems made it for you to do your work, take care of things at home, or get along with other people?: Extremely difficult PHQ9 TOTAL SCORE: 21 Feeling dizzy, having headaches - has been very inconsistent with meds. 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 Notes BP has been quite high. S/p gastric bypass, has not been seen back at bariatric for about 2 years. Today's PHQ-2 Score: PHQ-2 (??1998 Pfizer) 06/13/2017 Q1: Little interest or pleasure in doing things 3 Q2: Feeling down, depressed or hopeless 2 PHQ-2 Score 5 Abuse: Current or Past(Physical, Sexual or Emotional)- No Do you feel safe in your environment? Yes Social History Tobacco Use ??? Smoking status: Current Every Day Smoker Packs/day: 0.50 Years: 6.00 Pack years: 3.00 Last attempt to quit: 05/12/2011 Years since quittin.6 ??? Smokeless tobacco: Never Used Substance Use Topics ??? Alcohol use: Yes Alcohol/week: 1.2 - 1.8 oz Types: 2 - 3 Standard drinks or equivalent per week If you drink alcohol do you typically have >3 drinks per day or >7 drinks per week? No Reviewed orders with patient. Reviewed health maintenance and updated orders accordingly - Yes Mammogram not appropriate for this patient based on age. Pertinent mammograms are reviewed under the imaging tab. History of abnormal Pap smear: NO - age 30- 65 PAP every 3 years recommended Reviewed and updated as needed this visit by clinical staff Reviewed and updated as needed this visit by Provider ROS: CONSTITUTIONAL: NEGATIVE for fever, chills, change in weight INTEGUMENTARU/SKIN: NEGATIVE for worrisome rashes, moles or lesions EYES: NEGATIVE for vision changes or irritation ENT: NEGATIVE for ear, mouth and throat problems RESP: NEGATIVE for significant cough or SOB BREAST: NEGATIVE for masses, tenderness or discharge CV: NEGATIVE for chest pain, palpitations or peripheral edema GI: NEGATIVE for nausea, abdominal pain, heartburn, or change in bowel habits : NEGATIVE for unusual urinary or vaginal symptoms. Periods are regular. MUSCULOSKELETAL: NEGATIVE for significant arthralgias or myalgia NEURO: NEGATIVE for weakness, or paresthesias, does c/o dizziness and MALDONADO. PSYCHIATRIC: NEGATIVE for changes in mood or affect OBJECTIVE: There were no vitals taken for this visit. EXAM: GENERAL: healthy, alert and no distress EYES: [...] hepatosplenomegaly, no masses and bowel sounds normal (female): normal female external genitalia, normal urethral meatus, vaginal mucosa pink, moist, well rugated, and normal cervix/adnexa/uterus without masses or discharge MS: no gross musculoskeletal defects noted, no edema SKIN: no suspicious lesions or rashes NEURO: Normal strength and tone, mentation intact and speech normal PSYCH: mentation appears normal, affect normal/bright Diagnostic Test Results: none ASSESSMENT/PLAN: ICD-10-CM 1. Routine general medical examination at a health care facility Z00.00 CBC with platelets Lipid panel reflex to direct LDL Fasting Comprehensive metabolic panel 2. Screening for malignant neoplasm of cervix Z12.4 Pap imaged thin layer screen with HPV - recommended age 30 - 65 years (select HPV order below) 3. Need for prophylactic vaccination and inoculation against influenza Z23 ADMIN VACCINE, FIRST [72461] HC FLU VAC PRESRV FREE QUAD SPLIT VIR 3+YRS IM [08033] 4. Essential hypertension I10 hydrochlorothiazide (HYDRODIURIL) 25 MG tablet lisinopril (PRINIVIL/ZESTRIL) 40 MG tablet Comprehensive metabolic panel 5. S/P gastric bypass Z98.84 CBC with platelets Vitamin B12 COUNSELING: Reviewed preventive health counseling, as reflected in patient instructions Regular exercise Vision screening BP Readings from Last 1 Encounters: 06/13/17 (!) 220/118 Estimated body mass index is 37.11 kg/m?? as calculated from the following: Height as of 06/13/17: 1.651 m (5' 5). Weight as of 06/13/17: 101.2 kg (223 lb). reports that she has been smoking. She has a 3.00 pack-year smoking history. she has never used smokeless tobacco. Counseling Resources: ATP IV Guidelines Pooled Cohorts Equation Calculator Breast Cancer Risk Calculator FRAX Risk Assessment ICSI Preventive Guidelines Dietary Guidelines for Americans, 2009 USDA's MyPlate ASA Prophylaxis Lung CA Screening Albert Samayoa MD [facility] SIVES SALES REPRESENTATIVE documented in this encounter Plan of Treatment Not on filedocumented as of this encounter Procedures Procedure Name Priority Date/Time Associated Diagnosis Comme nts HPV HIGH RISK TYPES Routine 01/20/2018 11:33 Routine general R esults for this DNA CERVICAL AM ABRASIVES SALES REPRESENTATIVE medical examination procedur e are in at a health care the results facility section. LIPID REFLEX TO DIRECT Routine 01/20/2018 11:32 Routine genera l Results for this LDL PANEL AM ABRASIVES SALES REPRESENTATIVE medical examination procedur e are in at a health care the results facility section. COMPREHENSIVE Routine 01/20/2018 11:32 Routine general Results for this METABOLIC PANEL AM ABRASIVES SALES REPRESENTATIVE medical examination proce dure are in at a health care the results facility section. Essential hypertension VITAMIN B12 Routine 01/20/2018 11:32 S/P gastric bypass Resul ts for this AM ABRASIVES SALES REPRESENTATIVE procedure are i n the results section. CBC WITH PLATELETS Routine 01/20/2018 11:32 Routine general Re sults for this AM ABRASIVES SALES REPRESENTATIVE medical examination procedur e are in at a health care the results facility section. S/P gastric bypass PAP IMAGED THIN LAYER Routine 01/20/2018 11:28 Screening for R esults for this SCREEN AM ABRASIVES SALES REPRESENTATIVE malignant neoplasm procedure are in of cervix the results section. documented in this encounter Results HPV High Risk Types DNA Cervical (01/20/2018 11:33 AM ABRASIVES SALES REPRESENTATIVE) [facility] gist Method Time Signature HPV Source SurePath 01/23/2018 [facility] 8:12 AM [facility] HPV 16 DNA Negative NEG^Negat 01/23/2018 [facility] 3:48 PM [facility] HPV 18 DNA Negative NEG^Negat 01/23/2018 [facility] 3:48 PM [facility] Other HR HPV Negative NEG^Negat 01/23/2018 [facility] 3:48 PM [facility] Final This 01/23/2018 [facility] patient's 3:48 PM [facility] sample is [facility] negative for CAMPUS HPV DNA. Comment: This test was developed and its performa nce characteristics determined by the [facility]. It has not been cleared or approved by the FDA. The laboratory is regulated under CLIA as qualified to perform high-compl exity testing. This test is used for clinical purposes. It should not be rega rded as investigational or for research. (Note) METHODOLOGY: ??The [employer] wilda 4800 syst em uses automated extraction, simultaneous amplification of HPV (L1 re gion) and beta-globin, ?? followed by ??real time detection of flu orescent labeled HPV and beta globin using specific oligonucleotide pr obes . The test specifically identifies types HPV 16 DNA and HPV 18 D NA while concurrently detecting the rest of the high risk type s (31, 33, 35, 39, 45, 51, 52, 56, 58, 59, 66 or 68). COMMENTS: ??This test is not intended fo r use as a screening device for women under age 30 with normal cervi nimisha cytology. ??Results should be correlated with cytologic and histolo gic findings. Close clinical followup is recommended. Specimen Description Cervical Cells 01/23/2018 8:1 2 AM ABRASIVES SALES REPRESENTATIVE [facility] Comment: [id number] Specimen Anatomical Collection Method Collection Time Receive d Time (Source) Location / / Volume Laterality 01/20/2018 11:33 01/20/2018 AM ABRASIVES SALES REPRESENTATIVE 11:38 AM ABRASIVES SALES REPRESENTATIVE Albert Samayoa MD LAB - BLOOD ORDERABLES Performing Organization Address City/State/ZIP Code Phon e Number [facility] [address] [place], [place] [id number] [place] [address] Comprehensive metabolic panel (01/20/2018 11:32 AM ABRASIVES SALES REPRESENTATIVE) athologist Signature Sodium 137 133 - 144 01/21/2018 [facility] mmol/L 9:05 AM [facility] Potassium 4.5 3.4 - 5.3 01/21/2018 [facility] mmol/L 9:05 AM [facility] Chloride 104 94 - 109 01/21/2018 [facility] mmol/L 9:05 AM [facility] Carbon Dioxide 28 20 - 32 01/21/2018 [facility] mmol/L 9:05 AM [facility] Anion Gap 5 3 - 14 01/21/2018 [facility] mmol/L 9:05 AM [facility] Glucose 81 70 - 99 01/21/2018 [facility] mg/dL 9:05 AM [facility] Comment: Fasting specimen Urea Nitrogen 7 7 - 30 mg/dL 01/21/2018 9:05 AM [facility] Creatinine 0.85 0.52 - 1.04 mg/dL 01/21/2018 9:05 AM CS T [facility] GFR Estimate 77 >60 mL/min/1.7m2 01/21/2018 9:[address] [facility] Comment: Non GFR Calc GFR Estimate If >90 >60 mL/min/1.7m2 01/21/2018 9:05 A M [facility] Black [facility] Comment: GFR Calc Calcium 9.1 8.5 - 10.1 01/21/2018 9:05 AM [facility] mg/dL [facility] Bilirubin Total 0.5 0.2 - 1.3 mg/dL 01/21/2018 9:05 AM [facility] Albumin 3.8 3.4 - 5.0 g/dL 01/21/2018 9:05 AM [facility] Protein Total 7.8 6.8 - 8.8 g/dL 01/21/2018 9:05 AM [facility] Alkaline Phosphatase 96 40 - 150 U/L 01/21/2018 9:05 AM [facility] ALT 26 0 - 50 U/L 01/21/2018 9:05 AM [facility] AST 21 0 - 45 U/L 01/21/2018 9:05 AM [facility] Specimen Anatomical Collection Method Collection Time Receive d Time (Source) Location / / Volume Laterality Blood specimen 01/20/2018 11:32 8 (specimen) AM ABRASIVES SALES REPRESENTATIVE 11:37 AM ABRASIVES SALES REPRESENTATIVE Albert Samayoa MD LAB - BLOOD ORDERABLES Performing Organization Address City/State/ZIP Code Phon e Number [facility] [address] [place] [address] Lipid panel reflex to direct LDL Fasting (01/20/2018 11:32 AM ABRASIVES SALES REPRESENTATIVE) P athologist Signature Cholesterol 156 <200 mg/dL 01/21/2018 [facility] 9:05 AM ABRASIVES SALES REPRESENTATIVE [facility] Triglycerides 141 <150 mg/dL 01/21/2018 [facility] 9:05 AM [facility] Comment: Fasting specimen HDL Cholesterol 76 >49 mg/dL 01/21/2018 9:05 AM ABRASIVES SALES REPRESENTATIVE [facility] LDL Cholesterol 52 <100 mg/dL 01/21/2018 9:05 AM ABRASIVES SALES REPRESENTATIVE [facility] Comment: Desirable: <100 mg/dl Non HDL Cholesterol 80 <130 mg/dL 01/21/2018 9:05 AM ABRASIVES SALES REPRESENTATIVE [facility] Specimen Anatomical Collection Method Collection Time Receive d Time (Source) Location / / Volume Laterality Blood specimen 01/20/2018 11:32 8 (specimen) AM ABRASIVES SALES REPRESENTATIVE 11:37 AM ABRASIVES SALES REPRESENTATIVE Albert Samayoa MD LAB - BLOOD ORDERABLES Performing Organization Address City/State/ZIP Code Phon e Number [facility] [address] [place] [address] (ABNORMAL) Vitamin B12 (01/20/2018 11:32 AM ABRASIVES SALES REPRESENTATIVE) athologist Signature Vitamin B12 1,279 (H) 193 - 986 01/20/2018 [facility] pg/mL 7:18 PM ABRASIVES SALES REPRESENTATIVE [facility] Specimen Anatomical Collection Method Collection Time Receive d Time (Source) Location / / Volume Laterality Blood specimen 01/20/2018 11:32 8 (specimen) AM ABRASIVES SALES REPRESENTATIVE 11:37 AM ABRASIVES SALES REPRESENTATIVE Albert Samayoa MD LAB - BLOOD ORDERABLES Performing Organization Address City/State/ZIP Code Phon e Number [facility] [address] [place] [address] [facility] (ABNORMAL) CBC with platelets (01/20/2018 11:32 AM ABRASIVES SALES REPRESENTATIVE) athologist Signature WBC 7.0 4.0 - 11.0 01/20/2018 [facility] 10e9/L 11:53 AM [facility] RBC Count 5.24 (H) 3.8 - 5.2 01/20/2018 [facility] 10e12/L 11:53 AM [facility] Hemoglobin 14.2 11.7 - 01/20/2018 [facility] 15.7 g/dL 11:53 AM [facility] Hematocrit 45.8 35.0 - 01/20/2018 [facility] 47.0 % 11:53 AM [facility] MCV 87 78 - 100 01/20/2018 [facility] fl 11:53 AM ABRASIVES SALES REPRESENTATIVE [facility] MCH 27.1 26.5 - 01/20/2018 [facility] 33.0 pg 11:53 AM [facility] MCHC 31.0 (L) 31.5 - 01/20/2018 [facility] 36.5 g/dL 11:53 AM [facility] Comment: Results confirmed by repeat alea t RDW 15.7 (H) 10.0 - 15.0 % 01/20/2018 11:53 AM [facility] Platelet Count 233 150 - 450 01/20/2018 11:53 AM [facility] 10e9/L [facility] Specimen Anatomical Collection Method Collection Time Receive d Time (Source) Location / / Volume Laterality Blood specimen 01/20/2018 11:32 8 (specimen) AM ABRASIVES SALES REPRESENTATIVE 11:37 AM ABRASIVES SALES REPRESENTATIVE Albert Samayoa MD LAB - BLOOD ORDERABLES Performing Organization Address City/State/ZIP Code Phon e Number [facility] [address] [place] [address] Pap imaged thin layer screen with HPV - recommended age 30 - 65 years (select HPV order below) (01/20/2018 11:28 AM ABRASIVES SALES REPRESENTATIVE) Component Value Ref Test Analysis Performed At [facility] Range Method Time Signature PAP NIL COPATH Copath Report COPATH Patient Name: DOMINGO CERDA MR#: [id number] Specimen #: [id number] Collected: 01/20/2018 Received: 01/21/2018 Reported: 01/22/2018 14:51 Ordering Phy(s): ALBERT SAMAYOA For improved result formatting, select 'View Enhanced Report Format' under Linked Documents section. SPECIMEN/STAIN PROCESS: Pap imaged thin layer prep screening (Surepath, FocalPoint w ith guided screening) ? Pap-Cyto x 1, HPV ordered x 1 SOURCE: Cervical, endocervical ---- Pap imaged thin layer prep screening (Surepath, FocalPoint with guided screening) SPECIMEN ADEQUACY: Satisfactory for evaluation. -Transformation zone component absent. CYTOLOGIC INTERPRETATION: Negative for intraepithelial lesion or malignancy Electronically signed out by: KINGA Velez (ASCP) Processed and screened at [facility] Ce amanda [facility] CLINICAL HISTORY: Papanicolaou Test Limitations: ??Cervical cytology is a sc reening test with limited sensitivity; regular screening is critical for cancer prevention; Pap tests are p rimarily effective for the diagnosis/prevention of squamous cell carcinoma, not adenocarcinomas or other cancer s. TESTING LAB LOCATION: [facility] [address], [place] ??[address] COLLECTION SITE: Client: ??[facility] Location: [facility] (R) Specimen (Source) Anatomical Collection Method Collection Time Re ceived Time Location / / Volume Laterality Cytologic 01/20/2018 11:28 01/21/2018 material AM ABRASIVES SALES REPRESENTATIVE 10:11 AM ABRASIVES SALES REPRESENTATIVE (specimen) Albert Samayoa MD LAB - OPTIME CLINICAL SPECIM EN Performing Organization Address City/State/ZIP Code Phon e Number [facility] documented in this encounter Visit Diagnoses Diagnosis Routine general medical examination at a health care facility - Primary Screening for malignant neoplasm of cerv ix Screening for malignant neoplasm of the cervix Need for prophylactic vaccination and in oculation against influenza Essential hypertension Unspecified essential hypertension S/P gastric bypass Bariatric surgery status documented in this encounter Additional Health Concerns Assessment Noted Time PHQ-9 Depression Total Score: 21 01/21/2018 7:15 AM CS T documented as of this encounter Care Teams Procurement Officer Relationship Specialty Start Date End Date Francisco Javier Pascual MD PCP - General Family Practice 02/11/14 07/07/19 Albert Samayoa MD PCP - Assigned PCP 05/16/17 04/14/18 [id number] [address] [place] [id number] Albert Samayoa MD Assigned PCP 05/16/17 07/17/19 [id number] [address] [place] [id number] documented as of this encounter
--- OUTSIDE RECORDS SUMMARY | 2021-12-10 21:21 | XMS_ITS | Encounter Summary ---
:1985 Author Organization [facility] Address [address] [place] [address] Care Team Providers Name Role Phone Francisco Javier Pascual MD Primary Care Provider Reggie Sarabia MD Unavailable Reggie Sarabia MD Unavailable Reason for Visit Reason Onset Date Comments No Show No Show 02/06/2018 Encounter Details Date Type Department Care Team Description 02/06/2018 Office Visit [facility] Reggie Sarabia NO SHOW ( Primary Dx) [place] [address] [place] [address] [facility], [address] [place] [address] [place], [place] [phone] (Wo rk) [address] [phone] Social History Tobacco Use Types Packs/Day Years [...] 05/22/2021 relatives? How often do you attend zoroastrianism or advent Never 05/22/2021 services? Do you belong to any clubs or organizations such as No 05/22/2021 zoroastrianism groups, unions, fraternal or athletic groups, or [...] encounter Progress Notes Vivian Street CMA - 02/06/2018 11:40 AM CST No show OR RELIABILITY ENGINEER documented in this encounter Plan of Treatment Not on filedocumented as of this encounter Visit Diagnoses Diagnosis NO SHOW - Primary documented in this encounter Additional Health Concerns Assessment Noted Time PHQ-9 Depression Total Score: 21 01/21/2018 7:15 AM CS T documented as of this encounter Care Teams Receiving Inspector Relationship Specialty Start Date End Date Francisco Javier Pascual MD PCP - General Family Practice 02/11/14 07/07/19 Reggie Sarabia MD PCP - Assigned PCP 05/16/17 04/14/18 [id number] [address] [place] [id number] Reggie Sarabia MD Assigned PCP 05/16/17 07/17/19 [id number] [address] [place] [id number] documented as of this encounter
--- OUTSIDE RECORDS SUMMARY | 2021-12-10 21:22 | XMS_ITS | Encounter Summary ---
:1985 Author Organization [place] Address [address] [place] [address] Care Team Providers Name Role Phone Unavailable Primary Care Provider Unavailable Encounter Details Date Type Department Care Team Description 07/10/2007 Operative Report [facility] Valentin Heath, (Alteration Tailor Apprentice) [facility] [place] [address] (Wo rk) Social History Tobacco Use Types Packs/Day Years Used Date Smoking Tobacco: Never Assessed Alcohol Habits Answer Date Recorded How often [...] often do you attend oriental orthodox or christianity Never 05/22/2021 services? Do you belong to [...] documented as of this encounter Progress Notes Valentin Heath - 07/14/2007 8:10 PM CDT FINAL PREOPERATIVE DIAGNOSIS: Term , previous section. POSTOPERATIVE DIAGNOSIS: Term , previous section. PROCEDURE: Repeat low-transverse section, delivery of healthy male, 6 pounds 5 ounces. DESCRIPTION OF PROCEDURE: Under suitable spinal anesthesia, the abdomen was surgically prepared anddraped and Aguiar catheter sterilely placed in the bladder. Abdomen was entered through a repeat low-transverse incision carried through skin and subcutaneous tissue. The fascia was incised and opened tr ansversely, but noted to be extremely scarred. Also, considerable difficulty, the rectus muscles were from the fascia and ultimately the peritoneum was opened transversely. There were no intraperitoneal adhesions. The transverse incision was made in the lower uterine segment above the level of the bladder flap, opening up the incision transversely in the uterus. Vacuum extractor was appliedfollowed by delivery of healthy-appearing squalling infant, baby boy, 6 pounds 5 ounces. Placenta and membranes delivered spontaneously, apparently intact. Fundus was checked and found to be free of secundines. Finger was placed through the cervix for lochial drainage. Lower uterine segment was repaired in one layer using running 0 Monocryl, which proved to be anatomically and hemostatically adequate. Abdomen was closed using running 2-0 Vicryl in the fascia, 3-0 Vicryl in the subcutaneous tissue and dissolvable subcuticular cruzito. The patient tolerated the procedure well and was sent to the recovery area in apparently good condition. Estimated blood loss was 200 cc. Electronically signed on 07/14/2007 20:10 by VALENTIN HEATH MD MT: [id number] Name: DOMINGO MATAMOROS Account: [id number] : 1985 Procedure Date: 07/10/2007 Document: [id number] cc: [facility] documented in this encounter Plan of Treatment Not on filedocumented as of this encounter Visit Diagnoses Not on filedocumented in this encounter
--- OUTSIDE RECORDS SUMMARY | 2021-12-10 21:22 | XMS_ITS | Encounter Summary ---
:1985 Author Organization [place] Address [address] [place] [address] Care Team Providers Name Role Phone Unavailable Primary Care Provider Unavailable Encounter Details Date Type Department Care Team Description 07/09/2007 Historic Results INTERFACED [place] [address] (Wo rk) Social History Tobacco Use Types [...] 05/22/2021 relatives? How often do you attend worship or catholic Never 05/22/2021 services? Do you belong to any clubs or organizations such as No 05/22/2021 worship groups, unions, fraternal or athletic groups, or [...] Name Priority Date/Time Associated Diagnosis Comme nts ABO/RH TYPE AND Routine 07/09/2007 4:40 PM Result s for this SCREEN CDT procedure are i n the results section. documented in this encounter Results ABO/Rh type and screen (07/09/2007 4:40 PM CDT) [facility] ABO O MISYS RH(D) Pos MISYS Antibody Neg MISYS Screen Specimen 07/12/2007 MISYS Expires Specimen Anatomical Collection Method Collection Time Receive d Time (Source) Location / / Volume Laterality 07/09/2007 4:40 PM 8 4:36 CDT PM CDT Valentin Heath MD LAB - BLOOD BANK TEST ORDER Performing Organization Address City/State/ZIP Code Phon e Number MISYS documented in this encounter Visit Diagnoses Not on filedocumented in this encounter
--- OUTSIDE RECORDS SUMMARY | 2021-12-10 21:22 | XMS_ITS | Encounter Summary ---
:1985 Author Organization [place] Address [address] [facility] [place] [address] Care Team Providers Name Role Phone Francisco Javier King MD Primary Care Provider Reason for Referral Nutrition - Closed Specialty Diagnoses / Procedures Referred By Contact Refer red To Contact Diagnoses Morbid obesity (H) Prema Hall PA-C [address] [place] [address] Referral ID Status Reason Start Date Expiration Date Visits Requ ested Visits Authorized [id number] Closed 07/21/2014 01/17/2015 1 1 Reason for Visit Reason Comments Eval/Assessment Evaluation with PA and Diet. Pt has [employer] insurance and is interested in gastric bypass. Encounter Details Date Type Department Care Team Description 07/21/2014 Office Visit [facility] Prema Hall Morbid obesity (H) (Primary Dx); Surgical Weight Loss Har[facility] Foster Essential hypertension; Clinic [place] [address] Iron deficiency anemia secon camilo to heavy menses; [address] Major depressive disorder, single episod e, moderate (H); [facility] [place] [address] Left knee pain; [address] Screening for iron deficienc y anemia; [place] [phone] (Work) Screening for other and unspecified endo crine, nutritional, metabolic, and immunity disorders [phone] Social History Tobacco Use Types Packs/Day Years [...] How often do you attend adventist or hindu Never 05/22/2021 services? Do you belong to [...] Sign Reading Time Taken Comments Blood Pressure 118/88 07/21/2014 1:05 PM CDT Pulse 79 07/21/2014 1:05 PM CDT Temperature 36.6 ??C (97.9 ??F) 07/21/2014 1:05 PM CDT Respiratory Rate 16 07/21/2014 1:05 PM CDT Oxygen Saturation 98% 07/21/2014 1:05 PM CDT Inhaled Oxygen Concentration - - Weight 121.7 kg (268 lb 3.2 oz) 07/21/2014 1:05 PM CDT Height 162.6 cm (5' 4) 07/21/2014 1:05 PM CDT Body Mass Index 46.04 07/21/2014 1:05 PM CDT documented in this encounter Patient Instructions Patient InstructionsPrema Hall PA-C - 07/21/2014 1:46 PM CDT Please refer to your task list created today at your appointment. Make appointment to return to clinic in 1 month to see the network security consultant. Have initial labs drawn. Check in at the [facility] on the 1st floor if you would like to have your blood tests drawn today or call [phone] to make an appointment to have them drawn on another day. You may also get your blood drawn at your [facility] clinic. documented in this encounter Progress Notes Prema Hall PA-C - 07/21/2014 1:54 PM CDT [facility] [address] [place] [address] Date: 07/21/2014 RE: ?DOMINGO??IDALIA MR#: [id number] : 1985 Dear??FRANCISCO JAVIER KING MD [facility] I had the pleasure of seeing your patient, DOMINGO??IDALIA, to evaluate her??obesity and consider her??for possible weight loss surgery.?? As you know, DOMINGO??is 28??years old. She??has been overweightsince puberty. She??has been morbidly obese for the last??10??years and has been unable to achieve long-term success with weight loss attempts, such as: Calorie Counting,??Helen.?? Comorbidities of obesity from her??past medical history include: High blood pressure??and Low back pain. The symptoms related to her??obesity include Excessive menstrual bleeding, Irregular menstrual cycles, Back pain, Ankle or foot pain, Knee pain, Shortness of Breath with activity, Loud snoring, Varicose veins. The following ADLs are hindered due to her??weight: Not enough energy to complete routine daily tasks, Shortness of breath with little activity, Lower body dressing. Non-Obesity Related Past Medical History: Hx of gestational diabetes Depression Anxiety Acne Anemia secondary to heavey menses in Mar. Past Surgical History: x 2 Family History: Father- High blood pressure;Obese Mother- Diabetes;High blood pressure;Obese MGM- High blood pressure Sibling 1- High blood pressure Sibling 2- Obese Sibling 3- None Sibling 4- High blood pressure;Obese Sibling 5- None Social History: She is .?? 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 ETOH: Weekly or less, 1-2 drinks social. Illicit Drug Use: None Tobacco Use:??No Quit smoking in 2011. Support system:??, mother, friends and other family ??will be available to help the patient in the early post op period.??, mother, friends and family ??is who the patient can count on for support throughout??her??weight loss journey. A 14 point review of system shows: Pulmonary: Shortness of Breath with activity,chronic cough since starting lisinopril Excessive menstrual bleeding, Irregular menstrual cycles, Gastrointestinal: Diarrhea- has improved but gets about 4x a week. HEENT: Headaches , Neurologic: Dizziness, Musculoskeletal: Back pain, Ankle or foot pain, Knee pain, Psychological: Anxiety, Depression, Pulmonary: Snoring, Skin: Varicose veins Vital Signs: Ht: 64??in, Wt: 268 ??lbs., BMI: 46.0, BP: 118 / 88 , Pulse: 79, RR: 16, Temp: 97.9 PHYSICAL EXAMINATION: GENERAL: obese, good health, good development, and normal affect., Alert and oriented x3. NAD HEENT: Trachea midline, Neck supple without lymphadenopathy, thyroidmegaly, or mass., Oral dentitionadequate for chewing CARDIOVASCULAR: Regular rate and rhythm, No murmurs, rubs or gallops RESPIRATORY: Good breath sounds, Lung sounds clear to auscultation bilaterally GASTROINTESTINAL: Obese, Soft, Nontender, Non-distended, No organomeagly or masses LOWER EXTREMITIES: No LE edema. No cyanosis, ulceration, or chronic venous stasis MUSCULOSKELETAL: Normal gait, Moves all 4 extremities equal and strong NEUROLOGIC: cranial nerves II-XII grossly intact SKIN: No intertriginous irritation or rash Labs: [facility] everywhere labs CBC WITH AUTO DIFFERENTIAL (05/25/2014 3:32 PM CDT) CBC WITH AUTO DIFFERENTIAL (05/25/2014 3:32 PM CDT) Component Value Range WHITE BLOOD COUNT 6.7 4.5-11.0 thou/cu mm RED BLOOD COUNT 4.34 4.00-5.20 mil/cu mm HEMOGLOBIN 11.5 (L) 12.0-16.0 g/dL HEMATOCRIT 37.3 33.0-51.0 % MCV 86 80-100 fL MCH 26.5 26.0-34.0 pg MCHC 30.8 (L) 32.0-36.0 g/dL RDW 14.9 11.5-15.5 % PLATELET COUNT 320 140-440 thou/cu mm MPV 9.2 6.5-11.0 fL NEUTROPHILS 64.6 42.0-72.0 % LYMPHOCYTES 28.4 20.0-44.0 % MONOCYTES 3.9 <12.0 % EOSINOPHILS 2.8 <8.0 % BASOPHILS 0.3 <3.0 % ABSOLUTE NEUTROPHILS 4.3 1.7-7.0 thou/cu mm ABSOLUTE LYMPHOCYTES 1.9 0.9-2.9 thou/cu mm ABSOLUTE MONOCYTES 0.3 <0.9 thou/cu mm ABSOLUTE EOSINOPHILS 0.2 <0.5 thou/cu mm ABSOLUTE BASOPHILS 0.0 <0.3 thou/cu mm CBC WITH AUTO DIFFERENTIAL (05/25/2014 3:32 PM CDT) Specimen Blood Back to top of Results from 04/20/2014 to 07/21/2014 LIPASE (05/25/2014 3:32 PM CDT) LIPASE (05/25/2014 3:32 PM CDT) Component Value Range LIPASE 12.5 8.0-78.0 IU/L LIPASE (05/25/2014 3:32 PM CDT) Specimen Blood Back to top of Results from 04/20/2014 to 07/21/2014 HEPATIC FUNCTION PANEL (05/25/2014 3:32 PM CDT) HEPATIC FUNCTION PANEL (05/25/2014 3:32 PM CDT) Component Value Range ALBUMIN 3.8 3.5-5.2 g/dL PROTEIN,TOTAL 7.4 6.0-8.0 g/dL GLOBULIN 3.6 2.0-3.7 g/dL A/G RATIO 1.1 1.0-2.0 BILIRUBIN,TOTAL 0.2 0.2-1.2 mg/dL BILIRUBIN,DIRECT 0.1 0.1-0.5 mg/dL BILIRUBIN,INDIRECT 0.1 (L) 0.2-0.8 mg/dL ALK PHOSPHATASE 102 50-136 IU/L ALT (SGPT) 25 8-45 IU/L AST (SGOT) 25 2-40 IU/L HEPATIC FUNCTION PANEL (05/25/2014 3:32 PM CDT) Specimen Blood Back to top of Results from 04/20/2014 to 07/21/2014 BASIC METABOLIC PANEL (05/25/2014 3:32 PM CDT) BASIC METABOLIC PANEL (05/25/2014 3:32 PM CDT) Component Value Range SODIUM 138 135-145 mmol/L POTASSIUM 3.8 3.5-5.0 mmol/L CHLORIDE 102 98-110 mmol/L CO2,TOTAL 28 21-31 mmol/L ANION GAP 8 5-18 GLUCOSE 84 65-100 mg/dL CALCIUM 9.9 8.5-10.5 mg/dL BUN 12 8-25 mg/dL CREATININE 0.83 0.57-1.11 mg/dL BUN/CREAT RATIO 14 10-20 GFR if >60 >60 ml/min/1.73m2 GFR if not >60 In summary, DOMINGO??is??morbidly obese??with a body mass index of 46.0??kg/m2 and the comorbidities stated above. She??attended an informational seminar and is a candidate for Laparoscopic Farhat-en-Y Gastric Bypass. She??will have to complete the following pre-requisites: Received weight loss goal of 5 lb prior to surgery. Achieve clearance from dietitian to see surgeon. Have preoperative laboratory tests drawn. Psychological Evaluation with MMPI and clearance for weight loss surgery. See your PCP regarding your chronic cough- may be due to lisinopril. Today in the office we discussed gastric bypass surgery. Preoperative, perioperative, and postoperative processes, management, and follow up were addressed. Risks and benefits were outlined including the risk of , PE, DVT, ulcer, N/V, stricture, hernia, wound infection, and vitamin deficiencies. A ll questions were answered. A goal sheet and support group handout were given to the patient. Once the patient has completed the requirements set forth in paragraph one, and there are no furtherrecommendations, she??will be allowed to see the surgeon of her??choice for consultation on the Laparoscopic Farhat-en-Y Gastric Bypass??surgery. Patient verbalizes understanding of the process to surgery and expectations for the postoperative period including the need for lifelong lifestyle changes, vitamin supplementation, and laboratory monitoring. Thank you for allowing us to participate in her??care. Sincerely, ?? Prema Hall PA-C At [facility] we are committed to providing you exceptional care. Our surgeons specialize inperforming the following minimally invasive weight-loss surgeries: Farhat-en-Y gastric bypass Laparoscopic adjustable gastric band Sleeve gastrectomy If you would like to review aspects of our weight loss surgery program, please visit our website at [email or web address]. If you have any questions, please do not hesitate to contact us at [phone].? documented in this encounter Miscellaneous Notes Addendum Note - Prema Hall PA-C - 07/21/2014 4:22 PM CDT Addended by: RPEMA HALL on: 07/21/2014 04:22 PM Modules accepted: Orders, SmartSet documented in this encounter Plan of Treatment Scheduled Referrals Name Type Priority Associated Diagnoses Order S [facility] NUTRITION REFERRAL Referral Routine Morbid obesity (H) Ord ered: 07/21/2014 documented as of this encounter Results (ABNORMAL) CBC with platelets (07/21/2014 3:15 PM CDT) Analysis Performed At Patho logist Time Signature WBC 8.1 4.0 - 11.0 [place] 10e9/L [facility] RBC Count 4.56 3.8 - 5.2 [place] 10e12/L [facility] Hemoglobin 12.1 11.7 - [place] 15.7 g/dL [facility] Hematocrit 39.3 35.0 - [place] 47.0 % [facility] MCV 86 78 - 100 [place] fl [facility] MCH 26.5 26.5 - [place] 33.0 pg [facility] MCHC 30.8 (L) 31.5 - [place] 36.5 g/dL [facility] RDW 15.8 (H) 10.0 - [place] 15.0 % [facility] Platelet Count 294 150 - 450 [place] 10e9/L [facility] Specimen Anatomical Collection Method Collection Time Receive d Time (Source) Location / / Volume Laterality Blood specimen 07/21/2014 3:15 PM 015 3:16 (specimen) CDT PM CDT Prema Cristian Hall PA-C LAB - BLOOD ORDERABLES Performing Organization Address City/State/ZIP Code Phon e Number M [facility] [address] [place] [address] [phone] [facility] [address] [place] [address], [place] [phone] INR (07/21/2014 3:15 PM CDT) athologist Signature INR 0.97 0.86 - 1.14 [facility] Specimen Anatomical Collection Method Collection Time Receive d Time (Source) Location / / Volume Laterality Blood specimen 07/21/2014 3:15 PM 015 3:16 (specimen) CDT PM CDT Prema Cristian Hall PA-C LAB - BLOOD ORDERABLES Performing Organization Address City/State/ZIP Code Phon e Number M [facility] [address] [place] [address] [phone] [facility] [address] [place] [address], [place] [phone] Hemoglobin A1c (07/21/2014 3:15 PM CDT) athologist Signature Hemoglobin A1C 5.5 4.3 - 6.0 [facility] Specimen Anatomical Collection Method Collection Time Receive d Time (Source) Location / / Volume Laterality Blood specimen 07/21/2014 3:15 PM 015 3:16 (specimen) CDT PM CDT Prema Cristian Hall PA-C LAB - BLOOD ORDERABLES Performing Organization Address City/State/ZIP Code Phon e Number M [facility] [address] [place] [address] [phone] [facility] [address] [place] [address], [place] [phone] documented in this encounter Visit Diagnoses Diagnosis Morbid obesity (H) - Primary Morbid obesity Essential hypertension Unspecified essential hypertension Iron deficiency anemia secondary to heav y menses Iron deficiency anemia secondary to bloo d loss (chronic) Major depressive disorder, single episod e, moderate (H) Major depressive disorder, single episod e, moderate Left knee pain Pain in joint, lower leg Screening for iron deficiency anemia Screening for other and unspecified endo crine, nutritional, metabolic, and immunity disorders documented in this encounter Care Teams Police Pilot Relationship Specialty Start Date End Date Francisco Javier King MD PCP - General Family Practice 02/11/14 07/07/19 documented as of this encounter
--- OUTSIDE RECORDS SUMMARY | 2021-12-10 21:22 | XMS_ITS | Encounter Summary ---
:1985 Author Organization [place] Address [address] [place] [address]. [place] [address] Care Team Providers Name Role Phone Francisco Javier Pascual MD Primary Care Provider Reason for Visit Reason Onset Date Comments Clinic Care Coordination - Follow-up 01/26/2015 Encounter Details Date Type Department Care Team Description 01/26/2015 Telephone [facility] Emma Roland, [facility] C are Coordination Surgical Weight Loss KATERYNA Dotson - Follow-up Clinic [facility] WEIGHT LOSS [address] [facility] [address] [facility] [address] [place] [address] [place], [place] [address] Social History Tobacco Use Types Packs/Day Years [...] 05/22/2021 relatives? How often do you attend yazidi or judaism Never 05/22/2021 services? Do you belong to any clubs or organizations such as No 05/22/2021 yazidi groups, unions, fraternal or athletic groups, or [...] this encounter Miscellaneous Notes Telephone Encounter - Nila Aceves, KATERYNA - 01/26/2015 3:41 PM SENIOR SALES ASSISTANT LM for patient to call clinic. When she returns call, please let her know that we still need a documented weight. Her goal is 263.2 - 265 lb. Nila Carter MS, RD, RN Patient returned call - she is at 267 per her preop H&P. She is putting herself on a liquid diet. She is working out 4-5 times per week at 45-60 doing cardio and weights. Discussed not doing a liquid diet as it may be holding on to weight. She will come to clinic Friday02/01/15 for a weight. She will have her labs done 02/06/15. Nila Carter MS, RD, RN OR SALES ASSISTANT documented in this encounter Plan of Treatment Not on filedocumented as of this encounter Visit Diagnoses Not on filedocumented in this encounter Care Teams Shrimp Trawler Relationship Specialty Start Date End Date Francisco Javier Pascual MD PCP - General Family Practice 02/11/14 07/07/19 documented as of this encounter
--- OUTSIDE RECORDS SUMMARY | 2021-12-10 21:22 | XMS_ITS | Encounter Summary ---
:1985 Author Organization [place] Address [address] [place] [address] Care Team Providers Name Role Phone Unavailable Primary Care Provider Unavailable Encounter Details Date Type Department Care Team Description 10/13/2010 Results Only [facility] Benjie Johnson, Hospital Results MD EMERGENCY PHYSIC RITCHIE LEVIN [address] [place], [place] [address] (Wo rk) Social History [...] 05/22/2021 relatives? How often do you attend presybeterian or temple Never 05/22/2021 services? Do you belong to any clubs or organizations such as No 05/22/2021 presybeterian groups, unions, fraternal or athletic groups, or [...] Procedure Name Priority Date/Time Associated Comments Diagnosis US PELVIC Routine 10/13/2010 8:16 PM Results f or this TRANSABDOMINAL AND CDT procedure are in TRANSVAGINAL the results section. documented in this encounter Results US Pel W/Trans* (10/13/2010 8:16 PM CDT) Anatomical Region Laterality Modality Abdomen/Pelvis Other Specimen (Source) Anatomical Collection Method Collection Time Re ceived Time Location / / Volume Laterality 10/13/2010 8:16 PM CDT Impressions 10/13/2010 9:23 PM CDT ULTRASOUND PELVIS WITH TRANSVAGINAL IMAG ING ??Oct 13, 2010 8:16:00 PM HISTORY: Lower abdominal pain. Evaluate intrauterine device. COMPARISON: None. TECHNIQUE: Endovaginal imaging was also performed to better evaluate the endometrial cavity. FINDINGS: The uterus is anteflexed measu ring 10.8 x 3.7 x 6.3 cm in long axis, short axis and transverse dim ensions respectively. Uterine echotexture is diffusely heterogeneous. An intrauterine device is present within a usual location in the e ndometrial cavity. The endometrial stripe measure 0.6 cm in thi ckness. The right and left ovaries measure 5.6 x 4.5 x 3.0 cm and 3 .9 x 2.4 x 2.0 cm respectively. A 3.0 x 2.8 x 1.4 cm cyst is present within the right ovary, likely a functional cyst. The lef t ovary is unremarkable. No adnexal masses. No free fluid in the pel vis. IMPRESSION: 1. An intrauterine device is present wit hin a usual location in the endometrial cavity. 2. Unremarkable appearance of the uterus . 3. No free fluid in the pelvis. Benjie Johnson MD IMG US ORDERABLES documented in this encounter Visit Diagnoses Not on filedocumented in this encounter
--- OUTSIDE RECORDS SUMMARY | 2021-12-10 21:22 | XMS_ITS | Encounter Summary ---
:1985 Author Organization [facility] Address [facility] [place] [address] Care Team Providers Name Role Phone Francicso Javier Pascual MD Primary Care Provider Reason for Visit Auth/Cert - Closed Specialty Diagnoses / Procedures Referred By Contact Refer red To Contact Surgery Diagnoses MORBID OBESITY Sh Periop Services Procedures COMBINED LAPAROSCOPIC BYPASS GASTRIC, CHOLECYSTECTOMY [address] [place] [address] Phone: Referral ID Status Reason Start Date Expiration Date Visits Requ ested Visits Authorized [id number] Closed 1 1 Encounter Details Date Type Department Care Team Description 02/09/2015 Surgery [facility] Ammon Randall MD LAPAROSCOPIC BYPASS [facility] [address] [place] [facility] Services [address] [place] [address] [address] [place] [address] [phone] Surgery Details Date/Time Status Location OR Service Patient Case Class Case Tr auma Class Type Case? 02/09/15 7:30 Posted OR OR M 41 General Surgery AM Admit Panel 1 Procedure LRB Anes Op Region Wound Class Commen ts LAPAROSCOPIC BYPASS N/A General Abdomen I-Clean LAPA ROSCOPIC BYPASS GASTRIC GASTRIC Surgeon Surgeon Role Service Panel Ammon Randall MD Primary General 1 Jacinto Galindo PA-C Assisting Mine Inspector Authorizati on 1 documented in this encounter Social History Tobacco [...] How often do you attend gnosticism or scientologist Never 05/22/2021 services? Do you [...] Sign Reading Time Taken Comments Blood Pressure 141/84 02/09/2015 11:15 AM STEAM ROLLER OPERATOR Pulse 72 02/09/2015 6:27 AM STEAM ROLLER OPERATOR Temperature 36 ??C (96.8 ??F) 02/09/2015 11:12 AM STEAM ROLLER OPERATOR Respiratory Rate 15 02/09/2015 11:15 AM STEAM ROLLER OPERATOR Oxygen Saturation 100% 02/09/2015 11:15 AM STEAM ROLLER OPERATOR Inhaled Oxygen Concentration - - Weight 119.3 kg (263 lb) 02/09/2015 6:27 AM STEAM ROLLER OPERATOR Height 165.1 cm (5' 5) 02/09/2015 6:27 AM STEAM ROLLER OPERATOR Body Mass Index 43.77 02/09/2015 6:27 AM STEAM ROLLER OPERATOR documented in this encounter Discharge Summaries Jacinto Galindo PA-C - 02/12/2015 9:09 AM CST [facility] Discharge Summary Tri Cerda Age: [age] year [...] Illness: Tri Cerda is a 29 year oldckz-clhx-bow female who underwent preoperative screening in anticipation for potential bariatric surgery. She was deemed an appropriate candidate for bariatric surgery by the consensus of our [facility] team. In the office, surgical [...] complications. Pain was well controlled with Dilaudid DIRECTOR OF GIFT PLANNING transitioned to Lortab. Never had N/V. Hgb drifted some post op, but asymptomatic and pt would refuse transfusion due to yazdanism, so was not rechecked POD2. On the [...] visit, with plans to reconvene with a Music Video Producer at the 2nd week office visit. Jacinto Galindo PA-C dictating on behalf of Dr. Randall [phone] M ROLLER OPERATOR Associated attestation - Ammon Randall MD - 02/12/2015 4:53 PM STEAM ROLLER OPERATOR Physician Attestation I, Ammon Randall, have reviewed and discussed with the advanced practice provider their discharge plan for Tri Cerda. I did not participate in a shared visit by interviewing or examining the patient and this should be billed as an advanced practice provider only discharge. Ammon Randall documented in this encounter Discharge Instructions Discharge InstructionsAlthea Sotomayor, RN - 02/11/2015 9:36 AM CST For informational purposes only. Not to replace the advice of your health care provider. Copyright ?? 2006 [facility] [facility]. All rights reserved. [facility] [id number] - REV 10/24 After Bariatric Surgery [facility] Weight Loss Note: Before you go [...] Week 1 See the physician or physician bankruptcy legal assistant (PA). Week 2 See the nurse and dietitian. Week 4 Have a nutrition consult with the dietitian. Week 6 . For the first year (or until your BMI is less than 30) M ROLLER OPERATOR documented in this encounter Medications at Time [...] S/P LRYGB -D/C to home -F/U in [facility] next week. M ROLLER OPERATOR Jacinto Galindo PA-C - 02/10/2015 7:42 AM CST Bariatric Surgery Progress Note Assessment: Tri Cerda is a 29 year old female S/P LRYGB, POD #1 Morbid Obesity, BMI >40 Plan: UGI this am. If WNL, start protocol: D/C freeman this am. Start water now. Clears at lunch. Fulls tomorrow am. D/C DIRECTOR OF GIFT PLANNING when tolerating PO and start liquid pain [...] 70 - 99 mg/dL Jacinto Galindo Pager: [phone] [facility]: [phone] M ROLLER OPERATOR documented in this encounter Consult Notes Rox [...] %IBW: 210% ASSESSED NUTRITION NEEDS: Energy Needs: 8219-9602 (11 - 14 kcal/kg ABW) Protein Needs: 57-85 (1 - 1.5 gm/kg IBW) Fluid Needs: 7332-7353 (1mL/kcal/ABW) Know patient will not meet assessed [...] information for future questions Rox Rocha RD, LD, [facility] M ROLLER OPERATOR documented in this encounter Miscellaneous Notes Plan of Care - Althea Sotomayor RN - 02/11/2015 11:25 AM CST Problem: Goal Outcome Summary Goal: Goal Outcome Summary Outcome: Improving Discharge instructions and RX'S for home given to pt without questions. Althea Sotomayor RN M ROLLER OPERATOR Plan of Care - Huong Greene RN - 02/11/2015 5:26 AM CST Problem: Goal Outcome Summary Goal: Goal Outcome Summary Outcome: No Change VSS, afebrile. Pain controlled with Lortab. LS clear, BS hypo no flatus or BM yet. Lap sites CDI. Voiding adequately. Ambulating in halls. Tolerating clears, diet increases to FL this morning. Resting well overnight. M ROLLER OPERATOR Plan of Care - Mariaelena Ugarte RN - 02/10/2015 2:28 PM CST Problem: Goal Outcome Summary Goal: Goal Outcome Summary Outcome: Improving VSS. Pain minimal. Alexy PO well. Up in gonzales x2. M ROLLER OPERATOR Plan of Care - Sebastian Hyatt RN - 02/10/2015 4:37 AM CST Problem: Goal Outcome Summary Goal: Goal Outcome Summary Outcome: Improving AVSS. Tolerating ice chips. Pain controlled with DIRECTOR OF GIFT PLANNING. BS hypo/faint/no flatus. UOP adequate to freeman. 6 lap sites CDI, 2 w/ dried blood. Progressing per POC. M ROLLER OPERATOR Plan of Care - Mariaelena Ugarte RN - 02/09/2015 6:39 PM CST Problem: Goal Outcome Summary Goal: Goal Outcome Summary Outcome: Improving VSS. Minimal pain. Up to BR x1 with SBA. Sleepy most of shift. M ROLLER OPERATOR Pharmacy-Consult Note - Tiffanie Son (Kelly) [facility] - 02/09/2015 1:14 PM CST Bariatric Consult Medications evaluated as requested per Bariatric Consult. Medications available as liquid formulations have been dispensed when possible. No medication changes were needed based on the Bariatric Medication Management Policy. The pharmacist will continue to follow as new medications are ordered. M ROLLER OPERATOR Op Note - Ammon Randall MD - 02/09/2015 11:27 AM CST Surgeon: Ammon Randall MD Mine Inspector: Favio Galindo PA-C PREOPERATIVE DIAGNOSIS: Morbid Obesity [...] and using the triple-staple technique created a cjhy-ik-lgiy jejunojejunostomy. The opening was evaluated for hemostasis [...] Counts reported as correct. No immediate complications. M ROLLER OPERATOR Brief Op Note - Jacinto Galindo PA-C - 02/09/2015 11:12 AM CST [facility] Brief Operative Note Pre-operative diagnosis: MORBID OBESITY Post-operative diagnosis Morbid Obesity Procedure: Procedure(s): LAPAROSCOPIC BYPASS GASTRIC Surgeon(s): Surgeon(s) and Role: * Ammon Randall MD - Primary * Jacinto Galindo PA-C - Assisting Estimated blood loss: 5 mL Specimens: * No specimens in log * Findings: See Operative Report for full details M ROLLER OPERATOR documented in this encounter Plan of Treatment Not on filedocumented as of this encounter Procedures Procedure Name Priority Date/Time Associated Comments Diagnosis GLUCOSE BY METER Routine 02/11/2015 6:13 AM Resul ts for this STEAM ROLLER OPERATOR procedure are i n the results section. XR UPPER GI WATER Routine 02/10/2015 9:01 AM Resu lts for this SOLUBLE STEAM ROLLER OPERATOR procedure are i n the results section. ELECTROLYTE PANEL Routine 02/10/2015 7:00 AM Resu lts for this STEAM ROLLER OPERATOR procedure are i n the results section. HEMOGLOBIN Routine 02/10/2015 7:00 AM Results f or this STEAM ROLLER OPERATOR procedure are i n the results section. GLUCOSE Routine 02/10/2015 7:00 AM Results f or this STEAM ROLLER OPERATOR procedure are i n the results section. PLATELET COUNT Routine 02/09/2015 3:10 PM Results for this STEAM ROLLER OPERATOR procedure are i n the results section. CREATININE Routine 02/09/2015 3:10 PM Results f or this STEAM ROLLER OPERATOR procedure are i n the results section. CREATION, GASTRIC 02/09/2015 7:43 AM Morbid Obesity BYPASS, LAPAROSCOPIC STEAM ROLLER OPERATOR POTASSIUM STAT 02/09/2015 6:15 AM Results f or this STEAM ROLLER OPERATOR procedure are i n the results section. HCG QUALITATIVE URINE STAT 02/09/2015 6:00 AM Results for this STEAM ROLLER OPERATOR procedure are i n the results section. LAB RESULT - HIM SCAN 02/06/2015 12:00 AM STEAM ROLLER OPERATOR documented in this encounter Results Glucose by meter (02/11/2015 6:13 AM STEAM ROLLER OPERATOR) P athologist Signature Glucose 93 70 - 99 POINT OF CARE mg/dL TEST, GLUCOSE Specimen Anatomical Collection Method Collection Time Receive d Time (Source) Location / / Volume Laterality 02/11/2015 6:13 AM 6:15 STEAM ROLLER OPERATOR AM STEAM ROLLER OPERATOR Ammon Randall MD LAB - BEAKER POCT Performing Organization Address City/State/ZIP Code Phon e Number FV POINT OF CARE TEST, GLUCOSE POINT OF CARE TEST, GLUCOSE XR Upper GI Water Soluble: Hesham-en-Y (02/10/2015 9:01 AM STEAM ROLLER OPERATOR) Anatomical Region Laterality Modality Abdomen/Pelvis Computed Radiography Specimen (Source) Anatomical Location Collection Method / Collectio n Time Received Time / Laterality Volume Impressions 02/10/2015 9:37 AM STEAM ROLLER OPERATOR IMPRESSION: Unremarkable postoperative appearance following gastric bypass surgery. There is no evidence of a leak. MINERVA DE LA ROSA MD Narrative 02/10/2015 9:37 AM STEAM ROLLER OPERATOR WATER-SOLUBLE UPPER GASTROINTESTINAL ?? 02/10/2015 9:01 AM [...] IMAGING ORDER RAYNE Glucose (02/10/2015 7:00 AM STEAM ROLLER OPERATOR) athologist Signature Glucose 90 70 - 99 [place] mg/dL [facility] Specimen Anatomical Collection Method Collection Time Receive d Time (Source) Location / / Volume Laterality 02/10/2015 7:00 AM 6 7:09 STEAM ROLLER OPERATOR AM STEAM ROLLER OPERATOR Jacinto Galindo PA-C LAB - BLOOD ORDERABLES Performing Organization Address City/State/ZIP Code Phon e Number [facility] [address] [place] [address] [facility] [address] [place] [address], [place] [phone] Electrolyte panel (02/10/2015 7:00 AM STEAM ROLLER OPERATOR) athologist Signature Sodium 139 133 - 144 [place] mmol/L [facility] Potassium 4.2 3.4 - 5.3 [place] mmol/L [facility] Chloride 103 94 - 109 [place] mmol/L [facility] Carbon Dioxide 28 20 - 32 [place] mmol/L [facility] Anion Gap 8 3 - 14 [place] mmol/L [facility] Specimen Anatomical Collection Method Collection Time Receive d Time (Source) Location / / Volume Laterality Blood specimen 02/10/2015 7:00 AM 016 7:09 (specimen) STEAM ROLLER OPERATOR AM STEAM ROLLER OPERATOR Jacinto Galindo PA-C LAB - BLOOD ORDERABLES Performing Organization Address City/State/ZIP Code Phon e Number [facility] [address] [place] [address] [facility] [address] [place] [address], [place] [phone] (ABNORMAL) Hemoglobin (02/10/2015 7:00 AM STEAM ROLLER OPERATOR) athologist Signature Hemoglobin 10.7 (L) 11.7 - 15.7 [place] g/dL [facility] Specimen Anatomical Collection Method Collection Time Receive d Time (Source) Location / / Volume Laterality Blood specimen 02/10/2015 7:00 AM 016 7:09 (specimen) STEAM ROLLER OPERATOR AM STEAM ROLLER OPERATOR Jacinto Galindo PA-C LAB - BLOOD ORDERABLES Performing Organization Address City/State/ZIP Code Phon e Number M [facility] [address] [place] [phone] [facility] [address] [place] [address], [place] [phone] Creatinine (02/09/2015 3:10 PM STEAM ROLLER OPERATOR) athologist Signature Creatinine 0.76 0.52 - 1.04 [place] mg/dL [facility] GFR Estimate 89 >60 [place] mL/min/1.7m [address] Comment: Non GFR Calc GFR Estimate If Black >90 >60 mL/min/1.7m2 [facility] GFR Calc HOSP ITAL Specimen Anatomical Collection Method Collection Time Receive d Time (Source) Location / / Volume Laterality Blood specimen 02/09/2015 3:10 PM 015 3:22 (specimen) STEAM ROLLER OPERATOR PM STEAM ROLLER OPERATOR Jacinto Galindo PA-C LAB - BLOOD ORDERABLES Performing Organization Address City/State/ZIP Code Phon e Number M [facility] [address] [place] [address] [facility] [address] [place] [address], [place] [phone] Platelet count (02/09/2015 3:10 PM STEAM ROLLER OPERATOR) athologist Signature Platelet Count 267 150 - 450 [place] 10e9/L [facility] Specimen Anatomical Collection Method Collection Time Receive d Time (Source) Location / / Volume Laterality Blood specimen 02/09/2015 3:10 PM 015 3:22 (specimen) STEAM ROLLER OPERATOR PM STEAM ROLLER OPERATOR Jacinto Galindo PA-C LAB - BLOOD ORDERABLES Performing Organization Address City/State/ZIP Code Phon e Number [facility] [address] [place] [phone] [facility] [address] [place] [address], [place] [phone] Potassium (02/09/2015 6:15 AM STEAM ROLLER OPERATOR) P athologist Signature Potassium 3.6 3.4 - 5.3 [place] mmol/L [facility] Specimen Anatomical Collection Method Collection Time Receive d Time (Source) Location / / Volume Laterality Blood specimen 02/09/2015 6:15 AM 015 6:30 (specimen) STEAM ROLLER OPERATOR AM STEAM ROLLER OPERATOR Mario Levy MD LAB - BLOOD ORDERABLES Performing Organization Address City/State/ZIP Code Phon e Number [facility] [address] [place] [address] [facility] [address] [place] [address], [place] [phone] HCG qualitative urine (02/09/2015 6:00 AM STEAM ROLLER OPERATOR) athologist Signature HCG Qual Urine Negative [facility] Specimen Anatomical Collection Method Collection Time Receive d Time (Source) Location / / Volume Laterality Urine specimen URINE SPECIMEN / 02/09/2015 6:00 AM 6:11 (specimen) Unknown STEAM ROLLER OPERATOR AM STEAM ROLLER OPERATOR Mario Levy MD LAB - URINE ORDERABLES Performing Organization Address City/State/ZIP Code Phon e Number [facility] [address] [place] [address] [phone] [facility] [address] [place] [address], [place] [phone] LAB RESULT - HIM SCAN (02/06/2015 12:00 AM STEAM ROLLER OPERATOR) Specimen (Source) Anatomical Location Collection Method / Collectio n Time Received Time / Laterality Volume 02/06/2015 Narrative This result has an attachment that is no t available. Provider Outside NON-BEAKER LAB TESTING documented in this encounter Visit Diagnoses Not on filedocumented in this encounter Admitting Diagnoses Diagnosis Morbid obesity with BMI of 40.0-44.9, ad ult (H) documented in this encounter Administered Medications Inactive Administered Medications - up to 3 most recent administrations Medication Order MAR Action Action Date Dose Rate Site bupivacaine 0.25 /EPI Given 02/09/2015 10:41 50 mLs Operative 1:200,000 30 mL + AM STEAM ROLLER OPERATOR Site/[place] rgical Site lidocaine 1% 20 mL PRN, Starting on Viviana 02/09/15 at 1041, Intra-procedure methylene blue 1% 1 mL + Given 02/09/2015 10:00 AM 30 mLs Other (see comments) NaCl 0.9% 100 mL STEAM ROLLER OPERATOR PRN, Starting on Viviana 02/09/15 at 1000, Intra-procedure sodium chloride 0.9% (bag) Given 02/09/2015 8:27 AM 3,000 mLs Operative irrigation STEAM ROLLER OPERATOR Site/Surgical S ite PRN, Starting on Viviana 02/09/15 at 0827, Intra-procedure sodium chloride 0.9% Given 02/09/2015 8:27 AM 1,000 mLs Other (see (bottle) irrigation STEAM ROLLER OPERATOR comments) PRN, Starting on Viviana 02/09/15 at 0827, Intra-procedure documented in this encounter Active and Recently Administered Medications Times are shown in STEAM ROLLER OPERATOR. Scheduled Medication Order 02/09/2015 02/10/2015 02/11/2015 acetaminophen (OFIRMEV) 10 mg/mL infusion 1,000 mg (CO MPLETED) 1147 (Given - Provider: Rox Deleon, KATERYNA) 1,000 mg, Intravenous, at 400 mL/hr, ONC E, 1 dose, Viviana 02/09/15 at 1200, PACU, Maximum acetaminophen dose from all sources= 75 mg/kg/day not to exceed 4 grams/day. CeFAZolin (ANCEF) intermittent infusion 2 g (COMPLETED ) 1645 (Given - Provider: Mariaelena Ugarte, KATERYNA)2340 (Given - Provider: Sebastian Hyatt, RN) 2 g, Intravenous, EVERY 8 HOURS, First d ose on Viviana 02/09/15 at 1600, For 2 doses, First dose 6 hours after last dose (pre-op/intra-op). Must be completed within 24 hours after surgery., Indications: Surgical Prophylaxis ceFAZolin (ANCEF) intermittent infusion 3 g (pre-mix) (COMPLETED) 0632 (Handoff - Provider: Germaine Sotomayor RN)0805 (Given - Provider: Isaias Torres APRN DISINTEGRATOR)1005 (Given - Provider: Isaias Torres APRN DISINTEGRATOR) 3 g, Intravenous, PRE-OP/PRE-PROCEDURE, Starting Viviana 02/09/15 at 0601, For 1 dose, Give first dose within 1 hour PRIOR to incision., Indications: Surgical Prophylaxis, Pre-procedure diatrizoate meglumine-sodium (GASTROGRAF IN; GASTROVIEW) 66-10 % solution 30 mL (COMPLETED) 09 (Given - Provider: Sabrina Banks - Comm [...] falls below 50% of baseline or less plko033,[id number]/??L and notify provider., Post-procedure heparin sodium PF injection 5,000 Units (COMPLETED) 06 32 (Handoff - Provider: Germaine Sotomayor RN)0746 (Given - Provider: Isaias Torres APRN DISINTEGRATOR - Comment: sq lt. lower abd.) 5,000 Units, Subcutaneous, PRE-OP/PRE-SD OCEDURE, Starting Viviana 02/09/15 at 0601, For 1 dose, Administer 30 minutes prior to incision. Verify order with Hoop Riveting Machine Operator MD prior to administering., Pre-procedure HYDROmorphone (DILAUDID) DIRECTOR OF GIFT PLANNING 1 mg/mL (CANCELED) 1134 ( Shift Total - Provider: Rox Deleon, KATERYNA)1230 (Rate/Dose Verify - Provider: Mariaelena Ugarte RN)1305 (Shift Total - Provider: Mariaelena Ugarte RN)1646 (Shift Total - Provider: Mariaelena Ugarte RN) 0506 (Shift Total - Provider: Sebastian Hyatt RN) DIRECTOR OF GIFT PLANNING dose (mg): 0.2, Max DIRECTOR OF GIFT PLANNING dose (mg): 0 .3, Lockout Interval (min): 10 minutes, DIRECTOR OF GIFT PLANNING Continuous Rate (mg/hr): CONTINUOUS RATE IS NOT [...] Reason: NPO) 1231 (Given - Provider: Mariaelena Ugarte RN) 0854 (Given - Provider: Althea Sotomayor, RN) 40 mg, Oral, DAILY, First dose on Viviana 02/09/15 at 1315 ranitidine (ZANTAC) tablet 75 mg 0854 (Given - Provider: Althea Sotomayor, KATERYNA) 75 mg, Oral, 2 TIMES DAILY, First dose o n 02/11/15 at 0900, Start POD 2., Post-procedure scopolamine (TRANSDERM) 1 MG/3DAYS patch 1 patch ([facility]) 1141 (Given - Provider: Rox Deleon RN) 1 patch, Transdermal, EVERY 72 HOURS, Fi rst dose on Fri02/09/15 at 1130, Apply patch to skin, behind ear. Remove every 72 hours. Each 1.5 mg patch delivers 1 mg of scopolamine., Post-procedure scopolamine (TRANSDERM-SCOP) Patch in Place (CANCELED) 1230 (Patch in Place - Provider: Mariaelena Ugarte RN)2058 (Patch in Place - Provider: Sebastian Hyatt RN) 328 (Patch in Place - Provider: Sebastian hurtado RN)123 (Given - Provider: Mariaelena Ugarte RN)1999 (Patch in Place - Provider: Huong Greene RN) 023 (Patch in Place - Provider: Betsy [...] (New Bag - Provider: Sharon Jarvis APRN DISINTEGRATOR)0945 (New Bag - Provider: Isaias Torres APRN DISINTEGRATOR)1115 (Anesthesia Volume Adjustment - Provider: Isaias Torres APRN DISINTEGRATOR) at 25 mL/hr, Intravenous, CONTINUOUS, IF patient NOT on dialysis., Pre- procedure, Starting Viviana 02/09/15 at 0615, Until Viviana 02/09/15 at 1111 lactated ringers infusion (CANCELED) 1645 (New Bag - P rovider: Mariaelena Ugarte, KATERYNA)2154 (New Bag - Provider: Sebastian Hyatt RN) 0509 (New Bag - Provider: Sebastian Hyatt RN) 0012 (New Bag - Provider: Huong shi, KATERYNA)0605 (New Bag - Provider: Huong Greene, KATERYNA)0800 (Rate/Dose Verify - Provider: Althea Sotomayor RN) at 150 mL/hr, Intravenous, CONTINUOUS, D iscontinue and saline lock on POD #2., Post-procedure, Starting Ivviana 02/09/15 at 1315, Until 02/11/15 at 1314 PRN Medication Order 02/09/2015 02/10/2015 02/11/2015 bupivacaine 0.25 /EPI 1:200,000 30 mL + lidocaine 1% 2 0 mL (CANCELED) 1041 (Given - Provider: Ammon Randall MD) PRN, Starting Viviana 02/09/15 at 1041, Intra-procedure fentaNYL (SUBLIMAZE) injection 25-50 mcg (CANCELED) 11 19 (Given - Provider: Rox Deleon, KATERYNA)1123 (Given - Provider: Rox Deleon, KATERYNA) 25-50 mcg, Intravenous, EVERY 2 MIN PRN, Starting Viviana 12/31/15 at 1117, other, acute pain, MAX cumulative dose = 250 mcg. Use Fentanyl initially, as a short acting agent for acute pain control. If insuf ficient, or a longer acting agent is nee ded, begin Morphine or Hydromorphone if ordered., PACU HYDROcodone-acetaminophen (LORTAB) 7.5-325 MG/15ML solution 15-30 mL 1236 (Given - Provider: Mariaelena Ugarte, KATERYNA)1733 (Given - Provider: Mariaelena Ugarte, KATERYNA)2119 (Given - Provider: Huong Greene, KATERYNA)2232 (Given - Provider: Huong Greene, KATERYNA) 0230 (Given - Provider: Huong boo, RN)0650 (Given - Provider: Huong Greene, KATERYNA)1049 (Given - Provider: Althea Sotomayor RN) 15-30 mL, Oral, EVERY 4 HOURS PRN, moder ate to severe pain, Starting Fri02/10/15 at 0000, IF CrCl is UNKNOWN start at lowest end of dosing range. Hold while on DIRECTOR OF GIFT PLANNING or with regular IV opioid dosing. Max d ose of 90 mL/24 hours Maximum acetaminop hen dose from all sources= 75 mg/kg/day not to exceed 4 grams., Post-procedure HYDROmorphone (PF) (DILAUDID) injection 0.3-0.5 mg ([place] NCELED) 1119 (Given - Provider: Rox Deleon, KATERYNA)1130 (Given - Provider: Rox Deleon, KATERYNA)1143 (Given [...] (CANCELED) 1144 (G iven - Provider: Rox Deleon RN) 4 mg, Intravenous, EVERY 30 MIN PRN, [...] Intra-procedure documented in this encounter Care Teams Accounts Manager Relationship Specialty Start Date End Date Francisco Javier Pascual MD PCP - General Family Practice 02/11/14 07/07/19 documented as of this encounter
--- OUTSIDE RECORDS SUMMARY | 2021-12-10 21:22 | XMS_ITS | Encounter Summary ---
:1985 Author Organization [facility] Address [address] [place] [address] Care Team Providers Name Role Phone Unavailable Primary Care Provider Unavailable Encounter Details Date Type Department Care Team Description 07/11/2007 Historic Results INTERFACED REPORT [place] [address] (Wo rk) Social History Tobacco Use Types [...] How often do you attend yarsanism or jain Never 05/22/2021 services? Do you belong to [...] Name Priority Date/Time Associated Diagnosis Comme nts HEMOGLOBIN Routine 07/11/2007 7:30 AM Results f or this CDT procedure are i n the results section . documented in this encounter Results (ABNORMAL) Hemoglobin (07/11/2007 7:30 AM CDT) P athologist Signature Hemoglobin 9.5 (L) 11.7 - 15.7 [place] g/dL Specimen (Source) Anatomical Collection Method Collection Time Re ceived Time Location / / Volume Laterality 07/11/2007 7:30 AM 8 CDT Valentin Heath MD LAB - BLOOD ORDERABLES Performing Organization Address City/State/ZIP Code Phon e Number [facility] documented in this encounter Visit Diagnoses Not on filedocumented in this encounter
--- OUTSIDE RECORDS SUMMARY | 2021-12-10 21:22 | XMS_ITS | Encounter Summary ---
:1985 Author Organization [place] Address [address] [facility] [place] [address] Care Team Providers Name Role Phone Francisco Javier Pascual MD Primary Care Provider Encounter Details Date Type Department Care Team Description 07/21/2014 Hospital Encounter [facility] Prema Hall orbid obesity (H); Natalie Foster PA-C Screening for other and unspecified endo crine, nutritional, metabolic, and immunity disorders; Laboratory [address] Iron deficiency anemia secon camilo to heavy menses [address] [place] [id number] Social History Tobacco Use Types Packs/Day Years [...] How often do you attend scientology or islam Never 05/22/2021 services? Do you belong to [...] PM CDT documented as of this encounter Medications at Time of Discharge Medication Sig Dispensed Refills Start Date End Date buPROPion (WELLBUTRIN XL) 150 Take 150 mg by 0 02/09/2015 MG 24 hr tablet mouth FLUOXETINE HCL PO Take 20 mg by 0 01/12 mouth daily hydrochlorothiazide Take 25 mg by 0 06/02/2014 (HYDRODIURIL) 25 MG tablet mouth daily lisinopril (PRINIVIL,ZESTRIL) Take 40 mg by 0 06/13/2017 40 MG tablet mouth daily documented as of this encounter Plan of Treatment Not on filedocumented as of this encounter Procedures Procedure Name Priority Date/Time Associated Diagnosis Comme nts INR Routine 07/21/2014 3:15 PM Morbid obesit y (H) Results for this CDT Screening for other procedur e are in and unspecified the results endocrine, section. nutritional, metabolic, and immunity disorders HEMOGLOBIN A1C Routine 07/21/2014 3:15 PM Morbid obesit y (H) Results for this CDT Screening for other procedur e are in and unspecified the results endocrine, section. nutritional, metabolic, and immunity disorders CBC WITH PLATELETS Routine 07/21/2014 3:15 PM Iron deficiency Results for this CDT anemia secondary to procedur e are in heavy menses the results section. documented in this encounter Results (ABNORMAL) CBC with platelets (07/21/2014 3:15 PM CDT) Analysis Performed At Patho logist Time Signature WBC 8.1 4.0 - 11.0 [facility] 10e9/L [facility] RBC Count 4.56 3.8 - 5.2 [facility] 10e12/L [facility] Hemoglobin 12.1 11.7 - [facility] 15.7 g/dL [facility] Hematocrit 39.3 35.0 - [facility] 47.0 % [facility] MCV 86 78 - 100 [facility] fl [facility] MCH 26.5 26.5 - [facility] 33.0 pg [facility] MCHC 30.8 (L) 31.5 - [facility] 36.5 g/dL [facility] RDW 15.8 (H) 10.0 - [facility] 15.0 % [facility] Platelet Count 294 150 - 450 [place] 10e9/L [facility] Specimen Anatomical Collection Method Collection Time Receive d Time (Source) Location / / Volume Laterality Blood specimen 07/21/2014 3:15 PM 015 3:16 (specimen) CDT PM CDT Prema Foster Rafael LEVIN-C LAB - BLOOD ORDERABLES Performing Organization Address City/State/ZIP Code Phon e Number M [facility] [address] [place] [phone] [facility] [address] [place] [address], [place] [phone] INR (07/21/2014 3:15 PM CDT) athologist Signature INR 0.97 0.86 - 1.14 [facility] Specimen Anatomical Collection Method Collection Time Receive d Time (Source) Location / / Volume Laterality Blood specimen 07/21/2014 3:15 PM 015 3:16 (specimen) CDT PM CDT Prema Lanerajeev LEVIN-C LAB - BLOOD ORDERABLES Performing Organization Address City/State/ZIP Code Phon e Number M [facility] [address] [place] [phone] [facility] [address] [place] [address], [place] [phone] Hemoglobin A1c (07/21/2014 3:15 PM CDT) P athologist Signature Hemoglobin A1C 5.5 4.3 - 6.0 [facility] Specimen Anatomical Collection Method Collection Time Receive d Time (Source) Location / / Volume Laterality Blood specimen 07/21/2014 3:15 PM 015 3:16 (specimen) CDT PM CDT Prema Lanerajeev Hall PA-C LAB - BLOOD ORDERABLES Performing Organization Address City/State/ZIP Code Phon e Number M 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
--- OUTSIDE RECORDS SUMMARY | 2021-12-10 21:22 | XMS_ITS | Encounter Summary ---
:1985 Author Organization [facility] Address [address] [place] [id number] Care Team Providers Name Role Phone Unavailable Primary Care Provider Unavailable Encounter Details Date Type Department Care Team Description 07/10/[address] [facility] Valentin Heath, (Heel Varnisher) [facility] [place] [address] (Wo rk) Social History Tobacco Use Types [...] How often do you attend moravian or jew Never 05/22/2021 services? Do you belong to [...] this encounter Progress Notes Valentin Heath - 07/29/2007 8:59 PM CDT FINAL Domingocatherine Matamoros is at term with previous section. On 07/10/2007, the patient underwent a repeat low transverse section without complication. The patient had a totally uneventful postoperative recovery and was discharged home on the third postoperative day with standard postoperative discharge instructions and advice to follow up in the office in 6 weeks for followup examination. Electronically signed on 07/29/2007 20:58 by VALENTIN HEATH MD MT: [id number] Name: DOMINGO MATAMOROS Account: [id number] : 1985 Admit Date: [id number] Discharge Date: 07/13/2007 Document: [id number] documented in this encounter Plan of Treatment Not on filedocumented as of this encounter Visit Diagnoses Not on filedocumented in this encounter
--- OUTSIDE RECORDS SUMMARY | 2021-12-10 21:22 | XMS_ITS | Encounter Summary ---
:1985 Author Organization [facility] Address [address] [place] [address]. [place] [address] Care Team Providers Name Role Phone Francisco Javier Pascual MD Primary Care Provider Reason for Visit Reason Comments Hypertension Encounter Details Date Type Department Care Team Description 02/24/2014 [facility] Emergency Mindy Conley MD Hypertensive urgency; [address] [facility] [place], [place] [id number] [place] [address] (Wo rk) Social History Tobacco Use Types [...] 05/22/2021 relatives? How often do you attend islam or muslim Never 05/22/2021 services? Do you belong to any clubs or organizations such as No 05/22/2021 islam groups, unions, fraternal or athletic groups, or [...] place to sleep or slept in a fci (including now)? Sex Assigned at Date Recorded Female 12/08/2020 12:18 PM CDT documented as of this encounter Last Filed Vital Signs Vital Sign Reading Time Taken Comments Blood Pressure 131/78 02/24/2014 6:00 PM BISTRO SERVER Pulse 72 02/24/2014 3:30 PM BISTRO SERVER Temperature 36.4 ??C (97.6 ??F) 02/24/2014 3:30 PM BISTRO SERVER Respiratory Rate 16 02/24/2014 3:30 PM BISTRO SERVER Oxygen Saturation 98% 02/24/2014 6:00 PM BISTRO SERVER Inhaled Oxygen Concentration - - Weight 113.4 kg (250 lb) 02/24/2014 3:30 PM BISTRO SERVER Height 165.1 cm (5' 5) 02/24/2014 3:30 PM BISTRO SERVER Body Mass Index 41.6 02/24/2014 3:30 PM BISTRO SERVER documented in this encounter Discharge Instructions Discharge InstructionsVíctor Amaya MD - 02/24/2014 6:14 PM BISTRO SERVER Discharge Instructions Hypertension - High Blood Pressure During you visit to the Emergency Department, your blood pressure was higher than the recommended blood pressure. This may be related to stress, pain, medication or other temporary conditions. In thesecases, your blood pressure may return to normal on its own. If you have a history of high blood pressure, you may need to have your doctor adjust your medications. Sometimes, your high measurement heremay indicate that you have developed high blood pressure that will stay high unless it is treated. Sudden very high blood pressure can cause problems, but usually high blood pressure causes problems over months to years. Blood pressure is almost never lowered in the Emergency Department, because studies have shown that lowering blood pressure too quickly is much more dangerous than leaving it alone. You need to follow up with your doctor in 1-3 days to get your blood pressure rechecked. Return to the Emergency Department if you start to have: ??? A severe headache. ??? Chest pain. ??? Shortness of breath. ??? Weakness or numbness that affects one part of the body. ??? Confusion. ??? Vision changes. ??? Significant swelling of legs and/or eyes. ??? A reaction to any medication started in the Emergency Department. What can I do to help myself? Avoid alcohol. ??? Take any blood pressure medicine that you are prescribed. ??? Get a good night???s sleep. ??? Lower your salt intake. ??? Exercise. ??? Lose weight. ??? Manage stress. If blood pressure medication was started in the Emergency Department: ??? The medicine may not have an immediate effect. The body and brain determine what blood pressure you have. The medicine???s job is to retrain the body???s ???thermostat?? to a lower blood pressure. ??? You will need to follow up with your doctor to see how this medicine is working for you. If you were given a prescription for [...] call or return to the Emergency Department. Opioid Medication Information Pain medications are among the most commonly prescribed medicines, so we are including this information for all our patients. If you did not receive pain medication or get a prescription for pain medicine, you can ignore it. You may have been given a prescription for an opioid (narcotic) pain medicine and/or have received apain medicine while here in the Emergency Department. These medicines can make you drowsy or impaired. You must not drive, operate dangerous equipment, or engage in any other dangerous activities whiletaking these medications. If you drive while taking these medications, you could be arrested for DUI, or driving under the influence. Do not drink any alcohol while you are taking these medications. Opioid pain medications can cause addiction. If you have a history of chemical dependency of any type, you are at a higher risk of becoming addicted to pain medications. Only take these prescribed medications to treat your pain when all other options have been tried. Take it for as short a time and asfew doses as possible. Store your pain pills in a secure place, as they are frequently stolen and provide a dangerous opportunity for children or visitors in your house to start abusing these powerful medications. We will not replace any lost or stolen medicine. As soon as your pain is better, you should flush all your remaining medication. Many prescription pain medications contain Tylenol?? (acetaminophen), including Vicodin??, Tylenol #3??, [place]??, Lortab??, and Percocet??. You should not take any extra pills of Tylenol?? if you are using these prescription medications or you can get very sick. Do not ever take more than 3000 mg of acetaminophen in any 24 hour period. All opioids tend to cause constipation. Drink plenty of water and eat foods that have a lot of fiber, such as fruits, vegetables, prune juice, apple juice and high fiber cereal. Take a laxative if you don???t move your bowels at least every other day. Miralax??, Milk of Magnesia, Colace??, or Senna?? can be used to keep you regular. Remember that you can always come back to the Emergency Department if you are not able to see your regular doctor in the amount of time listed above, if you get any new symptoms, or if there is anything that worries you. Discharge Instructions Sinus Infection You have acute sinusitis, or an infection of the sinuses. The sinuses are the hollow areas within the facial bones that are connected to the nasal opening. The most common cause of acute sinusitis is avirus infection associated with the common cold. Bacterial sinusitis occurs much less commonly, usually as a complication of viral sinusitis. Experts say that most sinusitis is caused by a virus withinthe first 7-10 days of illness. Antibiotics do nothing to help with virus infections, so most [place] not need antibiotics for acute sinusitis. Return to the Emergency Department if: ??? Your vision changes. ??? You are confused or have difficulty thinking clearly. ??? You have swelling around your eye. ??? You develop a severe headache or neck stiffness. ??? You have a fever over 101 degrees. ??? Your symptoms get worse and you are unable to see your primary doctor. Follow-up with your doctor: ??? See your primary doctor in one week if not improving. Treatment: ??? Pain relief -- Non-prescription pain medications, such as Tylenol?? (acetaminophen) or Motrin?? or Advil?? (ibuprofen) are recommended for pain. Do not use a medicine that you are allergic to, or if your doctor has told you not to use it. ??? Nasal irrigation -- Flushing the nose and sinuses with a saline solution several times per day can help to decrease pain caused by congestion. ??? Nasal decongestants -- Nasal decongestant sprays, including Afrin?? (oxymetazoline) and George-Synephrine?? (phenylephrine) can be used to temporarily treat congestion. However, these sprays should not be used for more than two to three days due to the risk of rebound congestion (when the nose is congested constantly unless the medication is used repeatedly). ??? Nasal glucocorticoids -- These are prescription steroids delivered by a nasal spray that can help to reduce swelling inside the nose, usually within two to three days. These drugs have few side effects and dramatically relieve symptoms in most people. If you use these in conjunction with Afrin?? you will need to use at least 15 minutes prior to the nasal decongestant. ??? Do I need an antibiotic? -- Sometimes, but not always, antibiotics are used along with the abovetreatments. Antibiotic Warning: ??? If you have been placed on antibiotics - watch for signs of allergic reaction. These include rash, lip swelling, difficulty breathing, wheezing, and dizziness. If you develop any of these symptoms,stop the antibiotic immediately and go to an Emergency Department or Urgent Care for evaluation. Probiotics: If you have been given an antibiotic, you may want to also take a probiotic pill or eat yogurt with live cultures. Probiotics have good bacteria to help your intestines stay healthy. Studies have shown that probiotics help prevent diarrhea and other intestine problems (including C. diff infection) when you take antibiotics. You can buy these without a prescription in the pharmacy section of the store. If you were given a prescription for [...] call or return to the Emergency Department. Opioid Medication Information Pain medications are among the most commonly prescribed medicines, so we are including this information for all our patients. If you did not receive pain medication or get a prescription for pain medicine, you can ignore it. You may have been given a prescription for an opioid (narcotic) pain medicine and/or have received apain medicine while here in the Emergency Department. These medicines can make you drowsy or impaired. You must not drive, operate dangerous equipment, or engage in any other dangerous activities whiletaking these medications. If you drive while taking these medications, you could be arrested for DUI, or driving under the influence. Do not drink any alcohol while you are taking these medications. Opioid pain medications can cause addiction. If you have a history of chemical dependency of any type, you are at a higher risk of becoming addicted to pain medications. Only take these prescribed medications to treat your pain when all other options have been tried. Take it for as short a time and asfew doses as possible. Store your pain pills in a secure place, as they are frequently stolen and provide a dangerous opportunity for children or visitors in your house to start abusing these powerful medications. We will not replace any lost or stolen medicine. As soon as your pain is better, you should flush all your remaining medication. Many prescription pain medications contain Tylenol?? (acetaminophen), including Vicodin??, Tylenol #3??, [place]??, Lortab??, and Percocet??. You should not take any extra pills of Tylenol?? if you are using these prescription medications or you can get very sick. Do not ever take more than 3000 mg of acetaminophen in any 24 hour period. All opioids tend to cause constipation. Drink plenty of water and eat foods that have a lot of fiber, such as fruits, vegetables, prune juice, apple juice and high fiber cereal. Take a laxative if you don???t move your bowels at least every other day. Miralax??, Milk of Magnesia, Colace??, or Senna?? can be used to keep you regular. Remember that you can always come back to the Emergency Department if you are not able to see your regular doctor in the amount of time listed above, if you get any new symptoms, or if there is anything that worries you. RO SERVER documented in this encounter Medications at Time of Discharge Medication Sig Dispensed Refills Start Date End Date amoxicillin-clavulanate Take 1 tablet by 14 tablet 0 201403/03/2014 (AUGMENTIN) 875-125 MG mouth 2 times daily per tablet for 7 days documented as of this encounter ED Notes Carmen Weeks RN - 02/24/2014 6:07 PM CST MD at bedside. RO SERVER Carmen Weeks RN - 02/24/2014 6:00 PM CST Back from imaging; states headache pain has not improved. Will notify MD. Call light within reach. RO SERVER Víctor Amaya MD - 02/24/2014 4:26 PM CST History Chief Complaint: Headache, Hypertension HPI Tri Cerda is a 28 year old female, recently diagnosed with hypertension three weeks ago, who presents with hypertension and headache. Prior to diagnosis she has been trying diet and exercise, but is currently on a blood pressure medication and has not missed a dosage. Today at work, she got a pounding headache that was localized behind the right eye and radiating down the right side of the neck. Patient's vision is baseline, she has no chance of being , no vomiting or nausea, but she has had diarrhea. Allergies: NKDA Medications: Anti-hypertensive Past Medical History: Hypertension Past Surgical History: Fur Blower surgery Family / Social History: Family history: negative Marital Status: [2] Social History: no tobacco use, here alone Review of Systems Constitutional: Negative for fever and chills. Respiratory: Negative for shortness of breath. Cardiovascular: Negative for chest pain. Gastrointestinal: Positive for diarrhea. Negative for nausea and vomiting. Neurological: Positive for headaches. Negative for light-headedness. All other systems reviewed and are negative. Physical Exam First Vitals: BP: 185/117 mmHg Pulse: 72 Heart Rate: 72 Temp: 97.6 ??F (36.4 ??C) Resp: 16 Height: 165.1 cm (5' 5) Weight: 113.399 kg (250 lb) SpO2: 100 % Physical Exam General: The patient is alert, in no respiratory distress. Uncomfortable. HENT: Mucous membranes moist. Cardiovascular: Regular rate and rhythm. Good pulses in all four extremities. Normal capillary refill and skin turgor. Respiratory: Lungs are clear. No nasal flaring. No retractions. No wheezing, no crackles. Gastrointestinal: Abdomen soft. No guarding, no rebound. No palpable hernias. Musculoskeletal: No gross deformity. Skin: No rashes or petechiae. Neurologic: The patient is alert and oriented x3. GCS 15. No testable cranial nerve deficit. Followscommands with clear and appropriate speech. Gives appropriate answers. Good strength in all extremities. No gross neurologic deficit. Gross sensation intact. Pupils are round and reactive. No meningismus. Lymphatic: No cervical adenopathy. No lower extremity swelling. Psychiatric: The patient is non-tearful. Emergency Department Course EC:54 Indication: Hypertension Findings: Normal sinus rhythm. Normal ECG. ECG read at [address] Amaya. Ventricular rate: 71 bpm HI interval: 150 ms QRS duration: 86 ms QT/QTc: 410/445 ms Imaging: Radiographic findings were communicated with the patient who voiced understanding of the findings. CT head: IMPRESSION: 1. Brain parenchyma appears normal. 2. Right maxillary sinus disease with an air-fluid level in right maxillary sinus. Preliminary reading per radiology. Laboratory: CBC: wbc 6.6, hgb 11.5, plt 293 BMP: creat 0.82, o/w wnl INR: 0.92 Trop POCT 1642: 0.01 UA: yellow and clear, blood small, protein albumin 30, mucous present, o/w wnl HCG qual: negative Interventions: Tylenol 500 mg tablet PO Labetalol 20 mg IV Emergency Department Course: Nursing notes and vitals reviewed. I performed an exam of the patient as documented above. 1743 - Ct head obtained. Results as above. 1809 - Recheck. MD at bedside. I personally reviewed the laboratory results with the Patient and answered all related questions prior to discharge. Patient discharged home with instructions regarding supportive care, medications, and reasons to return. The importance of close follow-up was reviewed. Impression & Plan Medical Decision Making: Tri Cerda is a 28 year old female who has a recent diagnosis of hypertension. She says she has been faithful taking her medications and she does not note any behaviors that would raise blood pressure, including alcohol use, medication noncompliance, decongestant, or other stimulants. Her blood pressure is quite elevated. She has a headache. Therefore, I was concerned for an intra- cranial bleed and organ damage. Her headache did not sound consistent with a subarachnoid hemorrhage. She was below the pre-test probability for lumbar puncture. The patient???s blood pressure came down nicely, makinghypertensive encephalopathy unlikely. The patient???s CT scan reveals sinusitis and I believe this is the cause for headache. She was otherwise neurologically intact. We discussed the expected course. She was discharged in good condition with Augmentin. She should follow up closely. Critical Care time was 35 minutes for this patient, for hypertensive urgency. Diagnosis: ICD-9-CM 1. Headache(784.0) 784.0 2. Hypertensive urgency 401.9 3. Sinusitis 473.9 I, Dante Fely, am serving as a scribe at 4:32 PM on 02/24/2014 to document services personally performed by Víctor Amaya MD, based on my observations and the provider's statements to me. Víctor Amaya MD 03/02/14 0228 RO SERVER Carmen Weeks RN - 02/24/2014 3:55 PM CST Labs drawn with IV insertion and held RO SERVER Poppy Aaron RN - 02/24/2014 3:34 PM CST Patient was recently seen by her own physician and place on blood pressure meds. Today her blood pressure was taken at work and she was advised by nurse at the doctors office to go to the ED as her blood pressure was too high. ABCs intact. Patient c/o of headache RO SERVER documented in this encounter Plan of Treatment Not on filedocumented as of this encounter Procedures Procedure Name Priority Date/Time Associated Comments Diagnosis CT HEAD W/O CONTRAST STAT 02/24/2014 5:38 PM R esults for this BISTRO SERVER procedure are i n the results section. TROPONIN POCT Routine 02/24/2014 4:42 PM Results for this BISTRO SERVER procedure are i n the results section. EKG 12-LEAD, TRACING STAT 02/24/2014 3:54 PM R esults for this ONLY BISTRO SERVER procedure are i n the results section. CBC WITH PLATELETS & STAT 02/24/2014 3:54 PM R esults for this DIFFERENTIAL BISTRO SERVER procedure are i n the results section. INR STAT 02/24/2014 3:54 PM Results f or this BISTRO SERVER procedure are i n the results section. BASIC METABOLIC PANEL STAT 02/24/2014 3:54 PM Results for this BISTRO SERVER procedure are i n the results section. HCG QUALITATIVE URINE STAT 02/24/2014 3:43 PM Results for this BISTRO SERVER procedure are i n the results section. ROUTINE UA WITH STAT 02/24/2014 3:43 PM Result s for this MICROSCOPIC BISTRO SERVER procedure are i n the results section. documented in this encounter Results CT Head w/o Contrast (02/24/2014 5:38 PM BISTRO SERVER) Anatomical Region Laterality Modality Head, SUBRAD CT NEURO, SUBRAD CT NEURO, UMP CT NEURO Computed Tomography Specimen (Source) Anatomical Location Collection Method / Collectio n Time Received Time / Laterality Volume Impressions 02/24/2014 7:23 PM BISTRO SERVER IMPRESSION: ?? 1. Brain parenchyma appears normal. 2. Right maxillary sinus disease with an air-fluid level in right maxillary sinus. ?? SIOBHAN CARROLL MD Narrative 02/24/2014 7:[address] HEAD W/O CONTRAST ?? 02/24/2014 5:38 PM HISTORY: headache, TECHNIQUE: ??Axial images of the head wi thout ?IV contrast material. COMPARISON: None. FINDINGS: The ventricles are normal in s ize, shape and configuration. The brain parenchyma and subarachnoid sp aces are normal. There is no evidence of intracranial hemorrhage, mas s, acute infarct or anomaly. There is mucosal thickening in the right maxillary sinus and an air-fluid level in the right maxillary s inus. Mucosal thickening is also present in the left sphenoid sinus. There is no evidence of trauma. ? Procedure Note Jose Cruz Carroll MD - 02/24/2014For matting of this note might be different from the original. CT HEAD W/O CONTRAST 02/24/2014 5:38 PM HISTORY: headache, TECHNIQUE: Axial images of the head with out IV contrast material. COMPARISON: None. FINDINGS: The ventricles are normal in s ize, shape and configuration. The brain parenchyma and subarachnoid sp aces are normal. There is no evidence of intracranial hemorrhage, mas s, acute infarct or anomaly. There is mucosal thickening in the right maxillary sinus and an air-fluid level in the right maxillary s inus. Mucosal thickening is also present in the left sphenoid sinus. There is no evidence of trauma. IMPRESSION IMPRESSION: 1. Brain parenchyma appears normal. 2. Right maxillary sinus disease with an air-fluid level in right maxillary sinus. SIOBHAN CARROLL MD Víctor Amaya MD IMG CT ORDERABLES Troponin POCT (02/24/2014 4:42 PM BISTRO SERVER) athologist [facility] Troponin I 0.01 0.00 - 0.10 POINT OF CARE ug/L TEST, HANDHELD METER Specimen Anatomical Collection Method Collection Time Receive d Time (Source) Location / / Volume Laterality 02/24/2014 4:42 PM 5 4:56 BISTRO SERVER PM BISTRO SERVER Víctor Amaya MD LAB - ENTER/EDIT POCT Performing Organization Address City/[facility]/ZIP [facility] Phon e Number FV POINT OF CARE TEST, HANDHELD METER POINT OF CARE TEST, HANDHELD METER EKG 12 lead (02/24/2014 3:54 PM BISTRO SERVER) [facility] gist Method Time Signature Interpretation ECG Click View RADIOLOGY Image link RESULTS to view waveform and result Specimen (Source) Anatomical Collection Method Collection Time Re ceived Time Location / / Volume Laterality 02/24/2014 3:54 PM BISTRO SERVER Víctor Amaya MD ECG ORDERABLES Performing Organization Address [facility] Phon e Number RADIOLOGY RESULTS Basic metabolic panel (02/24/2014 3:54 PM BISTRO SERVER) athologist [facility] Sodium 136 133 - 144 [place] mmol/L [facility] Potassium 3.8 3.4 - 5.3 [place] mmol/L [facility] Chloride 102 94 - 109 [place] mmol/L [facility] Carbon Dioxide 30 20 - 32 [place] mmol/L [facility] Anion Gap 4 3 - 14 [place] mmol/L [facility] Glucose 77 70 - 99 [place] mg/dL [facility] Comment: Effective 09/08/2013, the reference range for this assay has changed to reflect new instrumentation/methodology. Urea Nitrogen 22 7 - 30 mg/dL [facility] Comment: Effective 09/08/2013, the reference range for this assay has changed to reflect new instrumentation/methodology. Creatinine 0.82 0.52 - 1.04 mg/dL [facility] GFR Estimate 82 >60 mL/min/1.7m2 [facility] Comment: Non GFR Calc GFR Estimate If Black >90 >60 mL/min/1.7m2 F [facility] GFR Calc [facility] Calcium 9.0 8.5 - 10.1 mg/dL [facility] Comment: Effective 09/08/2013, the reference range for this assay has changed to reflect new instrumentation/methodology. Specimen Anatomical Collection Method Collection Time Receive d Time (Source) Location / / Volume Laterality Blood specimen 02/24/2014 3:54 PM 015 4:55 (specimen) BISTRO SERVER PM BISTRO SERVER Víctor Amaya MD LAB - BLOOD ORDERABLES Performing Organization Address City/State/[facility] Phon e Venkat Conley [place] [address] [place], [place] [address] [place] [address] [place] [phone] INR (02/24/2014 3:54 PM BISTRO SERVER) P athologist Signature INR 0.92 0.86 - 1.14 [facility] Specimen Anatomical Collection Method Collection Time Receive d Time (Source) Location / / Volume Laterality Blood specimen 02/24/2014 3:54 PM 015 4:55 (specimen) BISTRO SERVER PM BISTRO SERVER Víctor Amaya MD LAB - BLOOD ORDERABLES Performing Organization Address City/State/[facility] Phon e Number Jarvis [facility] [address] [place], [place] [address] [place] [address] [address] [place] [phone] (ABNORMAL) CBC with platelets differential (02/24/2014 3:54 PM BISTRO SERVER) Patholo gist Method Time Signature WBC 6.6 4.0 - [place] 11.0 [facility] 10e9/L [facility] RBC Count 4.43 3.8 - 5.2 [place] 10e12/L [facility] Hemoglobin 11.5 (L) 11.7 - [place] 15.7 g/dL [facility] Hematocrit 37.9 35.0 - [place] 47.0 % [facility] MCV 86 78 - 100 [place] fl [facility] MCH 26.0 (L) 26.5 - [place] 33.0 pg [facility] MCHC 30.3 (L) 31.5 - [place] 36.5 g/dL [facility] RDW 14.9 10.0 - [place] 15.0 % [facility] Platelet Count 293 150 - 450 [place] [address] [place] [address] Diff Method Automated [place] Method [facility] % Neutrophils 57.1 % [facility] % Lymphocytes 36.5 % [facility] % Monocytes 4.1 % [facility] % Eosinophils 1.7 % [facility] % Basophils 0.3 % [facility] % Immature 0.3 % [place] Granulocytes [facility] Absolute 3.8 1.6 - 8.3 [place] Neutrophil [address] [place] [address] Absolute 2.4 0.8 - 5.3 [place] Lymphocytes [address] [place] [address] Absolute 0.3 0.0 - 1.3 [place] Monocytes [facility] Absolute 0.1 0.0 - 0.7 [place] Eosinophils [address] [place] [address] Absolute 0.0 0.0 - 0.2 [place] Basophils [address] [place] [address] Abs Immature 0.0 0 - 0.4 [place] Granulocytes [address] [place] [address] Specimen Anatomical Collection Method Collection Time Receive d Time (Source) Location / / Volume Laterality Blood specimen 02/24/2014 3:54 PM 015 4:55 (specimen) BISTRO SERVER PM BISTRO SERVER Víctor Amaya MD LAB - BLOOD ORDERABLES Performing Organization Address City/State/ZIP Code Phon e Number [facility] [address] [place], [place] [address] [facility] [address] [place], [place] [address] HCG qualitative urine (02/24/2014 3:43 PM BISTRO SERVER) athologist Signature HCG Qual Urine Negative NEG [facility] Specimen Anatomical Collection Method Collection Time Receive d Time (Source) Location / / Volume Laterality Urine specimen URINE SPECIMEN 02/24/2014 3:43 PM 02/24 5:07 (specimen) OBTAINED BY CLEAN BISTRO SERVER PM BISTRO SERVER CATCH PROCEDURE / Unknown Víctor Amaya MD LAB - URINE ORDERABLES Performing Organization Address City/[facility]/ZIP [facility] Phon tico Conley [facility] [address], [place] [address] [facility] [address] [place], [place] [address] (ABNORMAL) UA with Microscopic (02/24/2014 3:43 PM BISTRO SERVER) [facility] Method Time Signature Color Urine Yellow [facility] Appearance Urine Clear [facility] Glucose Urine Negative NEG mg/dL [facility] Bilirubin Urine Negative NEG [facility] Ketones Urine Negative NEG mg/dL [facility] Specific [place] 1.024 1.003 - [place] Urine 1.035 [facility] Blood Urine Small (A) NEG [facility] pH Urine 6.5 5.0 - 7.0 [facility] Protein Albumin 30 (A) NEG mg/dL [facility] Urobilinogen Normal 0.0 - 2.0 [place] mg/dL mg/dL [facility] Nitrite Urine Negative NEG [facility] Leukocyte Negative NEG [place] Esterase Urine [facility] Source Midstream [facility] WBC Urine 1 0 - 2 [place] /HPF [facility] RBC Urine <1 0 - 2 [place] /HPF [facility] Squamous 1 0 - 1 [place] Epithelial /HPF /HPF [facility] Mucous Urine Present (A) NEG /LPF [facility] Specimen Anatomical Collection Method Collection Time Receive d Time (Source) Location / / Volume Laterality Urine specimen URINE SPECIMEN 02/24/2014 3:43 PM 02/24 5:07 (specimen) OBTAINED BY CLEAN BISTRO SERVER PM BISTRO SERVER CATCH PROCEDURE / Unknown Víctor Amaya MD LAB - URINE ORDERABLES Performing Organization Address City/[facility] Phon tico Conley [facility] [address] [place], [place] [address] [facility] [address] [place], [place] [address] documented in this encounter Visit Diagnoses Diagnosis Headache(784.0) Headache Hypertensive urgency Unspecified essential hypertension Sinusitis Unspecified sinusitis (chronic) documented in this encounter Administered Medications Inactive Administered Medications - up to 3 most recent administrations Medication Order MAR Action Action Date Dose Rate Site acetaminophen (TYLENOL) tablet 500 Given 02/24/2014 4:49 PM BISTRO SERVER 500 mg mg 500 mg, Oral, EVERY 4 HOURS PRN, fever, Starting on Viviana 02/24/14 at 1632, Maximum acetaminophen dose from all sources = 75 mg/kg/day not to exceed 4 gram labetalol (NORMODYNE,TRANDATE) injection 20 mg Given 02/24/2014 4:41 PM BISTRO SERVER 20 mg 20 mg, Intravenous, ONCE, On Viviana 02/24/14 at 1633, For 1 dose, For Adults, Hold if HR < 60. documented in this encounter Active and Recently Administered Medications Times are shown in BISTRO SERVER. Scheduled Medication Order 02/22/2014 02/23/2014 02/24/2014 labetalol (NORMODYNE,TRANDATE) injection 20 mg (COMPLETED) 1641 (Given - Provider: Carmen Weeks RN) 20 mg, Intravenous, ONCE, Viviana 02/24/14 at 1633, For 1 dose, For Adults, Hold if HR < 60. PRN Medication Order 02/22/2014 02/23/2014 02/24/2014 acetaminophen (TYLENOL) tablet 500 mg (CANCELED) 1649 (Given - Provider: Carmen Weeks RN) 500 mg, Oral, EVERY 4 HOURS PRN, fever, Starting Viviana 02/24/14 at 1632, Maximum acetaminophen dose from all sources = 75 mg/kg/day not to exceed 4 gram documented in this encounter Care Teams Sandblaster Glass Relationship Specialty Start Date End Date Francisco Javier Pascual MD PCP - General Family Practice 02/11/14 07/07/19 documented as of this encounter
--- OUTSIDE RECORDS SUMMARY | 2021-12-10 21:22 | XMS_ITS | Encounter Summary ---
:1985 Author Organization [place] Address [address] [place] [address]. [place] [address] Care Team Providers Name Role Phone Francisco Javier King MD Primary Care Provider Reason for Visit Reason Comments Consult LEL Encounter Details Date Type Department Care Team Description 12/20/2014 Office Visit [facility] Ammon Randall Severel y overweight Surgical Weight Loss (Primary Dx) [address] [address] [place] [address] (Work) [phone] Social History Tobacco Use Types Packs/Day Years [...] How often do you attend rastafarian or roman catholic Never 05/22/2021 services? Do [...] Sign Reading Time Taken Comments Blood Pressure 130/80 12/20/2014 11:14 AM RANGE TECHNICIAN Pulse 83 12/20/2014 11:14 AM RANGE TECHNICIAN Temperature - - Respiratory Rate 16 12/20/2014 11:14 AM RANGE TECHNICIAN Oxygen Saturation - - Inhaled Oxygen Concentration - - Weight 120 kg (264 lb 9.6 oz) 12/20/2014 11:14 AM RANGE TECHNICIAN Height - - Body Mass Index 45.42 07/21/2014 1:05 PM CDT documented in this encounter Progress Notes Ammon Randall MD - 12/26/2014 8:35 AM CST 12/20/2014 RE: DOMINGO??IDALIA : 1985 ?? Dear FRANCISCO JAVIER KING , I had the distinct pleasure [facility] ??As you may know, DOMINGO??has been undergoing the thorough preoperative screening process in anticipation of potential bariatric surgery. At present your patient's BMI is 45.3, and weight is 264 ??lbs. DOMINGO??suffers from multiple medicalcomorbidities, some of them related to morbid obesity. The comorbidities include High blood pressure, prediabetes, Low back pain, Cellulitis. DOMINGO??has tried multiple attempts at weight loss including Calorie Counting, Other. PHYSICAL EXAMINATION: Vital Signs: Ht: 64??in, Wt: 264 ??lbs., BMI: 45.3, BP: 130/80 , Pulse: 83,??Temp: 97.9 GENERAL: Alert and oriented x3. NAD CARDIOVASCULAR: No JVD RESPIRATORY: Breathing unlabored GASTROINTESTINAL: Obese LOWER EXTREMITIES: no deformities MUSCULOSKELETAL: Normal gait, Moves all 4 extremities equal and strong NEUROLOGIC: no gross defect SKIN: warm and dry to touch In summary, DOMINGO??IDALIA??has been evaluated by our medical provider, dietitian and psychologist and appears to be an appropriate candidate for the procedure. In the office today, I discussed the Laparoscopic Farhat-en-Y Gastric Bypass??as well as the potentialrisks and benefits. I do feel that some of the related comorbidities can be improved through weight loss, and that surgical weight loss may be the best option. At present we are going to present your patient's file for prior authorization to the insurance provider. Pending prior authorization, I anticipate a surgical date in the near future. If you have any questions regarding your patient's care, please do not hesitate to contact me. I look forward to keeping you updated on DOMINGO's progress through our clinic. Sincerely, Dr. Ammon Randall ? HPI ROS Physical Exam E TECHNICIAN documented in this encounter Plan of Treatment Not on filedocumented as of this encounter Visit Diagnoses Diagnosis Severely overweight - Primary Morbid obesity documented in this encounter Care Teams Operations Vocational Instructor Relationship Specialty Start Date End Date Francisco Javier King MD PCP - General Family Practice 02/11/14 07/07/19 documented as of this encounter
--- OUTSIDE RECORDS SUMMARY | 2021-12-10 21:22 | XMS_ITS | Encounter Summary ---
:1985 Author Organization [place] Address [address] [place] [address] Care Team Providers Name Role Phone Unavailable Primary Care Provider Unavailable Encounter Details Date Type Department Care Team Description 05/08/2007 Historic Results INTERFACED REPORT Bri Byers rd, MD [address] [place] [address] (Wo rk) Social History Tobacco Use Types [...] How often do you attend methodist or adventism Never 05/22/2021 services? Do you belong to [...] Procedure Name Priority Date/Time Associated Comments Diagnosis ROUTINE UA WITH Routine 05/08/2007 11:40 Results for this MICROSCOPIC AM CDT procedure are i n the results section. documented in this encounter Results (ABNORMAL) Routine UA with microscopic (05/08/2007 11:40 AM CDT) [facility] Method Time Signature Source Midstream [facility] Urine Color Urine Yellow [facility] Appearance Urine Slightly [facility] Cloudy Glucose Urine Negative NEG mg/dL [facility] Bilirubin Urine Negative NEG [facility] Ketones Urine Negative NEG mg/dL [facility] Specific [place] 1.013 1.003 - [facility] Urine 1.035 Blood Urine Negative NEG [facility] pH Urine 7.0 5.0 - 7.0 [facility] pH Protein Albumin Negative NEG mg/dL [facility] Urine Urobilinogen Normal 0.0 - 2.0 [facility] mg/dL mg/dL Nitrite Urine Negative NEG [facility] Leukocyte Negative NEG [facility] Esterase Urine WBC Urine 1 0 - 2 [facility] /HPF RBC Urine <1 0 - 2 [facility] /HPF Squamous 14 (H) 0 - 1 [facility] Epithelial /HPF /HPF Urine Transitional Epi <1 0 - 1 [facility] /HPF Bacteria Urine Few (A) NEG /HPF [facility] Mucous Urine Present (A) NEG /LPF [facility] Specimen Anatomical Collection Method Collection Time Receive d Time (Source) Location / / Volume Laterality 05/08/2007 11:40 05/08/2007 AM CDT 11:41 AM CDT Sebastian Byers MD LAB - URINE ORDERABLES Performing Organization Address City/State/ZIP Code Phon e Number [facility] documented in this encounter Visit Diagnoses Not on filedocumented in this encounter
--- OUTSIDE RECORDS SUMMARY | 2021-12-10 21:22 | XMS_ITS | Encounter Summary ---
:1985 Author Organization [place] Address [address] [place] [address] Care Team Providers Name Role Phone Unavailable Primary Care Provider Unavailable Encounter Details Date Type Department Care Team Description 07/10/2007 Historic Results INTERFACED REPORT Unknown, Provider Social History Tobacco Use Types Packs/Day Years [...] How often do you attend adventist or sikhism Never 05/22/2021 services? Do you [...] Date/Time Associated Diagnosis Comme nts HEMOGLOBIN Routine 07/10/2007 8:53 AM Results f or this CDT procedure are i n the results section . documented in this encounter Results (ABNORMAL) Hemoglobin (07/10/2007 8:53 AM CDT) P athologist Signature Hemoglobin 10.0 (L) 11.7 - 15.7 [facility] g/dL Specimen Anatomical Collection Method Collection Time Receive d Time (Source) Location / / Volume Laterality 07/10/2007 8:53 AM 8 8:58 CDT AM CDT Provider Unknown LAB - BLOOD ORDERABLES Performing Organization Address City/State/ZIP Code Phon e Number [facility] documented in this encounter Visit Diagnoses Not on filedocumented in this encounter
--- OUTSIDE RECORDS SUMMARY | 2021-12-10 21:22 | XMS_ITS | Encounter Summary ---
:1985 Author Organization [place] Address [address] [place] [address] Care Team Providers Name Role Phone Unavailable Primary Care Provider Unavailable Encounter Details Date Type Department Care Team Description 11/06/2009 Emergency room [facility] Francisco Javier Beatty MD Hospital Results EMERGENCY PHYSI [facility]Y [place] [address] [place] [address] (Wo rk) Social History [...] 05/22/2021 relatives? How often do you attend mormon or christianity Never 05/22/2021 services? Do you belong to any clubs or organizations such as No 05/22/2021 mormon groups, unions, fraternal or athletic groups, or [...] documented as of this encounter Progress Notes Francisco Javier Beatty - 11/07/2009 5:47 PM CDT FINAL CHIEF COMPLAINT: My wrist hurts. 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 She says she woke up this morning and her wrist hurts some and when she went to work, she could not do the things she normally does just simple grasping and lifting. She does admit to some tingling in the index and long finger on that extremity. She has never had this before. She denies any direct trauma to the extremity. She says the pain radiates about half way up the forearm on the underside. She has not had this occur at night. PAST MEDICAL HISTORY: Previously healthy. MEDICATIONS: None. ALLERGIES: No known drug allergies. SOCIAL HISTORY: Lives in [place], works at [employer] at the [employer]. REVIEW OF SYSTEMS: See HPI. All other systems negative. OBJECTIVE: VITAL SIGNS: Temperature is 98.1, heart rate 78, respiratory rate 12, blood pressure 32/88, room air sat 100%. CONSTITUTIONAL: She appears her stated age, alert and oriented x3. HEENT: PERRLA, EOMI. Moist oral mucosa. Nares patent. CARDIOVASCULAR: Regular S1 sounds. RESPIRATORY: No increased work of breathing. LUNGS: Clear. MUSCULOSKELETAL: Left thenar eminence compared to the right appears normal. Phalen sign was positive with hyperflexion of the wrist dorsum of the hands together and elbows extended outward. She got tingling and numbness in her index and long finger. This dissipated after cessation of the test. Radialpulses intact, ulnar pulse intact as well. SKIN: [place], warm and dry. Capillary refill less than 2 seconds. NEUROLOGIC: She has intact median, radial and ulnar motor nerve function. A volar Velcro splint was placed, the fit deemed appropriate by this examiner. IMPRESSION: Acute overuse injury of the left wrist which may be a precursor or development of carpal tunnel syndrome. PLAN: Keep splint on until seen by Ken 11/07/2009 as scheduled. Ibuprofen and Vicodin as directed for pain. Electronically signed on 11/07/2009 17:46 by FRANCISCO JAVIER BEATTY MD [place]: [id number] Name: DOMINGO MATAMOROS Account: [id number] : 1985 Visit Date: 11/06/2009 Document: [id number] cc: [facility] documented in this encounter Plan of Treatment Not on filedocumented as of this encounter Visit Diagnoses Not on filedocumented in this encounter
--- OUTSIDE RECORDS SUMMARY | 2021-12-10 21:22 | XMS_ITS | Encounter Summary ---
:1985 Author Organization [place] Address [address] [place] [address] Care Team Providers Name Role Phone Unavailable Primary Care Provider Unavailable Encounter Details Date Type Department Care Team Description 07/13/2007 Historic Results INTERFACED REPORT [place] [address] (Wo rk) Social History Tobacco Use Types [...] How often do you attend confucianist or rastafarian Never 05/22/2021 services? Do you belong to [...] Date/Time Associated Diagnosis Comme nts HEMOGLOBIN Routine 07/13/2007 7:07 AM Results f or this CDT procedure are i n the results section . documented in this encounter Results (ABNORMAL) Hemoglobin (07/13/2007 7:07 AM CDT) P athologist Signature Hemoglobin 9.2 (L) 11.7 - 15.7 [facility] g/dL Specimen (Source) Anatomical Collection Method Collection Time Re ceived Time Location / / Volume Laterality 07/13/2007 7:07 AM 8 CDT Valentin Heath MD LAB - BLOOD ORDERABLES Performing Organization Address City/State/ZIP Code Phon e Number [facility] documented in this encounter Visit Diagnoses Not on filedocumented in this encounter
--- OUTSIDE RECORDS SUMMARY | 2021-12-10 21:22 | XMS_ITS | Encounter Summary ---
:1985 Author Organization [place] Address [facility] [place] [address] Care Team Providers Name Role Phone Francisco Javier Pascual MD Primary Care Provider Reason for Visit Reason Onset Date Comments Patient Request 02/07/2015 Encounter Details Date Type Department Care Team Description 02/07/2015 Telephone [facility] Surgical Nila Aceves, Patient Request Weight Loss Clinic E debbie AVENDAÑO [address] [facility] [address] [facility] [address] [place] [address] [place] [address] [phone] Social History Tobacco Use Types Packs/Day Years [...] How often do you attend confucianism or anabaptism Never 05/22/2021 services? Do you [...] Miscellaneous Notes Telephone Encounter - Nila Aceves, RN - 02/07/2015 3:38 PM CORRECTIONAL PROBATION OFFICER Patient called to report that she started her menstrual cycle and she is now up to 266 from 262.5 on02/01. She reports she only ate a small [place] dinner and then back on liquids. She is worried that her surgery will be postponed. Informed patient that I would let her surgeon know and that she should stay the course and keep her weight in check as best she can for DOS 02/09/15. Nila Carter, MS, RD, RN ECTIONAL PROBATION OFFICER documented in this encounter Plan of Treatment Not on filedocumented as of this encounter Visit Diagnoses Not on filedocumented in this encounter Care Teams Shredding Machine Operator Relationship Specialty Start Date End Date Francisco Javier Pascual MD PCP - General Family Practice 02/11/14 07/07/19 documented as of this encounter
--- OUTSIDE RECORDS SUMMARY | 2021-12-10 21:22 | XMS_ITS | Encounter Summary ---
:1985 Author Organization [facility] Address [address] [place] [id number] Care Team Providers Name Role Phone Francisco Javier Pascual MD Primary Care Provider Encounter Details Date Type Department Care Team Description 07/07/2014 Emergency [facility] Lupe Hsu, Hypertension; [facility] Emergency Dep t Headache(784.0); [address] [facility] [place], [place] [address] [facility] [phone] [place] [address] (Wo rk) Social History Tobacco Use Types [...] often do you attend oriental orthodox or mormonism Never 05/22/2021 services? Do you [...] place to sleep or slept in a group home (including now)? Sex Assigned at Date Recorded Female 12/08/2020 12:18 PM CDT documented as of this encounter Last Filed Vital Signs Vital Sign Reading Time Taken Comments Blood Pressure 141/84 07/07/2014 7:15 PM CDT Pulse 78 07/07/2014 4:59 PM CDT Temperature 36.9 ??C (98.5 ??F) 07/07/2014 4:59 PM CDT Respiratory Rate 18 07/07/2014 9:39 PM CDT Oxygen Saturation 95% 07/07/2014 9:09 PM CDT Inhaled Oxygen Concentration - - Weight - - Height - - Body Mass Index - - documented in this encounter Discharge Instructions Discharge InstructionsLupe Hsu MD - 07/07/2014 9:30 PM CDT Images from the original note were not included. Discharge Instructions Hypertension - High Blood Pressure [...] is anything that worries you. Discharge Instructions Headache You were seen today for a headache. Headaches may be caused by many different things such as muscle tension, sinus inflammation, anxiety and stress, having too little sleep, too much alcohol, some medical conditions or injury. You may have a migraine, which is caused by changes in the blood vessels inyour head. At this time your doctor does not find that your headache is a sign of anything dangerousor life-threatening. However, sometimes the signs of serious illness do not show up right away. If you have new or worse symptoms, you may need to be seen again in the emergency department or by your primary doctor. Return to the Emergency Department if: ??? You get a fever of 101 F or higher. ??? Your headache gets much worse. ??? You get a stiff neck with your headache. ??? You get a new headache that is different or worse than headaches you have had before. ??? You are vomiting and can???t keep food or water down. ??? You have blurry or double vision or other problems with your eyes. ??? You have a new weakness on one side of your body. ??? You have difficulty with balance which is new. ??? You or your family thinks you are confused. ??? You have a seizure or convulsion. What can I do to help myself? Pain medications - You may take a pain medication such as Tylenol?? (acetaminophen), Advil??, Nuprin?? (ibuprofen) or Aleve?? (naproxen). If you have been given a narcotic such as Vicodin?? (hydrocodone with acetaminophen), Percocet?? (oxycodone with acetaminophen), codeine, or a muscle relaxant such as Flexeril?? (cyclobenzaprine) or Soma?? (carisoprodol), do not drive for four hours after you have taken it. If the narcotic contains Tylenol?? (acetaminophen), do not take Tylenol?? with it. All narcotics will cause constipation, so eat a high fiber diet. ??? Take a pain reliever as soon as you notice symptoms. Starting medications as soon as you start to have symptoms may lessen the amount of pain you have. ??? Relaxing in a quiet, dark room may help. ??? Get enough sleep and eat meals regularly. ??? Schedule an appointment with your primary physician as instructed, or at least within 1 week. ??? You may need to watch for certain foods or other things which may trigger your headaches. Keeping a journal of your headaches and possible triggers may help you and your primary doctor to identify things which you should avoid which may be causing your headaches. If you were given a prescription for [...] if there is anything that worries you. Nosebleed [Adult] Bleeding from the nose most commonly occurs due to injury or drying and cracking of the inner liningof the nose. This can occur during a common cold, hay fever attack, a very hot day, or from dry air in the winter. High blood pressure and hardening of the arteries (atherosclerosis) may also cause nosebleeds. If the bleeding site is found, it may be treated with a chemical or heat or electricity to cause a blood clot to form (cauterized). If the bleeding continues after cautery or if the bleeding site cannot be found, a packing may be placed in your nose to apply pressure and stop the bleeding. The packingmay be made of gauze or sponge. A small balloon catheter is sometimes used. These need to be removedby your doctor. Some types of packing dissolve on their own. Home Care: ?? If a packing was put in your nose, unless told otherwise, do not pull on it or try to remove it yourself. You will be given an appointment to have it removed. You may also have been given antibiotics to prevent a sinus infection. If so, complete all the medicine. ?? Do not blow your nose for 12 hours after the bleeding stops. This will allow a strong blood clot to form. Do not pick your nose. This may restart bleeding. ?? Avoid alcohol and hot liquids for the next two days. Alcohol or hot liquids in your mouth can dilate blood vessels in your nose and cause bleeding to start again. ?? Do not take ibuprofen (Advil, Motrin), naprosyn (Aleve) or aspirin-containing medicines since these thin the blood and may promote nose bleeding. You may take Tylenol (acetaminophen) for pain, unless another pain medicine was prescribed. ?? If the bleeding starts again, sit up and lean forward to prevent swallowing blood. Pinch your nose tightly for exactly 5 minutes (watch the clock). If bleeding is not controlled, continue to pinch and call your doctor or return to this facility. ?? If high blood pressure was a cause for your nosebleed, have your blood pressure checked again tomorrow. ?? If you have a cold or hay fever or dry nasal membranes, lubricate the nasal passages by applying a small amount of Vaseline inside the nose with a Q- tip twice a day (morning and night). Avoid overheating your home, which can dry the air and worsen your condition. Follow Up with your doctor as advised for packing removal. Nasal packing should be rechecked or removed within2-3 days. Get Prompt Medical Attention if any of the following occur: ?? Another nosebleed that you cannot control ?? Dizziness, weakness or fainting ?? Fever of 100.4??F (38??C) or higher, or as directed by your healthcare provider ?? Headache ?? Sinus or facial pain ?? Shortness of breath or trouble breathing ?? [id number] [employer] [place] [address], [place] [address]. All rights reserved. This information is not intended as a substitute for professional medical care. Always follow your healthcare professional's instructions. documented in this encounter Medications at Time of Discharge Medication Sig Dispensed Refills Start Date End Date buPROPion (WELLBUTRIN XL) 150 Take 150 mg by 0 02/09/2015 MG 24 hr tablet mouth BUPROPION HCL PO 0 07/22/19 15 FLUOXETINE HCL PO Take 20 mg by 0 01/12 mouth daily hydrochlorothiazide Take 25 mg by 0 06/02/2014 (HYDRODIURIL) 25 MG tablet mouth daily lisinopril (PRINIVIL,ZESTRIL) Take 40 mg by 0 06/13/2017 40 MG tablet mouth daily LISINOPRIL PO 0 07/21/2014 documented as of this encounter ED Notes Nano Carrion RN - 07/07/2014 8:01 PM CDT Patient reports she is feeling better. Rates MALDONADO 04/19. Nano Carrion RN - 07/07/2014 6:48 PM CDT Patient placed on cardiac rn and 2L NC. Nano Carrion RN - 07/07/2014 6:31 PM CDT at bedside. Lupe Hsu MD - 07/07/2014 6:29 PM CDT History Chief Complaint: High blood pressure and headache HPI Tri Cerda is a 28 year old female with a history of HTN who presents with high blood pressureand headache. The patient reports that she has been feeling dizzy and she???s had nose bleeds, a headache, and high blood pressure. The nose bleeds started five days ago and the headaches and dizzinessstarted three days ago. She???s had headaches with her hypertension in the past, however this headache is longer lasting and they normally go away with napping. She denies history of migraine headaches. She???s had a bad cough that is associated with nausea but no vomiting that she???s had for less than a week. She has some chest pain that she describes as dull and like a weight lasting one minute, noting she???s had it a few times in the last week. This is not associated with exertion as she exerted herself yesterday at work and didn???t notice any pain. She denies any chest pain currently. She???s had several nose bleeds recently as well that are sometimes brought on by coughing but not always. She???s never had nose bleeds like this in the past and she hasn???t had any other unusual bleeding. She denies fever, chills, lightheadedness, syncope, weakness, numbness, appetite changes, SOB, swelling of her legs, palpitations, abdominal pain, vomiting, diarrhea, urinary symptoms, and back pain. Cardiac/PE/DVT Risk Factors: The patient has a history of hypertension with no known history of hyperlipidemia, diabetes, or smoking. She reports no family history of cardiovascular disease. The patient denies any personal or familial history of PE, DVT, or clotting disorder. The patient reports no recent travel, surgery, or other immobilizations. Allergies: The patient has no known drug allergies. Medications: Bupropion Fluoxetine Lisinopril 20 mg 20 mg lisinopril for last few months, diagnosed a few months ago (Mar) Past Medical History: Headache Depression HTN Past Surgical History: Cupola Melter Helper surgery Family History: Mother: HTN Social History: Marital Status: The patient's PCP is Dr. Francisco Javier Pascual. The patient lives in [place]. Review of Systems Constitutional: Negative for fever, chills and appetite change. Respiratory: Positive for cough. Negative for shortness of breath. Cardiovascular: Negative for chest pain and leg swelling. Gastrointestinal: Positive for nausea. Negative for vomiting, abdominal pain and diarrhea. Genitourinary: Negative for dysuria and hematuria. Musculoskeletal: Negative for back pain. Neurological: Positive for dizziness and headaches. Negative for syncope, speech difficulty, weakness and light-headedness. All other systems reviewed and are negative. Physical Exam First Vitals: BP: 172/117 mmHg Pulse: 78 Temp: 98.5 ??F (36.9 ??C) Resp: 18 SpO2: 100 % Physical Exam General: Large adult female sitting upright. Eyes: PERRL, Conjunctive within normal limits, EOMI ENT: Moist mucous membranes, oropharynx clear. No septal hematoma or deviation. No evidence of bleeding. Nasal passages are clear and normal in appearance. Slight hyperemia of the left nasal septum. Neck: nontender, normal active ROM CV: Normal S1S2, no murmur, rub or gallop. Regular rate and rhythm Resp: Clear to auscultation bilaterally, no wheezes, rales or rhonchi. Normal respiratory effort. GI: Abdomen is soft, nontender and nondistended. No palpable masses. No rebound or guarding. MSK: No edema. Nontender. Normal active range of motion. Skin: Warm and dry. No rashes or lesions or ecchymoses on visible skin. No visible ecchymosis or petechiae. Neuro: Alert and oriented. Responds appropriately to all questions and commands. No focal findings appreciated. Normal muscle tone. Speech is normal, no facial asymmetry, hearing grossly intact. Moves all extremities equally. Psych: Normal mood and affect. Pleasant. Emergency Department Course ECG: ECG @ 1846 Vent Rate: 72 BPM AR Interval: 152 ms QRS duration: 86 ms QT/QTc: 436/477 ms P-R-T [place]: 19 12 42 Findings: Normal sinus rhythm. Normal ECG. Agree with computer interpretation. No old ECG. Read at 1849. Imaging: Radiographic findings were communicated with the patient who voiced understanding of the findings. XR Chest: IMPRESSION: Clear lungs. MARIANN RODRIGUEZ MD Laboratory: Troponin I (2025): WNL (<0.015) CBC: MCH 26.0 low, MCHC 29.8 low, RDW 16.1 high, o/w WNL (WBC 7.3, HGB 12.2, PLT 331) BMP: WNL (creatinine 0.81) Troponin I (1828): WNL (<0.015) Interventions: Tylenol 975 mg PO Emergency Department Course: 1636: Nursing notes and vitals reviewed. I performed an exam of the patient as documented above. 1937: Upon recheck the patient reports her headache is improved and she is feeling better. Blood was drawn from the patient. This was sent for laboratory testing, findings above. I personally reviewed the laboratory results with the Patient and answered all related questions prior to discharge. The patient was sent for a chest x-ray while in the emergency department, findings above. Patient reassessed. Denies any new concerns. 2139: Findings and plan explained to the Patient. Patient discharged home with instructions regarding supportive care, medications, and reasons to return. The importance of close follow-up was reviewed. Impression & Plan Medical Decision Making: Tri Cerda is a 28 year old female with a history of hypertension, likely familial given her history, who presents to the ED for concern for headache, intermittent bloody noses, and concern for her elevated blood pressure. She notes she normally has all the symptoms she has today except for her bloody noses wit her hypertension. Her headache is not different than previous headaches. She has no focal neurologic abnormalities. I do not see any indication for head CT as I am not concerned with bleed or mass. Only on prompting did she discuss chest pain which sounds atypical. Serial troponins and EKG did not support ischemia. Her BP improved over time without any emergent intervention to near-normal range. Her headache went away with tylenol and time. She had no nose bleeds here and as she has been recently increasing the air conditioning use in her home which might be contributing, although hypertension could as well. She is recommended to put Vaseline at the nares and put a humidifier in her rooms. I recommended that she follow up with her primary within three days for reassessment. She will return immediately to ED if symptoms worsen. All questions were answered. She is discharged home in improved condition. Diagnosis: ICD-9-CM 1. Hypertension 401.9 2. Headache(784.0) 784.0 3. Epistaxis 784.7 4. Chest pain I, Traci Salmon, am serving as a scribe on 07/07/2014 at 6:30 PM to personally document services performed by Dr. Hsu based on my observations and the provider's statements to me. Traci Salmon 07/07/2014 [facility] EMERGENCY DEPARTMENT Lupe Hsu MD 07/08/14 0129 Lupe Butler RN - 07/07/2014 5:00 PM CDT Patient complains of HTN, states that the past 3 days she has had high BP readings. Symptoms include, nosebleeds, dizziness, visual changes and headache. documented in this encounter Plan of Treatment Not on filedocumented as of this encounter Procedures Procedure Name Priority Date/Time Associated Comments Diagnosis TROPONIN I Timed 07/07/2014 8:26 PM Results f or this CDT procedure are i n the results section. XR CHEST 2 VIEWS STAT 07/07/2014 7:34 PM Resul ts for this CDT procedure are i n the results section. EKG 12-LEAD, TRACING STAT 07/07/2014 6:46 PM R esults for this ONLY CDT procedure are i n the results section. CBC WITH PLATELETS & STAT 07/07/2014 6:29 PM R esults for this DIFFERENTIAL CDT procedure are i n the results section. TROPONIN I STAT 07/07/2014 6:29 PM Results f or this CDT procedure are i n the results section. BASIC METABOLIC PANEL STAT 07/07/2014 6:29 PM Results for this CDT procedure are i n the results section. documented in this encounter Results Troponin I (now) (07/07/2014 8:26 PM CDT) [facility] Method Time Signature Troponin I ES <0.015 0.000 [facility] The 99th percentile for [facility] r reference range is 0.045 ug/L. ??Troponin values in 0.045 [facility] the range of 0.045 - 0.120 ug/L may be associated wit h risks of adverse ug/L HOSPITAL clinical events. Specimen Anatomical Collection Method Collection Time Receive d Time (Source) Location / / Volume Laterality Blood specimen 07/07/2014 8:26 PM 05/28/2 015 8:43 (specimen) CDT PM CDT Lupe Hsu MD LAB - BLOOD ORDERABLES Performing Organization Address City/State/ZIP Code Phon e Number M [facility] [address] [place], [place] [address] [facility] [address] [place], [place] [address] [facility] [phone] XR Chest 2 Views (07/07/2014 7:34 PM CDT) Anatomical Region Laterality Modality Chest Computed Radiography Specimen (Source) Anatomical Location Collection Method / Collectio n Time Received Time / Laterality Volume Impressions 07/07/2014 8:06 PM CDT IMPRESSION: Clear lungs. MARIANN RODRIGUEZ MD Narrative 07/07/2014 8:06 PM CDT CHEST TWO VIEWS ??07/07/2014 ??7:34 PM COMPARISON: None. HISTORY: Chest pain. FINDINGS: The cardiac silhouette, pulmon shayy vasculature, lungs and pleural spaces are within normal limits. Procedure Note Mariann Rodriguez MD - 07/07/2014Forma tting of this note might be different from the original. CHEST TWO VIEWS 07/07/2014 7:34 PM COMPARISON: None. HISTORY: Chest pain. FINDINGS: The cardiac silhouette, pulmon shayy vasculature, lungs and pleural spaces are within normal limits. IMPRESSION IMPRESSION: Clear lungs. MARIANN RODRIGUEZ MD Lupe Hsu MD IMG DIAGNOSTIC IMAGING ORDER RAYNE EKG 12-lead, tracing only (07/07/2014 6:46 PM CDT) [facility] Method Time Signature Interpretation ECG Click View RADIOLOGY Image link RESULTS to view waveform and result Specimen (Source) Anatomical Collection Method Collection Time Re ceived Time Location / / Volume Laterality 07/07/2014 6:46 PM CDT Lupe Hsu MD ECG ORDERABLES Performing Organization Address City/State/ZIP Code Phon e Number RADIOLOGY RESULTS Troponin I (07/07/2014 6:29 PM CDT) [facility] Method Time Signature Troponin I ES <0.015 0.000 - [place] The 99th percentile for uppe r reference range is 0.045 ug/L. ??Troponin values in 0.045 [facility] the range of 0.045 - 0.120 ug/L may be associated wit h risks of adverse ug/L HOSPITAL clinical events. Specimen Anatomical Collection Method Collection Time Receive d Time (Source) Location / / Volume Laterality Blood specimen 07/07/2014 6:29 PM 015 7:01 (specimen) CDT PM CDT Lupe Hsu MD LAB - BLOOD ORDERABLES Performing Organization Address City/[facility] Phon e Number [facility] [address] [place], [place] [address] [facility] [address] [place], [place] [address] [place] [address] Basic metabolic panel (07/07/2014 6:29 PM CDT) athologist Signature Sodium 136 133 - 144 [place] mmol/L [facility] Potassium 3.7 3.4 - 5.3 [place] mmol/L [facility] Chloride 101 94 - 109 [place] mmol/L [facility] Carbon Dioxide 28 20 - 32 [place] mmol/L [facility] Anion Gap 7 3 - 14 [place] mmol/L [facility] Glucose 80 70 - 99 [place] mg/dL [facility] Urea Nitrogen 8 7 - 30 [place] mg/dL [facility] Creatinine 0.81 0.52 - [place] 1.04 mg/dL [facility] GFR Estimate 83 >60 [place] mL/min/1.7 [facility] m2 [facility] Comment: Non GFR Calc GFR Estimate If Black >90 >60 mL/min/1.7m2 F [facility] GFR Calc HOSP ITAL Calcium 8.5 8.5 - 10.1 mg/dL [facility] Specimen Anatomical Collection Method Collection Time Receive d Time (Source) Location / / Volume Laterality Blood specimen 07/07/2014 6:29 PM 015 7:01 (specimen) CDT PM CDT Lupe Hsu MD LAB - BLOOD ORDERABLES Performing Organization Address [facility] Phon e Number [facility] [address] [place], [place] [address] [facility] [address] [place] [address] [phone] (ABNORMAL) CBC with platelets differential (07/07/2014 6:29 PM CDT) [facility] Method Time Signature WBC 7.3 4.0 - [place] 11.[address] RBC Count 4.70 3.8 - 5.2 [place] 10e12L [facility] Hemoglobin 12.2 11.7 - [place] 15.7 g/dL [facility] Hematocrit 41.0 35.0 - [place] 47.0 % [facility] MCV 87 78 - 100 [place] fl [facility] MCH 26.0 (L) 26.5 - [place] 33.0 pg [facility] MCHC 29.8 (L) 31.5 - [place] 36.5 g/dL [facility] RDW 16.1 (H) 10.0 - [place] 15.0 % [facility] Platelet Count 331 150 - [address] Diff Method Automated [facility] % Neutrophils 61.7 % [facility] % Lymphocytes 31.9 % [facility] % Monocytes 4.0 % [facility] % Eosinophils 1.5 % [facility] % Basophils 0.6 % [facility] % Immature 0.3 % [place] Granulocytes [facility] Absolute 4.5 1.6 - 8.3 [place] Neutrophil [facility] Absolute 2.3 0.8 - 5.[address] [place] Lymphocytes [address] [place] [address] Absolute 0.3 0.0 - 1.3 [place] Monocytes [address] [place] [address] Absolute 0.1 0.0 - 0.7 [place] Eosinophils [address] [place] [address] Absolute 0.0 0.0 - 0.2 [place] Basophils [address] [place] [address] Abs Immature 0.0 0 - 0.4 [place] Granulocytes [address] [place] [address] Specimen Anatomical Collection Method Collection Time Receive d Time (Source) Location / / Volume Laterality Blood specimen 07/07/2014 6:29 PM 015 7:01 (specimen) CDT PM CDT Lupe Hsu MD LAB - BLOOD ORDERABLES Performing Organization Address City/State/ZIP Code Phon e Number M [facility] [address] [place], [place] [address] [facility] [address] [place], [place] [address] [facility] [phone] documented in this encounter Visit Diagnoses Diagnosis Hypertension Unspecified essential hypertension Headache(784.0) Headache Epistaxis documented in this encounter Administered Medications Inactive Administered Medications - up to 3 most recent administrations Medication Order MAR Action Action Date Dose Rate Site acetaminophen (TYLENOL) tablet 975 Given 07/07/2014 6:49 PM CDT 975 mg mg 975 mg, Oral, ONCE, On Viviana 07/07/14 at 1840, For 1 dose, Maximum acetaminophen dose from all sources = 75 mg/kg/day not to exceed 4 grams/day. documented in this encounter Active and Recently Administered Medications Times are shown in CDT. Scheduled Medication Order 07/05/2014 07/06/2014 07/07/2014 acetaminophen (TYLENOL) tablet 975 mg (COMPLETED) 1849 (Given - Provider: Nano Carrion RN) 975 mg, Oral, ONCE, Viviana 07/07/14 at 1840, For 1 dose, Maximum acetaminophen dose from all sources = 75 mg/kg/day not to exceed 4 grams/day. documented in this encounter Care Teams Information Security Risk Analyst Relationship Specialty Start Date End Date Francisco Javier Pascual MD PCP - General Family Practice 02/11/14 07/07/19 documented as of this encounter
--- OUTSIDE RECORDS SUMMARY | 2021-12-10 21:22 | XMS_ITS | Encounter Summary ---
:1985 Author Organization [place] Address [address] [place] [id number] Care Team Providers Name Role Phone Unavailable Primary Care Provider Unavailable Encounter Details Date Type Department Care Team Description 10/13/2010 [facility] MD [place] Results [facility] [address] [place], [place] [phone] (Wo rk) Social History [...] 05/22/2021 relatives? How often do you attend restorationist or faith Never 05/22/2021 services? Do you belong to any clubs or organizations such as No 05/22/2021 restorationist groups, unions, fraternal or athletic groups, or [...] Procedure Name Priority Date/Time Associated Comments Diagnosis WET PREPARATION STAT 10/13/2010 5:50 PM Result s for this CDT procedure are i n the results section. NEISSERIA GONORRHOEAE STAT 10/13/2010 5:50 PM Results for this PCR CDT procedure are i n the results section. CHLAMYDIA TRACHOMATIS STAT 10/13/2010 5:50 PM Results for this PCR CDT procedure are i n the results section. HCG QUALITATIVE URINE STAT 10/13/2010 5:00 PM Results for this CDT procedure are i n the results section. ROUTINE UA WITH STAT 10/13/2010 5:00 PM Result s for this MICROSCOPIC CDT procedure are i n the results section. documented in this encounter Results Neisseria gonorrhoeae PCR (10/13/2010 5:50 PM CDT) Component Value Ref Test Analysis Performed At [facility] Method Time Signature Specimen Cervical [facility] LAB N Gonorrhea Negative for N. gonorrhoeae rRNA by development administrator mediated amplification. [facility] PCR A negative result by transc ription mediated amplification does not preclude the [place] presence of N. gonorrhoeae infection because re sults are dependent on proper CAMPUS LABS and adequate collection, absence of inhibitors, and suffici ent rRNA to be detected. Specimen Anatomical Collection Method Collection Time Receive d Time (Source) Location / / Volume Laterality 10/13/2010 5:50 PM 1 6:[address] Jesenia DIAZ LAB - MICRO GENERAL ORDERABL ES Performing Organization Address City/[facility] Code Phon e Number [facility] [address] LAB [facility] LABS Chlamydia trachomatis PCR (10/13/2010 5:50 PM CDT) Component Value Ref Test Analysis Performed At [facility] Method Time Signature Specimen Cervical [facility] LAB Chlamydia Negative for C. trachomatis rRNA by development administrator mediated amplification. [facility] Trachomatis A negative result by transc ription mediated amplification does not preclude the [facility] PCR presence of C. trachomatis infection because results are dependent on proper CAMPUS LABS and adequate collection, absence of inhibitors, and suffici ent rRNA to be detected. Specimen Anatomical Collection Method Collection Time Receive d Time (Source) Location / / Volume Laterality 10/13/2010 5:50 PM 1 6:[address] Jesenia DIAZ LAB - MICRO GENERAL ORDERABL ES Performing Organization Address City/[facility] Code Phon e Number [facility] [address] LAB [facility] LABS Wet prep (10/13/2010 5:50 PM CDT) Patholo gist Method Time Signature Specimen [facility] Wet Prep Few PMNs seen [place] No Trichomonas seen [facility] No yeast seen [facility] LAB Clue cells seen Micro Report FINAL [place] Status 10/13/2010 [facility] LAB Specimen Anatomical Collection Method Collection Time Receive d Time (Source) Location / / Volume Laterality 10/13/2010 5:50 PM 1 6:[address] Jesenia DIAZ LAB - MICRO GENERAL ORDERABL ES Performing Organization Address City/[facility]/ZIP Code Phon e Number [place] [id number] [place], [place] [address] [facility] LAB (ABNORMAL) Routine UA with microscopic (10/13/2010 5:00 PM CDT) [facility] Method Time Signature Color Urine Yellow [facility] LAB Appearance Urine Clear [facility] LAB Glucose Urine Negative NEG mg/dL [facility] LAB Bilirubin Urine Negative NEG [facility] LAB Ketones Urine Negative NEG mg/dL [facility] LAB Specific [place] 1.024 1.003 - [place] Urine 1.035 [facility] LAB Blood Urine Negative NEG [facility] LAB pH Urine 6.0 5.0 - 7.0 [place] pH [facility] LAB Protein Albumin 10 (A) NEG mg/dL [facility] LAB Urobilinogen Normal 0.0 - 2.0 [place] mg/dL mg/dL [facility] LAB Nitrite Urine Negative NEG [facility] LAB Leukocyte Negative NEG [place] Esterase Urine [facility] LAB Source Midstream [facility] LAB WBC Urine 1 0 - 2 [place] /HPF [facility] RBC Urine 1 0 - 2 [place] /HPF [facility] LAB Bacteria Urine Few (A) NEG /HPF [facility] LAB Squamous 1 0 - 1 [place] Epithelial /HPF /HPF [facility] LAB Mucous Urine Present (A) NEG /LPF [facility] LAB Specimen Anatomical Collection Method Collection Time Receive d Time (Source) Location / / Volume Laterality 10/13/2010 5:00 PM 1 5:52 CDT PM CDT Benjie Johnson MD LAB - URINE ORDERABLES Performing Organization Address City/State/ZIP Code Phon e Number M [facility] [address] [place], [place] [address] [facility] LAB HCG qualitative urine (10/13/2010 5:00 PM CDT) P athologist Signature HCG Qual Urine Negative NEG [facility] LAB Specimen Anatomical Collection Method Collection Time Receive d Time (Source) Location / / Volume Laterality 10/13/2010 5:00 PM 1 5:52 CDT PM CDT Benjie Johnson MD LAB - URINE ORDERABLES Performing Organization Address City/State/ZIP Code Phon e Number M [facility] [address] [place], [place] [address] [facility] LAB documented in this encounter Visit Diagnoses Not on filedocumented in this encounter
--- OUTSIDE RECORDS SUMMARY | 2021-12-10 21:22 | XMS_ITS | Encounter Summary ---
:1985 Author Organization [place] Address [address] [place] [address] Care Team Providers Name Role Phone Unavailable Primary Care Provider Unavailable Encounter Details Date Type Department Care Team Description 02/07/2007 Historic Results INTERFACED REPORT Interface, Alec waters MD Social History Tobacco Use Types Packs/Day Years [...] How often do you attend presybeterian or confucianism Never 05/22/2021 services? Do you [...] Name Priority Date/Time Associated Diagnosis Comme nts EKG 12 LEAD Routine 02/07/2007 9:50 PM Results f or this [employer]ER procedure are i n the results section . documented in this encounter Results EKG 12 LEAD (02/07/2007 9:50 PM [employer] [employer]ER) Component Value Ref Range Test Analysis Performed Pathologis t Method Time At Signature Ventricular Rate 74 BPM RADIOLOGY RESULTS Atrial Rate 74 BPM RADIOLOGY RESULTS HI Interval 152 ms RADIOLOGY RESULTS QRS Duration 86 ms RADIOLOGY RESULTS QT 364 ms RADIOLOGY RESULTS QTc 404 ms RADIOLOGY RESULTS P [place] 12 degrees RADIOLOGY RESULTS R AXIS 29 degrees RADIOLOGY RESULTS T [place] 16 degrees RADIOLOGY RESULTS Interpretation AGE AND GENDER SPECIFIC ECG ANALYSIS RADIOLOGY ECG Sinus rhythm RESULTS Normal ECG Unconfirmed report - interpretation of this ECG is compute r generated - see medical record for final interpretation Specimen Anatomical Collection Method Collection Time Receive d Time (Source) Location / / Volume Laterality 02/07/2007 9:50 PM 8:58 QUARTER BACKER AM QUARTER BACKER Transcripton Interface ECG ORDERABLES Performing Organization Address City/State/ZIP Code Phon e Number RADIOLOGY RESULTS documented in this encounter Visit Diagnoses Not on filedocumented in this encounter
--- OUTSIDE RECORDS SUMMARY | 2021-12-10 21:22 | XMS_ITS | Encounter Summary ---
:1985 Author Organization [facility] Address [address] [place] [address] Care Team Providers Name Role Phone Francisco Javier Pascual MD Primary Care Provider Reason for Visit Reason Comments Vaginal Bleeding perild for ever 30 days Encounter Details Date Type Department Care Team Description [facility] [address] [place] [address] Excessive or frequent menstruation; [facility] Emergency [facility] Tl Greene MD [facility] [address] [place], [place] [id number] HTN (hypertension) [address] [place] [phone] Social History Tobacco Use Types Packs/Day Years [...] How often do you attend lutheran or congregational Never 05/22/2021 services? Do you belong to [...] place to sleep or slept in a half-way (including now)? Sex Assigned at Date Recorded Female 12/08/2020 12:18 PM CDT documented as of this encounter Last Filed Vital Signs Vital Sign Reading Time Taken Comments Blood Pressure 180/88 02/11/2014 5:21 PM ROCK WOOL INSULATOR Pulse 76 02/11/2014 2:06 PM ROCK WOOL INSULATOR Temperature 36.7 ??C (98 ??F) 02/11/2014 2:06 PM ROCK WOOL INSULATOR Respiratory Rate 18 02/11/2014 5:21 PM ROCK WOOL INSULATOR Oxygen Saturation 99% 02/11/2014 5:21 PM ROCK WOOL INSULATOR Inhaled Oxygen Concentration - - Weight 111.1 kg (245 lb) 02/11/2014 2:06 PM ROCK WOOL INSULATOR Height 165.1 cm (5' 5) 02/11/2014 2:06 PM ROCK WOOL INSULATOR Body Mass Index 40.77 02/11/2014 2:06 PM ROCK WOOL INSULATOR documented in this encounter Discharge Instructions Discharge InstructionsSuTl santos MD - 02/11/2014 5:00 PM ROCK WOOL INSULATOR Images from the original note were not included. Please make an appointment to follow up with [facility] in 3 days and return to the ED immediately with any worsening symptoms or concerns if you feel worse,have any new symptoms, or especially if you develop anything that makes you think you may need help. Heavy Menstrual Bleeding In this condition (also called menorrhagia), the menstrual periods are heavier or longer than usual. You may pass large, dark clots. If you have frequent, heavy periods, you may become anemic (low blood count). Severe anemia may cause you to look pale and feel weak or fatigued. You might become short of breath with minimal exertion. Heavy or prolonged bleeding may be due to female hormones being out of balance. Other causes includepelvic infection, benign fibroid tumors, use of an IUD or low thyroid function. It may occur in girls soon after they start to have their periods. Older women close to the age of menopause may also have this type of bleeding. If heavy bleeding does not stop, further evaluation will be needed to find out the exact cause. Home Care: 1. If you tire easily, get plenty of rest. Avoid heavy exertion. 2. Do not take aspirin-containing products and anti-inflammatory medicines like ibuprofen (Advil, Motrin), which thin the blood and may cause more bleeding. You may take acetaminophen (Tylenol) for pain unless another pain medicine was prescribed. 3. If iron was prescribed for anemia, it will take about 4-6 weeks to rebuild your blood and correctthe anemia. Take the iron as directed. 4. If hormones were prescribed to control your bleeding, take them just as instructed. If you stop too soon or miss doses, the bleeding may begin again. If you were prescribed a medicine called Provera(medroxyprogesterone), the bleeding should stop while you are taking it. Another period will start afew days after you finish the medicine. Follow Up: You should see your doctor within the next 1-2 days if your bleeding does not begin to improve. Otherwise, schedule an appointment within the next 1-2 weeks. Get Prompt Medical Attention if any of the following occur: ?? Heavier bleeding (soaking one pad an hour for three hours) ?? Heavy bleeding for more than one week ?? Fever of 100.4??F (38??C) or higher, or as directed by your healthcare provider ?? Increase in abdominal pain ?? Feeling weak or dizzy, fainting ?? [id number] [facility], [address] [place] [address]. All rights reserved. This information is not intended as a substitute for professional medical care. Always follow your healthcare professional's instructions. Hypertension, Out Of Control (Established) Your blood pressure was unusually high today. This can occur as a result of missing doses of your blood pressure medicine. Some asthma inhalers, decongestants, diet pills, and street drugs such as cocaine and amphetamine can worsen hypertension. An increase in body weight, increase in salt intake, smok ing, and caffeine are other causes. Emotional upset or acute pain can cause a sudden rapid rise in blood pressure which may return to normal after a period of rest. A normal blood pressure is less than 140/90. The first (top) number is the systolic pressure. The second (bottom) number is the diastolic pressure. Hypertension exists when either the top number is 140or higher, OR the bottom number is 90 or higher on repeated measurements. Home Care: All patients with high blood pressure should do the following to lower their pressure. If you are onblood pressure medicines, then these methods may reduce or eliminate your need for medicines in the future. 5. Begin a weight-loss program if you are overweight. 6. Reduce your salt intake. ?? Avoid high-salt foods (olives, pickles, smoked meats, salted potato chips, etc.). ?? Do not add salt to your food at the table. ?? Use only small amounts of salt when cooking. 7. Begin an exercise program. Discuss with your doctor what type of exercise program would be best for you. It doesn???t have to be difficult. Even brisk walking for 20 minutes??3 times a week is a good form of exercise. 8. Avoid medicines which contain heart stimulants. This includes many cold and sinus decongestant pills and sprays as well as diet pills. Check the warnings about hypertension on the label. Stimulants such as amphetamine or cocaine could be lethal for someone with hypertension. Never take these. 9. Limit your caffeine intake or switch to decaf. 10. Stop smoking. If you are a long-time smoker, this can be hard. Enroll in a stop-smoking program to improve your chance of success. Talk to your physician about ways to improve your chance of success. 11. Learning how to handle stress better is an important part of any program to lower blood pressure. Learn about relaxation methods such as meditation, yoga, or biofeedback. 12. If medicines were prescribed, take them exactly as directed. Missing doses may cause your blood pressure to get out of control. 13. Consider buying an automatic blood pressure machine (available at many pharmacies). Use this to monitor your blood pressure and report to your doctor. Follow Up: Regular visits to your own doctor for blood pressure checks and medicine adjustment is an important part of your care. Make a follow-up appointment as directed by our staff. Get Prompt Medical Attention if any of the following occur: ?? Chest, arm, shoulder, neck, or upper back pain ?? Shortness of breath ?? Severe headache ?? Throbbing or rushing sound in the ears ?? Nosebleed ?? Extreme drowsiness, confusion, or fainting ?? Dizziness or vertigo (dizziness with spinning sensation) ?? Weakness of an arm or leg or one side of the face ?? Difficulty with speech or vision ?? [phone] [facility], [address] [place] [address], [place] [address]. All rights reserved. This information is not intended as a substitute for professional medical care. Always follow your healthcare professional's instructions. WOOL INSULATOR documented in this encounter Medications at Time of Discharge Medication Sig Dispensed Refills Start Date End Date medroxyPROGESTERone (PROVERA) Take 1 tablet 20 tablet 0 03/201402/21/2014 10 MG tablet (10 mg) by mouth 2 times daily for 10 days documented as of this encounter ED Notes Montse Aviles RN - 02/11/2014 3:42 PM CST Pt returned from US. Spouse at bedside. WOOL INSULATOR Tl Greene MD - 02/11/2014 2:30 PM CST History Chief Complaint: Vaginal Bleeding Elevated blood pressure HPI Tri Cerda is a 28 year old female s/p Essure tubal ligation who presents for evaluation of vaginal bleeding and an elevated blood pressure. The patient reports that she does not have regular menses at baseline, but began having her last menstrual period on January 06. Her bleeding was continuous for about 2 weeks, prompting her to be seen in clinic to which her doctor placed her on a control to take one pill daily. After a short period of time her bleeding stopped for approximately 4 days, but has been continuous ever since then and more recently she has been taking 2 pills perday. Her bleeding has occasionally been light, but has also been heavier than any bleeding she has had in the past. This is fresh bright red blood with few clots. She has additionally been experiencinglightheadedness/dizziness over the past week, primarily with standing, alongside a very mild headache. She has had no syncope. She reports mild to moderate lower abdominal cramping, as well. She deniesany vaginal pain with recent sexual activity. Of note, the patient mentions that she has had an unremarkable ultrasound performed since onset of symptoms. Additionally, the patient was placed on an anti-hypertensive that she believes was a water pill within the past 2 weeks and voices concerns of her blood pressure of 170/90 today. She denies any chest pain. She states that she has otherwise been well and voices no further concerns. Allergies: NKDA Medications: Anti-hypertensive she believes is a water pill Unspecified control Past Medical History: HTN Past Surgical History: Essure- nonsurgical tubal ligation Family / Social History: No past pertinent family history. 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 Review of Systems Cardiovascular: Negative for chest pain. Genitourinary: Positive for vaginal bleeding. Neurological: Positive for light-headedness. Negative for syncope. All other systems reviewed and are negative. Physical Exam First Vitals: BP: 204/128 mmHg Pulse: 76 Temp: 98 ??F (36.7 ??C) Resp: 16 Height: 165.1 cm (5' 5) Weight: 111.131 kg (245 lb) SpO2: 100 % Physical Exam Constitutional: Oriented to person, place, and time. Appears well-developed and well-nourished. No distress. HENT: Head: Normocephalic and atraumatic. Right Ear: External ear normal. Left Ear: External ear normal. Mouth/Throat: Oropharynx is clear and moist. No oropharyngeal exudate. Eyes: Conjunctivae normal and EOM are normal. Pupils are equal, round, and reactive to light. Right eye exhibits no discharge. Left eye exhibits no discharge. No scleral icterus. Neck: Normal range of motion. Neck supple. No JVD present. No tracheal deviation present. Cardiovascular: Normal rate, regular rhythm, normal heart sounds and intact distal pulses. Exam reveals no friction rub. No murmur heard. Pulmonary/Chest: Effort normal and breath sounds normal. No stridor. No respiratory distress. No wheezes. No rales. Patient exhibits no tenderness. Abdominal: Soft. Bowel sounds are normal. No distension. No tenderness. No rebound. Musculoskeletal: Normal range of motion. No edema and no tenderness. Pelvic: Pelvic exam: Female obstetrical nurse present and procedure explained prior to exam. No external lesions, no vaginal discharge, no labial abnormalities, no obvious anal lesions. Normal appearing vaginal vault. Bloody discharge from the cervical os, no tissue noted. Cervix otherwise appears normal. No CVM. No supra- pubic tenderness, no adnexal tenderness. No masses. Neurological: Patient is alert and oriented to person, place, and time. No cranial nerve deficit. Normal muscle tone. Coordination normal. Skin: Skin is warm and dry. No rash noted. Not diaphoretic. No erythema. Psychiatric: Patient has a normal mood and affect. Behavior is normal. Judgment and thought content normal. Emergency Department Course Imaging: Radiographic findings were communicated with the patient who voiced understanding of the findings. US pelvic complete with transvaginal and abdomen/pelvic duplex limited: Negative pelvic ultrasound as per radiology. Laboratory: Wet prep: Bridger PMNs seen, o/w none seen Chlamydia PCR: Pending Gonorrhea PCR: Pending CBC: WBC 8.0, HGB 12.4, PLT 340, o/w WNL BMP: WNL (Creat 0.82) UA: Blood moderate, Protein albumin 30, o/w negative HCG qual urine: Negative Interventions: NS 1 L IV Emergency Department Course: Nursing notes and vitals reviewed. I performed an exam of the patient as documented above. Blood was drawn from the patient. This was sent for laboratory testing, findings above. Urine samplewas obtained and sent for testing, results above. The patient was sent for a US pelvic while in the emergency department, findings above. The patient had a pelvic exam performed here in the emergency department, which she tolerated without difficulty. This was done in the presence of a female obstetrical nurse. 4:30 PM I discussed the case with Dr. Villalba. Findings and plan explained to the Patient. Patient discharged home with instructions regarding supportive care, medications, and reasons to return. The importance of close follow-up was reviewed. I personally reviewed the laboratory results with the Patient and answered all related questions prior to discharge. Discharge Medication List as of 02/11/2014 5:19 PM START taking these medications Details medroxyPROGESTERone (PROVERA) 10 MG tablet Take 1 tablet (10 mg) by mouth 2 times daily for 10 days,Disp-20 tablet, R-0, Local Print Impression & Plan Medical Decision Making: Tri Cerda is a 28 year old female who presents for evaluation of continuous vaginal bleeding.Causes of pelvic pain include: ectopic , ovarian torsion, ruptured ovarian cyst, fibroids, PID, TOA, endometriosis, along with the more classic causes of abdominal pain such as appendicitis, urinary calculi, cystitis, obstruction or mesenteric ischemia. Physical exam did not show any signs ofCMT or discharge besides blood from the os. test was negative. No sign of UTI. Labs were significant for no anemia at this time. Imaging showed normal uterus with no complications from the E-Sure. In this patient, there are no signs of serious etiologies of abdominal pain. Discussed case with OB who agreed non-emergent vaginal bleeding. Advised to stop OCPs and change to provera 10 mg bid x10 days and f/u with them early next week. Suspect OCPs have contributed to HTN so symptoms and BP should improve with cessation of OCP. Plan is home, close follow-up with OB, and return to ED for worsening pain, heavy vaginal bleeding (more than 1 pad soaked every hour) or worsening headache or symptoms. Questions were answered. Diagnosis: 1. (626.2) Excessive or frequent menstruation. 2. (401.9) HTN (hypertension). I, Keke Castro, am serving as a scribe on 02/11/2014 at 2:30 PM to personally document services performed by Dr. Greene based on my observations and the provider's statements to me. Keke Castro 02/11/2014 [facility] EMERGENCY DEPARTMENT Tl Greene MD 02/12/14 2315 WOOL INSULATOR Akosua Sotomayor RN - 02/11/2014 2:13 PM CST Does not know the name of her BP meds but uses [facility] to fill WOOL INSULATOR Akosua Sotomayor RN - 02/11/2014 2:10 PM CST Does not have regular periods but not has had vaginal bleed for about 30 days. This is unusual for her. Now has a headache with a elevated blood pressure WOOL INSULATOR documented in this encounter Plan of Treatment Not on filedocumented as of this encounter Procedures Procedure Name Priority Date/Time Associated Diagnosis Comme nts WET PREPARATION STAT 02/11/2014 4:18 PM Result s for this ROCK WOOL INSULATOR procedure are i n the results section. NEISSERIA GONORRHOEAE STAT 02/11/2014 4:18 PM Excessive Or Results for this PCR ROCK WOOL INSULATOR Frequent procedure are i n Menstruation the results section. CHLAMYDIA TRACHOMATIS STAT 02/11/2014 4:18 PM Excessive Or Results for this PCR ROCK WOOL INSULATOR Frequent procedure are i n Menstruation the results section. US PELVIS COMPLETE W STAT 02/11/2014 3:39 PM R esults for this TRANSVAGINAL AND ROCK WOOL INSULATOR procedure a re in DOPPLER LIMITED the results section. CBC WITH PLATELETS & STAT 02/11/2014 2:48 PM R esults for this DIFFERENTIAL ROCK WOOL INSULATOR procedure are i n the results section. BASIC METABOLIC PANEL STAT 02/11/2014 2:48 PM Results for this ROCK WOOL INSULATOR procedure are i n the results section. HCG QUALITATIVE URINE STAT 02/11/2014 2:45 PM Results for this ROCK WOOL INSULATOR procedure are i n the results section. URINALYSIS STAT 02/11/2014 2:45 PM Results f or this MACROSCOPIC ROCK WOOL INSULATOR procedure are i n the results section. documented in this encounter Results Neisseria gonorrhoea PCR (02/11/2014 4:18 PM ROCK WOOL INSULATOR) Component Value Ref Test Analysis Performed At [facility] [place] Method Time Signature Specimen Vagina [facility] N Gonorrhea Negative NEG [facility] PCR Negative for N. gonorrhoeae rRNA by transcripti on mediated amplification. MICROBIOLOGY A negative result by transc ription mediated amplification does not preclude the presence of N. gonorrhoeae infection because re sults are dependent on proper and adequate collection, absence of inhibitors, and suffici ent rRNA to be detected. Specimen Anatomical Collection Method Collection Time Receive d Time (Source) Location / / Volume Laterality Vaginal swab 02/11/2014 4:18 PM 5 4:23 (specimen) ROCK WOOL INSULATOR PM ROCK WOOL INSULATOR Tl Greene MD LAB - MICRO GENERAL ORDERABL ES Performing Organization Address City/State/ZIP Code Phon e Number [address] [address] [facility] [address] [place], [place] [address] [facility] MICROBIOLOGY Chlamydia trachomatis PCR (02/11/2014 4:18 PM ROCK WOOL INSULATOR) Component Value Ref Test Analysis Performed At [facility] [place] Method Time Signature Specimen Vagina [facility] Chlamydia Negative NEG [facility] Trachomatis Negative for C. trachomatis rRNA by home aid mediated amplification. MICROBIOLOGY PCR A negative result by transc ription mediated amplification does not preclude the presence of C. trachomatis infection because re sults are dependent on proper and adequate collection, absence of inhibitors, and suffici ent rRNA to be detected. Specimen Anatomical Collection Method Collection Time Receive d Time (Source) Location / / Volume Laterality Vaginal swab 02/11/2014 4:18 PM 5 4:23 (specimen) ROCK WOOL INSULATOR PM ROCK WOOL INSULATOR Tl Greene MD LAB - MICRO GENERAL ORDERABL ES Performing Organization Address City/State/ZIP Code Phon e Number [address] [address] [facility] [address] [place], [place] [address] [facility] MICROBIOLOGY Wet prep (02/11/2014 4:18 PM ROCK WOOL INSULATOR) [facility] gist Method Time Signature Specimen Vagina [facility] Wet Prep Few PMNs seen [place] No clue cells seen [facility] No yeast seen [facility] No Trichomonas seen Micro Report FINAL [place] Status 02/11/2014 [facility] Specimen Anatomical Collection Method Collection Time Receive d Time (Source) Location / / Volume Laterality Vaginal swab 02/11/2014 4:18 PM 5 4:23 (specimen) ROCK WOOL INSULATOR PM ROCK WOOL INSULATOR Tl Greene MD LAB - MICRO GENERAL ORDERABL ES Performing Organization Address City/State/ZIP Code Phon e Number [facility] [address], [place] [address] [place] [address] [address] [place] [address] [place] Pelvic Complete w Transvaginal & Abd/Pel Duplex Limited (02/11/2014 3:39 PM ROCK WOOL INSULATOR) Anatomical Region Laterality Modality Abdomen/Pelvis Ultrasound Specimen (Source) Anatomical Location Collection Method / Collectio n Time Received Time / Laterality Volume Impressions 02/11/2014 3:47 PM ROCK WOOL INSULATOR IMPRESSION: Negative pelvic ultrasound. MARIANN CHAPA MD Narrative 02/11/2014 3:47 PM ROCK WOOL INSULATOR PELVIC ULTRASOUND 02/11/2014 3:39 PM HISTORY: Pelvic cramping and bleeding. COMPARISON: None. TECHNIQUE: Transabdominal and transvagin al imaging were obtained. Transvaginal imaging was obtained to bet ter evaluate the uterus and adnexa. Doppler waveform analysis perfor med. FINDINGS: Uterus is normal in size and c ontour measuring 9.6 x 4.4 x 5.5 cm. The endometrial canal measures 0 .6 cm in thickness and lies in the midline. Both ovaries are normal. No adnexal mass or fluid in the cul-de-sac. Remainder of the scan is unr emarkable. Procedure Note Mariann Chapa MD - 02/11/2014F ormatting of this note might be different from the original. PELVIC ULTRASOUND 02/11/2014 3:39 PM HISTORY: Pelvic cramping and bleeding. COMPARISON: None. TECHNIQUE: Transabdominal and transvagin al imaging were obtained. Transvaginal imaging was obtained to bet ter evaluate the uterus and adnexa. Doppler waveform analysis perfor med. FINDINGS: Uterus is normal in size and c ontour measuring 9.6 x 4.4 x 5.5 cm. The endometrial canal measures 0 .6 cm in thickness and lies in the midline. Both ovaries are normal. No adnexal mass or fluid in the cul-de-sac. Remainder of the scan is unr emarkable. IMPRESSION IMPRESSION: Negative pelvic ultrasound. MARIANN CHAPA MD Tl Greene MD IMG US ORDERABLES Basic metabolic panel (02/11/2014 2:48 PM ROCK WOOL INSULATOR) athologist Signature Sodium 135 133 - 144 [place] mmol/L [facility] Potassium 3.7 3.4 - 5.3 [place] mmol/L [facility] Chloride 100 94 - 109 [place] mmol/L [facility] Carbon Dioxide 27 20 - 32 [place] mmol/L [facility] Anion Gap 8 3 - 14 [place] mmol/L [facility] Glucose 72 70 - 99 [place] mg/dL [facility] Comment: Effective 09/08/2013, the reference range for this assay has changed to reflect new instrumentation/methodology. Urea Nitrogen 16 7 - 30 mg/dL [facility] Comment: Effective 09/08/2013, the reference range for this assay has changed to reflect new instrumentation/methodology. Creatinine 0.82 0.52 - 1.04 mg/dL [facility] GFR Estimate 83 >60 mL/min/1.7m2 [facility] Comment: Non GFR Calc GFR Estimate If Black >90 >60 mL/min/1.7m2 F [facility] GFR Calc HOSP ITAL Calcium 9.1 8.5 - 10.1 mg/dL [facility] Comment: Effective 09/08/2013, the reference range for this assay has changed to reflect new instrumentation/methodology. Specimen Anatomical Collection Method Collection Time Receive d Time (Source) Location / / Volume Laterality Blood specimen 02/11/2014 2:48 PM 015 3:09 (specimen) ROCK WOOL INSULATOR PM ROCK WOOL INSULATOR Tl Greene MD LAB - BLOOD ORDERABLES Performing Organization Address City/State/ZIP Code Phon e Number [place] [address], [place] [address] [facility] [address], [place] [address] (ABNORMAL) CBC with platelets differential (02/11/2014 2:48 PM ROCK WOOL INSULATOR) [facility] Method Time Signature WBC 8.0 4.0 - [place] 11.0 [facility] 10e9/L [facility] RBC Count 4.61 3.8 - 5.2 [place] 10e12/L [facility] Hemoglobin 12.4 11.7 - [place] 15.7 g/dL [facility] Hematocrit 39.5 35.0 - [place] 47.0 % [facility] MCV 86 78 - 100 [facility] MCH 26.9 26.5 - [place] 33.0 pg [facility] MCHC 31.4 (L) 31.5 - [place] 36.5 g/dL [facility] RDW 15.2 (H) 10.0 - [place] 15.0 % [facility] Platelet Count 340 150 - 450 [place] 10e9/[place] Diff Method Automated [facility] % Neutrophils 55.9 % [facility] % Lymphocytes 38.6 % [facility] % Monocytes 3.6 % [facility] [facility] % Eosinophils 1.3 % [facility] % Basophils 0.5 % [facility] % Immature 0.1 % [place] Granulocytes [facility] Absolute 4.5 1.6 - 8.3 [place] Neutrophil 10e9/L [facility] Absolute 3.1 0.8 - 5.3 [place] Lymphocytes 10e9/L [facility] Absolute 0.3 0.0 - 1.3 [place] Monocytes 10e9/L [facility] Absolute 0.1 0.0 - 0.7 [place] Eosinophils 10e9/L [facility] Absolute 0.0 0.0 - 0.2 [place] Basophils 10e9/L [facility] Abs Immature 0.0 0 - 0.4 [place] Granulocytes 10e9/L [facility] Specimen Anatomical Collection Method Collection Time Receive d Time (Source) Location / / Volume Laterality Blood specimen 02/11/2014 2:48 PM 015 3:09 (specimen) ROCK WOOL INSULATOR PM ROCK WOOL INSULATOR Tl Greene MD LAB - BLOOD ORDERABLES Performing Organization Address City/[facility]/ZIP [facility] [place] [facility] [address], [place] [address] [place] [address] [address] [place], [place] [address] HCG qualitative urine (02/11/2014 2:45 PM ROCK WOOL INSULATOR) P athologist Signature HCG Qual Urine Negative NEG [facility] Specimen Anatomical Collection Method Collection Time Receive d Time (Source) Location / / Volume Laterality Urine specimen URINE SPECIMEN 02/11/2014 2:45 PM 02/11 3:07 (specimen) OBTAINED BY CLEAN ROCK WOOL INSULATOR PM ROCK WOOL INSULATOR CATCH PROCEDURE / Unknown Tl Greene MD LAB - URINE ORDERABLES Performing Organization Address City/[facility]/ZIP [facility] [place] [address] [address], [place] [address] 7 [phone] [place] [address] [address] [place], [place] [address] (ABNORMAL) UA without Microscopic (02/11/2014 2:45 PM ROCK WOOL INSULATOR) Patholo gist Method Time Signature Color Urine Yellow [facility] Appearance Urine Clear [facility] Glucose Urine Negative NEG mg/dL [facility] Bilirubin Urine Negative NEG [facility] Ketones Urine Negative NEG mg/dL [facility] Specific [place] 1.018 1.003 - [place] Urine 1.035 [facility] Blood Urine Moderate (A) NEG [facility] pH Urine 7.0 5.0 - 7.0 [place] pH [facility] Protein Albumin 30 (A) NEG mg/dL [facility] Urobilinogen Normal 0.0 - 2.0 [place] mg/dL mg/dL [facility] Nitrite Urine Negative NEG [facility] Leukocyte Negative NEG [place] Esterase Urine [facility] Source Midstream [facility] Specimen Anatomical Collection Method Collection Time Receive d Time (Source) Location / / Volume Laterality Urine specimen URINE SPECIMEN 02/11/2014 2:45 PM 02/11 3:07 (specimen) OBTAINED BY CLEAN ROCK WOOL INSULATOR PM ROCK WOOL INSULATOR CATCH PROCEDURE / Unknown Tl Greene MD LAB - URINE ORDERABLES Performing Organization Address City/State/ZIP Code Phon e Number [place] [address] [place] [address] [facility] [address] [place], [place] [address] documented in this encounter Visit Diagnoses Diagnosis Excessive or frequent menstruation HTN (hypertension) Unspecified essential hypertension documented in this encounter Administered Medications Inactive Administered Medications - up to 3 most recent administrations Medication Order MAR Action Action Date Dose Rate Site 0.9% sodium chloride BOLUS New Bag 02/11/2014 2:52 PM ROCK WOOL INSULATOR 1,000 mLs Intravenous, 1,000 mL, ONCE, On Fri02/11/14 at 1438, For 1 dose, Wide Open documented in this encounter Active and Recently Administered Medications Times are shown in ROCK WOOL INSULATOR. Scheduled Medication Order 02/09/2014 02/10/2014 02/11/2014 0.9% sodium chloride BOLUS (COMPLETED) 1452 (New Bag - Provider: Brisa Montero, RN)1705 (Stopped - Provider: Brisa Montero, RN) Intravenous, 1,000 mL, ONCE, On Fri02/11/14 at 1438, For 1 dose, Wide Open documented in this encounter Care Teams Loan Interviewer Mortgage Relationship Specialty Start Date End Date Francisco Javier Pascual MD PCP - General Family Practice 02/11/14 07/07/19 documented as of this encounter
--- OUTSIDE RECORDS SUMMARY | 2021-12-10 21:22 | XMS_ITS | Encounter Summary ---
:1985 Author Organization [facility] Address [address] [place] [address] Care Team Providers Name Role Phone Unavailable Primary Care Provider Unavailable Encounter Details Date Type Department Care Team Description 10/13/2010 Emergency room [facility] Results [facility] [address] [place], [place] [address] Social History Tobacco Use Types Packs/Day Years [...] How often do you attend yazidi or episcopal Never 05/22/2021 services? Do you [...] documented as of this encounter Progress Notes Interface, Ase Certified Technician - 10/17/2010 10:49 PM CDT FINAL Chief Complaint - History of Present Illness - MD Time:: 17:41 - Chief Complaint: Lower Abdominal Pain - HPI: Domingo Matamoros is a 25 y.o. female who presents to the ED for evaluation of lower abdominal pain. She reports she has had lower abdominal pain, which she describes as pressure and cramping, since she woke up today. She currently rates her pain at 3/10 in her lower abdomen, but states her pain has been as high as 10/10, making her nauseous and she states she vomited once. She reports mild temporary improvement in her pain after taking ibuprofen. She denies any diarrhea, constipation, dysuria or other urinary symptoms, vaginal bleeding or vaginal discharge. She reports she has had 2 with no complications and denies any other abdominal surgeries. She states she had an IUD placed 3 years ago and has since had irregular menstrual cycles, usually consisting of spotting, with the last one being one month ago. Medications - Medications: IUD - Merena. Ibuprofen today. Allergies No Known Drug;None Past Medical/Family History - PMH is positive for: Generally healthy. - -: Surgical History: C-sections x2. Social History - Is positive for Tobacco use, Alcohol use, She has 2 kids. Reports safe home environment. - Is negative for Illicit drug use Review of Systems - - All other systems negative except - Gastrointestinal Positive for nausea, Positive for vomiting, Positive for abdominal pain, Negative for diarrhea, Negative for constipation - Genitourinary Negative for dysuria, Negative for urgency, Negative for frequency, Negative for hematuria, Negative for vaginal bleeding, Negative for vaginal discharge Vital Signs-Triage Temp F: 98.8 degrees F Temp C: 37.1 degrees C Temp site: Oral Heart Rate: 77 bpm Resp Rate: 22 Pulse Oximetry: 100 Oxygen Delivery: Room air Cuff Systolic BP mmH Cuff Diastolic BP mmH Physical Exam - Constitutional Well developed, nourished, no distress present - HENT oropharynx clear and moist - Neck range of motion normal, no jugular vein distention present - Cardiovascular normal rate, regular rhythm - Pul/Chest Wall breath sounds normal - Abdominal soft, bowel sounds present, no rebound present, no guarding present, Lower abdomen minimal tenderness in deep abdomen and suprapubic region. - No discharge, no cervical motion tenderness, no IUD string visualized. - Neurologic alert, oriented x3, Sandra Coma Score is 15, no cranial nerve deficit present - Skin warm, dry Laboratory information - -: UA: Protein Albumin 10 (Abn), Bacteria few (Abn), Mucus present (Abn) o/w WNL/Neg hCG: Negative Wet Prep: Few PMNs seen. No Trichomonas seen. No yeast seen. Clue cells seen. N Gonorrhea: Results Pending. Chlamydia Trachomatis: Results Pending. Diagnostic information - -: Imaging: US Pelvic w/Transvaginal: 1. An intrauterine device is present within a usual location in the endometrial cavity. 2. Unremarkable appearance of the uterus. 3. No free fluid in the pelvis. Reading per Radiology. ED Course: Interventions/Consultations/Procedures - -: Interventions: [place] 5/235mg tablet PO ED Course: I reviewed the patient's medical record. 1740 The patient was seen and examined by myself. I discussed the course of care with the patient including laboratory studies and pelvic exam. She understands and is agreeable to the plan. 1751 Pelvic exam was performed with female ED nursing staff present in the room. For details please see exam section above. GC and wet prep were collected, sent and pending at this time. 2050 Recheck. I discussed the laboratory and radiology results with the patient and she understands. The patient felt improved after the above interventions. The patient will be discharged home to follow up with primary care doctor per discharge instructions. Indications for return to the ED were discussed and the patient understands. All questions were answered prior to discharge. The patient will take the prescribed medications including Vicodin, Advil and Senokot-S as directed. Medical Decision Making - -: The patient is a 25 year old female who presents with pressure in the lower pelvis. Examination and pelvic exam shows no clear cause for pain. I was not able to see the IUD string, therefore ultrasound was performed, which showed normal IUD placement. I did discuss with the patient differential diagnosis. I am not concerned for appendicitis or diverticulitis by examination. Her pain is clearly pelvic in nature. I recommended follow up with OBGYN to discuss removal of the IUD. For now we will offer pain medication and a bridge for follow up. Diagnosis - -: 1. Pelvic pain 2. Possible IUD pain Scribe Disclosure I, Martine Correia ,am serving as a scribe to document services personally performed by Dr. Rl Pickett , based on my observations and the provider's statements to me. Electronically signed on 10/17/2010 22:48 by RL PICKETT MD As dictated by MARTINE CORREIA MT: [place] Name: DOMINGO MATAMOROS MRN: [id number] Account: [id number] : 1985 Visit Date: 10/13/2010 Document: [id number] documented in this encounter Plan of Treatment Not on filedocumented as of this encounter Visit Diagnoses Not on filedocumented in this encounter
--- OUTSIDE RECORDS SUMMARY | 2021-12-10 21:22 | XMS_ITS | Encounter Summary ---
:1985 Author Organization [facility] Address [address] [place] [address] Care Team Providers Name Role Phone Unavailable Primary Care Provider Unavailable Encounter Details Date Type Department Care Team Description 07/14/2007 Historic Notes INTERFACED REPORT Interface, Transcript onMD Social History Tobacco Use Types Packs/Day Years [...] How often do you attend rastafarian or quaker Never 05/22/2021 services? Do you belong to [...] documented as of this encounter Progress Notes Genevieve, Email Marketer - 04/29/2010 9:25 PM CDT Progress Note - :: No questions Signatures PAYAL HERNANDEZ (FRANK)[Signed 15:05] Authored: Progress Note documented in this encounter Plan of Treatment Not on filedocumented as of this encounter Visit Diagnoses Not on filedocumented in this encounter
--- OUTSIDE RECORDS SUMMARY | 2021-12-10 21:23 | XMS_ITS | Encounter Summary ---
:1985 Author Organization [facility] Address [address] [place] [address] Care Team Providers Name Role Phone Unavailable Primary Care Provider Unavailable Encounter Details Date Type Department Care Team Description 02/05/2005 Historic Results INTERFACED REPORT Sangita Coppola MD EMERGENCY PHYSIC [facility] [address] [place] [address] (Wo rk) Social History Tobacco Use Types [...] How often do you attend jewish or congregational Never 05/22/2021 services? Do you [...] Procedure Name Priority Date/Time Associated Comments Diagnosis UA MACROSCOPIC WITH STAT 02/05/2005 3:35 AM Re sults for this REFLEX TO MICRO TOUR BUS DRIVER/GUIDE procedure ar e in the results section. BLOOD CULTURE STAT 02/05/2005 3:15 AM Results for this TOUR BUS DRIVER/GUIDE procedure are i n the results section. HEMOGRAM DIFFERENTIAL STAT 02/05/2005 2:55 AM Results for this AND PLATELET TOUR BUS DRIVER/GUIDE procedure are i n the results section. BLOOD CULTURE STAT 02/05/2005 2:55 AM Results for this TOUR BUS DRIVER/GUIDE procedure are i n the results section. documented in this encounter Results UA macroscopic with reflex to micro (02/05/2005 3:35 AM TOUR BUS DRIVER/GUIDE) [facility] Method Time Signature Source Midstream [facility] Urine Color Urine Yellow [facility] Appearance Urine Clear [facility] Glucose Urine Negative NEG mg/dL [facility] Bilirubin Urine Negative NEG [facility] Ketones Urine Negative NEG mg/dL [facility] Specific [place] 1.020 1.003 - [facility] Urine 1.035 Blood Urine Negative NEG [facility] pH Urine 6.0 5.0 - 7.0 [place] pH Protein Albumin Negative NEG mg/dL [facility] Urine Urobilinogen 0.2 0.2 - 1.0 [place] Urine EU/dL Nitrite Urine Negative NEG [facility] Leukocyte Negative NEG [place] Esterase Urine Specimen Anatomical Collection Method Collection Time Receive d Time (Source) Location / / Volume Laterality 02/05/2005 3:35 AM 5 2:32 TOUR BUS DRIVER/GUIDE AM TOUR BUS DRIVER/GUIDE Benjie Coppola MD LAB - URINE ORDERABLES Performing Organization Address City/State/ZIP Code Phon e Number [facility] Blood culture (02/05/2005 3:15 AM TOUR BUS DRIVER/GUIDE) [facility] Method Time Signature Specimen Left Arm [facility] Description Culture Micro No growth [facility] after 6 days Micro Report FINAL [facility] Status [id number] Specimen Anatomical Collection Method Collection Time Receive d Time (Source) Location / / Volume Laterality 02/05/2005 3:15 AM 5 2:32 TOUR BUS DRIVER/GUIDE AM TOUR BUS DRIVER/GUIDE Benjie Coppola MD LAB - MICRO GENERAL ORDERABL ES Performing Organization Address City/State/ZIP Code Phon e Number [facility] Hemogram differential and platelet (02/05/2005 2:55 AM TOUR BUS DRIVER/GUIDE) [facility] Method Time Signature MCV 84 78 - 100 [facility] fl MCH 27.4 26.5 - [place] 33.0 pg MCHC 32.5 32.0 - [place] 36.0 g/dL RDW 13.5 10.0 - [place] 15.0 % WBC 6.2 4.0 - [place] 11.0 10e9/L RBC Count 4.29 3.8 - 5.2 [place] 10e12/L Hemoglobin 11.8 11.7 - [place] 15.7 g/dL Hematocrit 36.2 35.0 - [place] 47.0 % % Neutrophils 71 40 - 75 % [facility] % Lymphocytes 23 20 - 48 % [place] % Monocytes 5 0 - 12 % [place] % Eosinophils 1 0 - 6 % [place] % Basophils 0 0 - 2 % [facility] Platelet Count 295 150 - 450 [facility] 10e9/L Absolute 4.4 1.6 - 8.3 [place] Neutrophil 10e9/L Absolute 1.4 0.8 - 5.3 [place] Lymphocytes 10e9/L Absolute 0.3 0.0 - 1.3 [place] Monocytes 10e9/L Absolute 0.0 0.0 - 0.7 [place] Eosinophils 10e9/L Absolute 0.0 0.0 - 0.2 [place] Basophils 10e9/L Diff Method Automated [facility] Method Specimen Anatomical Collection Method Collection Time Receive d Time (Source) Location / / Volume Laterality 02/05/2005 2:55 AM 5 2:32 TOUR BUS DRIVER/GUIDE AM TOUR BUS DRIVER/GUIDE Benjie Coppola MD LAB - BLOOD ORDERABLES Performing Organization Address City/State/ZIP Code Phon e Number [facility] Blood culture (02/05/2005 2:55 AM TOUR BUS DRIVER/GUIDE) [facility] gist Method Time Signature Specimen Right Arm [facility] Description Culture Micro No growth [facility] after 6 days Micro Report FINAL [facility] Status [id number] Specimen Anatomical Collection Method Collection Time Receive d Time (Source) Location / / Volume Laterality 02/05/2005 2:55 AM 5 2:32 TOUR BUS DRIVER/GUIDE AM TOUR BUS DRIVER/GUIDE Benjie Coppola MD LAB - MICRO GENERAL ORDERABL ES Performing Organization Address City/State/ZIP Code Phon e Number [facility] documented in this encounter Visit Diagnoses Not on filedocumented in this encounter
--- OUTSIDE RECORDS SUMMARY | 2021-12-10 21:23 | XMS_ITS | Encounter Summary ---
:1985 Author Organization [facility] Address [address] [place] [address] Care Team Providers Name Role Phone Unavailable Primary Care Provider Unavailable Encounter Details Date Type Department Care Team Description 02/07/2007 Historic Results INTERFACED REPORT Linda Licea cas, MD EMERGENCY PHYSIC [facility] [address] [place] [address] [place] [phone] (Wo rk) Social History Tobacco Use Types [...] How often do you attend restorationist or mandaen Never 05/22/2021 services? Do you belong to [...] Procedure Name Priority Date/Time Associated Comments Diagnosis HEMOGRAM DIFFERENTIAL STAT 02/07/2007 9:45 PM Results for this AND PLATELET LOAN EXPEDITOR procedure are i n the results section. BASIC METABOLIC PANEL STAT 02/07/2007 9:45 PM Results for this LOAN EXPEDITOR procedure are i n the results section. documented in this encounter Results (ABNORMAL) Hemogram differential and platelet (02/07/2007 9:45 PM LOAN EXPEDITOR) P athologist Signature MCV 76 (L) 78 - 100 fl [facility] MCH 23.5 (L) 26.5 - 33.0 [facility] pg MCHC 30.9 (L) 31.5 - 36.5 [facility] g/dL Comment: Reviewed: OK with previous RDW 16.4 (H) 10.0 - 15.0 % [facility] WBC 7.0 4.0 - 11.0 10e9/L [facility] RBC Count 4.38 3.8 - 5.2 10e12/L [facility] Hemoglobin 10.3 (L) 11.7 - 15.7 g/dL [facility] Hematocrit 33.3 (L) 35.0 - 47.0 % [facility] % Neutrophils 62 40 - 75 % [facility] % Lymphocytes 32 20 - 48 % [facility] % Monocytes 5 0 - 12 % [facility] % Eosinophils 1 0 - 6 % [facility] % Basophils 0 0 - 2 % [facility] Platelet Count 242 150 - 450 10e9/L [facility] Absolute Neutrophil 4.3 1.6 - 8.3 10e9/L [facility] Absolute Lymphocytes 2.3 0.8 - 5.3 10e9/L [place] Absolute Monocytes 0.4 0.0 - 1.3 10e9/L [facility] S Absolute Eosinophils 0.1 0.0 - 0.7 10e9/L [place] [facility] Absolute Basophils 0.0 0.0 - 0.2 10e9/L [facility] S Diff Method Automated Method [facility] Specimen Anatomical Collection Method Collection Time Receive d Time (Source) Location / / Volume Laterality 02/07/2007 9:45 PM 7 9:30 LOAN EXPEDITOR PM LOAN EXPEDITOR Edy Licea MD LAB - BLOOD ORDERABLES Performing Organization Address City/State/ZIP Code Phon e Number [facility] (ABNORMAL) Basic metabolic panel (02/07/2007 9:45 PM LOAN EXPEDITOR) Analysis Performed At Patho logist Time Signature Sodium 136 133 - 144 [facility] mmol/L Potassium 3.9 3.4 - 5.3 [facility] mmol/L Chloride 104 94 - 109 [facility] mmol/L Carbon Dioxide 25 20 - 32 [facility] mmol/L Glucose 72 60 - 99 [facility] mg/dL Urea Nitrogen 8 5 - 24 [facility] mg/dL Creatinine 0.58 (L) 0.60 - [facility] 1.30 mg/dL GFR Estimate >90 >60 [facility] mL/min/1.7 m2 GFR Estimate If >90 >60 [facility] Black mL/min/1.7 m2 Calcium 9.1 8.5 - 10.4 [facility] mg/dL Anion Gap 7 6 - 17 [facility] mmol/L Specimen Anatomical Collection Method Collection Time Receive d Time (Source) Location / / Volume Laterality 02/07/2007 9:45 PM 7 9:30 LOAN EXPEDITOR PM LOAN EXPEDITOR Edy Licea MD LAB - BLOOD ORDERABLES Performing Organization Address City/State/ZIP Code Phon e Number [facility] documented in this encounter Visit Diagnoses Not on filedocumented in this encounter
--- OUTSIDE RECORDS SUMMARY | 2021-12-10 21:23 | XMS_ITS | Encounter Summary ---
:1985 Author Organization [facility] [facility] Address [address] [place] [address] Care Team Providers Name Role Phone Unavailable Primary Care Provider Unavailable Encounter Details Date Type Department Care Team Description 02/05/2005 Discharge Summary Tomy Hernandez MD (Chemistry Faculty Member) [facility] [address] [place], [place] [address] (Wo rk) Social History Tobacco Use Types [...] 05/22/2021 relatives? How often do you attend muslim or mormon Never 05/22/2021 services? Do you belong to any clubs or organizations such as No 05/22/2021 muslim groups, unions, fraternal or athletic groups, or [...] documented as of this encounter Progress Notes Tomy Hernandez - 02/05/2005 11:59 PM INSPECTOR SUBASSEMBLY PRELIMINARY ADMISSION DIAGNOSIS: Intrauterine at term admitted to the hospital in active labor. HOSPITAL COURSE: The patient had prolonged labor with minimal cervical change. While observing thisprogress, it was determined that the was having some persistent late decelerations with contractions. Consent was obtained for section at that time. Results normal uterus, tubes and ovaries, infant with Apgars of 8 and 9. The patient tolerated the primary low transverse section well as did the infant. She had a stable postoperative course without complications. She was discharged to home on the 4th postoperative day in stable condition. She was afebrile, she had good pain control, she had minimal bleeding, she was up ad beth and her vital signs were stable. She was discharged to home in stable condition. TOMY HERNANDEZ MD MT: [place] Name: DOMINGO MATAMOROS MRN: [id number] Account: [id number] : 1985 Admit Date: [id number] Discharge Date: 01/25/2005 Document: [id number] ECTOR SUBASSEMBLY documented in this encounter Plan of Treatment Not on filedocumented as of this encounter Visit Diagnoses Not on filedocumented in this encounter
--- OUTSIDE RECORDS SUMMARY | 2021-12-10 21:23 | XMS_ITS | Encounter Summary ---
:1985 Author Organization [facility] Address [address] [place] [address] Care Team Providers Name Role Phone Unavailable Primary Care Provider Unavailable Encounter Details Date Type Department Care Team Description 02/07/2007 Emergency room Chhaya Mccoy MD EMERGENCY PHYSIC [facility] [address] [place], [place] [id number] (Wo rk) Social History Tobacco Use Types [...] How often do you attend yarsanism or yazidism Never 05/22/2021 services? Do you belong to [...] documented as of this encounter Progress Notes Chhaya Mccoy P - 02/20/2007 7:48 PM MEDICAL OFFICE COORDINATOR FINAL CHIEF COMPLAINT: Near-syncope. HISTORY OF PRESENT ILLNESS: Domingo Matamoros is a 21-year-old female who is approximately 17 weeks and she says she was at work today. She was standing for about a one hour period of time when shesaid she suddenly felt this wave of dizziness. She says it was hard to catch her breath. She became d iaphoretic and felt like she might faint. She said she sat down and after about five minutes she returned to her normal state. Prior to this happening, she had no chest pain, no headache, no significant abdominal pain or nausea. She drove herself here from work after being instructed that she should go and get evaluated for this episode. She denies any palpitations or irregular heartbeats. She says she has been feeling fine up to this point, she denies any recent illnesses of vomiting, diarrhea or fevers. She says her has been going well. She denies any vaginal bleeding. She denies any vaginal discharge or leakage of fluid. The patient comes in for evaluation. PAST SURGICAL HISTORY: Negative. She has no significant medical problems. SOCIAL HISTORY: She does smoke cigarette, she denies drugs or alcohol abuse. She is 2, para0. MEDICATIONS: vitamins. ALLERGIES: No known drug allergies. REVIEW OF SYSTEMS: All negative except as above. PHYSICAL EXAMINATION: VITAL SIGNS: Blood pressure 112/57, pulse 80, respirations 18, temperature 97.6 and O2 sats 100% onroom air. HEENT: Head is atraumatic, normocephalic. TMs are normal. Pupils are equal, round, reactive to light. Oral mucosa is moist. No obvious oral lesions noted. NECK: Supple, no lymphadenopathy. She has no meningismus signs. LUNGS: Clear to auscultation. No rales, rhonchi or wheezes noted. HEART: Regular rate and rhythm. No murmurs or friction rub. ABDOMEN: Gravid uterus. There is no obvious abdominal pain to palpation. She has normal bowel sounds. EXTREMITIES: No joint effusion or swelling. She has no calf tenderness or signs of deep venous thrombosis. She has normal distal pulses in the upper and lower extremities. NEUROLOGIC: She is alert and oriented. She is not in any distress. She has no focal neurologic signs on exam. HOSPITAL COURSE: IV was established. EKG was obtained and showed a normal sinus rhythm at a rate of74, normal NV, QRS and QT intervals, no signs of any ST segment elevation or depression or dysrhythmias. The patient was continued to be monitored in the Emergency Department. I did obtain labs including a CBC and BMP. These were unremarkable except for anemia at 10+ 1000. We did do orthostatics. The patient had a normal response with standing and no signs of any hypotension or significant symptoms with standing. She was ambulated around the Emergency Department and had nosymptoms of lightheadedness, dizziness, chest pain or shortness of breath. Therefore I think the patient is okay to go home. I think most likely this is related to a vasovagal episode she had at work. She has no clinical symptoms of any discrete illness. I don't think she has a pulmonary embolus. She was never hypoxic or had any chest pain and/or pleuritic chest pain here in the Emergency Department.I think it is most likely related to the prolonged standing. I did give her a work slip for her to be able to drink water at work to ensure she stays well hydrated and also to be able to sit at least once every hour for a short period of time while at work. The patient otherwise is discharged home in good and stable condition. DIAGNOSIS: Vasovagal episode. Electronically signed on 02/20/2007 19:47 by CHHAYA MCCOY MD MT: [id number] Name: DOMINGO MATAMOROS Account: [id number] : 1985 Visit Date: 02/07/2007 Document: [id number] CAL OFFICE COORDINATOR documented in this encounter Plan of Treatment Not on filedocumented as of this encounter Visit Diagnoses Not on filedocumented in this encounter
--- OUTSIDE RECORDS SUMMARY | 2021-12-10 21:23 | XMS_ITS | Encounter Summary ---
:1985 Author Organization [facility] Address [address] [place] [address] Care Team Providers Name Role Phone Unavailable Primary Care Provider Unavailable Encounter Details Date Type Department Care Team Description 02/05/2005 Emergency room Rl Marquez MD EMERGENCY PHYSIC [facility] [address] [place] [phone] (Wo rk) Social History Tobacco Use Types [...] How often do you attend mormon or buddhist Never 05/22/2021 services? Do you [...] documented as of this encounter Progress Notes Rl Marquez MD - 02/05/2005 11:59 PM HEAD ATHLETIC TRAINER/STRENGTH COACH PRELIMINARY CHIEF COMPLAINT: Fever. HISTORY OF PRESENT ILLNESS: Domingo Matamoros is a 19-year-old female status post 01/21/2005 who has been experiencing intermittent fevers since that time. Today, she developed one as high as 103.5 beginning at 4 p.m., prompting her visit to the Emergency Department at 12:20 a.m. She really is offering no additional specific complaints. She denies a headache, URI symptoms, sore throat, chest pain, shortness of breath, cough or abdominal pain. She is obese and is not able to visualize her low transverse abdominal incision, but has been having some drainage from it. She is denying any urinary symptoms and has no vaginal bleeding or discharge. She is breast-feeding but is denying any significantbreast discomfort. PAST MEDICAL HISTORY: Negative. See history of present illness. MEDICATIONS: vitamins. ALLERGIES: No allergies. SOCIAL HISTORY: The patient is single, accompanied by her mother, lives in [place] and is a student. Primary clinic is Dr. Francisco Javier Rogers. Her was performed by Dr. Darcy Bates and was without any apparent immediate complications. FAMILY HISTORY: Noncontributory. REVIEW OF SYSTEMS: Reported in the history of present illness. All other systems are negative. PHYSICAL EXAMINATION: VITAL SIGNS: Blood pressure is 130/72, pulse 105, respiratory rate 20, oral temperature 103.5 and oxygen saturation 98% room air. GENERAL: This is an alert, sober, nontoxic appearing 19-year-old female exhibiting no signs of physical distress. HEENT: Normocephalic. No nasal congestion or discharge. Moist oral mucosa, normal posterior pharynx and tympanic membranes. NECK: Supple. LUNGS: Clear. CARDIAC: Regular. BREASTS: Engorged and leaking breast milk. They are not tender and there is no erythema or induration seen to signify mastitis. ABDOMEN: Obese. She has a low transverse abdominal incision. There is malodorous yellow mucopurulent material present on a gauze in her underwear. The left lateral aspect ofthe incision is partially opened, but the base of the wound is present and is fairly superficial. There was no active drainage seen. The patient is very darkly pigmented, but there does appear to be some surrounding erythema on the abdominal wall in the suprapubic region. It is warm and without induration. There is no CVA tenderness with percussion posteriorly. MUSCULOSKELETAL: Normal. NEUROLOGIC: Normal. PELVIS: Examination is deferred at this time. The patient has had no vaginal discharge present and has simply been utilizing pads. EMERGENCY DEPARTMENT COURSE AND DISCUSSION: LABORATORY AND DIAGNOSTICS: White blood cell count 6.2, hemoglobin 11.8, platelets 295,000 and normal differential. Urinalysis is negative. Blood cultures x2 were obtained and are pending. A peripheral IV was established. The patient received 975 mg of Tylenol and 2 g of Ancef. IMPRESSION: Postoperative wound infection with cellulitis, rule out endomyometritis. The patient did defervesce with the acetaminophen and continues to have a benign examination. She is tolerating p.o. fluids. Impression was discussed with the patient along with recommendations for initiation of antib iotic therapy and follow up with her TRAINING AND DEVELOPMENT HEAD physician within the next 1-2 days. DIAGNOSIS: Postoperative wound infection, rule out endomyometritis. PLAN: Augmentin 875 mg b.i.d. for 10 days, Tylenol p.r.n. pain and fever. Follow up with your doctor next available early this week. RL MARQUEZ MD MT: [facility] Name: DOMINGO MATAMOROS MRN: [id number] Account: [id number] : 1985 Visit Date: 02/05/2005 Document: [id number] ATHLETIC TRAINER/STRENGTH COACH documented in this encounter Plan of Treatment Not on filedocumented as of this encounter Visit Diagnoses Not on filedocumented in this encounter
--- OUTSIDE RECORDS SUMMARY | 2021-12-10 21:23 | XMS_ITS | Encounter Summary ---
:1985 Author Organization [facility] Address [address] [place] [address] Care Team Providers Name Role Phone Unavailable Primary Care Provider Unavailable Encounter Details Date Type Department Care Team Description 01/24/2005 Historic Results INTERFACED REPORT Ángel Bates MD [address] [address] (Wo rk) Social History Tobacco Use [...] How often do you attend shinto or episcopalian Never 05/22/2021 services? Do you belong to [...] place to sleep or slept in a jail (including now)? Sex Assigned at Date Recorded Female 12/08/2020 12:18 PM CDT documented as of this encounter Plan of Treatment Not on filedocumented as of this encounter Procedures Procedure Name Priority Date/Time Associated Diagnosis Comme nts HEMOGLOBIN Routine 01/24/2005 6:20 AM Results f or this CORPORATE SPECIALIST procedure are i n the results section . documented in this encounter Results (ABNORMAL) Hemoglobin (01/24/2005 6:20 AM CORPORATE SPECIALIST) P athologist Signature Hemoglobin 10.5 (L) 11.7 - 15.7 MISYS g/dL Specimen (Source) Anatomical Collection Method Collection Time Re ceived Time Location / / Volume Laterality 01/24/2005 6:20 AM 5 CORPORATE SPECIALIST Darcy Bates MD LAB - BLOOD ORDERABLES Performing Organization Address City/State/ZIP Code Phon e Number MISYS documented in this encounter Visit Diagnoses Not on filedocumented in this encounter
--- OUTSIDE RECORDS SUMMARY | 2021-12-10 21:23 | XMS_ITS | Encounter Summary ---
:1985 Author Organization [facility] Address [address] [place] [address] Care Team Providers Name Role Phone Unavailable Primary Care Provider Unavailable Encounter Details Date Type Department Care Team Description 12/24/2004 Historic Results INTERFACED REPORT Francisco Javier Pascual MD [address] [place] [address] (Wo rk) Social History Tobacco Use Types [...] 05/22/2021 relatives? How often do you attend yazdanism or voodoo Never 05/22/2021 services? Do you belong to any clubs or organizations such as No 05/22/2021 yazdanism groups, unions, fraternal or athletic groups, or [...] Date/Time Associated Comments Diagnosis UA MACROSCOPIC WITH Routine 12/24/2004 1:15 AM Re sults for this REFLEX TO MICRO FINANCE TEACHER procedure ar e in the results section. URINE MICROSCOPIC Routine 12/24/2004 1:15 AM Resu lts for this EXAM FINANCE TEACHER procedure are i n the results section. URINE CULTURE Routine 12/24/2004 1:15 AM Results for this FINANCE TEACHER procedure are i n the results section. documented in this encounter Results (ABNORMAL) UA macroscopic with reflex to micro (12/24/2004 1:15 AM FINANCE TEACHER) [facility] TMMI ([employer] Method Time Signature Source Midstream MISYS Urine Color Urine Yellow MISYS Appearance Urine Clear MISYS Glucose Urine Negative NEG mg/dL MISYS Bilirubin Urine Negative NEG MISYS Ketones Urine Negative NEG mg/dL MISYS Specific [place] 1.025 1.003 - MISYS Urine 1.035 Blood Urine Negative NEG MISYS pH Urine 6.5 5.0 - 7.0 MISYS pH Protein Albumin Trace (A) NEG mg/dL MISYS Urine Urobilinogen 0.2 0.2 - 1.0 MISYS Urine EU/dL Nitrite Urine Negative NEG MISYS Leukocyte Moderate (A) NEG MISYS Esterase Urine Specimen Anatomical Collection Method Collection Time Receive d Time (Source) Location / / Volume Laterality 12/24/2004 1:15 AM 5 1:21 FINANCE TEACHER AM FINANCE TEACHER Francisco Javier Pascual MD LAB - URINE ORDERABLES Performing Organization Address [facility] Phon e Number MISYS (ABNORMAL) Microscopic exam urine (12/24/2004 1:15 AM FINANCE TEACHER) [facility] [employer] ([employer] Method Time Signature WBC Urine 25-50 (A) 0 - 2 MISYS /HPF RBC Urine 5-10 (A) 0 - 2 MISYS /HPF Squamous Many (A) FEW /LPF MISYS Epithelial /LPF Urine Bacteria Urine Moderate (A) NEG /HPF MISYS Specimen Anatomical Collection Method Collection Time Receive d Time (Source) Location / / Volume Laterality 12/24/2004 1:15 AM 5 1:32 FINANCE TEACHER AM FINANCE TEACHER Francisco Javier Pascual MD LAB - URINE ORDERABLES Performing Organization Address [facility] Phon e Number MISYS Urine culture (12/24/2004 1:15 AM FINANCE TEACHER) [facility] [employer]MI ([employer] Method Time Signature Specimen Midstream MISYS Description Urine Culture Micro No growth MISYS Micro Report FINAL MISYS Status [id number] Specimen Anatomical Collection Method Collection Time Receive d Time (Source) Location / / Volume Laterality 12/24/2004 1:15 AM 5 1:32 FINANCE TEACHER AM FINANCE TEACHER Francisco Javier Pascual MD LAB - MICRO GENERAL ORDERABL ES Performing Organization Address City/State/ZIP Code Phon e Number MISYS documented in this encounter Visit Diagnoses Not on filedocumented in this encounter
--- OUTSIDE RECORDS SUMMARY | 2021-12-10 21:23 | XMS_ITS | Encounter Summary ---
:1985 Author Organization [facility] Address [address] [place] [address] Care Team Providers Name Role Phone Unavailable Primary Care Provider Unavailable Encounter Details Date Type Department Care Team Description 11/27/2003 Emergency room Meliton Meléndez MD [address] [place] [address] Social History Tobacco Use Types Packs/Day Years [...] 05/22/2021 relatives? How often do you attend episcopal or mandaen Never 05/22/2021 services? Do you belong to any clubs or organizations such as No 05/22/2021 episcopal groups, unions, fraternal or athletic groups, or [...] PM CDT documented as of this encounter ED Notes Meliton Meléndez - 11/27/2003 12:00 AM CDT : 83 CHIEF COMPLAINT: Bald spot. HISTORY OF THE PRESENT ILLNESS: The patient is a 18-year-old female who was putting her fingers through her hair this morning when she noticed a bald spot on the right occipital portion of her scalp. The area has not been particularly painful or itchy. She has not had large amounts of hair coming out of her scalp with her comb or brush. The patient has not complaints of pain. She has not been around anybody who has this problem and she has no other spots on the rest of her body. On routine questioning she also stated that she was feeling fatigued as she usually does prompting additional concern at Triage. The patient does not report any problems voiding. Her last period was on 11/10. She has not had any nausea or abnormal stools or fevers, aches or chills, runny nose, sore throat or cough. She does smoke a pack of cigarettes a day. MEDICATIONS: None. ALLERGIES: None. PHYSICAL EXAMINATION: Shows an alert female. Temperature is 96.4. Pulse 70 and regular. Respirations 16. Blood pressure 122/64. HEAD, EYES, EARS, NOSE and THROAT examination shows that on her right occipital scalp she has a bald patch which is 3 centimeters in diameter, that it is completely bald. There is no stubble and the skin appears normal otherwise. The mouth and pharynx are negative. Her NECK is supple. Lymphatics are normal. CHEST shows clear, equal breath sounds. Cardiovascular examination: Regular S1, S2 without murmur. Normal pulses. ABDOMEN: Bowel sounds are active. It is soft and nontender. No masses or guarding. Back is negative. EXTREMITIES: Normal. Skin is clear, except as above. Neuro: She is alert, appropriate, within normal limits. LABORATORY: Urine: Specific gravity 1.015, pH 6.5, hCG negative. EMERGENCY DEPARTMENT COURSE: The patient was reassured and eventually I reviewed her urine test with her which is normal. She is here because of her scalp and has alopecia. She may have ringworm. This could be idiopathic or even a connective tissue disorder. The patient will need to follow-up with her doctor. She will be started on Lotrimin for now. The discharge plan was reviewed with her and is as follows. DISCHARGE PLAN: The patient was prescribed Lotrimin ointment twice a day for ten days. She was advised to stop smoking. She is to be rechecked with her doctor in ten to fourteen days. She was given a work slip excusing her from her duties today. She may return to the Emergency Department as needed. DIAGNOSIS: Alopecia areata. [id number] MELITON MELÉNDEZ MD MT: Document: [id number] [place], [place] Name: MR#: DOMINGO MATAMOROS [id number] EMERGENCY ROOM ENCOUNTER Page 2 of 2 ADIAN: MEGHAN DSC: 11/27/2003 [place], [place] Name: MR#: DOMINGO MATAMOROS -25 : Admit Date: Account #: 1985 11/27/2003 [id number] Doctor: MELITON MELÉNDEZ MD EMERGENCY ROOM ENCOUNTER Page 1 of 2 documented in this encounter Plan of Treatment Not on filedocumented as of this encounter Visit Diagnoses Not on filedocumented in this encounter
--- OUTSIDE RECORDS SUMMARY | 2021-12-10 21:23 | XMS_ITS | Encounter Summary ---
:1985 Author Organization [facility] Address [address] [place] [address] Care Team Providers Name Role Phone Unavailable Primary Care Provider Unavailable Encounter Details Date Type Department Care Team Description 01/22/2005 Historic Results INTERFACED REPORT Ángel Bates MD [address] [address] (Wo rk) Social History Tobacco [...] How often do you attend adventist or restorationism Never 05/22/2021 services? Do you [...] Date/Time Associated Diagnosis Comme nts HEMOGLOBIN Routine 01/22/2005 6:43 AM Results f or this ROTATIONAL MOULDING OPERATOR procedure are i n the results section . documented in this encounter Results (ABNORMAL) Hemoglobin (01/22/2005 6:43 AM ROTATIONAL MOULDING OPERATOR) P athologist Signature Hemoglobin 11.2 (L) 11.7 - 15.7 MISYS g/dL Specimen (Source) Anatomical Collection Method Collection Time Re ceived Time Location / / Volume Laterality 01/22/2005 6:43 AM 5 ROTATIONAL MOULDING OPERATOR Darcy Bates MD LAB - BLOOD ORDERABLES Performing Organization Address City/State/ZIP Code Phon e Number MISYS documented in this encounter Visit Diagnoses Not on filedocumented in this encounter
--- OUTSIDE RECORDS SUMMARY | 2021-12-10 21:23 | XMS_ITS | Encounter Summary ---
:1985 Author Organization [facility] Address [address] [place] [address] Care Team Providers Name Role Phone Unavailable Primary Care Provider Unavailable Encounter Details Date Type Department Care Team Description 01/11/2005 Historic Results INTERFACED REPORT Francisco Javier Pascual MD [address] [place] [address] (Wo rk) Social History Tobacco [...] 05/22/2021 relatives? How often do you attend amish or mandaeism Never 05/22/2021 services? Do you belong to any clubs or organizations such as No 05/22/2021 amish groups, unions, fraternal or athletic groups, or [...] Associated Comments Diagnosis UA MACROSCOPIC WITH Routine 01/11/2005 9:00 PM Re sults for this REFLEX TO MICRO MEDICAL SOCIAL WORKER procedure ar e in the results section. URINE MICROSCOPIC Routine 01/11/2005 9:00 PM Resu lts for this EXAM MEDICAL SOCIAL WORKER procedure are i n the results section. URINE CULTURE Routine 01/11/2005 9:00 PM Results for this MEDICAL SOCIAL WORKER procedure are i n the results section. documented in this encounter Results (ABNORMAL) UA macroscopic with reflex to micro (01/11/2005 9:00 PM MEDICAL SOCIAL WORKER) Component Value Ref Test Analysis Performed At [facility] gist Range Method Time Signature Source Unspecified MISYS Urine Color Urine Yellow MISYS Appearance Urine Clear MISYS Glucose Urine Negative NEG MISYS mg/dL Bilirubin Urine Negative NEG MISYS Ketones Urine Negative NEG MISYS mg/dL Specific [place] 1.020 1.003 - MISYS Urine 1.035 Blood Urine Negative NEG MISYS pH Urine 7.0 5.0 - MISYS 7.0 pH Protein Albumin Trace (A) NEG MISYS Urine mg/dL Urobilinogen 0.2 0.2 - MISYS Urine 1.0 EU/dL Nitrite Urine Negative NEG MISYS Leukocyte Moderate (A) NEG MISYS Esterase Urine Specimen Anatomical Collection Method Collection Time Receive d Time (Source) Location / / Volume Laterality 01/11/2005 9:00 PM 5 9:39 MEDICAL SOCIAL WORKER PM MEDICAL SOCIAL WORKER Francisco Javier Pascual MD LAB - URINE ORDERABLES Performing Organization Address City/[facility] Phon e Number MISYS (ABNORMAL) Microscopic exam urine (01/11/2005 9:00 PM MEDICAL SOCIAL WORKER) P athologist Signature WBC Urine 2-5 (A) 0 - 2 /HPF MISYS RBC Urine O - 2 0 - 2 /HPF MISYS Squamous Few FEW /LPF MISYS Epithelial /LPF Urine Bacteria Urine Few (A) NEG /HPF MISYS Specimen Anatomical Collection Method Collection Time Receive d Time (Source) Location / / Volume Laterality 01/11/2005 9:00 PM 5 9:59 MEDICAL SOCIAL WORKER PM MEDICAL SOCIAL WORKER Francisco Javier Pascual MD LAB - URINE ORDERABLES Performing Organization Address City/[facility] Phon e Number MISYS Urine culture (01/11/2005 9:00 PM MEDICAL SOCIAL WORKER) [facility] gist Method Time Signature Specimen Unspecified MISYS Description Urine Culture Micro No growth MISYS Micro Report FINAL [id number] MISYS Status Specimen Anatomical Collection Method Collection Time Receive d Time (Source) Location / / Volume Laterality 01/11/2005 9:00 PM 5 MEDICAL SOCIAL WORKER 10:10 PM MEDICAL SOCIAL WORKER Francisco Javier Pascual MD LAB - MICRO GENERAL ORDERABL ES Performing Organization Address City/[facility] Phon e Number MISYS documented in this encounter Visit Diagnoses Not on filedocumented in this encounter
--- OUTSIDE RECORDS SUMMARY | 2021-12-10 21:23 | XMS_ITS | Encounter Summary ---
:1985 Author Organization [facility] Address [address] [place] [address] Care Team Providers Name Role Phone Unavailable Primary Care Provider Unavailable Encounter Details Date Type Department Care Team Description 02/10/2006 Emergency room Rl Pickett MD EMERGENCY PHYSIC [facility] [address] [place], [place] [address] (Wo rk) Social History [...] How often do you attend congregation or zoroastrianism Never 05/22/2021 services? Do you [...] as of this encounter Progress Notes Rl Pickett MD - 04/15/2006 3:46 PM MANAGER EPIC FINAL CHIEF COMPLAINT: The patient is a 20-year-old female with a chief complaint of period since January 14. HISTORY OF PRESENT ILLNESS: The patient is a 20-year-old female who is otherwise healthy. She had aC-section 1 year ago. She has been having her period ongoing since 01/14. She describes heavy bleeding at least a pad or 2 per day, does not stop has been quite irregular. She describes no discharge ofthe vagina just dark clots and heavy bleeding. The patient has also had lower abdominal cramping consistent with menstrual cramps that she has had before. She has no history of similar symptoms, reports to the emergency room for evaluation. She denies lightheadedness or dizziness. She denies history of anemia. She denies history of easy bruisability or heavy gingival bleeding after brushing her teeth. PAST MEDICAL HISTORY: and smoking quarter pack per day. MEDICATIONS: None. ALLERGIES: None. FAMILY HISTORY: Negative. SOCIAL HISTORY: Here alone. REVIEW OF SYSTEMS: Negative except as above. PHYSICAL EXAMINATION: GENERAL: This is a very well-appearing 20-year-old female. VITAL SIGNS: Blood pressure 136/80, pulse 82, respirations 18, oral temperature 98.4 and room air sat 99%. HEENT: Atraumatic and normocephalic. Conjunctivae are normal. CHEST: Heart is regular. PULMONARY: Clear. ABDOMEN: There is mild suprapubic and bilateral adnexal tenderness. There is no guarding or rebound. Bowel sounds intact in all 4 quadrants. EXTREMITIES: No edema, no rash. EMERGENCY DEPARTMENT COURSE: Due her complaints, I did send lab tests that included CBC, white blood cell count was normal. Hemoglobin was only slightly low at 11.6 and platelet count was normal, MCV is normal. Patient had blood test, which was negative. I did return to discuss symptoms with the patient. I did discuss treatments for irregular periods. We can offer her control pills but I did emphasize to her my concern for the potential for recurrent bleeding after stopping these medications, her hemoglobin is 11. She is not critically low. She did have orthostatics which were normal. We also placed her on iron to supplement hemoglobin production. We will discharge her and have her followup with her LOCAL CITY DRIVER. I did discuss with her the possibility of fibroids being a possible causefor [place] or metrorrhagia. For now, we will discharge the patient with medications and followup. PLAN: Iron sulfate 325 q. day, dispense 30. Lo-Ovral 2 tabs daily, x5 1 tab mg daily x5, then off. Follow with LOCAL CITY DRIVER. Return with persistent heavy bleeding or new symptoms. DISCHARGE DIAGNOSIS: Menometrorrhagia. Electronically signed on 04/15/2006 15:46 by RL PICKETT MD MT: [id number] Name: DOMINGO MATAMOROS Account: [id number] : 1985 Visit Date: 02/10/2006 Document: [id number] GER EPIC documented in this encounter Plan of Treatment Not on filedocumented as of this encounter Visit Diagnoses Not on filedocumented in this encounter
--- OUTSIDE RECORDS SUMMARY | 2021-12-10 21:23 | XMS_ITS | Clinical Summary ---
:1985 Author Organization [facility] [place] [address] Care Team Providers Name Role Phone Pcp, No Primary Care Provider Unavailable Allergies Active Allergy Reactions Severity Noted Date Comments Lisinopril Cough 04/14/2015 Medications Medication Sig Dispensed Refills Start Date End Date Status ondansetron (ZOFRAN ODT) Place 1 tablet 24 tablet 0 04/14/2015 Active 8 mg disintegrating on the tongue tabletIndications: every 8 hours if Stomach flu, S/P gastric needed for bypass Nausea/Vomiting. Active Problems Problem Noted Date Morbid obesity 01/25/2015 HTN (hypertension) 02/28/2014 Depression, major, single episode, moderate 08/17/2013 Former smoker 07/06/2013 Resolved Problems Problem Noted Date Resolved Date IUD (intrauterine device) in place - merina placed 09/200711/16/2012 Immunizations Name Administration Dates Next Due Influenza, IIV3 (Age >=3 years) 11/10/2012, 11/25/2011 Influenza, IIV4 11/18/2014, 12/25/2013 Td, Preservative Free (age >= 7 Years) 08/11/2014 Tdap 03/06/2005 Family History Medical History Relation Name Comments Heart Disease Father Diabetes Mother Hypertension Mother Relation Name Status Comments Father Mother Alive Social History Tobacco Use Types Packs/Day Years Used Date Former Smoker 0.8 Quit: 04/11/19 12 Smokeless Tobacco: Never Used Tobacco Cessation: Counseling Given: No Alcohol Use Standard Drinks/Week Comments Yes 3.3 (1 standard drink = 0.6 oz pure alco hol) occasionally Alcohol Habits Answer Date Recorded How often do you have a drink containing alcohol? Not asked How many drinks containing alcohol do you have on a Not aske d typical day when you are drinking? How often do you have six or more drinks on one occasion? No t asked Comment: occasionally 06/21/2010 Sex Assigned at Date Recorded Not on file Obstetrics History Para Term AB IAB SAB Ectopic Multiple Living Live Births 2 2 2 0 0 0 0 0 0 2 Date Outcome GA Total Labor/2nd/3rd Weight Sex Delivery Anes PTL Jane A 1 A5 Name Clin Labor Term Term Last Filed Vital Signs Vital Sign Reading Time Taken Comments Blood Pressure 120/80 04/14/2015 1:40 PM VERIFICATION LEAD Pulse 70 04/14/2015 1:40 PM VERIFICATION LEAD Temperature 36.6 ??C (97.8 ??F) 04/14/2015 1:40 PM VERIFICATION LEAD Respiratory Rate 16 01/24/2015 1:16 PM VERIFICATION LEAD Oxygen Saturation 99% 11/11/2013 2:48 PM CDT Inhaled Oxygen Concentration - - Weight 108.9 kg (240 lb) 04/14/2015 1:40 PM VERIFICATION LEAD Height 165.1 cm (5' 5) 04/14/2015 1:40 PM VERIFICATION LEAD Body Mass Index 39.94 04/14/2015 1:40 PM VERIFICATION LEAD Plan of Treatment Health Maintenance Due Date Last Done Comments COVID-19 vaccine series (#1) 01/24/1985 Hepatitis C screening for age 0607/25/2002 18-79 Pap test for age 21-65 08/15/2015 08/14/2012 BMI (ht and wt on same day) for 04/13/2016 04/14/2015 age 18+ Depression screening for age 12+ 04/13/2016 04/14/2015 Influenza for age 9-49 10/11/2021 11/18/2014, 12/25/2013, 11/10/2012, Additional history exists Tetanus booster 08/11/2024 08/11/2014, 03/06/2005 Tdap Completed 03/06/2005 Results Not on filefrom Last 3 Months Insurance Payer Benefit Plan / Subscriber ID Effective Dates Phone Addre ss Type Group BLUE CROSS BLUE CROSS OF [id number] 2014-Present [address] [address] [place] [address] Care Teams Stuntman Relationship Specialty Start Date End Date Pcp, No PCP - General 01/24/15 .
--- OUTSIDE RECORDS SUMMARY | 2021-12-10 21:23 | XMS_ITS | Encounter Summary ---
:1985 Author Organization [facility] Address [address] [place] [address] Care Team Providers Name Role Phone Unavailable Primary Care Provider Unavailable Encounter Details Date Type Department Care Team Description 01/15/2006 Emergency room Rl Pickett MD EMERGENCY PHYSIC [facility] [address] [place], [place] [phone] (Wo rk) Social History [...] How often do you attend sikh or samaritan Never 05/22/2021 services? Do you belong to [...] encounter Progress Notes Rl Pickett MD - 03/05/2006 11:23 AM CURING OVEN ATTENDANT FINAL CHIEF COMPLAINT: The patient is a 20-year-old female with chief complaint of sore throat and fever and body aches. HISTORY OF PRESENT ILLNESS: The patient is a 20-year-old female who is otherwise healthy. She reports to emergency room stating for the last 2-3 days she has had sore throat. She has pain when she swallows. She states she has had fever as high as 103 earlier today. She has taken Tylenol Cold, last dose was at noon. She has had no vomiting, no diarrhea. No known sick contacts. The patient reports here for evaluation. PAST MEDICAL HISTORY: Negative. MEDICATIONS: None. ALLERGIES: None. FAMILY HISTORY: Negative. SOCIAL HISTORY: No smoking. REVIEW OF SYSTEMS: No cough, no rhinorrhea, no ear pain, no vomiting or diarrhea. All other systemsnegative except as above. PHYSICAL EXAMINATION: GENERAL: This is a well-appearing 20-year-old female. VITAL SIGNS: Blood pressure 127/67, pulse 90, respirations 16, oral temperature 98.3 and room air sat 99%. HEENT: Head is grossly atraumatic. Conjunctivae are normal. Nose is clear. Oropharynx has mild pharyngeal erythema. There is no exudate, no soft tissue distention or uvular deviation. Tympanic membranes are normal bilaterally. NECK: Supple, with no anterior or posterior cervical nonoperatively. HEART: Regular. PULMONARY: Clear auscultation. EMERGENCY DEPARTMENT COURSE: Due to complaints of sore throat, the patient did have a Rapid Strep done at triage. This was negative. Due to complaints of sore throat and body aches I did send a white blood cell count this was normal as well as a Monospot screen which was also negative. I did discuss symptoms with the patient. She seems to have viral pharyngitis. We will await culture and if positive, will treat for now we will only treat symptoms. PLAN: Magic mouthwash gargle and spit, ibuprofen 800 q.6h., follow up Internal Medicine if no improvement. DISCHARGE DIAGNOSES: 1. Pharyngitis. 2. Probably viral. Electronically signed on 03/05/2006 11:21 by RL PICKETT MD MT: [id number] Name: DOMINGO MATAMOROS MRN: [id number] Account: [id number] : 1985 Visit Date: 01/15/2006 Document: [id number] NG OVEN ATTENDANT documented in this encounter Plan of Treatment Not on filedocumented as of this encounter Visit Diagnoses Not on filedocumented in this encounter
--- OUTSIDE RECORDS SUMMARY | 2021-12-10 21:23 | XMS_ITS | Encounter Summary ---
:1985 Author Organization [facility] Address [address] [place] [address] Care Team Providers Name Role Phone Unavailable Primary Care Provider Unavailable Encounter Details Date Type Department Care Team Description 07/27/2003 Emergency room Branden Miranda EMERGENCY PHYSIC [facility] [address] [facility] [address] [place], [place] [phone] (Wo rk) Social History Tobacco Use Types [...] How often do you attend pentecostal or yarsanism Never 05/22/2021 services? Do you belong to [...] documented as of this encounter ED Notes Branden Miranda - 07/27/2003 12:00 AM CDT : 83 CHIEF COMPLAINT: Vaginal bleeding. HISTORY OF PRESENT ILLNESS: This is a 18-year-old female of -[place] descent who comes in today apparently with some vaginal bleeding that has been going on for the last ten days. She states that normally her periods last about four to five days and what is prompted her to come in today is just because she had increased vaginal bleeding with the passing of clots that has been going for 11 days and has not let up at all. The patient denies any cramping with this but does feel a little bit of weakness. Denies any syncope. No history for vomiting or diarrhea, chills, arthralgias, myalgias. The patient states that she is not . This is actually is consistent with her periods, however just a little more bleeding than usual. All review of systems otherwise negative. The patient is nulligravida. No history for sexually transmitted disease. Her last period was about a month ago. PAST MEDICAL HISTORY: Surgeries: None. Illnesses: None. SOCIAL HISTORY: He smokes about one-half to one-third pack a day. FAMILY HISTORY: No cancer. ALLERGIES: No known drug allergies. MEDICATIONS: None. PHYSICAL EXAMINATION: Temperature 98.2. Blood pressure 111/71. Pulse 79. Respiration 18. Pulse ox 100 percent on room air. [place] Comma Scale 15/15. HEAD, EARS, EYES, NOSE and THROAT: HEAD atraumatic, normocephalic. Extraocular motions intact. PUPILS equal, round and react to light. NECK supple. Midline TRACHEA. LUNGS normal breath sounds without rales or wheezes. Cardiovascular: Regular rate and rhythm without rubs, gallops or murmurs. CHEST: No tenderness to CHEST WALL palpation. ABDOMEN: Bowel sounds positive. No tenderness, rebound or guarding. Extremities: Pedal pulses +2/4, no edema. BACK: No costovertebral angle to percussion. SPINE: Normal curvature of the SPINE. No lordosis, kyphosis or scoliosis. PELVIC exam showed the patient's VAGINAL VAULT with just a slight amount of blood. CERVIX is posterior/anterior otherwise CERVIX is long and closed. No cervical motion tenderness. No adnexal tenderness. Lymphatics: No lymphadenopathy. Musculoskeletal: Strength +5/5 strength all extremities. Psychiatric: The patient is alert and oriented times three. Speech and growth affect. In general the patient is in no acute distress sitting there comfortably. The patient's lab work was as follows: Chemistries were normal. Coags were normal. CBC was normal. The patient's urinalysis just showed 0 to 2 WBCs, RBCs was 10 to 25, large amount of blood. test was negative. EMERGENCY DEPARTMENT COURSE: The patient was in no acute distress. We did give her an IV, did orthostatics. The patient was not orthostatic. The patient received a total of 350 cc's or normal saline here. The patient was not having any symptoms as far as when we did orthostatics and the patient had no signs for being dehydrated, just gave her some fluids initially just because the history for the blood loss times ten days. Looks like the patient probably is just having a heavy period, more than usual. Last month when she had her period it lasted for seven days and normally it is four days which she had passed some clots during that time as well so I just told her she was probably having menorrhagia which is probably hormonally related and we could start her on control pills but first I wanted to just to try and have take some Motrin first in which the affect on the bladder will helpfully control some of the bleeding since it is pretty mild. The patient does not have any acute gross bleeding now at the present time nad it has not seemed to stop. ASSESSMENT: Vaginal bleeding menorrhagia. PLAN: The plan was just to her follow up with Dr. Gonsales at [facility]. The patient will be given Motrin 600 milligrams every eight hours [id number] and then she will probably get evaluation if things get worse for possible control for hormones for controlled bleeding. The patient is to return if severe bleeding despite taking the above medications, dizziness, passing out or worsening symptoms. [id number] _ BRANDEN MIRANDA MD MT: Document: [id number] [place], [place] Name: DOMINGO MATAMOROS EMERGENCY ROOM ENCOUNTER Page 3 of 2 LCN: [id number] DSC: 07/27/2003 [place], [place] Name: MR#: : Admit Date: DOMINGO MATAMOROS [id number] 1985 07/27/2003 Doctor: BRANDEN MIRANDA MD EMERGENCY ROOM ENCOUNTER Page 1 of 2 documented in this encounter Plan of Treatment Not on filedocumented as of this encounter Visit Diagnoses Not on filedocumented in this encounter
--- OUTSIDE RECORDS SUMMARY | 2021-12-10 21:23 | XMS_ITS | Encounter Summary ---
:1985 Author Organization [facility] Address [address] [place] [address] Care Team Providers Name Role Phone Unavailable Primary Care Provider Unavailable Encounter Details Date Type Department Care Team Description 02/10/2006 Historic Results INTERFACED REPORT Heather Johnson MD EMERGENCY PHYSIC [facility] [address] [place], [place] [phone] (Wo rk) Social History [...] How often do you attend episcopal or scientology Never 05/22/2021 services? Do you belong to [...] Date/Time Associated Comments Diagnosis HEMOGRAM DIFFERENTIAL STAT 02/10/2006 6:45 PM Results for this AND PLATELET INTEGRATED SPECIALIST procedure are i n the results section. HCG QUALITATIVE Routine 02/10/2006 6:45 PM Result s for this INTEGRATED SPECIALIST procedure are i n the results section. HCG QUANTITATIVE Routine 02/10/2006 6:45 PM Resul ts for this INTEGRATED SPECIALIST procedure are i n the results section. documented in this encounter Results (ABNORMAL) Hemogram differential and platelet (02/10/2006 6:45 PM INTEGRATED SPECIALIST) [facility] [employer] Method Time Signature MCV 82 78 - 100 MISYS fl MCH 26.0 (L) 26.5 - MISYS 33.0 pg MCHC 31.6 (L) 32.0 - MISYS 36.0 g/dL RDW 13.6 10.0 - MISYS 15.0 % WBC 4.8 4.0 - MISYS 11.0 10e9/L RBC Count 4.45 3.8 - 5.2 MISYS 10e12/L Hemoglobin 11.6 (L) 11.7 - MISYS 15.7 g/dL Hematocrit 36.5 35.0 - MISYS 47.0 % % Neutrophils 55 40 - 75 % MISYS % Lymphocytes 37 20 - 48 % MISYS % Monocytes 6 0 - 12 % MISYS % Eosinophils 2 0 - 6 % MISYS % Basophils 0 0 - 2 % MISYS Platelet Count 291 150 - 450 MISYS 10e9/L Absolute 2.7 1.6 - 8.3 MISYS Neutrophil 10e9/L Absolute 1.8 0.8 - 5.3 MISYS Lymphocytes 10e9/L Absolute 0.3 0.0 - 1.3 MISYS Monocytes 10e9/L Absolute 0.1 0.0 - 0.7 MISYS Eosinophils 10e9/L Absolute 0.0 0.0 - 0.2 MISYS Basophils 10e9/L Diff Method Automated MISYS Method Specimen Anatomical Collection Method Collection Time Receive d Time (Source) Location / / Volume Laterality 02/10/2006 6:45 PM 7 6:30 INTEGRATED SPECIALIST PM INTEGRATED SPECIALIST Benjie Johnson MD LAB - BLOOD ORDERABLES Performing Organization Address City/State/ZIP Code Phon e Number MISYS HCG quantitative (02/10/2006 6:45 PM INTEGRATED SPECIALIST) [facility] Method Time Signature HCG Quantitative Test IU/L MISYS Serum canceled - Lab order detailer error Comment: Charge credited Specimen Anatomical Collection Method Collection Time Receive d Time (Source) Location / / Volume Laterality 02/10/2006 6:45 PM 7 7:50 INTEGRATED SPECIALIST PM INTEGRATED SPECIALIST Benjie Johnson MD LAB - BLOOD ORDERABLES Performing Organization Address City/[facility]/ZIP [facility] Phon e Number MISYS HCG qualitative (02/10/2006 6:45 PM INTEGRATED SPECIALIST) [facility] gist Method Time Signature HCG Qualitative Negative NEG MISYS Serum Specimen Anatomical Collection Method Collection Time Receive d Time (Source) Location / / Volume Laterality 02/10/2006 6:45 PM 7 8:18 INTEGRATED SPECIALIST PM INTEGRATED SPECIALIST Benjie Johnson MD LAB - BLOOD ORDERABLES Performing Organization Address City/State/ZIP [facility] Phon e Number MISYS documented in this encounter Visit Diagnoses Not on filedocumented in this encounter
--- OUTSIDE RECORDS SUMMARY | 2021-12-10 21:23 | XMS_ITS | Encounter Summary ---
:1985 Author Organization [facility] Address [address] [place] [address] Care Team Providers Name Role Phone Unavailable Primary Care Provider Unavailable Encounter Details Date Type Department Care Team Description 01/21/2005 Operative Report Darcy Bates MD (Rubber Extrusion Machine Operator) [facility] [address] [place], [place] [address] (Wo rk) Social History Tobacco [...] 05/22/2021 relatives? How often do you attend christianity or samaritan Never 05/22/2021 services? Do you belong to any clubs or organizations such as No 05/22/2021 christianity groups, unions, fraternal or athletic groups, or [...] documented as of this encounter Progress Notes Darcy Bates - 01/21/2005 11:59 PM ELECTRICIAN RADIO PRELIMINARY PREOPERATIVE DIAGNOSES: 1. Intrauterine at term. 2. Nonreassuring tracing. PROCEDURE: Primary low transverse section. SURGEON: Darcy Bates MD. ESTIMATED BLOOD LOSS: 600 cc. FINDINGS: Normal uterus, normal tubes and ovaries. in occiput transverse position, vigorous and crying at delivery. COMPLICATIONS: None. SPONGE AND NEEDLE COUNT: Correct x2 at the end of the case. DESCRIPTION OF PROCEDURE: The patient was brought to the operating room, placed in supine position on the operating room table. She was then redosed for her epidural. She was then placed in dorsal supine position with left lateral tilt. The abdomen was prepped and draped in the usual sterile fashion.A Pfannenstiel skin incision was made with a scalpel. This was carried through to the level of the fascia. The fascial incision was extended bilaterally with the Bernabe scissors. The fascial incision wasthen grasped with the Shan clamps, elevated and sharply and bluntly dissected superiorly and inferiorly from the rectus muscles. The rectus muscles were then in the midline and the peritoneu m was tented up, sharply entered with a Metzenbaum scissors. The peritoneal incision was extended superiorly and inferiorly with good visualization of the bladder. In the process of opening the peritoneum, the serosa of the uterus was nicked and had bleeding. This required cauterization and observation at the end of the case. The bladder blade was then inserted. The vesicouterine peritoneum was identified and then entered sharply. This incision was extended laterally and the bladder flap was created. The bladder was retracted using the bladder blade. The lower uterine segment was incised in a transverse fashion with a scalpel, then extended bilaterally in a blunt fashion. The bladder blade was removed. The 's head was delivered atraumatically. The nose and mouth were suctioned. The cord wasclamped and cut. The infant was handed to the attendants who were present. The cord pH was obtained.The placenta was removed. The uterus was cleared of clots and debris. The uterine incision was closed with 0 chromic in a running locking fashion. A second layer of 0 chromic was used for hemostasis. The subfascial tissues were assured to be hemostatic. The fascia was closed with 0 Vicryl in a runningfashion the length of the incision. The subcutaneous tissue was made hemostatic and then the skin was closed with 4-0 Vicryl. The patient tolerated the procedure well. Sponge and needle counts were correct x2. The patient had received penicillin preoperatively and she received gentamicin. A sterile dressing was placed over the incision. Estimated blood loss was 600 cc. Drains were Aguiar catheter. Complications were none. This patient was taken to recovery room in stable condition. MD Qiana GUERRERO: 01/21/2005 MT: [id number] Name: DOMINGO MATAMOROS Account: [id number] : 1985 Procedure Date: 01/21/2005 Document: [id number] TRICIAN RADIO documented in this encounter Plan of Treatment Not on filedocumented as of this encounter Visit Diagnoses Not on filedocumented in this encounter
--- OUTSIDE RECORDS SUMMARY | 2021-12-10 21:23 | XMS_ITS | Encounter Summary ---
:1985 Author Organization [facility] Address [address] [place] [address] Care Team Providers Name Role Phone Unavailable Primary Care Provider Unavailable Encounter Details Date Type Department Care Team Description 01/15/2006 Historic Results INTERFACED REPORT Heather Johnson MD EMERGENCY PHYSIC [facility] [address] [place], [place] [address] (Wo rk) Social History [...] often do you attend roman catholic or samaritan Never 05/22/2021 services? Do you [...] Date/Time Associated Comments Diagnosis HEMOGRAM DIFFERENTIAL STAT 01/15/2006 7:25 PM Results for this AND PLATELET SINGLE WIRE SAW OPERATOR procedure are i n the results section. MONONUCLEOSIS SCREEN STAT 01/15/2006 7:25 PM R esults for this SINGLE WIRE SAW OPERATOR procedure are i n the results section. RAPID STREP SCREEN STAT 01/15/2006 5:45 PM Res ults for this THROAT SWAB SINGLE WIRE SAW OPERATOR procedure are i n the results section. BETA HEMOLYTIC STREP Routine 01/15/2006 5:45 PM R esults for this GROUP A CULTURE SINGLE WIRE SAW OPERATOR procedure ar e in the results section. documented in this encounter Results (ABNORMAL) Hemogram differential and platelet (01/15/2006 7:25 PM SINGLE WIRE SAW OPERATOR) [facility] Method Time Signature MCV 80 78 - 100 MISYS fl MCH 25.4 (L) 26.5 - MISYS 33.0 pg MCHC 31.6 (L) 32.0 - MISYS 36.0 g/dL RDW 13.3 10.0 - MISYS 15.0 % RBC Count 5.53 (H) 3.8 - 5.2 MISYS 10e12/L WBC 5.2 4.0 - MISYS 11.0 10e9/L Hemoglobin 14.0 11.7 - MISYS 15.7 g/dL Hematocrit 44.3 35.0 - MISYS 47.0 % % Neutrophils 56 40 - 75 % MISYS % Lymphocytes 35 20 - 48 % MISYS % Monocytes 5 0 - 12 % MISYS % Eosinophils 2 0 - 6 % MISYS % Basophils 2 0 - 2 % MISYS Platelet Count 297 150 - 450 MISYS 10e9/L Absolute 2.9 1.6 - 8.3 MISYS Neutrophil 10e9/L Absolute 1.8 0.8 - 5.3 MISYS Lymphocytes 10e9/L Absolute 0.2 0.0 - 1.3 MISYS Monocytes 10e9/L Absolute 0.1 0.0 - 0.7 MISYS Eosinophils 10e9/L Absolute 0.1 0.0 - 0.2 MISYS Basophils 10e9/L Diff Method Automated MISYS Method Specimen Anatomical Collection Method Collection Time Receive d Time (Source) Location / / Volume Laterality 01/15/2006 7:25 PM 6 6:55 SINGLE WIRE SAW OPERATOR PM SINGLE WIRE SAW OPERATOR Benjie Johnson MD LAB - BLOOD ORDERABLES Performing Organization Address City/State/ZIP Code Phon e Number MISYS Mononucleosis screen (01/15/2006 7:25 PM SINGLE WIRE SAW OPERATOR) [facility] Method Time Signature Mononucleosis Negative NEG MISYS Screen Specimen Anatomical Collection Method Collection Time Receive d Time (Source) Location / / Volume Laterality 01/15/2006 7:25 PM 6 6:55 SINGLE WIRE SAW OPERATOR PM SINGLE WIRE SAW OPERATOR Benjie Johnson MD LAB - BLOOD ORDERABLES Performing Organization Address [facility] Phon e Number MISYS Rapid strep screen (01/15/2006 5:45 PM SINGLE WIRE SAW OPERATOR) Component Value Ref Test Analysis Performed At [facility] Range Method Time Signature Specimen Throat MISYS Description Micro Report FINAL [id number] MISYS Status Rapid Strep A NEGATIVE: No MISYS Screen Group A streptococcal antigen detected by immunoassay, await Comment: culture report. Specimen Anatomical Collection Method Collection Time Receive d Time (Source) Location / / Volume Laterality 01/15/2006 5:45 PM 6 5:55 SINGLE WIRE SAW OPERATOR PM SINGLE WIRE SAW OPERATOR Benjie Coppola MD LAB - MICRO GENERAL ORDERABL ES Performing Organization Address [facility] Phon e Number MISYS Beta strep group A culture (01/15/2006 5:45 PM SINGLE WIRE SAW OPERATOR) Component Value Ref Test Analysis Performed At [facility] Range Method Time Signature Specimen Throat MISYS Description Culture Micro No beta MISYS hemolytic Streptococcus Group A isolated Micro Report FINAL [id number] MISYS Status Specimen Anatomical Collection Method Collection Time Receive d Time (Source) Location / / Volume Laterality 01/15/2006 5:45 PM 6 6:18 SINGLE WIRE SAW OPERATOR PM SINGLE WIRE SAW OPERATOR Dr Jesenia DIAZ LAB - MICRO GENERAL ORDERABL ES Performing Organization Address [facility] Phon e Number MISYS documented in this encounter Visit Diagnoses Not on filedocumented in this encounter
--- OUTSIDE RECORDS SUMMARY | 2021-12-10 21:23 | XMS_ITS | Encounter Summary ---
:1985 Author Organization [facility] Address [address] [place] [address] Care Team Providers Name Role Phone Unavailable Primary Care Provider Unavailable Encounter Details Date Type Department Care Team Description 01/21/2005 Historic Results INTERFACED REPORT Francisco Javier Pascual MD [address] [place] [address] (Wo rk) Social History Tobacco [...] often do you attend oriental orthodox or rastafari Never 05/22/2021 services? Do you belong to [...] Procedure Name Priority Date/Time Associated Comments Diagnosis HEMOGLOBIN STAT 01/21/2005 4:05 PM Results f or this DIABETES CLINICAL MANAGER procedure are i n the results section. ABO/RH TYPE AND STAT 01/21/2005 4:05 PM Result s for this SCREEN DIABETES CLINICAL MANAGER procedure are i n the results section. documented in this encounter Results Hemoglobin (01/21/2005 4:05 PM DIABETES CLINICAL MANAGER) P athologist Signature Hemoglobin 11.9 11.7 - 15.7 MISYS g/dL Specimen Anatomical Collection Method Collection Time Receive d Time (Source) Location / / Volume Laterality 01/21/2005 4:05 PM 5 3:48 DIABETES CLINICAL MANAGER PM DIABETES CLINICAL MANAGER Francisco Javier Pascual MD LAB - BLOOD ORDERABLES Performing Organization Address City/[facility] Phon e Number MISYS ABO/Rh type and screen (01/21/2005 4:05 PM DIABETES CLINICAL MANAGER) Analysis Performed At Patho logist Time Signature ABO O MISYS RH(D) Pos MISYS Antibody Neg MISYS Screen Specimen 01/24/2005 MISYS Expires Specimen Anatomical Collection Method Collection Time Receive d Time (Source) Location / / Volume Laterality 01/21/2005 4:05 PM 5 3:48 DIABETES CLINICAL MANAGER PM DIABETES CLINICAL MANAGER Francisco Javier Pascual MD LAB - BLOOD BANK TEST ORDER Performing Organization Address City/[facility] Phon e Number MISYS documented in this encounter Visit Diagnoses Not on filedocumented in this encounter
--- OUTSIDE RECORDS SUMMARY | 2021-12-10 21:23 | XMS_ITS | Encounter Summary ---
:1985 Author Organization [facility] Address [address] [place] [address] Care Team Providers Name Role Phone Unavailable Primary Care Provider Unavailable Encounter Details Date Type Department Care Team Description 01/03/2007 Historic Results INTERFACED REPORT Brenton De MD EMERGENCY PHYSIC [facility] [address] [facility] [address] [place] [address] (Wo rk) Social History Tobacco Use Types [...] How often do you attend evangelical or lutheran Never 05/22/2021 services? Do you belong to [...] Date/Time Associated Comments Diagnosis HEMOGRAM DIFFERENTIAL STAT 01/03/2007 3:30 PM Results for this AND PLATELET CHIEF SECURITY AND SAFETY OFFICER procedure are i n the results section. INR STAT 01/03/2007 3:30 PM Results f or this CHIEF SECURITY AND SAFETY OFFICER procedure are i n the results section. PARTIAL THROMBOPLASTIN STAT 01/03/2007 3:30 PM Results for this TIME CHIEF SECURITY AND SAFETY OFFICER procedure are i n the results section. D DIMER QUANTITATIVE STAT 01/03/2007 3:30 PM R esults for this CHIEF SECURITY AND SAFETY OFFICER procedure are i n the results section. documented in this encounter Results (ABNORMAL) Hemogram differential and platelet (01/03/2007 3:30 PM CHIEF SECURITY AND SAFETY OFFICER) athologist Signature MCV 75 (L) 78 - 100 fl MISYS MCH 22.6 (L) 26.5 - 33.0 MISYS pg MCHC 30.2 (L) 31.5 - 36.5 MISYS g/dL Comment: Reviewed: OK with previous RDW 17.9 (H) 10.0 - 15.0 % MISYS WBC 5.5 4.0 - 11.0 10e9/L MISYS RBC Count 4.56 3.8 - 5.2 10e12/L MISYS Hemoglobin 10.3 (L) 11.7 - 15.7 g/dL MISYS Hematocrit 34.1 (L) 35.0 - 47.0 % MISYS % Neutrophils 57 40 - 75 % MISYS % Lymphocytes 38 20 - 48 % MISYS % Monocytes 4 0 - 12 % MISYS % Eosinophils 1 0 - 6 % MISYS % Basophils 0 0 - 2 % MISYS Platelet Count 234 150 - 450 10e9/L MISYS Absolute Neutrophil 3.1 1.6 - 8.3 10e9/L MIS YS Absolute Lymphocytes 2.1 0.8 - 5.3 10e9/L [place] SYS Absolute Monocytes 0.2 0.0 - 1.3 10e9/L MISY S Absolute Eosinophils 0.1 0.0 - 0.7 10e9/L [place] SYS Absolute Basophils 0.0 0.0 - 0.2 10e9/L MISY S Diff Method Automated Method MISYS Specimen Anatomical Collection Method Collection Time Receive d Time (Source) Location / / Volume Laterality 01/03/2007 3:30 PM 7 3:17 CHIEF SECURITY AND SAFETY OFFICER PM CHIEF SECURITY AND SAFETY OFFICER Jose De MD LAB - BLOOD ORDERABLES Performing Organization Address City/State/ZIP Code Phon e Number MISYS INR (01/03/2007 3:30 PM CHIEF SECURITY AND SAFETY OFFICER) athologist Signature INR 0.98 0.86 - 1.14 MISYS Specimen Anatomical Collection Method Collection Time Receive d Time (Source) Location / / Volume Laterality 01/03/2007 3:30 PM 7 3:17 CHIEF SECURITY AND SAFETY OFFICER PM CHIEF SECURITY AND SAFETY OFFICER Jose De MD LAB - BLOOD ORDERABLES Performing Organization Address City/[facility] Phon e Number MISYS Partial thromboplastin time (01/03/2007 3:30 PM CHIEF SECURITY AND SAFETY OFFICER) P athologist Signature PTT 28 22 - 37 sec MISYS Specimen Anatomical Collection Method Collection Time Receive d Time (Source) Location / / Volume Laterality 01/03/2007 3:30 PM 7 3:17 CHIEF SECURITY AND SAFETY OFFICER PM CHIEF SECURITY AND SAFETY OFFICER Jose De MD LAB - BLOOD ORDERABLES Performing Organization Address [facility] Phon e Number MISYS D dimer quantitative (01/03/2007 3:30 PM CHIEF SECURITY AND SAFETY OFFICER) P athologist Signature D Dimer 0.4 0.0 - 0.50 MISYS ug/ml FEU Specimen Anatomical Collection Method Collection Time Receive d Time (Source) Location / / Volume Laterality 01/03/2007 3:30 PM 7 3:17 CHIEF SECURITY AND SAFETY OFFICER PM CHIEF SECURITY AND SAFETY OFFICER Jose De MD LAB - BLOOD ORDERABLES Performing Organization Address City/[facility] Phon e Number MISYS documented in this encounter Visit Diagnoses Not on filedocumented in this encounter
--- OUTSIDE RECORDS SUMMARY | 2021-12-10 21:23 | XMS_ITS | Encounter Summary ---
:1985 Author Organization [facility] Address [address] [place] [address] Care Team Providers Name Role Phone Unavailable Primary Care Provider Unavailable Encounter Details Date Type Department Care Team Description 10/26/2005 Emergency room Rhoda Lee MD EMERGENCY PHYSIC [facility] [address] [place], [place] [address] (Wo rk) Social History [...] 05/22/2021 relatives? How often do you attend anabaptism or sabianist Never 05/22/2021 services? Do you belong to any clubs or organizations such as No 05/22/2021 anabaptism groups, unions, fraternal or athletic groups, or [...] documented as of this encounter Progress Notes Rhoda Lee - 10/30/2005 9:17 AM CDT FINAL CHIEF COMPLAINT: Right eye pain. HISTORY OF PRESENT ILLNESS: The patient is a 20-year-old female who presents to the emergency department complaining of increasing right eye pain for the last week. She states that she was taking her contacts out a week ago when she began having right eye pain. She stated that the right eye pain was intermittent until the last 24 hours when her pain has worsened. She states that she has not put contacts in since the initial injury one week ago. She complains of blurred vision. She denies any traumatic injuries to the eyes. She does complain of some mild light sensitivity to the right eye. She denies any other complaints. PAST MEDICAL HISTORY: The patient denies any medical problems. MEDICATIONS: On no regular medications. ALLERGIES: She has no known drug allergies. SOCIAL HISTORY: She smokes a third of a pack of cigarettes a day. FAMILY HISTORY: Noncontributory. REVIEW OF SYSTEMS: As noted in the HPI. All other systems are negative. PHYSICAL EXAMINATION: GENERAL: The patient is alert and appropriate. VITAL SIGNS: Temperature 97.9, pulse 79, respiratory rate 18, blood pressure 146/83 and oxygen saturation 100% on room air. HEENT: The patient has injected conjunctiva on the right. Pupils are equal, round and reactive to light. Extraocular movements are intact. Remainder of HEENT exam is normal. Slitlamp exam: The patient has a deep and clear anterior chamber on the right. No foreign bodies are noted. There appears to be a small corneal ulcer on the superior lateral portion of the cornea. There is no fluorescein uptake, no fluorescein leak. Remainder of exam is normal. EMERGENCY DEPARTMENT COURSE: The patient did have some mild relief with the proparacaine drops. I instructed her not wear contacts. Ocuflox 2 drops to the right eye q. 1 hour. Vicodin 1-2 tabs p.o. q.4-6h. p.r.n. Return if worse. Follow up with body rolling machine tender referral; call in the morning for an appointment tomorrow. DIAGNOSIS: Right eye corneal ulcer. Electronically signed on 10/30/2005 09:17 by RHODA LEE MD MT: [id number] Name: DOMINGO MATAMOROS Account: [id number] : 1985 Visit Date: 10/26/2005 Document: [id number] documented in this encounter Plan of Treatment Not on filedocumented as of this encounter Visit Diagnoses Not on filedocumented in this encounter
--- OUTSIDE RECORDS SUMMARY | 2021-12-10 21:23 | XMS_ITS | Encounter Summary ---
:1985 Author Organization [facility] Address [address] [place] [address] Care Team Providers Name Role Phone Unavailable Primary Care Provider Unavailable Encounter Details Date Type Department Care Team Description 09/29/2006 Historic Results INTERFACED REPORT Mckayla Montes De Oca MD EMERGENCY PHYSIC [facility] [address] [place], [place] [address] (Wo rk) Social History [...] 05/22/2021 relatives? How often do you attend buddhist or rastafari Never 05/22/2021 services? Do you belong to any clubs or organizations such as No 05/22/2021 buddhist groups, unions, fraternal or athletic groups, or [...] Date/Time Associated Comments Diagnosis HEMOGRAM DIFFERENTIAL STAT 09/29/2006 2:57 AM Results for this AND PLATELET CDT procedure are i n the results section. HCG QUALITATIVE STAT 09/29/2006 2:57 AM Result s for this CDT procedure are i n the results section. documented in this encounter Results (ABNORMAL) Hemogram differential and platelet (09/29/2006 2:57 AM CDT) P athologist Signature MCV 77 (L) 78 - 100 fl MISYS MCH 24.1 (L) 26.5 - 33.0 MISYS pg MCHC 31.1 (L) 31.5 - 36.5 MISYS g/dL Comment: Reviewed, acceptable RDW 15.3 (H) 10.0 - 15.0 % MISYS WBC 7.8 4.0 - 11.0 10e9/L MISYS RBC Count 5.07 3.8 - 5.2 10e12/L MISYS Hemoglobin 12.2 11.7 - 15.7 g/dL MISYS Hematocrit 39.2 35.0 - 47.0 % MISYS % Neutrophils 58 40 - 75 % MISYS % Lymphocytes 36 20 - 48 % MISYS % Monocytes 4 0 - 12 % MISYS % Eosinophils 2 0 - 6 % MISYS % Basophils 0 0 - 2 % MISYS Platelet Count 341 150 - 450 10e9/L MISYS Absolute Neutrophil 4.4 1.6 - 8.3 10e9/L MIS YS Absolute Lymphocytes 2.8 0.8 - 5.3 10e9/L [place] SYS Absolute Monocytes 0.3 0.0 - 1.3 10e9/L MISY S Absolute Eosinophils 0.2 0.0 - 0.7 10e9/L [place] SYS Absolute Basophils 0.0 0.0 - 0.2 10e9/L MISY S Diff Method Automated Method MISYS Specimen Anatomical Collection Method Collection Time Receive d Time (Source) Location / / Volume Laterality 09/29/2006 2:57 AM 7 2:41 CDT AM CDT Mckayla Montes De Oca MD LAB - BLOOD ORDERABLES Performing Organization Address City/State/ZIP Code Phon e Number MISYS HCG qualitative (09/29/2006 2:57 AM CDT) [facility] gist Method Time Signature HCG Qualitative Negative NEG MISYS Serum Specimen Anatomical Collection Method Collection Time Receive d Time (Source) Location / / Volume Laterality 09/29/2006 2:57 AM 7 2:55 CDT AM CDT Mckayla Montes De Oca MD LAB - BLOOD ORDERABLES Performing Organization Address City/State/ZIP Code Phon e Number MISYS documented in this encounter Visit Diagnoses Not on filedocumented in this encounter
--- OUTSIDE RECORDS SUMMARY | 2021-12-10 21:23 | XMS_ITS | Encounter Summary ---
:1985 Author Organization [facility] Address [address] [place] [address] Care Team Providers Name Role Phone Unavailable Primary Care Provider Unavailable Encounter Details Date Type Department Care Team Description 10/18/2005 Emergency room Joshua Ruiz Ma, MD EMERGENCY PHYSIC [facility] [address] [facility] [address] [place] [address] (Wo rk) Social History Tobacco Use Types [...] How often do you attend zoroastrian or oriental orthodox Never 05/22/2021 services? Do [...] documented as of this encounter Progress Notes Joshua Ruiz - 10/21/2005 3:47 PM CDT FINAL PRIMARY PHYSICIAN: [facility] in [place]. CHIEF COMPLAINT: Chest pain. HISTORY OF PRESENT ILLNESS: This is a 20-year-old female with chest pain for few hours that kind ofgoes from left chest in to her back associated with inspiration. If she breathes softly it is not somuch there. No shortness of breath. She has had a fever up to 100.3. She had cold symptoms going up couple days seemed to the point where coughing leads to vomiting. PAST MEDICAL HISTORY: She is, otherwise, healthy. MEDICATIONS: Aghb-[id number] cold medication. ALLERGIES: None. REVIEW OF SYSTEMS: All systems negative except as stated above. SOCIAL HISTORY: She lives in [place] She is a student. PHYSICAL EXAMINATION: VITAL SIGNS: Temperature 98.6, pulse 84, respirations 20, blood pressure 119/68 and O2 saturation 100%. GENERAL: The patient is alert, cooperative and in no respiratory distress. HEENT: Eyes, pupils equal, round and reactive to light. Conjunctivae are clear. Lids are not swollen. Oropharynx, moist mucous membranes without erythema or lesion. NECK: Supple, no adenopathy. Trachea midline, no stridor. BACK: Nontender. CHEST: Symmetric chest rise to inspiration, no sign of labored breathing. LUNGS: Clear to auscultation. No rub, rales, rhonchi or wheeze. CARDIOVASCULAR: Regular rate and rhythm without murmur. ABDOMEN: Soft, nondistended and nontender. EXTREMITIES: Normal. SKIN: Well perfused. CLINICAL IMPRESSION: Chest pain consistent with a bronchitis but only hearing any sign of pneumonia. Her oxygenation and respiratory drive is normal. CLINICAL PLAN: She is to push fluids, use Vicodin 1-2 tablets every 4-6 hours for pain relief and cough suppression. I dispensed 15. I put her on a Z-IAN 5- day course. She is to return if worsening, otherwise follow in 4 days if not better. Electronically signed on 10/21/2005 15:46 by JOSHUA RUIZ MD MT: [id number] Name: DOMINGO MATAMOROS MRN: [id number] Account: [id number] : 1985 Visit Date: 10/18/2005 Document: [id number] cc: [facility] Joshua Ruiz - 10/19/2005 12:36 PM CDT PRELIMINARY PRIMARY PHYSICIAN: [facility] in [place]. CHIEF COMPLAINT: Chest pain. HISTORY OF PRESENT ILLNESS: This is a 20-year-old female with chest pain for few hours that kind ofgoes from left chest in to her back associated with inspiration. If she breathes softly it is not somuch there. No shortness of breath. She has had a fever up to 100.3. She had cold symptoms going up couple days seemed to the point where coughing leads to vomiting. PAST MEDICAL HISTORY: She is, otherwise, healthy. MEDICATIONS: [id number] cold medication. ALLERGIES: None. REVIEW OF SYSTEMS: All systems negative except as stated above. SOCIAL HISTORY: She lives in [place]. She is a student. PHYSICAL EXAMINATION: VITAL SIGNS: Temperature 98.6, pulse 84, respirations 20, blood pressure 119/68 and O2 saturation 100%. GENERAL: The patient is alert, cooperative and in no respiratory distress. HEENT: Eyes, pupils equal, round and reactive to light. Conjunctivae are clear. Lids are not swollen. Oropharynx, moist mucous membranes without erythema or lesion. NECK: Supple, no adenopathy. Trachea midline, no stridor. BACK: Nontender. CHEST: Symmetric chest rise to inspiration, no sign of labored breathing. LUNGS: Clear to auscultation. No rub, rales, rhonchi or wheeze. CARDIOVASCULAR: Regular rate and rhythm without murmur. ABDOMEN: Soft, nondistended and nontender. EXTREMITIES: Normal. SKIN: Well perfused. CLINICAL IMPRESSION: Chest pain consistent with a bronchitis but only hearing any sign of pneumonia. Her oxygenation and respiratory drive is normal. CLINICAL PLAN: She is to push fluids, use Vicodin 1-2 tablets every 4-6 hours for pain relief and cough suppression. I dispensed 15. I put her on a Z-IAN 5- day course. She is to return if worsening, otherwise follow in 4 days if not better. JOSHUA RUIZ MD MT: [id number] Name: DOMINGO MATAMOROS Account: [id number] : 1985 Visit Date: 10/18/2005 Document: [id number] cc: [facility] documented in this encounter Plan of Treatment Not on filedocumented as of this encounter Visit Diagnoses Not on filedocumented in this encounter
--- OUTSIDE RECORDS SUMMARY | 2021-12-10 21:23 | XMS_ITS | Encounter Summary ---
:1985 Author Organization [facility] Address [address] [place] [address] Care Team Providers Name Role Phone Unavailable Primary Care Provider Unavailable Encounter Details Date Type Department Care Team Description 01/03/2007 Emergency room Aga De MD EMERGENCY PHYSIC [facility] [address] [facility] [address] [place] [address] (Wo rk) Social History Tobacco Use Types [...] 05/22/2021 relatives? How often do you attend alevism or islam Never 05/22/2021 services? Do you belong to any clubs or organizations such as No 05/22/2021 alevism groups, unions, fraternal or athletic groups, or [...] documented as of this encounter Progress Notes Aga De MD - 01/06/2007 6:34 PM [employer] FINAL CHIEF COMPLAINT: Chest pain. HISTORY OF PRESENT ILLNESS: This is 21-year-old female stating that she has had chest pain ever since she was a kid. She says she has had it worked up multiple times and they have never found anything. No fevers, nausea, vomiting, chills, no lower leg pain, no DVT risk factors. Says the pain is a constant 6/10, it is not worse when she takes a deep breath but she is so she thought she should come in and get it taken care of. When I tell her that sometimes we do x- rays or CAT scans to look for chest pain, she says she does not want any radiation because she is concerned about the baby. I told her I would not promise her we would not do any radiation today, but I would do a D-dimer even though it may be falsely positive in . ALLERGIES: None. CURRENT MEDICATIONS: vitamins. PAST MEDICAL HISTORY: . SOCIAL HISTORY: She is a smoker. REVIEW OF SYSTEMS: See HPI, all other systems are reviewed and are negative. PHYSICAL EXAMINATION: VITAL SIGNS: Blood pressure 130/74, pulse 80, respiration 12, temperature 98.2 and oxygen saturation 100% on room air. GENERAL: This is a 21-year-old female who is pleasant to talk to. HEENT: Normocephalic and atraumatic. Mucous membranes are moist. Pupils are equal, round. Oropharynx is clear. HEART: Regular rate and rhythm. LUNGS: Breath sounds are clear. Chest wall nontender to palpation. ABDOMEN: Soft and nontender. EXTREMITIES: Strength is 5/5. NEUROLOGIC: Nonfocal. SKIN: Warm and dry. LABORATORY AND DIAGNOSTICS: The patient has normal D-dimer here in the ER. Hemogram was fairly unremarkable. INR, PTT within normal limits. EMERGENCY ROOM COURSE: The patient had an IV started in the ER. Was placed on EKG continuous monitoring, blood pressure readings and oxygen. I was concerned that she may have a PE. D-dimer is negative. Even in , I do not think she has a clot or PE. I am not quite sure what is causing her pain. I would like to do a chest x-ray, but she does not want this. I will send her out with instructions for chest pain, unclear etiology. DIAGNOSIS: Chest pain. Electronically signed on 01/06/2007 18:33 by AGA DE MD MT: [id number] Name: DOMINGO MATAMOROS MRN: [id number] Account: [id number] : 1985 Visit Date: 01/03/2007 Document: [id number] [employer] documented in this encounter Plan of Treatment Not on filedocumented as of this encounter Visit Diagnoses Not on filedocumented in this encounter
--- OUTSIDE RECORDS SUMMARY | 2021-12-10 21:23 | XMS_ITS | Encounter Summary ---
:1985 Author Organization [facility] Address [address] [place] [address] Care Team Providers Name Role Phone Unavailable Primary Care Provider Unavailable Encounter Details Date Type Department Care Team Description 01/03/2007 Historic Results INTERFACED REPORT Brenton De MD EMERGENCY PHYSIC [facility] [address] [facility] [address] [place] [address] (Wo rk) Social History Tobacco Use Types [...] 05/22/2021 relatives? How often do you attend faith or caodaism Never 05/22/2021 services? Do you belong to any clubs or organizations such as No 05/22/2021 faith groups, unions, fraternal or athletic groups, or [...] Diagnosis Comme nts EKG 12 LEAD Routine 01/03/2007 3:09 PM Results f or this [employer] SUPERVISOR procedure are i n the results section . documented in this encounter Results EKG 12 LEAD (01/03/2007 3:09 PM [employer]VIS[employer]) Component Value Ref Range Test Analysis Performed Pathologis t Method Time At Signature Ventricular Rate 66 BPM RADIOLOGY RESULTS Atrial Rate 66 BPM RADIOLOGY RESULTS MT Interval 156 ms RADIOLOGY RESULTS QRS Duration 82 ms RADIOLOGY RESULTS QT 390 ms RADIOLOGY RESULTS QTc 408 ms RADIOLOGY RESULTS P [place] 19 degrees RADIOLOGY RESULTS R AXIS 30 degrees RADIOLOGY RESULTS T [place] 24 degrees RADIOLOGY RESULTS Interpretation AGE AND GENDER SPECIFIC ECG ANALYSIS RADIOLOGY ECG Sinus rhythm RESULTS Normal ECG Unconfirmed report - interpretation of this ECG is compute r generated - see medical record for final interpretation Specimen Anatomical Collection Method Collection Time Receive d Time (Source) Location / / Volume Laterality 01/03/2007 3:09 PM 7 3:17 [employer] PM [employer] Jose De MD ECG ORDERABLES Performing Organization Address City/State/ZIP Code Phon e Number RADIOLOGY RESULTS documented in this encounter Visit Diagnoses Not on filedocumented in this encounter
--- OUTSIDE RECORDS SUMMARY | 2021-12-10 21:23 | XMS_ITS | Encounter Summary ---
:1985 Author Organization [facility] Address [address] [place] [address] Care Team Providers Name Role Phone Unavailable Primary Care Provider Unavailable Encounter Details Date Type Department Care Team Description 09/29/2006 Emergency room Mckayla Montes De Oca M D EMERGENCY PHYSIC [facility] [address] [place], [place] [address] (Wo rk) Social History [...] How often do you attend worship or latter day Never 05/22/2021 services? Do [...] documented as of this encounter Progress Notes Mckayla Montes De Oca - 10/07/2006 9:59 AM CDT FINAL CHIEF COMPLAINT: Vaginal bleeding. HISTORY OF PRESENT ILLNESS: This is a 21-year-old -[place]val[place] female who came in for evaluation of vaginal bleeding. She states that it started while she was having intercourse. She does state there was no pain at all. No crampy abdominal pain. She states that it started suddenly and she had some clots and decided to come in. There is no nausea, no vomiting, no fever or any other problems. She states that she is late for her period, she has not had a period for over a month. She states that she does not know if she could be . She notes they were not using anything and she did not think the intercourse was that rough and she had absolutely no pain during intercourse. REVIEW OF SYSTEMS: Please see above, otherwise negative. ALLERGIES: None. MEDICATIONS: None. PAST MEDICAL HISTORY: None. PAST SURGICAL HISTORY: . SOCIAL HISTORY: She does smoke and uses alcohol occasionally. No drug use. PHYSICAL EXAMINATION: VITAL SIGNS: Blood pressure 132/86, pulse 100, respiratory rate 20, temperature 98.1, O2 [id number]% on room air. GENERAL: The patient is alert and oriented, mildly anxious, no acute discomfort at this time. No acute distress. SKIN: Normal. HEENT: Normal. LUNGS: Clear bilaterally. HEART: Regular rate and rhythm. ABDOMEN: Soft, nontender, nondistended with good bowel sounds. Pelvic exam revealed a large clot that was pulled out of the vaginal canal. The cervix appears to be normal, no CMT, no adnexal tenderness or masses are felt and no discomfort either. After I pulled out the clot, there was some persistentoozing from the cervix but no lacerations were seen. I absolutely cannot find any signs of injury either internally or externally at this point. LABORATORY EVALUATION: CBC showed hemoglobin of 12.2, hematocrit 39.2, platelets 341,000. Blood beta qualitative was negative. EMERGENCY DEPARTMENT COURSE: The patient thought she may have had some injury during intercourse possibly; however, she has absolutely no pain which would go against some type of laceration or abrasion. She also has no evidence of injury on exam. She says she has not had a period for a while. I suspect she may be starting her period tonight. She did develop some crampy abdominal pain in the suprapubic region after the pelvic exam was performed. She had some large clots as well after the exam. I didtell her that I suspect that since she is not , this may be the beginning of her period thatwas late and maybe somewhat heavy due to the fact that she has not had it for a while so the lining maybe somewhat thick and she may have some heavy bleeding for a while, but it should not persist. We did discuss possibly doing an ultrasound but I feel at this time as she is not having severe pain andshe is not , we could certainly just watch it. She does see Dr. Pascual at [facility] and she is willing to follow up with him in the next 1-2 days for reevaluation. I did tell her that if shehas persistent heavy bleeding all day and was getting lightheaded or dizzy, that she needs to come back immediately for further evaluation. She understands and has no further questions and was discharged in stable condition. EMERGENCY DEPARTMENT DIAGNOSIS: Vaginal bleeding, likely menstrual period. Electronically signed on 10/07/2006 09:58 by MCKAYLA MONTES DE OCA MD MT: [id number] Name: DOMINGO MATAMOROS Account: [id number] : 1985 Visit Date: 09/29/2006 Document: [id number] documented in this encounter Plan of Treatment Not on filedocumented as of this encounter Visit Diagnoses Not on filedocumented in this encounter
--- OUTSIDE RECORDS SUMMARY | 2021-12-10 21:23 | XMS_ITS | Encounter Summary ---
:1985 Author Organization [facility] Address [address] [place] [address]. [place] [address] Care Team Providers Name Role Phone Michela Ramírez MD Primary Care Provider Eric Rae Unavailable Unavailable Michela Ramírez MD Unavailable Reason for Visit Reason Comments Forms Encounter Details Date Type Department Care Team Description 07/24/2021 Virtual Visit [facility] Michela Ramírez MD [facility] [address] disorder, single [id number] [place] [address] episode, moderate (H) [place] [id number] Social History Tobacco Use Types [...] 05/22/2021 relatives? How often do you attend uatsdin or yazdanism Never 05/22/2021 services? Do you belong to any clubs or organizations such as No 05/22/2021 uatsdin groups, unions, fraternal or athletic groups, or [...] Pressure 132/88 07/24/2021 9:02 AM CDT Pulse - - Temperature - - Respiratory Rate - - Oxygen Saturation - - Inhaled Oxygen Concentration - - Weight - - Height - - Body Mass Index - - documented in this encounter Progress Notes Eric Rae - 07/24/2021 9:00 AM CDT Pre-Visit Planning Next 5 appointments (look out 90 days) Jul 24, 2021 9:00 AM (Arrive by 8:40 AM) Provider Visit with Michela Ramírez MD [facility] ([facility] ) [id number] [place] [id number] Appointment Notes for this encounter: needs letter for emotional support animal for depression and anxiety Questionnaires Reviewed/Assigned No additional questionnaires are needed Patient preferred phone number: [phone] Unable to reach. Left voicemail. Advised patient to call clinic back at [phone]. Michela Ramírez MD - 07/24/2021 9:00 AM CDT Tri is a 35 year old who is being evaluated via a billable video visit. How would you like to obtain your AVS? MyChart If the video visit is dropped, the invitation should be resent by: Text to cell phone: [phone] Will anyone else be joining your video visit? No Video Start Time: 8 53 AM Assessment & Plan Quit alcohol since 110 days . Tobacco abuse . Patient continue to work on quitting smoking - nicotine (NICODERM CQ) 14 MG/24HR 24 hr patch; Place 1 patch onto the skin daily - nicotine (NICORETTE) 2 MG gum; Place 1 each (2 mg) inside cheek every hour as needed for other (nicotine withdrawal symptoms) - amLODIPine (NORVASC) 5 MG tablet; Take 1 tablet (5 mg) by mouth daily Major depressive disorder, single episode, moderate (H) - will provide letter for emotional support animal . - FLUoxetine (PROZAC) 20 MG capsule; Take 1 capsule (20 mg) by mouth daily Return in about 6 months (around 01/23/2022) for Follow up. Michela Ramírez MD [facility] Maryjo Bartlett is a 35 year old who presents for the following health issues History of Present Illness Reason for visit: Dmitriy for my dog to continue to help with my sobriety. I am at risk of losing her ormy home and i dont think i cant mentally handle that if it happened. Please help She eats 0-1 servings of fruits and vegetables daily.She consumes 1 sweetened beverage(s) daily.She exercises with enough effort to increase her heart rate 9 or less minutes per day. She exercises withenough effort to increase her heart rate 3 or less days per week. She is missing 1 dose(s) of medications per week. She is not taking prescribed medications regularly due to remembering to take. Review of Systems Constitutional, HEENT, cardiovascular, pulmonary, gi and gu systems are negative, except as otherwise noted. Objective Vitals: No vitals were obtained today due to virtual visit. Physical Exam SKIN: Visible skin clear. No significant rash, abnormal pigmentation or lesions. NEURO: Cranial nerves grossly intact. Mentation and speech appropriate for age. PSYCH: Mentation appears normal, affect normal/bright, judgement and insight intact, normal speech and appearance well-groomed. Video-Visit Details Type of service: Video Visit Video End Time:9:05 AM Originating Location (pt. Location): Home Distant Location (provider location): [facility] Platform used for Video Visit: [employer] documented in this encounter Plan of Treatment Not on filedocumented as of this encounter Visit Diagnoses Diagnosis Major depressive disorder, single episod e, moderate (H) Major depressive disorder, single episod e, moderate documented in this encounter Additional Health Concerns Assessment Noted Time PHQ-9 Depression Total Score: 18 07/12/2021 7:04 AM CD T documented as of this encounter Care Teams Buckle Gluer Relationship Specialty Start Date End Date Michela Ramírez MD PCP - General Family Medicine 05/22/21 [address] [place] [address] Eric Rae Personal Advocate & Liaison 05/22/21 (PAL) Michela Ramírez MD Assigned PCP 05/27/21 [address] [place], [place] [id number] documented as of this encounter
--- NOTE | 2021-12-10 22:06 | ED.NURSE ---
call back from [facility]. splint or cam boot would be fine til followup ortho appt for stress view. toe touch, weight bear as tolerated. dr gavin updated.
[2021-12-10] MEDS: HYDROCODONE-ACETAMIN 5-325 MG 1 TAB PO (22:11)
[2021-12-10] MEDS: IBUPROFEN 200 MG TABLET 600 MG PO (22:11)
== END 2021-12-10 22:45 | disposition home or self-care (01) ==
PROVIDERS: Emergency Provider Family Medicine
DX: S82.64XA Nondisplaced fracture of lateral malleolus of right fibula, initial encounter for closed fracture (principal); W10.9XXA Fall (on) (from) unspecified stairs and steps, initial encounter
CPT/HCPCS: 73610; 73630; 99283; 99284; A9270

== ENCOUNTER 2021-12-24 06:38 | Day surgery (SDC) | payer MEDICAID, SELFPAY ==
[2021-12-24] VITALS (14 sets, daily range): BP systolic 105–168; BP diastolic 68–101; PULSE 54–67; RESP 16; TEMP 36.1–36.7; O2SAT 94–100; BMI 33.0
[2021-12-24] MEDS: LACTATED RINGERS 1000 ML 1,000 ML 100 ML IV (07:00)
[2021-12-24 07:04] LABS: HCG Qualitative* Negative (Negative)
[2021-12-24] MEDS: fentaNYL 100 MCG/2 ML inj IVP (07:47)
[2021-12-24] MEDS: MIDAZOLAM HCL 1 MG/ML inj IVP (07:47)
--- NOTE | 2021-12-24 08:00 | CRLHL7_ITS ---
For Patients: As a result of the Cures Act, medical imaging exams and procedure reports are released immediately into your electronic medical record. You may view this report before your referring provider. If you have questions, please contact your health care provider. Indication: ORIF Right Ankle Technique: Four fluoroscopic images of the right ankle. Fluoroscopic time 39.0 seconds. IMPRESSION: Fluoroscopic guidance for open reduction internal fixation of distal fibular fracture. Dictated by Juvencio Wood MD @ 12/24/2021 12:00:54 PM (Electronically Signed)
--- NOTE | 2021-12-24 08:03 | SUR.PREOP ---
TIME?OUT:?0746 PT/RN/MDA?VERIFICATION?OF?SURGICAL?SITE,?PROCEDURE,?AND?CONSENT OBTAINED?PRIOR?TO?INVASIVE?PROCEDURE.
[2021-12-24] MEDS: CEFAZOLIN 2 GM in 0.9 % SODIUM CHLORIDE Mini-bag 100 ML IVPB (08:05)
--- NOTE | 2021-12-24 08:48 | P.ORPRC_ITS ---
Procedure Note Date of procedure: 12/24/21 Procedure: PREOPERATIVE DIAGNOSES: 1. Right ankle bimalleolar equivalent (lateral malleolus fracture), closed, acute POSTOPERATIVE DIAGNOSES: 1. Right ankle bimalleolar equivalent (lateral malleolus fracture), closed, acute NAME OF OPERATION: 1. Right ankle lateral malleolus open reduction with internal fixation 2. 99892 - intraoperative fluoroscopy up to 1 hour. SURGEON: Gordon Courtney MD EXPLORATION GEOLOGIST: Meliton HERNANDEZ; Of note, an retail assistant store manager was critical for this case to aide in patient positioning, leg manipulation, tissue retraction, closure, & splinting. ANESTHESIA: Regional block plus MAC anesthetic. EBL: 20 mL IMPLANTS: Arthrex fibulock 3.0 mm distal fibular intramedullary nail with 3.0 mm cortical nonlocking screws distally (total of 2 screws) and an end cap. TOURNIQUET: None INDICATIONS: The patient is a pleasant 36-year-old female who sustained a right ankle injury in the recent past with difficulty bearing weight. Workup included xrays which revealed an unstable ankle fracture as noted above. Given these findings, surgery was recommended to stablize the ankle. FINDINGS: Closed, displaced lateral malleolus fracture (bimalleolar equivalent) with good bone quality. There was edematous tissue throughout the ankle which was moderate, and some erythema within the medial ankle tissues consistent with pressure from her injury. PROCEDURE: Following a thorough discussion of risks, benefits, and alternatives, consent was obtained and the right ankle was marked. The patient was brought to the operating room and placed supine on the operating table. Induction of anesthesia was undertaken. Appropriate time out was performed identifying proper patient, site and procedure. 2 g IV Ancef was administered within 1 hour of incision preoperatively. The right lower extremity was prepped and draped in the appropriate sterile fashion using ChloraPrep. Initially, a lateral x-ray helped us with the general alignment of where the guide pin would track. This was drawn on the skin for future reference. We then entered the distal fibula with a guide pin at the fibular tip according to the technique guide. It was passed into the fibula and after confirming on both AP and lateral fluoroscopic images, it was found to pass up the fibula approximately 130+ mm. The fracture was held reduced with fingers throughout the reaming to maintain its reduced position. The distal portion of the fibula was then reamed with the opening Reamer, followed by the 3.2 mm Reamer up the fibular diaphysis. The canal was very tight, and thus we progressed slowly and in the toggle fashion so as not to break through the fibula. After proper reaming, the nail was placed. The proximal fins were engaged with the torque limiting screwdriver. Distal interlocking screws were then placed from lateral to medial being cautious not to allow them to penetrate the medial fibular cortex. These had excellent purchase and were necessary given her frail bone quality. Finally, the end cap was placed and confirmed on AP and lateral views to be in appropriate position. After confirming appropriate reduction/positioning on C-arm fluoroscopic imaging, the ankle was tested for syndesmosis stability. External rotation was performed. Indeed it remained stable. No widening of the mortise was appreciated. At this stage, the wound was thoroughly irrigated with normal saline. Closure was performed with 3-0 / 4-0 Vicryl and monocryl, respectively for subcutaneous and subcuticular closure. Dressings were applied and a sugar- tong splint was applied. The patient was awoken from anesthesia and transferred to the PACU in stable condition. PLAN: 1. Elevate operative extremity. 2. Encouraged ice. 3. Percocet for pain as needed. 4. Follow up with PA visit in 2-3 weeks for wound check and splint removal. Transition to CAM boot. Advance weight-bearing slowly over the next 1-2 weeks as tolerated 5. Toe-touch weight-bearing operative lower extremity
--- NOTE | 2021-12-24 09:04 | W.ANESCHARGE ---
Anesthesia Charges Start Date/Time Anesthesia Start Date: 12/24/21 Anesthesia Start Time: 07:59 Stop Date/Time Anesthesia Stop Date: 12/24/21 Anesthesia Stop Time: 09:07 Summary Emergency: No
--- NOTE | 2021-12-24 09:25 | W.PM.NB ---
Nerve Block Nerve Block Time Seen by Provider: 07:46 Date Seen: 12/24/21 Type of block requested by surgeon for post-operative analgesia: popliteal Side: right Time out performed: Yes Verification of patient name: Yes Verification of date of : Yes Site marking: site marked Name of person performing procedure: Micky Continuous monitoring Was continuous monitoring of O2 sat, B/P, lead tank mechanic, recorded every 15 minutes?: Yes Procedure Checklist: sterile prep, needles and gloves Ultrasound guided. Images saved: Yes Medications given in 5ml increments after negative aspiration: Ropivicaine %: 0.5 mL: 20 Needle gauge: 22 Patient tolerated procedure well: Yes Additional comments: Needle noted adjacent to nerve Block Charges Block Charge (with Pro Fee): Sciatic Nerve Use of Ultrasound Machine for Block: Yes- US Guidance/pain block
--- NOTE | 2021-12-24 09:26 | W.PM.NB ---
Nerve Block Nerve Block Time Seen by Provider: 07:46 Date Seen: 12/24/21 Type of block requested by surgeon for post-operative analgesia: adductor canal Side: right Time out performed: Yes Verification of patient name: Yes Verification of date of : Yes Site marking: site marked Name of person performing procedure: Micky Continuous monitoring Was continuous monitoring of O2 sat, B/P, satellite project site monitor, recorded every 15 minutes?: Yes Procedure Checklist: sterile prep, needles and gloves Ultrasound guided. Images saved: Yes Medications given in 5ml increments after negative aspiration: Ropivicaine %: 0.5 mL: 20 Needle gauge: 20 Patient tolerated procedure well: Yes Additional comments: Needle noted adjacent to nerve Block Charges Block Charge (with Pro Fee): Femoral Nerve Use of Ultrasound Machine for Block: Yes- US Guidance/pain block
--- NOTE | 2021-12-24 09:31 | W.ANESCHARGE ---
Anesthesia Charges Start Date/Time Anesthesia Start Date: 12/24/21 Anesthesia Start Time: 07:59 Stop Date/Time Anesthesia Stop Date: 12/24/21 Anesthesia Stop Time: 09:07 Summary Emergency: No
== END 2021-12-24 10:45 | disposition home or self-care (01) ==
PROVIDERS: Nurse Anesthetist, Certified Registered; Visit Provider Orthopaedic Surgery Sports Medicine
PROC: (CPT 27814; principal; 2021-12-24 08:00)
DX: S82.841A Displaced bimalleolar fracture of right lower leg, initial encounter for closed fracture (principal)
CPT/HCPCS: 27814; 01462; 01480; 64445; 64447; 73610; 76000; 76942; 84703; C1713; J0690; J1100; J2250; J2400; J2405; J2704; J2795; J3010; J7120

== ENCOUNTER 2022-01-25 08:30 | Outpatient (RCR) | payer MEDICAID, SELFPAY ==
--- NOTE | 2022-01-16 17:27 | PT.OPEX ---
Please sign the attached PT evaluation completed on 01/16/22. Thank you. PT [place] [facility] Eval PT [facility] Outpatient Eval Start: 01/16/22 12:55 Freq: Status: Active Protocol: Document 01/16/22 12:55 TLQ (Rec: 01/16/22 17:20 TLQ [id number]) E-signed By Yissel Pearl DPT Physical Therapy Outpatient Evaluation Insurance Information Recert Due Date 03/17/22 Insurance Name Medicaid,[facility] Medical Diagnosis s/p right ankle ORIF Treating Diagnosis Right lateral malleolus fracture/ORIF Stiffness in R ankle Muscle weakness Impaired balance Referring MD [place] Subjective Subjective Patient states she slipped down the stairs 12/10/21, her heel clipped the steps on her way down. Had ORIF on 12/24/21 . Has been walking in CAM boot since last , trying to decrease use around the house. No pain since the first few days after surgery. Had her first day back at work yesterday, had to adjust to being back on her feet, was a little sore at the end of the day, decreased with use of ibuprofen. Lives in an apartment, one flight of stairs up to get to the floor she lives on, reports stairs have been going well just takes her time. 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 duty Precautions Treatment Precautions/Contraindications right lateral malleolus fracture ORIF 12/24/21 Weight Bearing Status Weight Bear as Tolerated Therapy Limitations/Systems Review Not Limited Objective Range of Motion R ankle ROM: dorsiflexion - 6 degrees plantarflexion - 33 degrees inversion - 26 degrees eversion - 18 degrees Strength Hip: flexion - 4 B abduction - 5 B adduction - 5 B Knee: flexion - L 5, R 4+ extension - 5 B Ankle/foot: not assessed due to recent ORIF Swelling R ankle: supramalleolar 8.25 inframalleolar 9.5 L ankle: supramalleolar: 8.0 inframalleolar: 8.75 Palpation Non tender with palpation Wounds clear of drainage, no sign of infection Balance & Gait Gait - reciprocal pattern with CAM boot on R foot, antalgic Stairs - ascends/descends step to pattern use of 1 rail Assessment Assessment/Impression Patient is a 36 year old female who presents to physical therapy s/p ORIF on 12/24/21 for right lateral malleolus fracture, fracture was the result of a fall down the stairs on 12/10/21. Presents with decreased R ankle AROM, antalgic gait with CAM boot donned on RLE, minimal pain. Specific strength testing of R ankle not performed due to post-op status. Navigates stairs with step to pattern at this time, use of 1 railing. Mild edema of R ankle compared to L/non- operative side, educated patient on icing/elevation to reduce swelling. She will benefit from skilled therapeutic interventions to improve R ankle mobility, strength, and return to normal gait pattern without external support to return to her PLOF . Primary Functional Limitations antalgic gait, impaired R ankle ROM, muscle weakness, decreased stairs tolerance stiffness in R ankle, limited tolerance for standing Plan of Care Rehabilitation Potential Good Physical Therapy Goals In 4-6 visits: - Navigate stairs with reciprocal pattern and use of 1 rail. - Ambulate without CAM boot for household daily activities to progress toward community gait. In 8-10 visits: - Will demonstrate R ankle AROM within functional limits. - Will demonstrate full R ankle strength needed to participate in daily activities. - Will ambulate without use of CAM boot, demonstrate heel- toe pattern for pain-free mobility. - Demonstrate adherence to HEP to continue progress independently. Treatment Plan/Direct Interventions Gait Training,Ice/Cold/ Vasopneumatic,Manual Therapy, Neuromuscular Re-ed, Therapeutic Activities, Therapeutic Exercises Frequency/Duration 1x/week for 10 weeks Patient Will Be Discharged From Therapy Completion of LTG(s),Skills Plateau,Independent w/HEP, Independently Progressing Evaluation Billing Untimed Code Treatment Minutes 20 Complexity Low Certification Information Initial Certification Date 01/16/22 Ending Certification Date 03/17/22 Provider Signature Shows Agreement With POC & Medical Necessity Physician Signature & Date Requested Please Sign/Date Here Physician Comment/Change : Physician NPI Number #
== END 2022-04-26 14:32 | disposition home or self-care (01) ==
PROVIDERS: Visit Provider Physician Assistant Surgical
DX: Z98.890 Other specified postprocedural states (principal); Z51.89 Encounter for other specified aftercare
CPT/HCPCS: 97110; 97140; 97161